=== PATIENT | female | born 1945 | race Caucasian/White ===

== ENCOUNTER 2016-08-27 14:04 | Emergency (ER) | payer MEDICARE ==
[2016-08-27 14:10] VITALS: BP 118/59; PULSE 112; TEMP 98.3
--- NOTE | 2016-08-27 14:33 | ED ---
General Adult HPI - General Chief complaint: Back Pain/Injury Stated complaint: Fall Time Seen by Provider: 08/27/16 14:16 Source: patient, RN notes reviewed, old records reviewed Mode of arrival: ambulatory Limitations: no limitations - History of Present Illness Initial comments: Chief complaint and history of present illness; patient reports that she fell while getting out of bed approximately 2 weeks ago. Complains discomfort to her right paralumbar region. No pain down the leg. Patient also reports that she was going into her doctor's office today when she stumbled and fell and he sent her here for x-rays of the lumbar spine. No new injuries since the fall. - Related Data Home Medications Medication Instructions Recorded Confirmed Letrozole [Femara] 2.5 mg PO HS 12/17/13 08/27/16 Zolpidem [Ambien] 10 mg PO HS PRN 12/17/13 08/27/16 ALPRAZolam [ALPRAZolam] 1 mg PO TID 08/27/16 08/27/16 Hydrocodone/Acetaminophen [[place] 1 tab PO Q6H PRN 08/27/16 08/27/16 10-325] Venlafaxine HCl [Venlafaxine HCl 75 mg PO DAILY 08/27/16 08/27/16 ER] Previous Rx's Medication Instructions Recorded Hydrocodone/Acetaminophen [[place] 1 each PO Q6HR PRN #20 tab 08/27/16 5-325] Allergies Allergy/AdvReac Type Severity Reaction Status Date / Time No Known Allergies Allergy Verified 08/27/16 14:10 Review of Systems ROS Statement: Those systems with pertinent positive or pertinent negative responses have been documented in the HPI. Review of systems. No headache or visual acuity changes. Denies any neck pain no shortness of breath no chest pain. Heart rates quickly 112. Blood pressure 118/59. Mild nausea yesterday slightly today. Without any other complaints. No complaints of any neuro deficits. No change in bowel habits. The patient was in emergency room was several weeks ago with probable constipation. This since subsided. All systems are reviewed. Past medical problems significant for breast cancer in 2011 she had back surgery in 2012. 2007 she had 3 brain aneurysms clipped in [place]. Also past history of panic disorder. Nonsmoker rarely drinks alcohol. Family history includes cancers of the breast, prostate: Stomach. ROS Other: All systems not noted in ROS Statement are negative. Past Medical History Past Medical History: Cancer Additional Past Medical History / Comment(s): hx breast cancer History of Any Multi-Drug Resistant Organisms: None Reported Past Surgical History: Back Surgery, Breast Surgery Additional Past Surgical History / Comment(s): 3 brain aneurysm's clipped-2007, left mastectomy-2013 Past Anesthesia/Blood Transfusion Reactions: No Reported Reaction Past Psychological History: Panic Disorder Smoking Status: Never smoker Past Alcohol Use History: Rare Past Drug Use History: None Reported General Exam - General Exam Comments Initial Comments: General: The patient is awake and alert, presented by doctor's office because of low back pain. Sent here for x-rays and lumbar spine. See chief complaint. Vital signs shows temperature 98.3 pulse 112 respiratory rate 20 pulse ox 99% room air blood pressure 118/59. Eye: Pupils are equal, round and reactive to light, extra-ocular movements are intact ; there is normal conjunctiva bilaterally. No signs of icterus. Ears, nose, mouth and throat: There are moist mucous membranes and no oral lesions. Neck: The neck is supple, there is no tenderness . Cardiovascular: Tachycardic heart rate 112.. No murmur, rub or gallop is appreciated. Respiratory: Lungs are clear to auscultation, respirations are non-labored, breath sounds are equal. No wheezes, stridor, rales, or rhonchi. Gastrointestinal: Soft, non-distended, non-tender abdomen without masses or organomegaly noted. There is no rebound or guarding present. No CVA tenderness. Bowel sounds are unremarkable. Back: Patient complains of right paralumbar pain without radiation into her bump buttock or down her legs. No sciatic type distribution complaint. Musculoskeletal: Normal ROM, no tenderness, There is no pedal edema. There is no calf tenderness or swelling. Sensation intact. Pulses equal bilaterally 2+. Neurological: CN II-XII intact, There are no obvious motor or sensory deficits. Coordination appears grossly intact. Speech is normal. Patient denies any neuro deficits or weakness. Skin: Skin is warm and dry and no rashes or lesions are noted. Early shingles discussed. Psychiatric: Past history of panic disorder. Denies any problems this time. Limitations: no limitations Course Vital Signs 08/27/16 08/27/16 14:07 15:10 Temperature 98.3 F Pulse Rate 112 H Respiratory 20 16 Rate Blood Pressure 118/59 O2 Sat by Pulse 99 Oximetry EKG Findings - EKG Comments: EKG Findings:: EKG was done and reviewed at 1442 showing sinus tachycardia rate 105. No acute ST elevation no ectopy. Rate 105 NH 148 QRS 92 QT [address] Milton Medical Decision Making - Medical Decision Making Medical decision making; 5 view x-rays of the lumbar spine were done and reviewed by radiologist entire report was reviewed his significant findings include there is loss. And plate height T12 proximal 20%,'s. Platelet loss of height of T11 approximately 50%. Impression; osteoporotic compression fracture superior endplate T12 and T11 thought to be an interval finding. As read by Dr. Bonilla. He compared these x-rays to those that were done on 06/16/2015. Patient states that she has [place] for breakthrough pain. States she does not need any extra pills. Also advised to use ibuprofen regular Tylenol and then a stronger pain medication for breakthrough pain. Also continue with stool softeners and adequate fluids to prevent constipation which she often has. Patient advised to follow-up with her family physician. She'll also be advised to follow-up with orthopedic surgeon. She will be given a prescription for a TLSO brace. In the meanwhile not to do any bending forward. Case discussed with orthopedic surgeon, back specialist, Dr. Hdz. The patient will call the office in follow-up with him. In the meanwhile she is to obtain an a TLSO brace not to do any bending forward. And discharged given the patient's denying any numbness tingling to lower extremities. No radiation of pain other than to that area in the mid low back. No difficulty controlling her stool and urine. Disposition Clinical Impression: Compression fracture of body of thoracic vertebra Disposition: HOME SELF-CARE Condition: Fair Instructions: Chronic Back Pain (ED), Vertebral Compression Fracture (ED) Additional Instructions: Go to an orthopedic brace facility to obtain a TLSO brace. In the meanwhile continue with home pain medications. No bending forward. And follow-up with Dr. Hdz Prescriptions: Hydrocodone/Acetaminophen [[place] 5-325] 1 each PO Q6HR PRN #20 tab PRN Reason: Pain Referrals: Everardo Parker MD [Primary Care Provider] - 1-2 days Neri Hdz DO [Doctor of Osteopathic Medicine] - 1-2 days Time of Disposition: 15:46
[2016-08-27 15:12] VITALS: RESP 16
--- NOTE | 2016-08-27 15:18 | XR ---
Lumbosacral spine HISTORY: Back pain, fall 5 views of the lumbosacral spine correlated to prior exam 16 June 2015 Postop changes status post lumbar fusion L2-L5 are again noted. There is mild spinal curvature, multi level laminectomy, there is intervertebral spacing material at L3-4, L4-5, partial sacralization of L 5 as on prior exam. No evident spondylolysis. Alignment is stable. Loss of disc height L5-S1. Bone de nsity is somewhat reduced. There is loss of superior endplate height at T12 approximately 20%, superi or endplate loss of height at T11 approximately 50%. IMPRESSION: Osteoporotic compression fractures superior endplates T11-T12 are thought to be an interv al finding
== END 2016-08-27 16:06 | disposition home or self-care (01) ==
LOC: EC 14:04
DX: S22.089A Unspecified fracture of T11-T12 vertebra, initial encounter for closed fracture (principal); F41.0 Panic disorder [episodic paroxysmal anxiety]; Z79.899 Other long term (current) drug therapy; W06.XXXA Fall from bed, initial encounter
CPT/HCPCS: 72110; 93005; 99284

== ENCOUNTER 2016-11-25 14:06 | Inpatient (IN) | payer MEDICARE ==
[2016-11-25] MEDS ORDERED: SODIUM CHLORIDE 0.9% 1,000 ML IV STA (14:14)
[2016-11-25 15:00] LABS: Creatine Kinase 90 U/L (30-135)
[2016-11-25 15:01] LABS: Prothrombin Time 10.1 sec (9.0-12.0)
[2016-11-25 15:04] LABS: Anisocytosis Slight; CH 22.8; CHCM 28.4; HDW 3.97; Hypochromasia Marked; MCH 23.7 pg (25.0-35.0); MCHC 29.4 g/dL (31.0-37.0); MCV 80.6 fL (80.0-100.0); Mean Platelet Volume 7.5; Microcytosis Slight; Poikilocytosis Slight; RBC 2.41 m/uL (3.80-5.40); RDW 17.6 % (11.5-15.5); WBC 9.5 k/uL (3.8-10.6)
[2016-11-25 15:05] LABS: Calcium 8.8 mg/dL (8.4-10.2); Magnesium 1.9 mg/dL (1.6-2.3); Total Bilirubin 0.2 mg/dL (0.2-1.3); Total Protein 6.4 g/dL (6.3-8.2)
[2016-11-25 15:06] LABS: HGB 5.7 gm/dL (11.4-16.0)
[2016-11-25 15:07] LABS: HCT 19.4 % (34.0-46.0)
[2016-11-25 15:14] LABS: Creatine Kinase MB 1.6 ng/mL (0.0-2.4); Troponin I <0.012 ng/mL (0.000-0.034)
[2016-11-25 15:23] LABS: Add Differential Manual Differential
[2016-11-25 15:27] LABS: Manual Review Performed; Nucleated Red Blood Cells 0 /100 WBC (0-0); Polychromasia Present; Total Cells Counted 100
--- NOTE | 2016-11-25 16:32 | ED ---
General Adult HPI - General Chief complaint: Recheck/Abnormal Lab/Rx Stated complaint: Low Hemoglobin Time Seen by Provider: 11/25/16 14:14 Source: patient, RN notes reviewed, old records reviewed Mode of arrival: wheelchair Limitations: no limitations - History of Present Illness Initial comments: This is a 71-year-old female here for evaluation of anemia, history of severe anemia, history of breast cancer specula going to chemo. Patient complaining of some back pain 1 anxiety. Patient's also admitted to fatigue of recent note. Shortness of breath. Patient was sent in for evaluation regarding severely low hemoglobin. Patient denies blood in her stool, no nausea vomiting of blood Location: neck - Related Data Home Medications Medication Instructions Recorded Confirmed ALPRAZolam [ALPRAZolam] 1 mg PO TID PRN 08/27/16 11/25/16 Loratadine [Claritin] 10 mg PO DAILY 11/25/16 11/25/16 Multivitamins, Thera [Multivitamin 1 tab PO DAILY 11/25/16 11/25/16 (formulary)] oxyCODONE-APAP 10-325MG [Percocet 1 tab PO TID PRN 11/25/16 11/25/16 10-325 mg] Allergies Allergy/AdvReac Type Severity Reaction Status Date / Time No Known Allergies Allergy Verified 11/25/16 14:51 Review of Systems ROS Statement: Those systems with pertinent positive or pertinent negative responses have been documented in the HPI. ROS Other: All systems not noted in ROS Statement are negative. Past Medical History Past Medical History: Cancer Additional Past Medical History / Comment(s): hx breast cancer History of Any Multi-Drug Resistant Organisms: None Reported Past Surgical History: Back Surgery, Breast Surgery Additional Past Surgical History / Comment(s): 3 brain aneurysm's clipped-2007, left mastectomy-2013 Past Anesthesia/Blood Transfusion Reactions: No Reported Reaction Past Psychological History: Panic Disorder Smoking Status: Never smoker Past Alcohol Use History: Rare Past Drug Use History: None Reported General Exam Limitations: no limitations General appearance: alert, in no apparent distress, lethargic Head exam: Present: atraumatic, normocephalic, normal inspection Eye exam: Present: normal appearance, PERRL, EOMI. Absent: scleral icterus, conjunctival injection, periorbital swelling ENT exam: Present: normal exam, mucous membranes moist Neck exam: Present: normal inspection. Absent: tenderness, meningismus, lymphadenopathy Respiratory exam: Present: normal lung sounds bilaterally. Absent: respiratory distress, wheezes, rales, rhonchi, stridor Cardiovascular Exam: Present: regular rate, normal rhythm, normal heart sounds. Absent: systolic murmur, diastolic murmur, rubs, gallop, clicks GI/Abdominal exam: Present: soft, normal bowel sounds. Absent: distended, tenderness, guarding, rebound, rigid Extremities exam: Present: normal inspection, full ROM, normal capillary refill. Absent: tenderness, pedal edema, joint swelling, calf tenderness Back exam: Present: normal inspection Neurological exam: Present: alert, oriented X3, CN II-XII intact Psychiatric exam: Present: normal affect, normal mood Skin exam: Present: warm, dry, intact, normal color. Absent: rash Course Vital Signs 11/25/16 11/25/16 11/25/16 14:10 14:53 16:12 Temperature 98.2 F Pulse Rate 113 H 105 H 99 Respiratory 17 18 18 Rate Blood Pressure 112/55 118/60 130/59 O2 Sat by Pulse 98 96 98 Oximetry - Reevaluation(s) Reevaluation #1: 11/25/16 17:06 Patient still feeling weak and fatigued Medical Decision Making - Medical Decision Making 71 female at ER for evaluation of severe anemia. History of CVA, patient be admitted for blood transfusion - Lab Data Result diagrams: 11/25/16 14:24 11/25/16 14:24 Lab Results 11/25/16 11/25/16 11/25/16 Range/Units 14:24 14:24 14:24 WBC 9.5 (3.8-10.6) k/uL RBC 2.41 L (3.80-5.40) m/uL Hgb 5.7 L* (11.4-16.0) gm/dL Hct 19.4 L* (34.0-46.0) % MCV 80.6 (80.0-100.0) fL MCH 23.7 L (25.0-35.0) pg MCHC 29.4 L (31.0-37.0) g/dL RDW 17.6 H (11.5-15.5) % Plt Count 683 H (150-450) k/uL Neutrophils % (Manual) 77.0 % Lymphocytes % (Manual) 14.0 % Monocytes % (Manual) 7.0 % Eosinophils % (Manual) 2.0 % Neutrophils # (Manual) 7.3 (1.3-7.7) k/uL Lymphocytes # (Manual) 1.3 (1.0-4.8) k/uL Monocytes # (Manual) 0.7 (0-1.0) k/uL Eosinophils # (Manual) 0.2 (0-0.7) k/uL Nucleated RBCs 0 (0-0) /100 WBC Manual Slide Review Performed Polychromasia Present Hypochromasia Marked Poikilocytosis Slight Anisocytosis Slight Microcytosis Slight PT (9.0-12.0) sec INR (<1.2) APTT (22.0-30.0) sec Sodium 133 L (137-145) mmol/L Potassium 4.0 (3.5-5.1) mmol/L Chloride 102 (98-107) mmol/L Carbon Dioxide 21 L (22-30) mmol/L Anion Gap 10 mmol/L BUN 14 (7-17) mg/dL Creatinine 1.41 H (0.52-1.04) mg/dL Est GFR (MDRD) Af Amer 44 (>60 ml/min/1.73 sqM) Est GFR (MDRD) Non-Af 37 (>60 ml/min/1.73 sqM) Glucose 103 H (74-99) mg/dL Calcium 8.8 (8.4-10.2) mg/dL Magnesium 1.9 (1.6-2.3) mg/dL Total Bilirubin 0.2 (0.2-1.3) mg/dL AST 30 (14-36) U/L ALT 30 (9-52) U/L Alkaline Phosphatase 97 (38-126) U/L Total Creatine Kinase 90 (30-135) U/L CK-MB (CK-2) 1.6 (0.0-2.4) ng/mL CK-MB (CK-2) Rel Index 1.8 Troponin I <0.012 (0.000-0.034) ng/mL Total Protein 6.4 (6.3-8.2) g/dL Albumin 3.3 L (3.5-5.0) g/dL Blood Type Blood Type Recheck Antibody Screen Spec Expiration Date 11/25/16 11/25/16 Range/Units 14:24 14:24 WBC (3.8-10.6) k/uL RBC (3.80-5.40) m/uL Hgb (11.4-16.0) gm/dL Hct (34.0-46.0) % MCV (80.0-100.0) fL MCH (25.0-35.0) pg MCHC (31.0-37.0) g/dL RDW (11.5-15.5) % Plt Count (150-450) k/uL Neutrophils % (Manual) % Lymphocytes % (Manual) % Monocytes % (Manual) % Eosinophils % (Manual) % Neutrophils # (Manual) (1.3-7.7) k/uL Lymphocytes # (Manual) (1.0-4.8) k/uL Monocytes # (Manual) (0-1.0) k/uL Eosinophils # (Manual) (0-0.7) k/uL Nucleated RBCs (0-0) /100 WBC Manual Slide Review Polychromasia Hypochromasia Poikilocytosis Anisocytosis Microcytosis PT 10.1 (9.0-12.0) sec INR 1.0 (<1.2) APTT 20.0 L (22.0-30.0) sec Sodium (137-145) mmol/L Potassium (3.5-5.1) mmol/L Chloride (98-107) mmol/L Carbon Dioxide (22-30) mmol/L Anion Gap mmol/L BUN (7-17) mg/dL Creatinine (0.52-1.04) mg/dL Est GFR (MDRD) Af Amer (>60 ml/min/1.73 sqM) Est GFR (MDRD) Non-Af (>60 ml/min/1.73 sqM) Glucose (74-99) mg/dL Calcium (8.4-10.2) mg/dL Magnesium (1.6-2.3) mg/dL Total Bilirubin (0.2-1.3) mg/dL AST (14-36) U/L ALT (9-52) U/L Alkaline Phosphatase (38-126) U/L Total Creatine Kinase (30-135) U/L CK-MB (CK-2) (0.0-2.4) ng/mL CK-MB (CK-2) Rel Index Troponin I (0.000-0.034) ng/mL Total Protein (6.3-8.2) g/dL Albumin (3.5-5.0) g/dL Blood Type O Positive Blood Type Recheck No Antibody Screen NEGATIVE Spec Expiration Date 11/28/2016 - 2323 Disposition Clinical Impression: Anemia Disposition: ADMITTED IP TO THIS HOSP Condition: Fair Referrals: None,Stated [Primary Care Provider] - 1-2 days
[2016-11-25] MEDS ORDERED: SODIUM CHLORIDE 0.9% 1,000 ML IV ONE (17:03)
[2016-11-25] MEDS ORDERED: LORazepam 2 MG/ML SYRINGE IV STA ×2 (17:07)
[2016-11-25] MEDS ORDERED: MORPHINE SULFATE 4 MG/ML SYRINGE IVP STA (17:07)
[2016-11-25] MEDS ORDERED: oxyCODONE-APAP 10-325MG 1 EACH TAB PO PRN (23:00)
[2016-11-25] MEDS: MORPHINE SULFATE 4 MG/ML SYRINGE IVP PRN (23:04)
[2016-11-26] MEDS: ALPRAZolam 0.5 MG TAB PO PRN ×2 (01:40→15:36)
[2016-11-26] MEDS: MORPHINE SULFATE 4 MG/ML SYRINGE IVP PRN ×6 (02:56→20:49)
[2016-11-26 04:38] VITALS: BMI 18.3
[2016-11-26] MEDS ORDERED: HYDROmorphone 1 MG/ML 1 ML SYRINGE IVP STA (07:28)
[2016-11-26] MEDS: HYDROmorphone 2 MG/ML 1 ML SYRINGE IVP PRN ×3 (07:40→10:22)
[2016-11-26] MEDS ORDERED: ZOLPIDEM 5 MG TAB PO PRN (07:53)
[2016-11-26 07:56] LABS: ALT 31 U/L (9-52); AST 24 U/L (14-36); Alkaline Phosphatase 88 U/L (38-126); Anion Gap 7 mmol/L; Anisocytosis Slight; Basophils # (A) 0.1 k/uL (0-0.2); Basophils % (A) 1 %; Blood Urea Nitrogen 9 mg/dL (7-17); CH 25.4; CHCM 29.5; Calcium 8.4 mg/dL (8.4-10.2); Carbon Dioxide 22 mmol/L (22-30); Chloride 108 mmol/L (98-107); Eosinophils # (A) 0.3 k/uL (0-0.7); Eosinophils % (A) 4 %; Glucose 85 mg/dL (74-99); HCT 26.8 % (34.0-46.0); HDW 4.39; Hypochromasia Marked; Luc # (Auto) 0.29; Luc % (Auto) 4; Lymphocytes # (A) 1.8 k/uL (1.0-4.8); Lymphocytes % (A) 24 %; MCH 25.2 pg (25.0-35.0); MCHC 29.2 g/dL (31.0-37.0); Mean Platelet Volume 7.3; Monocytes # (A) 0.8 k/uL (0-1.0); Monocytes % (A) 10 %; Neutrophils # (A) 4.4 k/uL (1.3-7.7); Neutrophils % (A) 58 %; Non-African American GFR(MDRD) >60 (>60 ml/min/1.73 sqM); Poikilocytosis Moderate; Potassium 4.3 mmol/L (3.5-5.1); RDW 17.1 % (11.5-15.5); Sodium 137 mmol/L (137-145); Total Bilirubin 0.2 mg/dL (0.2-1.3); Total Protein 5.5 g/dL (6.3-8.2); WBC 7.7 k/uL (3.8-10.6); WBC (Perox) 7.55
[2016-11-26 08:07] LABS: HGB 7.8 gm/dL (11.4-16.0)
[2016-11-26 08:08] LABS: MCV 86.2 fL (80.0-100.0)
[2016-11-26] MEDS ORDERED: RX INFO: IV CONTRAST WAS GIVEN 1 EACH MISC MISCELLANE PRN (08:11)
--- NOTE | 2016-11-26 08:45 | HP ---
CHIEF COMPLAINT: A 71-year-old white female with severe anemia. HISTORY OF PRESENT ILLNESS: A 71-year-old white female with history of breast cancer in remission, but over the last 2 or 3 months she has been having some weight loss, 14 pounds. She has not seen Dr. Campos. She wants to be re- evaluated. At this time, she has some shortness of breath. She has severely low hemoglobin of 5.6 in the ER. ( ). No nausea or vomiting of blood. Home medications are: 1. Alprazolam. 2. Claritin. 3. Multivitamin. 4. Percocet. ALLERGIES: No known drug allergies. REVIEW OF SYSTEMS: Fourteen point review of systems negative except for mentioned in HPI. PAST MEDICAL HISTORY: Cancer of the breast, back surgery, breast surgery, three brain aneurysms, clipped in 2007, left mastectomy 2013, panic disorder. No smoking, no alcohol. PHYSICAL EXAM: Vital signs stable, afebrile. GENERAL APPEARANCE: Alert, in no acute distress. HEENT: Normocephalic, atraumatic. OPHTHALMOLOGIC: Pupils equal, round, reactive to light and accommodation. ENT: External ear canals within normal limits. LUNGS: Clear. No rales or rhonchi or wheezing. CARDIOVASCULAR: Regular rate and rhythm. No murmurs, rubs or gallops. GI: Soft, nontender. No bowel sounds. EXTREMITIES: No cyanosis, clubbing or edema. BACK: Normal on inspection PSYCH: Fair mood affect. SKIN: Warm, dry, intact; although she appear to be pale, pale skin. Temp 98.2, pulse 99 to 113, respiratory 16 to 18, blood pressure 112 to 130s over 50s to 60, O2 is 98% to 96% on room air. ASSESSMENT: 1. Severe anemia of unclear etiology, rule out gastrointestinal bleed, rule out metastatic cancer. 2. History of breast cancer. 3. Hyponatremia. 4. Stage III renal insufficiency. Type and cross and transfuse 2 units of blood. We will check CBC in the morning. A bone scan has been ordered. Please see further orders. Dr. Campos consult is recommended as well as surgical consult to rule out GI bleed. [facility]
--- NOTE | 2016-11-26 08:45 | P.GSCN ---
History of Present Illness Consult date: 11/26/16 Reason for Consult: Anemia. History of present illness: Thank you very much for asking us to see this patient. She is a 71-year-old white female admitted with the anemia with a hemoglobin of 5.7. She complained of some weakness's some mild shortness of breath was pale. Had anemia workup by Dr. spencer the management. She denies any blood per rectum. Stools have been normal. No abdominal pain. She states she had a colonoscopy and EGD more than 5 years ago. Has a history of duodenal ulcer after being treated with the analgesia and NSAIDS for back issues several years ago. She has a history of the breast cancers status post left the mastectomy and immediate reconstruction. Did have positive nodes apparently according to her. She however states she did not receive any chemo or radiation subsequently. This was done at [facility]. PAst history. Back surgery. Left mastectomy with immediate reconstruction. Continued back pain. Medications as listed. Social history family history well-documented. On examination the patient is somewhat pale. Just received some analgesia. Not a good historian. Vitals and normal temperature is normal. Head and neck are normal. No cervical lymphadenopathy. Breasts well-healed left mastectomy scar no evidence of local recurrence or lymphadenopathy. No mass in the right breast. Abdomen is quite soft nontender no masses or organomegaly or hernias noted. Extremities normal. LITIGATION COUNSEL intact. Laboratory studies were noted. Hemoglobin was 5.7 on admission. Recommendation. Recommend GI workup to rule out any bleeding soft. Therefore EGD and colonoscopy will be recommended she understands and agrees to proceed. We will have a schedule in the next day or [address] Rasmussen or Dr. Stapleton . Past Medical History Past Medical History: Cancer Additional Past Medical History / Comment(s): hx breast cancer History of Any Multi-Drug Resistant Organisms: None Reported Past Surgical History: Back Surgery, Breast Surgery Additional Past Surgical History / Comment(s): 3 brain aneurysms clipped-2007, left mastectomy-2013, back sx 2013 Past Anesthesia/Blood Transfusion Reactions: No Reported Reaction Past Psychological History: Panic Disorder Smoking Status: Never smoker Past Alcohol Use History: Rare Past Drug Use History: None Reported - Past Family History Mother Family Medical History: No Reported History Medications and Allergies Home Medications Medication Instructions Recorded Confirmed Type ALPRAZolam [ALPRAZolam] 1 mg PO TID PRN 08/27/16 11/25/16 History Loratadine [Claritin] 10 mg PO DAILY 11/25/16 11/25/16 History Multivitamins, Thera [Multivitamin 1 tab PO DAILY 11/25/16 11/25/16 History (formulary)] oxyCODONE-APAP 10-325MG [Percocet 1 tab PO TID PRN 11/25/16 11/25/16 History 10-325 mg] Allergies Allergy/AdvReac Type Severity Reaction Status Date / Time No Known Allergies Allergy Verified 11/25/16 14:51 Surgical - Exam Vital Signs Temp Pulse Resp BP Pulse Ox 98.2 F 113 H 17 112/55 98 11/25/16 14:10 11/25/16 14:10 11/25/16 14:10 11/25/16 14:10 11/25/16 14:10 Results - Labs 11/26/16 07:09 11/26/16 07:09 Abnormal Lab Results - Last 24 Hours (Table) 11/25/16 11/25/16 11/25/16 Range/Units 14:24 14:24 14:24 RBC 2.41 L (3.80-5.40) m/uL Hgb 5.7 L* (11.4-16.0) gm/dL Hct 19.4 L* (34.0-46.0) % MCH 23.7 L (25.0-35.0) pg MCHC 29.4 L (31.0-37.0) g/dL RDW 17.6 H (11.5-15.5) % Plt Count 683 H (150-450) k/uL APTT 20.0 L (22.0-30.0) sec Sodium 133 L (137-145) mmol/L Chloride (98-107) mmol/L Carbon Dioxide 21 L (22-30) mmol/L Creatinine 1.41 H (0.52-1.04) mg/dL Glucose 103 H (74-99) mg/dL Total Protein (6.3-8.2) g/dL Albumin 3.3 L (3.5-5.0) g/dL Crossmatch 11/25/16 11/26/16 11/26/16 Range/Units 14:24 07:09 07:09 RBC 3.10 L (3.80-5.40) m/uL Hgb 7.8 L D (11.4-16.0) gm/dL Hct 26.8 L (34.0-46.0) % MCH (25.0-35.0) pg MCHC 29.2 L (31.0-37.0) g/dL RDW 17.1 H (11.5-15.5) % Plt Count 512 H (150-450) k/uL APTT (22.0-30.0) sec Sodium (137-145) mmol/L Chloride 108 H (98-107) mmol/L Carbon Dioxide (22-30) mmol/L Creatinine (0.52-1.04) mg/dL Glucose (74-99) mg/dL Total Protein 5.5 L (6.3-8.2) g/dL Albumin 2.7 L (3.5-5.0) g/dL Crossmatch See Detail Diabetes panel 11/25/16 11/26/16 Range/Units 14:24 07:09 Sodium 133 L 137 (137-145) mmol/L Potassium 4.0 4.3 (3.5-5.1) mmol/L Chloride 102 108 H (98-107) mmol/L Carbon Dioxide 21 L 22 (22-30) mmol/L BUN 14 9 (7-17) mg/dL Creatinine 1.41 H 0.91 (0.52-1.04) mg/dL Glucose 103 H 85 (74-99) mg/dL Calcium 8.8 8.4 (8.4-10.2) mg/dL AST 30 24 (14-36) U/L ALT 30 31 (9-52) U/L Alkaline Phosphatase 97 88 (38-126) U/L Total Protein 6.4 5.5 L (6.3-8.2) g/dL Albumin 3.3 L 2.7 L (3.5-5.0) g/dL Calcium panel 11/25/16 11/26/16 Range/Units 14:24 07:09 Calcium 8.8 8.4 (8.4-10.2) mg/dL Albumin 3.3 L 2.7 L (3.5-5.0) g/dL Pituitary panel 11/25/16 11/26/16 Range/Units 14:24 07:09 Sodium 133 L 137 (137-145) mmol/L Potassium 4.0 4.3 (3.5-5.1) mmol/L Chloride 102 108 H (98-107) mmol/L Carbon Dioxide 21 L 22 (22-30) mmol/L BUN 14 9 (7-17) mg/dL Creatinine 1.41 H 0.91 (0.52-1.04) mg/dL Glucose 103 H 85 (74-99) mg/dL Calcium 8.8 8.4 (8.4-10.2) mg/dL Adrenal panel 11/25/16 11/26/16 Range/Units 14:24 07:09 Sodium 133 L 137 (137-145) mmol/L Potassium 4.0 4.3 (3.5-5.1) mmol/L Chloride 102 108 H (98-107) mmol/L Carbon Dioxide 21 L 22 (22-30) mmol/L BUN 14 9 (7-17) mg/dL Creatinine 1.41 H 0.91 (0.52-1.04) mg/dL Glucose 103 H 85 (74-99) mg/dL Calcium 8.8 8.4 (8.4-10.2) mg/dL Total Bilirubin 0.2 0.2 (0.2-1.3) mg/dL AST 30 24 (14-36) U/L ALT 30 31 (9-52) U/L Alkaline Phosphatase 97 88 (38-126) U/L Total Protein 6.4 5.5 L (6.3-8.2) g/dL Albumin 3.3 L 2.7 L (3.5-5.0) g/dL
[2016-11-26] MEDS: SODIUM CHLORIDE 0.9% 1,000 ML IV SCH ×3 (08:58→21:19)
[2016-11-26] MEDS: MULTIVITAMINS, THERA 1 EACH TAB PO SCH (09:08)
[2016-11-26] MEDS: LORATADINE 10 MG TAB PO SCH (09:08)
[2016-11-26] MEDS: LORazepam 2 MG/ML SYRINGE IV PRN ×2 (11:32→20:49)
[2016-11-26] MEDS: IOHEXOL 350 MG/ML 25 ML BOTTLE (ORAL USE) PO PRN ×2 (12:42→13:44)
--- NOTE | 2016-11-26 13:47 | P.CONS ---
History of Present Illness - Reason for Consult Consult date: 11/26/16 history of breast cancer Requesting physician: Otto Self - Chief Complaint severe anemia, back pain - History of Present Illness Ms. Em is a very pleasant pt of Dr. Campos who was diagnosed with infiltrating ductal carcinoma of the left breast, ER/FL positive, Her2 negative back in 2011. Pt had left modified radical mastectomy with 4/15 lymph nodes positive. Staging PET was negative. She declined adjuvant chemotherapy and radiation, she agreed to hormonal treatment but was not taking as prescribed most of the time. Follow up CT chest and lumbar spine spine MRI done on 2013 were negative for malignancy. Mammogram 08/25/14, 08/29/15 were negative. Pt started to have worsening back pain in August 2016, Dr. Beckham referred pt to [place] where she had a CT scan of her lumbar spine 09/06/16 which revealed compression fracture at T11 and T12 level, MRI of lumbar spine at T11 concerns are for possible related to metastatic disease. Pt is admitted with severe anemia, she was seen by Dr. Campos in the office yesterday with work up ordered for severe anemia as well as imaging for low back pain. Pt seen today with c/o insomnia and back pain, she is weak, tired, not eating well, poor appetite, nearly 20lbs wt. loss in the last 6 months, she denies fevers, vomiting, changes in bowel or bladder habits. Review of Systems All systems: negative Constitutional: Reports as per HPI Past Medical History Past Medical History: Cancer Additional Past Medical History / Comment(s): hx breast cancer History of Any Multi-Drug Resistant Organisms: None Reported Past Surgical History: Back Surgery, Breast Surgery Additional Past Surgical History / Comment(s): 3 brain aneurysms clipped-2007, left mastectomy-2013, back sx 2013 Past Anesthesia/Blood Transfusion Reactions: No Reported Reaction Past Psychological History: Panic Disorder Smoking Status: Never smoker Past Alcohol Use History: Rare Past Drug Use History: None Reported - Past Family History Mother Family Medical History: No Reported History Medications and Allergies Home Medications Medication Instructions Recorded Confirmed Type ALPRAZolam [ALPRAZolam] 1 mg PO TID PRN 08/27/16 11/25/16 History Loratadine [Claritin] 10 mg PO DAILY 11/25/16 11/25/16 History Multivitamins, Thera [Multivitamin 1 tab PO DAILY 11/25/16 11/25/16 History (formulary)] oxyCODONE-APAP 10-325MG [Percocet 1 tab PO TID PRN 11/25/16 11/25/16 History 10-325 mg] Allergies Allergy/AdvReac Type Severity Reaction Status Date / Time No Known Allergies Allergy Verified 11/25/16 14:51 Physical Exam Vitals: Vital Signs Temp Pulse Pulse Resp BP BP Pulse Ox 11/26/16 08:00 90 16 11/26/16 07:00 97.7 F 90 16 133/77 11/26/16 03:08 97.9 F 86 18 128/64 97 11/26/16 00:08 97.7 F 86 20 138/70 11/25/16 23:38 98.0 F 87 20 142/67 95 11/25/16 23:28 98.0 F 92 18 123/60 94 L 11/25/16 23:05 97.8 F 82 18 132/68 95 11/25/16 22:30 18 11/25/16 21:10 98.1 F 86 18 133/70 95 11/25/16 20:40 97.9 F 95 18 130/69 94 L 11/25/16 20:30 98.0 F 98 18 137/98 94 L 11/25/16 18:25 96.8 F L 102 H 18 158/83 99 11/25/16 17:28 96 16 139/70 98 11/25/16 16:58 106 H 20 140/64 98 11/25/16 16:12 99 18 130/59 98 11/25/16 14:53 105 H 18 118/60 96 11/25/16 14:10 98.2 F 113 H 17 112/55 98 Intake and Output 11/25/16 11/26/16 11/26/16 22:59 06:59 14:59 Intake Total 830 1760 Balance 830 1760 Intake: Intake, IV Titration 400 Amount Sodium Chloride 0.9% 1, 400 000 ml @ 100 mls/hr IV . Q10H ONE Rx#:[id number] Oral 830 120 Blood Product 0 1240 Rc As-1 Unit 310 [id number] Rc As-1 Unit 0 310 [id number] Other: Voiding Method Bedside Commode # Voids 2 2 1 Weight 49.895 kg 49.895 kg Patient Weight 11/27/16 06:59 Weight 49.895 kg - Constitutional General appearance: average body habitus, cooperative, mild distress - EENT Eyes: anicteric sclerae, EOMI, normal appearance ENT: normal oropharynx - Neck Neck: no lymphadenopathy - Respiratory Respiratory: bilateral: CTA - Cardiovascular Heart sounds: normal: S1, S2 leg Peripheral Edema: bilateral: None - Gastrointestinal General gastrointestinal: no absent bowel sounds, no decreased bowel sounds, no distended, no hepatomegaly, no hyperactive bowel sounds, normal bowel sounds, no organomegaly, no rigid, no scaphoid, soft, no splenomegaly, no tenderness, no umbilical hernia, no ventral hernia - Integumentary Integumentary: pale - Neurologic Neurologic: CNII-XII intact - Musculoskeletal Musculoskeletal: generalized weakness - Psychiatric Psychiatric: A&O x's 3, appropriate affect, intact judgment & insight Results CBC & Chem 7: 11/26/16 07:09 11/26/16 07:09 Labs: Abnormal Lab Results - Last 24 Hours (Table) 11/25/16 11/25/16 11/25/16 Range/Units 14:24 14:24 14:24 RBC 2.41 L (3.80-5.40) m/uL Hgb 5.7 L* (11.4-16.0) gm/dL Hct 19.4 L* (34.0-46.0) % MCH 23.7 L (25.0-35.0) pg MCHC 29.4 L (31.0-37.0) g/dL RDW 17.6 H (11.5-15.5) % Plt Count 683 H (150-450) k/uL APTT 20.0 L (22.0-30.0) sec Sodium 133 L (137-145) mmol/L Chloride (98-107) mmol/L Carbon Dioxide 21 L (22-30) mmol/L Creatinine 1.41 H (0.52-1.04) mg/dL Glucose 103 H (74-99) mg/dL Total Protein (6.3-8.2) g/dL Albumin 3.3 L (3.5-5.0) g/dL Crossmatch 11/25/16 11/26/16 11/26/16 Range/Units 14:24 07:09 07:09 RBC 3.10 L (3.80-5.40) m/uL Hgb 7.8 L D (11.4-16.0) gm/dL Hct 26.8 L (34.0-46.0) % MCH (25.0-35.0) pg MCHC 29.2 L (31.0-37.0) g/dL RDW 17.1 H (11.5-15.5) % Plt Count 512 H (150-450) k/uL APTT (22.0-30.0) sec Sodium (137-145) mmol/L Chloride 108 H (98-107) mmol/L Carbon Dioxide (22-30) mmol/L Creatinine (0.52-1.04) mg/dL Glucose (74-99) mg/dL Total Protein 5.5 L (6.3-8.2) g/dL Albumin 2.7 L (3.5-5.0) g/dL Crossmatch See Detail Assessment and Plan (1) History of breast cancer Narrative/Plan: Bone scan and CT ordered for breast cancer follow up as pt has new symptomology. Await results Status: Chronic (2) Back pain Narrative/Plan: Osteoporotic fracture or pathological fracture is the differential, scans pending, pain meds adjusted. Status: Acute (3) Anemia Narrative/Plan: Anemia work up was done in office with results: iron saturation 4% ferritin 13 suggestive of iron deficiency, IV iron will be ordered. B12 WNDL, SPEP results still pending. Recommending GI work up, they will be consulted. Status: Acute
[2016-11-26] MEDS: SODIUM FERRIC GLUCONAT-SUCROSE 125 MG in SODIUM CHLORIDE 0.9% 100 ML IVPB SCH (14:15)
--- NOTE | 2016-11-26 15:05 | NM ---
EXAMINATION TYPE: NM bone scan whole body DATE OF EXAM: 11/26/2016 COMPARISON: NONE HISTORY: Low back pain, abnormal MRI Delayed whole-body scanning was performed following the injection of 26.1 mCi Tc 99m MDP. Images acq uired 5 hours post injection. FINDINGS: There is abnormal uptake involving the thoracolumbar junction which appears intense. Moderate uptake involving the mid and lower thoracic segments. Abnormal uptake involving the shoulders typical of arthritic change. Abnormal uptake involving the le ft hand likely arthritic. IMPRESSION: Intense abnormal uptake near the thoracolumbar junction. Outside MRIs not available person. Correlate with report.
--- NOTE | 2016-11-26 15:18 | CDI ---
In responding to this query, please exercise your independent professional judgment. The [facility] Coding Staff and Clinical Documentation Specialists appreciate your assistance in clarifying documentation, maintaining compliance with coding guidelines, accurately documenting patients condition and capturing severity of illness. The fact that a question is asked does not imply that any particular answer is desired or expected. Communication forms are a method of clarifying documentation and are not made part of the Legal Health Record. Thank you in advance for your clarification. Last Revision, March [address] [place] [address] Documentation Clarification Form Date: 11/26/2016 3:11:00 PM From: Anisa Lam RN, CCDS Admit Date: 11/25/2016 5:03:00 PM Patient Name: Rhea Em Visit Number: [id number] Dr. Shantanu Moran . History/Risk Factors: Breast cancer, brain aneurysm clipping, panic disorder, back surgery Clinical Indicators: Labs: Albumin: 5.5 Total Protein: 2.7 Current BMI: 18.3 Weight Loss: 14 lb weight loss over last 3 months Treatment: Dietary Consult: not ordered Supplements/TPN: not ordered Lab monitoring: AM daily In your professional opinion, can you please clarify if these findings signify one of the following conditions? Mild Protein-Calorie Malnutrition Moderate Protein-Calorie Malnutrition Severe Protein-Calorie Malnutrition Other condition, please specify Unable to determine Please document in your progress notes and discharge summary in order to capture severity of illness and risk of mortality. Include clinical findings that support your diagnosis. FYI: Press F11 to launch patient chart. Place X here if this finding has no clinical significance, is not applicable or if you are not able to provide any additional documentation. RASHEED
--- NOTE | 2016-11-26 15:26 | CDI ---
In responding to this query, please exercise your independent professional judgment. The [facility] Coding Staff and Clinical Documentation Specialists appreciate your assistance in clarifying documentation, maintaining compliance with coding guidelines, accurately documenting patients condition and capturing severity of illness. The fact that a question is asked does not imply that any particular answer is desired or expected. Communication forms are a method of clarifying documentation and are not made part of the Legal Health Record. Thank you in advance for your clarification. Last Revision, March 2015 Sylvia Aguilar [address] [address] Documentation Clarification Form Date: 11/26/2016 3:18:00 PM From: Anisa Lam RN, CCDS Admit Date: 11/25/2016 5:03:00 PM Patient Name: Rhea Em Visit Number: [id number] Dr. Shantanu Moran History/Risk Factors: Left breast CA with mastectomy and chemo, iron deficiency anemia Clinical Indicators: Current BUN/CR/GFR: 25/05.41/37 12/20/13 Patients Baseline: BUN/CR/GFR: 28/05.15/47 11/25 H&P: "Stage III renal insufficiency." Treatment: IVF: 0.9%NS @ 125 cc/hr 2 U PC TX In order to capture the severity of condition, please clarify if the condition signifies: CKD Stage 1 (GFR > 90) CKD Stage 2 (GFR 60-89) CKD Stage 3 (GFR 30-59) CKD Stage 4 (GFR 15-29) CKD Stage 5 (GFR <15) ESRD Unable to determine Other condition, please specify Please document in your progress notes and discharge summary in order to capture severity of illness and risk of mortality. Include clinical findings that support your diagnosis. FYI: Press F11 to launch patient chart. Place X here if this finding has no clinical significance, is not applicable or if you are not able to provide any additional documentation. RASHEED
--- NOTE | 2016-11-26 15:33 | CT ---
EXAMINATION TYPE: CT ChestAbdPelvis w con DATE OF EXAM: 11/26/2016 COMPARISON: 09/20/2013 CT chest. Plain films of the lumbar spine 08/27/2016 HISTORY: pain, history of breast cancer CT DLP: 584 mGycm CONTRAST: Omni 300/[address] of the chest abdomen pelvis was performed. CT Chest: LUNGS: The lungs are clear and free of infiltrate or atelectasis. No pulmonary nodule or mass is det ected. Tiny bilateral pleural effusions left greater than right. Hyperinflation compatible with COPD. MEDIASTINUM: Thoracic aorta is of normal caliber. The heart is not enlarged. No evidence for media stinal mass or adenopathy. HILAR STRUCTURES: No evidence for mass. No hilar adenopathy is appreciated. OTHER: Left mastectomy changes. Breast implant intact. CONTRAST CT ABDOMEN AND PELVIS FINDINGS: LIVER/GB: No calcified gallstones. No space occupying hepatic lesion. Biliary tree is of normal ca liber. PANCREAS: No inflammation. No distinct mass. SPLEEN: No splenic enlargement. No lesion seen. ADRENALS: No nodule. No thickening. KIDNEYS/BLADDER: No hydronephrosis. No nephrolithiasis. No disctinct renal mass. BOWEL: Moderate fixed hiatal hernia. Normal appendix. Normal bowel caliber. No inflammation. GENITAL ORGANS: No gross abnormality. LYMPH NODES: No greater than 1cm abdominal or pelvic lymph nodes are appreciated. AORTA: No significant abnormality. OSSEOUS STRUCTURES: Decompressive laminectomy changes of the lumbar spine. Impression T12 compression fracture with bony retropulsion noted. Loss of height estimated at greater than 90%. Retropulsion measures 7 mm with resultant central stenosis. Stable appearing T11 compressi on fracture. OTHER: No significant additional abnormality is seen. IMPRESSION: 1. No definite evidence for metastatic disease. 2. Lower thoracic compression fractures as discussed above. 3. Small effusions.
[2016-11-27] MEDS: MORPHINE SULFATE 4 MG/ML SYRINGE IVP PRN ×2 (01:29→05:27)
[2016-11-27] MEDS: SODIUM CHLORIDE 0.9% 1,000 ML IV SCH (05:28)
[2016-11-27 08:01] VITALS: PULSE 104; RESP 18
[2016-11-27] MEDS: MULTIVITAMINS, THERA 1 EACH TAB PO SCH (09:11)
[2016-11-27] MEDS: LORATADINE 10 MG TAB PO SCH (09:11)
[2016-11-27] MEDS: LORazepam 2 MG/ML SYRINGE IV PRN (09:11)
[2016-11-27] MEDS: SODIUM FERRIC GLUCONAT-SUCROSE 125 MG in SODIUM CHLORIDE 0.9% 100 ML IVPB SCH (09:19)
--- NOTE | 2016-11-27 12:28 | PN ---
SUBJECTIVE: 71 year old white female admitted for severe anemia, transfused two units of blood has been done. Hemoglobin is up to 7.8. Await surgical consult is appreciated as well as infectious oncology consult. She has protein level low at 2.7. She has moderate protein calorie malnutrition. Severe anemia. ( ) bone scan is appreciated. Await oncology recommendations. Workup for severe anemia. GI workup to rule out any bleeding. EGD and colonoscopy is ( ) possible next day or two will be done. MTDD
[2016-11-27] MEDS: ALPRAZolam 0.5 MG TAB PO PRN (15:58)
[2016-11-27 16:13] VITALS: BP 139/82; TEMP 98
--- NOTE | 2016-11-27 18:43 | P.PN ---
Subjective Principal diagnosis: Anemia Patient was seen yesterday by Dr. Tobar. Today the patient was reevaluated. Hemoglobin has come up after transfusion. The patient denies rectal bleeding. She appears quite upset today regarding the ongoing back discomforts and the prior diagnosis of a back fracture that according to her was not addressed. The patient states that she fell at Dr. Parker's office approximately one month ago. Looking back at the computer there is a year visit in August when the patient was found to have a compression fracture. Patient is also complaining about swelling in the left hand related to the IV site. She is not at all interested in discussing endoscopy at this time and is most interested in immediate discharge. Objective - Vital Signs Vital signs: Vital Signs Temp 98.0 F 11/27/16 15:00 Pulse 104 H 11/27/16 15:00 Resp 18 11/27/16 07:00 BP 139/82 11/27/16 15:00 Pulse Ox 99 11/27/16 07:00 Intake & Output 11/26/16 11/27/16 11/27/16 18:59 06:59 18:59 Intake Total 1590 Balance 1590 Weight 49.895 kg 49.895 kg Intake: Intake, IV Titration 700 Amount Sodium Chloride 0.9% 1, 700 000 ml @ 125 mls/hr IV . [facility] Rx#:[id number] Oral 890 Other: Voiding Method Bedside Commode Bedside Commode Bedside Commode # Voids 3 2 2 # Bowel Movements 1 - Exam Abdomen: Soft, nontender, nondistended - Labs CBC & Chem 7: 11/26/16 07:09 11/26/16 07:09 Assessment and Plan (1) Anemia Narrative/Plan: I informed the patient that I was there to evaluate her for possible endoscopy. The issues related to her back were briefly discussed and I suggested she discuss that further with her primary care physician or Dr. Perkins. Patient stated that she was going to be discharged today. Patient may follow up with Dr. Joseph up post discharge to schedule semi-elective colonoscopy and gastroscopy. Status: Acute
--- NOTE | 2016-11-28 14:21 | CDI ---
In responding to this query, please exercise your independent professional judgment. The [facility] Coding Staff and Clinical Documentation Specialists appreciate your assistance in clarifying documentation, maintaining compliance with coding guidelines, accurately documenting patients condition and capturing severity of illness. The fact that a question is asked does not imply that any particular answer is desired or expected. Communication forms are a method of clarifying documentation and are not made part of the Legal Health Record. Thank you in advance for your clarification. Last Revision, March 2015 Sylvia Aguilar [address] [place] [address] Documentation Clarification Form 2nd request Date: 11/26/2016 3:18:00 PM From: Anisa Lam RN, CCDS Admit Date: 11/25/2016 5:03:00 PM Patient Name: Rhea Em Visit Number: [id number] Dr. Shantanu Moran Renal Insuffiency stage III is documented and is not a codable diagnosis, please provide clarification. History/Risk Factors: Left breast CA with mastectomy and chemo, iron deficiency anemia Clinical Indicators: Current BUN/CR/GFR: /.41/37 12/20/13 Patients Baseline: BUN/CR/GFR: /.15/47 11/25 H&P: "Stage III renal insufficiency." Treatment: IVF: 0.9%NS @ 125 cc/hr 2 U PC TX In order to capture the severity of condition, please clarify if the condition signifies: CKD Stage 1 (GFR > 90) CKD Stage 2 (GFR 60-89) CKD Stage 3 (GFR 30-59) CKD Stage 4 (GFR 15-29) CKD Stage 5 (GFR <15) ESRD Unable to determine Other condition, please specify Please document in your progress notes and discharge summary in order to capture severity of illness and risk of mortality. Include clinical findings that support your diagnosis. FYI: Press F11 to launch patient chart. Place X here if this finding has no clinical significance, is not applicable or if you are not able to provide any additional documentation. MTDD
--- NOTE | 2016-11-30 11:55 | DS ---
DISCHARGE MEDICATION: 1. Percocet 10/325 t.i.d. 2. Multivitamin daily. 3. Claritin 10 mg daily. 4. Alprazolam 1 mg t.i.d. FOLLOWUP: With physician in less than a week. DISCHARGE DIAGNOSES: Severe anemia requiring 2 units of packed red blood cells. Patient was admitted with a hemoglobin of 5.6. She was scheduled for an EGD and colonoscopy today. On day of discharge, patient refused to get those tests done. Will work that up as an outpatient, she states. She is also concerned about a possible fracture she has had in her back in the past. Discussed with her the results of her bone scan and getting Dr. Hdz to see her for her back, a neuro orthopedic doctor we have at the hospital here. She said she will work this up as an outpatient, also. She does not want to wait for him and she does not want the endoscopy. She needs a couple of days to go home and go to the dentist to get her teeth taken care of. Her hemoglobin on discharge is 7.8 with a white count of 7.7. Platelets were 512. Sodium was 137. Potassium 4.3. Albumin was low at 2.7. Discussed with her her protein-calorie malnutrition. Follow up with oncologist Dr. Campos, who takes care of her general medical care. Follow up with Endoscopy with the surgeon within a day or 2 of discharge. She is insistent on going home at this time and not waiting for endoscopies or for neurosurgeon to evaluate her for her back and abnormal bone scan. [facility]
--- NOTE | 2016-12-03 15:12 | CDI ---
In responding to this query, please exercise your independent professional judgment. The [facility] Coding Staff and Clinical Documentation Specialists appreciate your assistance in clarifying documentation, maintaining compliance with coding guidelines, accurately documenting patients condition and capturing severity of illness. The fact that a question is asked does not imply that any particular answer is desired or expected. Communication forms are a method of clarifying documentation and are not made part of the Legal Health Record. Thank you in advance for your clarification. Last Revision, March 2015 Sylvia Aguilar [address] [place] [address] Documentation Clarification Form 2nd request Date: 11/26/2016 3:18:00 PM From: Anisa Lam RN, CCDS Admit Date: 11/25/2016 5:03:00 PM Patient Name: Rhea Em Visit Number: [id number] Dr. Shantanu Moran Renal insufficiency and renal failure are not synonymous terms. Please provide further clarification, so diagnosis can be accurately coded. History/Risk Factors: Left breast CA with mastectomy and chemo, iron deficiency anemia Clinical Indicators: Current BUN/CR/GFR: 14/.41/37 12/20/13 Patients Baseline: BUN/CR/GFR: 17/1.15/47 11/25 H&P: "Stage III renal insufficiency." Treatment: IVF: 0.9%NS @ 125 cc/hr 2 U PC TX In order to capture the severity of condition, please clarify if the condition signifies: CKD Stage 1 (GFR > 90) CKD Stage 2 (GFR 60-89) CKD Stage 3 (GFR 30-59) CKD Stage 4 (GFR 15-29) CKD Stage 5 (GFR <15) ESRD Unable to determine Other condition, please specify Please document in your progress notes and discharge summary in order to capture severity of illness and risk of mortality. Include clinical findings that support your diagnosis. FYI: Press F11 to launch patient chart. RASHEED
--- NOTE | 2016-12-09 11:31 | CDI ---
In responding to this query, please exercise your independent professional judgment. The [facility] Coding Staff and Clinical Documentation Specialists appreciate your assistance in clarifying documentation, maintaining compliance with coding guidelines, accurately documenting patients condition and capturing severity of illness. The fact that a question is asked does not imply that any particular answer is desired or expected. Communication forms are a method of clarifying documentation and are not made part of the Legal Health Record. Thank you in advance for your clarification. Last Revision, March 2015 Sylvia Aguilar [address] [place] [address] Documentation Clarification Form 3rd Request Date: 11/26/2016 3:18:00 PM From: Anisa Lam RN, CCDS Admit Date: 11/25/2016 5:03:00 PM Patient Name: Rhea Em Visit Number: [id number] Dr. Shantanu Moran History/Risk Factors : left breast CA with mastectomy and chemo, iron deficiency anemia Clinical Indicators : Current BUN/CR/GFR: /.41/37 12/20/13 Patients Baseline: BUN/CR/GFR: 28/05.15/47 11/25 H&P: "Stage III renal insufficiency." Treatment: IVF: 0.9%NS @ 125 cc/hr 2 U PC Tx In order to capture the severity of condition, please clarify if the condition signifies: CKD Stage 1 (GFR > 90) CKD Stage 2 (GFR 60-89) CKD Stage 3 (GFR 30-59) CKD Stage 4 (GFR 15-29) CKD Stage 5 (GFR <15) ESRD Unable to determine Other condition, please specify Please document in an addendum to discharge summary in order to capture severity of illness and risk of mortality. Include clinical findings that support your diagnosis. FYI: Press F11 to launch patient chart. RASHEED
== END 2016-11-27 16:50 | disposition home health service (06) | DRG 812 ==
LOC: EC 14:06 → 5ONC 17:03
PROVIDERS: ADMIT Family Medicine; ATTEND Family Medicine
DX: D64.9 Anemia, unspecified (principal); E44.0 Moderate protein-calorie malnutrition; E87.1 Hypo-osmolality and hyponatremia; M48.54XA Collapsed vertebra, not elsewhere classified, thoracic region, initial encounter for fracture; F41.0 Panic disorder [episodic paroxysmal anxiety]; G47.00 Insomnia, unspecified; N28.9 Disorder of kidney and ureter, unspecified; Z85.3 Personal history of malignant neoplasm of breast; Z90.12 Acquired absence of left breast and nipple; Z87.11 Personal history of peptic ulcer disease; Z79.899 Other long term (current) drug therapy
CPT/HCPCS: 36415; 71260; 74177; 78306; 80053; 82550; 82553; 83735; 84484; 85025; 85610; 85730; 86850; 86900; 86901; 86920; 96361; 96374; 96375; 99285

== ENCOUNTER 2018-08-10 12:43 | Emergency (ER) | payer MEDICARE ==
[2018-08-10 12:55] VITALS: RESP 18
[2018-08-10] MEDS ORDERED: SODIUM CHLORIDE 0.9% 500 ML 500 ML IV ONE (13:33)
[2018-08-10] MEDS ORDERED: DIAZEPAM 5 MG TAB PO STA (13:33)
[2018-08-10 14:01] LABS: Basophils % (A) 1 %; Eosinophils # (A) 0.2 k/uL (0-0.7); Eosinophils % (A) 3 %; HCT 41.6 % (34.0-46.0); HGB 12.9 gm/dL (11.4-16.0); Lymphocytes # (A) 1.5 k/uL (1.0-4.8); Lymphocytes % (A) 25 %; MCH 33.6 pg (25.0-35.0); MCHC 31.1 g/dL (31.0-37.0); MCV 107.9 fL (80.0-100.0); Macrocytosis Moderate; Mean Platelet Volume 7.5; Monocytes # (A) 0.4 k/uL (0-1.0); Monocytes % (A) 7 %; Neutrophils # (A) 3.6 k/uL (1.3-7.7); Neutrophils % (A) 62 %; Platelet Count 251 k/uL (150-450); RBC 3.85 m/uL (3.80-5.40); RDW 13.2 % (11.5-15.5); WBC 5.8 k/uL (3.8-10.6)
[2018-08-10 14:04] LABS: Appearance,Urine Cloudy (Clear); Bilirubin,Urine 1+ (Negative); Blood,Urine Small (Negative); Color,Urine Dark Brown; Glucose,Urine (UA) Negative (Negative); Hyaline Casts,Urine 40 /lpf (0-2); Ketones,Urine Negative (Negative); Leukocyte Esterase,Urine Negative (Negative); Mucus,Urine Rare /hpf; Nitrite,Urine Positive (Negative); PH, Urine 5.5 (5.0-8.0); Protein,Urine Trace (Negative); RBC,Urine 94 /hpf (0-5); Specific Gravity,Urine 1.035 (1.001-1.035); Squamous Epithelial Cell,Urine 3 /hpf (0-4); Uric Acid Crystals,Urine Rare /hpf; WBC,Urine 3 /hpf (0-5)
[2018-08-10 14:12] LABS: Albumin 4.6 g/dL (3.5-5.0); Calcium 9.7 mg/dL (8.4-10.2); Total Protein 8.3 g/dL (6.3-8.2)
[2018-08-10 14:14] LABS: Potassium 4.7 mmol/L (3.5-5.1)
--- NOTE | 2018-08-10 14:22 | CT ---
EXAMINATION TYPE: CT lumbar spine wo con DATE OF EXAM: 08/10/2018 COMPARISON: Plain film 06/04/[address] scan dated 11/26/2016 HISTORY: Back pain. CT DLP: 602.3 mGycm Automated exposure control for dose reduction was used. An unenhanced CT of the lumbar spine was performed. Bone and soft tissue window settings are submitt ed as well as coronal and sagittal reconstructions. FINDINGS: There has been progression at T12 of the central loss of height, progression of bone resorption with only minimal central bone mineral present, anterior displacement of vertebral body fragment as well a s posterior retropulsion is again noted which is progressed causing spinal stenosis in the central le ft paracentral location to approximately 12 to 13 mm, superior endplate fracture at T11 is again seen and there is a kyphosis present similar to prior exam. Postop changes status post posterior fusion L 2-L5 is again seen with intervertebral spacing blocks L3-4, L4-5. Punctate metallic density suspected at the level of the disc space L1-2 the left posterior paracentral location, focal density is noted on axial image 27, sagittal image 30 possibly along the anterior margin of the thecal sac. Multilevel laminectomies are again noted, transpedicular screws are again seen with stable alignment in the lumbar spine. Bone mineralization is reduced. Lumbar vertebral bodies show preserved height. M inimal anterolisthesis grade 1 L3-4, L4-5. IMPRESSION: Progression of retropulsion seen due to patient's fracture at T12 as described, indeterminate metalli c density along the spinal canal.
[2018-08-10] MEDS ORDERED: cefTRIAXone IN SWFI 1,000 MG/10 ML SYRINGE IVP STA (14:26)
--- NOTE | 2018-08-10 14:50 | ED ---
Recheck HPI - General Chief Complaint: Recheck/Abnormal Lab/Rx Stated Complaint: KIDNEY PROBLEMS, BACK PAIN Time Seen by Provider: 08/10/18 13:04 Source: patient Mode of arrival: wheelchair Limitations: no limitations - History of Present Illness Initial Comments: 72-year-old female presented for multiple complaints. Patient states that her main concern today which prompted her emergency department visit was urinary tract symptoms and sleep deprivation. Patient states that she has had urgency and frequency for the past month, she states she has been on Cipro twice and for the past week she has been on phenazopyridine. Pt states she continues to have urgency and frequency that disrupts sleep. She states she takes xanax at night in attempt to help as prescribed by Dr. Parker. Patient also states that she has had acute on chronic low back pain. Patient states she has had multiple surgeries of the lumbar spine. She states she has had a previous fracture. She states that she fell 6 weeks prior and since this fall she has had increasing lo w back pain in comparison with her baseline. Patient denies any radiation down the legs, numbness tingling or loss sensation of the lower extremities, she denies urinary retention loss of bowel bladder control, fever, IV drug use. Pt admit to history of breast cancer 5 years prior in remission, she denies METS. Remaining ROS (-), pt denies abdominal pain, thoracic back pain, chest pain, dyspnea, dyspnea upon exertion, headache, dizziness, nausea, vomiting, diarrhea. She mine DM or HTN. She denies history of CAD. Pt states she "just needs something for sleep" Upon arrival VS WNL. Patient ambulating without difficulty, appearing well and nontoxic. - Related Data Home Medications Medication Instructions Recorded Confirmed HYDROcodone/APAP 10-325MG [[place] 1 tab PO Q6HR PRN 06/04/18 08/10/18 10-325] Multivit-Min/FA/Lycopen/Lutein 1 tab PO DAILY 06/04/18 08/10/18 [Centrum Silver Tablet] Eszopiclone [Lunesta] 3 mg PO HS 08/10/18 08/10/18 Lipoflavinoid 2 tab PO DAILY 08/10/18 08/10/18 Phenazopyridine [Pyridium] 200 mg PO TID 08/10/18 08/10/18 Previous Rx's Medication Instructions Recorded Cephalexin [Keflex] 500 mg PO Q12HR 7 Days #14 cap 08/10/18 Allergies Allergy/AdvReac Type Severity Reaction Status Date / Time No Known Allergies Allergy Verified 08/10/18 13:25 Review of Systems ROS Statement: Those systems with pertinent positive or pertinent negative responses have been documented in the HPI. ROS Other: All systems not noted in ROS Statement are negative. Past Medical History Past Medical History: Cancer Additional Past Medical History / Comment(s): hx breast cancer, abdominal pain, constipation, anemia-pasased out in doctors office History of Any Multi-Drug Resistant Organisms: None Reported Past Surgical History: Back Surgery, Breast Surgery Additional Past Surgical History / Comment(s): 3 brain aneurysms clipped-2007, left mastectomy Past Anesthesia/Blood Transfusion Reactions: No Reported Reaction Past Psychological History: Panic Disorder Smoking Status: Never smoker Past Alcohol Use History: Rare Past Drug Use History: None Reported - Past Family History Mother Family Medical History: No Reported History Brother(s) Family Medical History: Cancer Additional Family Medical History / Comment(s): 3 brothers Father Family Medical History: Cancer General Exam - General Exam Comments Initial Comments: General: The patient is awake and alert, in no distress, and does not appear acutely ill. Eye: +3 mm pupils are equal, round and reactive to light, extra-ocular movements are intact. No nystagmus. There is normal conjunctiva bilaterally. No signs of icterus. Ears, nose, mouth and throat: There are moist mucous membranes and no oral lesions. Neck: The neck is supple, there is no tenderness or JVD. Cardiovascular: There is a regular rate and rhythm. No murmur, rub or gallop is appreciated. Respiratory: Lungs are clear to auscultation, respirations are non-labored, breath sounds are equal. No wheezes, stridor, rales, or rhonchi. Gastrointestinal: Soft, non-distended, non-tender abdomen without masses or organomegaly noted. There is no rebound or guarding present. No CVA tenderness. Bowel sounds are unremarkable. Musculoskeletal: Midline tenderness to palpation of the lumbar/lower thoracic spine. Normal ROM, no tenderness of the LE. Strength 5/5 of the LE equal in comparison b/l. Sensation intact of the LE equal in comparison b/l including saddle region. Radial and DP pulses equal bilaterally 2+. Neurological: A&O x 3. CN II-XII intact, There are no obvious motor or sensory deficits. Coordination appears grossly intact. Speech is normal. Skin: Skin is warm and dry and no rashes or lesions are noted. Psychiatric: Cooperative, appropriate mood & affect, normal judgment. Limitations: no limitations Course Vital Signs 08/10/18 08/10/18 12:52 14:57 Temperature 97.6 F 97.4 F L Pulse Rate 84 95 Respiratory 18 18 Rate Blood Pressure 115/76 113/7 O2 Sat by Pulse 98 94 L Oximetry Medical Decision Making - Medical Decision Making Appearing 72-year-old female presented for multiple complaints. Urinalysis revealed findings concerning for infection. Patient has been on 2 different antibiotics previously. Urine culture pending. Patient be started on Keflex. Patient given IV ceftriaxone in the emergency department. Patient has no leukocytosis. No CVA tenderness. Patient does have midline tenderness palpation of the lumbar spine. This clinical correlates with fracture of T12. This was evident on previous studies. She is neurovascularly intact. No findings concerning for cauda equina. No myoclonus or fasciculations. Pt given valium for sleep in ER. Pt states she feel more tired than she has in the past and is going to request RX outpatient for the inability to sleep at night. Remaining ROS (-). Patient is well appearing. No signs of toxicity. VS upon arrival WNL. I discussed the case with attending provider Dr. Dupont at this time we feel patient is stable for discharge. Pt has scheduled appointment with Dr. Hdz on Friday. She inserted to keep this appointment for further evaluation of T12 fracture. The edition I recommended primary care follow-up in the next 24- 48 hours. Patient states she will call after leaving the emergency department. Patient appears reliable with follow-up. At this time after discussing return parameters patient was discharged appearing well. Son in room to give ride home. - Lab Data Result diagrams: 08/10/18 13:30 08/10/18 13:30 Lab Results 08/10/18 08/10/18 08/10/18 Range/Units 11:30 13:30 13:30 WBC 5.8 (3.8-10.6) k/uL RBC 3.85 (3.80-5.40) m/uL Hgb 12.9 (11.4-16.0) gm/dL Hct 41.6 (34.0-46.0) % MCV 107.9 H (80.0-100.0) fL MCH 33.6 (25.0-35.0) pg MCHC 31.1 (31.0-37.0) g/dL RDW 13.2 (11.5-15.5) % Plt Count 251 (150-450) k/uL Neutrophils % 62 % Lymphocytes % 25 % Monocytes % 7 % Eosinophils % 3 % Basophils % 1 % Neutrophils # 3.6 (1.3-7.7) k/uL Lymphocytes # 1.5 (1.0-4.8) k/uL Monocytes # 0.4 (0-1.0) k/uL Eosinophils # 0.2 (0-0.7) k/uL Basophils # 0.0 (0-0.2) k/uL Macrocytosis Moderate Sodium 135 L (137-145) mmol/L Potassium 4.7 (3.5-5.1) mmol/L Chloride 102 (98-107) mmol/L Carbon Dioxide 23 (22-30) mmol/L Anion Gap 10 mmol/L BUN 13 (7-17) mg/dL Creatinine 1.10 H (0.52-1.04) mg/dL Est GFR (CKD-EPI)AfAm 58 (>60 ml/min/1.73 sqM) Est GFR (CKD-EPI)NonAf 50 (>60 ml/min/1.73 sqM) Glucose 147 H (74-99) mg/dL Calcium 9.7 (8.4-10.2) mg/dL Total Bilirubin 1.0 (0.2-1.3) mg/dL AST 72 H (14-36) U/L ALT 36 (9-52) U/L Alkaline Phosphatase 55 (38-126) U/L Total Protein 8.3 H (6.3-8.2) g/dL Albumin 4.6 (3.5-5.0) g/dL Urine Color Dark Brown Urine Appearance Cloudy H (Clear) Urine pH 5.5 (5.0-8.0) Ur Specific [place] 1.035 (1.001-1.035) Urine Protein Trace H (Negative) Urine Glucose (UA) Negative (Negative) Urine Ketones Negative (Negative) Urine Blood Small H (Negative) Urine Nitrite Positive H (Negative) Urine Bilirubin 1+ H (Negative) Urine Urobilinogen 3.0 (<2.0) mg/dL Ur Leukocyte Esterase Negative (Negative) Urine RBC 94 H (0-5) /hpf Urine WBC 3 (0-5) /hpf Ur Squamous Epith Cells 3 (0-4) /hpf Uric Acid Crystals Rare H (None) /hpf Hyaline Casts 40 H (0-2) /lpf Urine Mucus Rare H (None) /hpf Disposition Clinical Impression: UTI (urinary tract infection), Acute exacerbation of chronic low back pain Disposition: HOME SELF-CARE Condition: Good Instructions (If sedation given, give patient instructions): Urinary Tract Infection in Women (ED), Chronic Back Pain (ED) Additional Instructions: Please use medication as discussed. Please follow-up with family doctor in the next 2 days, please follow up with Dr. Hdz Friday as scheduled. Please return to emergency room if the symptoms increase or worsen or for any other concerns. Prescriptions: Cephalexin [Keflex] 500 mg PO Q12HR 7 Days #14 cap Is patient prescribed a controlled substance at d/c from ED?: No Referrals: Everardo Parker MD [Primary Care Provider] - 1-2 days Neri Hdz DO [Doctor of Osteopathic Medicine] - 1-2 days Time of Disposition: 14:50
[2018-08-10 14:58] VITALS: BP 113/7; PULSE 95; TEMP 97.4
== END 2018-08-10 15:12 | disposition home or self-care (01) ==
LOC: EC 12:43
DX: N39.0 Urinary tract infection, site not specified (principal); M54.5 Low back pain; G89.29 Other chronic pain; F41.0 Panic disorder [episodic paroxysmal anxiety]; Z85.3 Personal history of malignant neoplasm of breast; Z79.899 Other long term (current) drug therapy
CPT/HCPCS: 36415; 80053; 85025; 81001; 87086; 72131; 99284; 96374; J0696

== ENCOUNTER → 2019-04-05 | Outpatient (CLI) | payer MEDICARE ==
--- NOTE | 2019-04-05 14:51 | XR ---
EXAMINATION TYPE: XR chest 2V DATE OF EXAM: 04/05/2019 COMPARISON: Prior chest x-ray 09/23/2013 HISTORY: C 50.112, TECHNIQUE: Frontal and lateral views of the chest are obtained. FINDINGS: There is no focal air space opacity, pleural effusion, or pneumothorax seen. The cardiac silhouette size is within normal limits. The osseous structures show post op change lumbar spine. T here is retrocardiac density with lucency consistent with hiatal hernia. No other change. IMPRESSION: No acute cardiopulmonary process.
== END ==
LOC: RADXRMAIN 11:17
PROVIDERS: ATTEND Internal Medicine Hematology & Oncology
DX: C50.112 Malignant neoplasm of central portion of left female breast (principal); S22.080S Wedge compression fracture of T11-T12 vertebra, sequela; N95.8 Other specified menopausal and perimenopausal disorders; M48.00 Spinal stenosis, site unspecified
CPT/HCPCS: 71046

== ENCOUNTER 2019-09-14 13:45 | Inpatient (IN) | payer MEDICARE ==
[2019-09-14] MEDS ORDERED: SODIUM CHLORIDE 0.9% 1,000 ML IV STA (14:36)
--- NOTE | 2019-09-14 15:03 | CT ---
EXAMINATION TYPE: CT brain wo con DATE OF EXAM: 09/14/2019 HISTORY: Syncope. History of breast cancer. CT DLP: 1094.4 mGycm. Automated Exposure Control for Dose Reduction was Utilized. TECHNIQUE: CT scan of the head is performed without contrast. COMPARISON: None. FINDINGS: Left frontal craniotomy changes are seen along with artifact from aneurysm coil in the le ft MCA distribution. Additional aneurysm clip near the left A1 segment causing streak artifact is als o present. There is no acute intracranial hemorrhage or midline shift identified. There is diffuse ve ntricular and sulcal prominence consistent with diffuse age-related cerebral atrophy. There is low-a ttenuation in the periventricular white matter consistent with chronic small vessel ischemic change. The globes are intact and the visualized sinuses are clear. IMPRESSION: No acute intracranial hemorrhage or midline shift. There is mild to moderate diffuse ce rebral atrophy and chronic small vessel ischemic change along with extensive surgical change from ope n craniotomy repair.
--- NOTE | 2019-09-14 15:07 | XR ---
EXAMINATION TYPE: XR chest 1V portable DATE OF EXAM: 09/14/2019 COMPARISON: Chest x-ray April 05, 2019. CT November 26, 2016. HISTORY: Weakness. TECHNIQUE: Single frontal view of the chest is obtained. FINDINGS: There is no new suspicious focal air space opacity, pleural effusion, or pneumothorax seen . Increased opacity over the left lung base corresponds to the presence of single left breast implant . The cardiac silhouette size is stable and mildly enlarged. Retrocardiac opacity consistent with m oderate size hiatal hernia remains present. Surgical change in the lumbar spine is partially imaged. IMPRESSION: Mild cardiomegaly without new acute pulmonary process.
[2019-09-14 15:27] LABS: Basophils % (A) 0 %; Eosinophils % (A) 0 %; HCT 24.3 % (34.0-46.0); HGB 7.5 gm/dL (11.4-16.0); Hypochromasia Marked; Lymphocytes # (A) 0.5 k/uL (1.0-4.8); Lymphocytes % (A) 5 %; MCH 31.1 pg (25.0-35.0); MCHC 30.7 g/dL (31.0-37.0); MCV 101.4 fL (80.0-100.0); Macrocytosis Slight; Mean Platelet Volume 8.1; Monocytes # (A) 0.3 k/uL (0-1.0); Monocytes % (A) 3 %; Neutrophils # (A) 9.1 k/uL (1.3-7.7); Neutrophils % (A) 91 %; Platelet Count 473 k/uL (150-450); RDW 14.9 % (11.5-15.5); WBC 10.1 k/uL (3.8-10.6)
[2019-09-14 15:59] LABS: INR 1.4 (<1.2); Partial Thromboplastin Time 24.9 sec (22.0-30.0)
[2019-09-14 16:12] LABS: Albumin 2.7 g/dL (3.5-5.0); Calcium 9.3 mg/dL (8.4-10.2); Magnesium 1.7 mg/dL (1.6-2.3); Potassium 4.4 mmol/L (3.5-5.1); Total Bilirubin 0.5 mg/dL (0.2-1.3)
[2019-09-14 16:13] LABS: Appearance,Urine Clear (Clear); Bilirubin,Urine Negative (Negative); Blood,Urine Moderate (Negative); Calcium Oxalate Crystals,Urine Occasional /hpf; Color,Urine Yellow; Glucose,Urine (UA) Negative (Negative); Hyaline Casts,Urine 40 /lpf (0-2); Ketones,Urine Trace (Negative); Leukocyte Esterase,Urine Small (Negative); Mucus,Urine Rare /hpf; Nitrite,Urine Negative (Negative); PH, Urine 5.5 (5.0-8.0); Protein,Urine 1+ (Negative); RBC,Urine 31 /hpf (0-5); Specific Gravity,Urine 1.026 (1.001-1.035); Squamous Epithelial Cell,Urine 1 /hpf (0-4); Urobilinogen,Urine <2.0 mg/dL (<2.0); WBC,Urine 15 /hpf (0-5)
[2019-09-14 16:21] LABS: Amphetamine Screen,Urine Not Detected (NotDetected); Cocaine Screen,Urine Not Detected (NotDetected); Opiate Screen,Urine Detected (NotDetected); Phencyclidine Screen,Urine Not Detected (NotDetected); Urn Cannabinoid Scrn Not Detected (NotDetected)
[2019-09-14 16:22] LABS: Barbiturate Screen,Urine Not Detected (NotDetected); Benzodiazepines Screen,Urine Detected (NotDetected); Methadone Screen, Urine Not Detected (NotDetected); Oxycodone Screen, Urine Detected (NotDetected); Tricyclic Antidepressant,Urine Not Detected (NotDetected)
[2019-09-14 17:19] LABS: Amylase 80 U/L (30-110)
[2019-09-14] MEDS ORDERED: NALOXONE 0.4 MG/ML 1 ML VIAL IV PRN (18:27)
--- NOTE | 2019-09-14 18:30 | ED ---
General Adult HPI - General Source: patient, RN notes reviewed Mode of arrival: ambulatory Limitations: no limitations <Reese lOiver - Last Filed: 09/14/19 19:14> <Kelley Gomez - Last Filed: 09/19/19 00:10> - General Chief complaint: Weakness Stated complaint: Weakness Time Seen by Provider: 09/14/19 14:21 - History of Present Illness Initial comments: 73-year-old female with a past medical history of breast cancer presents to the emergency dept for a chief complaint of weakness. Patient states that for the past week she has felt very weak. States she has felt very fatigued. States she has fallen a few times and did hit her head because of this weakness. She has been nauseous and vomiting as well. She has not been able to keep down fluids. No fevers or chills. No cough or shortness of breath. Patient has no other complaints at this time including shortness of breath, chest pain, abdominal pain, headache, or visual changes. (Reese Oliver) - Related Data Home Medications Medication Instructions Recorded Confirmed Multivit-Min/FA/Lycopen/Lutein 1 tab PO TUTH 06/04/18 09/14/19 [Centrum Silver Tablet] ALPRAZolam [Xanax] 1 mg PO QID PRN 09/14/19 09/14/19 Letrozole [Femara] 2.5 mg PO DAILY 09/14/19 09/14/19 Zolpidem [Ambien] 10 mg PO HS 09/14/19 09/14/19 oxyCODONE-APAP 10-325MG [Percocet 1 tab PO Q6H PRN 09/14/19 09/14/19 10-325 mg] Allergies Allergy/AdvReac Type Severity Reaction Status Date / Time No Known Allergies Allergy Verified 09/14/19 19:01 Review of Systems ROS Other: All systems not noted in ROS Statement are negative. <Reese Oliver - Last Filed: 09/14/19 19:14> ROS Other: All systems not noted in ROS Statement are negative. <Kelley Gomez - Last Filed: 09/19/19 00:10> ROS Statement: Those systems with pertinent positive or pertinent negative responses have been documented in the HPI. Past Medical History Past Medical History: Cancer Additional Past Medical History / Comment(s): hx breast cancer, abdominal pain, constipation, anemia-pasased out in doctors office, low iron level. History of Any Multi-Drug Resistant Organisms: None Reported Past Surgical History: Back Surgery, Breast Surgery Additional Past Surgical History / Comment(s): 3 brain aneurysms clipped-2007, left mastectomy Past Anesthesia/Blood Transfusion Reactions: No Reported Reaction Past Psychological History: Panic Disorder Smoking Status: Never smoker Past Alcohol Use History: Rare Past Drug Use History: None Reported - Past Family History Mother Family Medical History: No Reported History Brother(s) Family Medical History: Cancer Additional Family Medical History / Comment(s): 3 brothers Father Family Medical History: Cancer <Reese Oliver P - Last Filed: 09/14/19 19:14> General Exam Limitations: no limitations General appearance: alert, in no apparent distress Head exam: Present: atraumatic, normocephalic, normal inspection Eye exam: Present: normal appearance, PERRL, EOMI. Absent: scleral icterus, conjunctival injection, periorbital swelling ENT exam: Present: normal exam, mucous membranes moist Neck exam: Present: normal inspection, full ROM. Absent: tenderness, meningismus, lymphadenopathy Respiratory exam: Present: normal lung sounds bilaterally. Absent: respiratory distress, wheezes, rales, rhonchi, stridor Cardiovascular Exam: Present: regular rate, normal rhythm, normal heart sounds. Absent: bradycardia, tachycardia, irregular rhythm GI/Abdominal exam: Present: soft, normal bowel sounds. Absent: distended, tenderness, guarding, rebound, rigid Neurological exam: Present: alert <Reese Oliver P - Last Filed: 09/14/19 19:14> Course Vital Signs 09/14/19 09/14/19 09/14/19 13:47 13:56 14:00 Temperature 98.2 F Pulse Rate 96 87 90 Respiratory 20 15 16 Rate Blood Pressure 114/67 114/67 114/67 O2 Sat by Pulse 95 97 95 Oximetry 09/14/19 09/14/19 09/14/19 15:00 16:00 17:00 Temperature Pulse Rate 92 86 81 Respiratory 15 18 19 Rate Blood Pressure 109/55 106/68 116/70 O2 Sat by Pulse 96 98 98 Oximetry 09/14/19 09/14/19 09/14/19 18:00 19:15 19:26 Temperature 98.0 F 98.0 F Pulse Rate 85 86 92 Respiratory 16 18 16 Rate Blood Pressure 123/69 131/70 128/77 O2 Sat by Pulse 99 98 Oximetry 09/14/19 09/14/19 09/14/19 19:47 19:56 20:35 Temperature 97.7 F 97.8 F Pulse Rate 90 91 Respiratory 16 20 20 Rate Blood Pressure 131/72 135/78 O2 Sat by Pulse 98 98 Oximetry EKG Findings - EKG Comments: EKG Findings:: Normal sinus rhythm, ventricular rate 87, UT interval 142, QTC 440 <Reese Oliver - Last Filed: 09/14/19 19:14> Medical Decision Making - Lab Data Result diagrams: 09/14/19 15:03 09/14/19 15:03 <Reese Oliver - Last Filed: 09/14/19 19:14> - Lab Data Result diagrams: 09/18/19 07:17 09/18/19 07:17 <Kelley Gomez - Last Filed: 09/19/19 00:10> - Medical Decision Making Vitals are stable. HPI and physical exam as documented. Patient does have a hemoglobin of 7.5. This does not appear chronic for patient. She apparently had similar occurrence in 2017 and left AMA prior to EGD and colonoscopy. States she is not sure why she was anemic at that time but it had resolved. Occult blood today is negative. Patient also has significant transaminitis with an AST of 2900 ALT at 1300. Lipase was added at this point and is 629. Ultrasound of the right upper quadrant was ordered. Hepatitis panel added. Case was discussed with Dr. Parker who does accept this admission. Requests GI be placed on consult. I did order a transfusion on patient as she is very weak and is demonstrating symptomatic anemia. She is likely hemoconcentrated at this time given CBC and CMP results. Ultrasound of the right upper quadrant showed no shadowing mobile gallstones or ultrasound evidence for acute cholecystitis. Common bile duct is upper limits of normal for patient's age at 7-[address] Parker requests CAT scan to evaluate pancreas for GI. (Reese Oliver) I was available for consultation in the emergency department. The history and physical exam were done by the midlevel provider. I was consulted for this patients care. I reviewed the case with the midlevel provider and based on their presentation of the patient, I agree with the assessment, medical decision making and plan of care as documented. Chart was dictated using [employer] dictation software. Attempts were made to correct any dictation errors however some typographical errors may persist. Patient was seen during a national state of emergency due to the Covid-19 pandemic. (Kelley Gomez) - Lab Data Lab Results 09/14/19 09/14/19 09/14/19 Range/Units 15:03 15:03 15:03 WBC 10.1 (3.8-10.6) k/uL RBC 2.40 L (3.80-5.40) m/uL Hgb 7.5 L (11.4-16.0) gm/dL Hct 24.3 L (34.0-46.0) % MCV 101.4 H (80.0-100.0) fL MCH 31.1 (25.0-35.0) pg MCHC 30.7 L (31.0-37.0) g/dL RDW 14.9 (11.5-15.5) % Plt Count 473 H (150-450) k/uL Neutrophils % 91 % Lymphocytes % 5 % Monocytes % 3 % Eosinophils % 0 % Basophils % 0 % Neutrophils # 9.1 H (1.3-7.7) k/uL Lymphocytes # 0.5 L (1.0-4.8) k/uL Monocytes # 0.3 (0-1.0) k/uL Eosinophils # 0.0 (0-0.7) k/uL Basophils # 0.0 (0-0.2) k/uL Hypochromasia Marked Macrocytosis Slight PT 14.0 H (9.0-12.0) sec INR 1.4 H (<1.2) APTT 24.9 (22.0-30.0) sec Sodium 139 (137-145) mmol/L Potassium 4.4 (3.5-5.1) mmol/L Chloride 107 (98-107) mmol/L Carbon Dioxide 28 (22-30) mmol/L Anion Gap 4 mmol/L BUN 38 H (7-17) mg/dL Creatinine 1.27 H (0.52-1.04) mg/dL Est GFR (CKD-EPI)AfAm 48 (>60 ml/min/1.73 sqM) Est GFR (CKD-EPI)NonAf 42 (>60 ml/min/1.73 sqM) Glucose 91 (74-99) mg/dL Calcium 9.3 (8.4-10.2) mg/dL Magnesium 1.7 (1.6-2.3) mg/dL Total Bilirubin 0.5 (0.2-1.3) mg/dL AST 2979 H (14-36) U/L ALT 1318 H (4-34) U/L Alkaline Phosphatase 119 (38-126) U/L Troponin I (0.000-0.034) ng/mL Total Protein 6.0 L (6.3-8.2) g/dL Albumin 2.7 L (3.5-5.0) g/dL Amylase (30-110) U/L Lipase (23-300) U/L TSH 2.390 (0.465-4.680) mIU/L Urine Color Urine Appearance (Clear) Urine pH (5.0-8.0) Ur Specific [place] (1.001-1.035) Urine Protein (Negative) Urine Glucose (UA) (Negative) Urine Ketones (Negative) Urine Blood (Negative) Urine Nitrite (Negative) Urine Bilirubin (Negative) Urine Urobilinogen (<2.0) mg/dL Ur Leukocyte Esterase (Negative) Urine RBC (0-5) /hpf Urine WBC (0-5) /hpf Ur Squamous Epith Cells (0-4) /hpf Calcium Oxalate Crystal (None) /hpf Hyaline Casts (0-2) /lpf Urine Mucus (None) /hpf Stool Occult Blood (Negative) Urine Opiates Screen (NotDetected) Ur Oxycodone Screen (NotDetected) Urine Methadone Screen (NotDetected) Ur Propoxyphene Screen (NotDetected) Ur Barbiturates Screen (NotDetected) U Tricyclic Antidepress (NotDetected) Ur Phencyclidine Scrn (NotDetected) Ur Amphetamines Screen (NotDetected) U Methamphetamines Scrn (NotDetected) U Benzodiazepines Scrn (NotDetected) Urine Cocaine Screen (NotDetected) U Marijuana (THC) Screen (NotDetected) Coronavirus (PCR) (Not Detectd) Blood Type Blood Type Recheck Bld Type Recheck Status Antibody Screen Crossmatch Spec Expiration Date 09/14/19 09/14/19 09/14/19 Range/Units 15:03 15:03 15:03 WBC (3.8-10.6) k/uL RBC (3.80-5.40) m/uL Hgb (11.4-16.0) gm/dL Hct (34.0-46.0) % MCV (80.0-100.0) fL MCH (25.0-35.0) pg MCHC (31.0-37.0) g/dL RDW (11.5-15.5) % Plt Count (150-450) k/uL Neutrophils % % Lymphocytes % % Monocytes % % Eosinophils % % Basophils % % Neutrophils # (1.3-7.7) k/uL Lymphocytes # (1.0-4.8) k/uL Monocytes # (0-1.0) k/uL Eosinophils # (0-0.7) k/uL Basophils # (0-0.2) k/uL Hypochromasia Macrocytosis PT (9.0-12.0) sec INR (<1.2) APTT (22.0-30.0) sec Sodium (137-145) mmol/L Potassium (3.5-5.1) mmol/L Chloride (98-107) mmol/L Carbon Dioxide (22-30) mmol/L Anion Gap mmol/L BUN (7-17) mg/dL Creatinine (0.52-1.04) mg/dL Est GFR (CKD-EPI)AfAm (>60 ml/min/1.73 sqM) Est GFR (CKD-EPI)NonAf (>60 ml/min/1.73 sqM) Glucose (74-99) mg/dL Calcium (8.4-10.2) mg/dL Magnesium (1.6-2.3) mg/dL Total Bilirubin (0.2-1.3) mg/dL AST (14-36) U/L ALT (4-34) U/L Alkaline Phosphatase (38-126) U/L Troponin I <0.012 (0.000-0.034) ng/mL Total Protein (6.3-8.2) g/dL Albumin (3.5-5.0) g/dL Amylase 80 (30-110) U/L Lipase 629 H (23-300) U/L TSH (0.465-4.680) mIU/L Urine Color Urine Appearance (Clear) Urine pH (5.0-8.0) Ur Specific [place] (1.001-1.035) Urine Protein (Negative) Urine Glucose (UA) (Negative) Urine Ketones (Negative) Urine Blood (Negative) Urine Nitrite (Negative) Urine Bilirubin (Negative) Urine Urobilinogen (<2.0) mg/dL Ur Leukocyte Esterase (Negative) Urine RBC (0-5) /hpf Urine WBC (0-5) /hpf Ur Squamous Epith Cells (0-4) /hpf Calcium Oxalate Crystal (None) /hpf Hyaline Casts (0-2) /lpf Urine Mucus (None) /hpf Stool Occult Blood (Negative) Urine Opiates Screen (NotDetected) Ur Oxycodone Screen (NotDetected) Urine Methadone Screen (NotDetected) Ur Propoxyphene Screen (NotDetected) Ur Barbiturates Screen (NotDetected) U Tricyclic Antidepress (NotDetected) Ur Phencyclidine Scrn (NotDetected) Ur Amphetamines Screen (NotDetected) U Methamphetamines Scrn (NotDetected) U Benzodiazepines Scrn (NotDetected) Urine Cocaine Screen (NotDetected) U Marijuana (THC) Screen (NotDetected) Coronavirus (PCR) Not Detected (Not Detectd) Blood Type Blood Type Recheck Bld Type Recheck Status Antibody Screen Crossmatch Spec Expiration Date 09/14/19 09/14/19 09/14/19 Range/Units 15:52 17:20 17:46 WBC (3.8-10.6) k/uL RBC (3.80-5.40) m/uL Hgb (11.4-16.0) gm/dL Hct (34.0-46.0) % MCV (80.0-100.0) fL MCH (25.0-35.0) pg MCHC (31.0-37.0) g/dL RDW (11.5-15.5) % Plt Count (150-450) k/uL Neutrophils % % Lymphocytes % % Monocytes % % Eosinophils % % Basophils % % Neutrophils # (1.3-7.7) k/uL Lymphocytes # (1.0-4.8) k/uL Monocytes # (0-1.0) k/uL Eosinophils # (0-0.7) k/uL Basophils # (0-0.2) k/uL Hypochromasia Macrocytosis PT (9.0-12.0) sec INR (<1.2) APTT (22.0-30.0) sec Sodium (137-145) mmol/L Potassium (3.5-5.1) mmol/L Chloride (98-107) mmol/L Carbon Dioxide (22-30) mmol/L Anion Gap mmol/L BUN (7-17) mg/dL Creatinine (0.52-1.04) mg/dL Est GFR (CKD-EPI)AfAm (>60 ml/min/1.73 sqM) Est GFR (CKD-EPI)NonAf (>60 ml/min/1.73 sqM) Glucose (74-99) mg/dL Calcium (8.4-10.2) mg/dL Magnesium (1.6-2.3) mg/dL Total Bilirubin (0.2-1.3) mg/dL AST (14-36) U/L ALT (4-34) U/L Alkaline Phosphatase (38-126) U/L Troponin I (0.000-0.034) ng/mL Total Protein (6.3-8.2) g/dL Albumin (3.5-5.0) g/dL Amylase (30-110) U/L Lipase (23-300) U/L TSH (0.465-4.680) mIU/L Urine Color Yellow Urine Appearance Clear (Clear) Urine pH 5.5 (5.0-8.0) Ur Specific [place] 1.026 (1.001-1.035) Urine Protein 1+ H (Negative) Urine Glucose (UA) Negative (Negative) Urine Ketones Trace H (Negative) Urine Blood Moderate H (Negative) Urine Nitrite Negative (Negative) Urine Bilirubin Negative (Negative) Urine Urobilinogen <2.0 (<2.0) mg/dL Ur Leukocyte Esterase Small H (Negative) Urine RBC 31 H (0-5) /hpf Urine WBC 15 H (0-5) /hpf Ur Squamous Epith Cells 1 (0-4) /hpf Calcium Oxalate Crystal Occasional H (None) /hpf Hyaline Casts 40 H (0-2) /lpf Urine Mucus Rare H (None) /hpf Stool Occult Blood Negative (Negative) Urine Opiates Screen Detected H (NotDetected) Ur Oxycodone Screen Detected H (NotDetected) Urine Methadone Screen Not Detected (NotDetected) Ur Propoxyphene Screen Not Detected (NotDetected) Ur Barbiturates Screen Not Detected (NotDetected) U Tricyclic Antidepress Not Detected (NotDetected) Ur Phencyclidine Scrn Not Detected (NotDetected) Ur Amphetamines Screen Not Detected (NotDetected) U Methamphetamines Scrn Not Detected (NotDetected) U Benzodiazepines Scrn Detected H (NotDetected) Urine Cocaine Screen Not Detected (NotDetected) U Marijuana (THC) Screen Not Detected (NotDetected) Coronavirus (PCR) (Not Detectd) Blood Type O Positive Blood Type Recheck O Pos Bld Type Recheck Status No Antibody Screen NEGATIVE Crossmatch See Detail Spec Expiration Date 09/17/2019 5569 Disposition Is patient prescribed a controlled substance at d/c from ED?: No Time of Disposition: 18:29 <Reese Oliver P - Last Filed: 09/14/19 19:14> <Kelley Gomez - Last Filed: 09/19/19 00:10> Clinical Impression: Anemia, Transaminitis Disposition: ADMITTED IP TO THIS HOSP Condition: Fair
--- NOTE | 2019-09-14 18:33 | US ---
EXAMINATION TYPE: US abdomen limited DATE OF EXAM: 09/14/2019 COMPARISON: CT 2017 CLINICAL HISTORY: RUQ. RUQ pain, nausea. Decreased appetite. Patient has a history of breast cancer. EXAM MEASUREMENTS: Liver Length: 12.3 cm Gallbladder Wall: 0.23 cm CBD: 0.79 cm Right Kidney: 9.9 x 5.4 x 3.9 cm Limited due to overlying bowel gas. Pancreas: Limited evaluation. Liver: Appears to have a lobulated contour. Gas seen slightly obscuring partial left lobe of the li anayeli. Gallbladder: Fold seen. Appears to be anechoic. Evidence for sonographic Garcia's sign: No CBD: Appears to be upper limits of normal. Right Kidney: Hyperechoic areas seen. Largest shows posterior shadowing and twinkle artifact and michelle sures: 0.7 x 0.7 x 0.5 cm. Suboptimal evaluation of pancreas and images saved secondary to overlying bowel gas per technologist. Visualized liver heterogeneously hyperechoic. Evaluation for focal masses suboptimal due to the hete rogeneity and overlying gas. Suspect fatty infiltration. Prominent fold in gallbladder without shadow ing mobile stones. Common bile duct upper limits of normal for patient's age at 7 to 8 mm. Right kidn ey shows increased cortical echogenicity without hydronephrosis. Cannot exclude small nonobstructing renal calculi. IMPRESSION: No shadowing mobile gallstones or ultrasound evidence for acute cholecystitis.
[2019-09-14] MEDS: SODIUM CHLORIDE 0.9% 1,000 ML IV SCH (19:21)
[2019-09-14 20:23] LABS: Hepatitis A Antibody IgM NEGATIVE
--- NOTE | 2019-09-14 20:27 | CT ---
EXAMINATION TYPE: CT abdomen pelvis w con DATE OF EXAM: 09/14/2019 COMPARISON: 11/26/2016 HISTORY: Nausea and decreased appetite. Evaluate pancreas. CT DLP: 558.9 mGycm Automated exposure control for dose reduction was used. CONTRAST: CT scan of the abdomen pelvis is performed with IV Contrast, patient injected with 100 mL of Isovue 3 70. FINDINGS- LUNG BASES-subsegmental changes involving the lung bases most typical of atelectasis.. LIVER/GB-heterogeneous pattern to the liver most likely related to hepatic steatosis with areas of fa tty sparing. This appears progressed from the prior exam. Extrahepatic common bile duct is prominent measuring 8 mm. PANCREAS-there is a 7 mm low density lesion involving the body the pancreas best seen on axial image 41 2 small to characterize. Lesion not seen with certainty on prior exam.. Additional pancreatic tail 5 mm lesion seen on axial image 29. SPLEEN- No gross abnormality is seen. ADRENALS- No gross abnormality is seen. KIDNEYS/BLADDER-nonobstructing 2 mm lower pole right renal calculus. BOWEL-large hiatal hernia noted. Virtually entire stomach is within the thoracic cavity. There may be a trace of fluid adjacent to the stomach which also was noted on the prior exam and appears stable. Bowel gas pattern nonspecific. No diagnostic evidence of obstruction. Appendix not seen with certaint y. LYMPH NODES- No greater than 1cm abdominal or pelvic lymph nodes areappreciated. OSSEOUS STRUCTURES-complete compression fracture with significant retropulsion of T12 noted with pearl re spinal stenosis and suspected spinal cord compression. Postsurgical changes with multilevel degene rative disc disease and grade 1 anterolisthesis L4 on L5.. Spell millimeters sacral Tarlov cyst. [employer] abilio rib deformities on the left compatible with previous fracture noted. OTHER-breast implant surgery noted. Aorta of normal caliber. Soft tissue density in the right adnexa measures 1.8 cm mass most likely related to a right ovary. IMPRESSION- 1. There are 2 less than 1 cm lesions within the pancreas to small to characterize as discussed above . MRI suggested. 2. There is interval progression of a complete compression fracture with retropulsion of T12 relative to the prior exam with severe spinal stenosis and suspected spinal cord compression. MRI recommended . 3. Interval development of heterogeneous pattern to the liver correlation with liver LFTs is suggeste d. Finding could be on the basis of progressive fatty infiltration with areas of focal fatty sparing. Other etiologies are not excluded. Correlate clinically. 4. Nonobstructing 2 mm lower pole right renal calculus. 5. There is a large hiatal hernia containing the entire stomach within the thoracic cavity. Mild wall thickening not excluded. Correlate for gastric symptoms. 6. Mildly prominent right ovary for the patient's demographics measuring 1.8 cm could be correlated w ith CA-125 and pelvic ultrasound as clinically warranted. 7. Extrahepatic common bile duct measures 8 mm and is dilated. No definite gallstones or calcificatio ns within the bile ducts. Correlate clinically and with MRCP or ERCP as clinically warranted to asses s the distal CBD
[2019-09-14] MEDS ORDERED: ALPRAZolam 1 MG TAB PO PRN (22:44)
[2019-09-14] MEDS: ZOLPIDEM 10 MG TAB PO SCH (23:59)
[2019-09-15 00:01] LABS: Hepatitis B Core IgM Non-Reactive (Non-Reactive); Hepatitis B Surface Antigen Non-Reactive (Non-Reactive); Hepatitis C IgG Antibody Non-Reactive (Non-Reactive)
[2019-09-15 07:24] LABS: Anisocytosis Slight; Basophils % (A) 0 %; Eosinophils % (A) 0 %; HCT 27.4 % (34.0-46.0); HGB 8.2 gm/dL (11.4-16.0); Hypochromasia Marked; Lymphocytes # (A) 0.8 k/uL (1.0-4.8); Lymphocytes % (A) 9 %; MCH 29.7 pg (25.0-35.0); MCV 98.9 fL (80.0-100.0); Macrocytosis Slight; Monocytes # (A) 0.3 k/uL (0-1.0); Monocytes % (A) 3 %; Neutrophils # (A) 7.3 k/uL (1.3-7.7); Neutrophils % (A) 87 %; Platelet Count 405 k/uL (150-450); Poikilocytosis Slight; RBC 2.77 m/uL (3.80-5.40); RDW 16.1 % (11.5-15.5); WBC 8.5 k/uL (3.8-10.6)
[2019-09-15 07:32] LABS: Calcium 8.4 mg/dL (8.4-10.2)
--- NOTE | 2019-09-15 08:15 | P.HPIM ---
History of Present Illness H&P Date: 09/15/19 Chief Complaint: Status post fall This is a history and physical on a 73-year-old white female with known history of breast cancer who has had significant weakness and decreased appetite for the last week. The patient has significant transaminitis and is admitted for approp riate treatment for this. GIs now consulted. No history of ethanol abuse. However she does take chronic opiates with Tylenol. No fever or chills. There is weakness she is lucid. She is not wish to have any type of long-term mechanical ventilation. No overt hematemesis melena or hematochezia or hematuria noted. Review of Systems Constitutional: Denies chills, Denies fever Eyes: denies blurred vision, denies pain Ears, nose, mouth and throat: Denies headache, Denies sore throat Cardiovascular: Denies chest pain, Denies shortness of breath Respiratory: Denies cough Gastrointestinal: Denies abdominal pain, Denies diarrhea, Denies nausea, Denies vomiting Genitourinary: Denies dysuria, Denies hematuria Musculoskeletal: Reports low back pain Psychiatric: Denies anxiety, Denies depression Past Medical History Past Medical History: Cancer Additional Past Medical History / Comment(s): hx breast cancer, abdominal pain, constipation, anemia-passed out in doctors office, low iron level. History of Any Multi-Drug Resistant Organisms: None Reported Past Surgical History: Back Surgery, Breast Surgery Additional Past Surgical History / Comment(s): 3 brain aneurysms clipped-2007, left mastectomy 6 years ago Past Anesthesia/Blood Transfusion Reactions: No Reported Reaction Past Psychological History: Panic Disorder Smoking Status: Never smoker Past Alcohol Use History: Rare Past Drug Use History: None Reported - Past Family History Mother Family Medical History: No Reported History Brother(s) Family Medical History: Cancer Additional Family Medical History / Comment(s): 3 brothers Father Family Medical History: Cancer Additional Family Medical History / Comment(s): prostate cancer Medications and Allergies Home Medications Medication Instructions Recorded Confirmed Type Multivit-Min/FA/Lycopen/Lutein 1 tab PO TUTH 06/04/18 09/14/19 History [Centrum Silver Tablet] ALPRAZolam [Xanax] 1 mg PO QID PRN 09/14/19 09/14/19 History Letrozole [Femara] 2.5 mg PO DAILY 09/14/19 09/14/19 History Zolpidem [Ambien] 10 mg PO HS 09/14/19 09/14/19 History oxyCODONE-APAP 10-325MG [Percocet 1 tab PO Q6H PRN 09/14/19 09/14/19 History 10-325 mg] Allergies Allergy/AdvReac Type Severity Reaction Status Date / Time No Known Allergies Allergy Verified 09/14/19 19:01 Physical Exam Vitals: Vital Signs Temp Pulse Pulse Resp BP BP Pulse Ox 09/15/19 04:10 18 09/15/19 02:34 97.9 F 101 H 19 134/67 95 09/14/19 23:17 95 16 09/14/19 21:52 97.6 F 95 16 159/78 09/14/19 21:04 97.3 F L 95 18 159/78 98 09/14/19 20:35 97.8 F 91 20 135/78 98 09/14/19 19:56 97.7 F 90 20 131/72 98 09/14/19 19:47 16 09/14/19 19:26 98.0 F 92 16 128/77 98 09/14/19 19:15 98.0 F 86 18 131/70 09/14/19 18:00 85 16 123/69 99 09/14/19 17:00 81 19 116/70 98 09/14/19 16:00 86 18 106/68 98 09/14/19 15:00 92 15 109/55 96 09/14/19 14:00 90 16 114/67 95 09/14/19 13:56 87 15 114/67 97 09/14/19 13:47 98.2 F 96 20 114/67 95 Intake and Output 09/14/19 09/15/19 09/15/19 22:59 06:59 14:59 Intake Total 310 Balance 310 Intake: Blood Product 310 Rc As-1 Unit 310 [id number] Other: Voiding Method Bedside Commode # Voids 1 1 Weight 54.431 kg - Constitutional General appearance: no acute distress - EENT Eyes: EOMI - Neck Neck: no lymphadenopathy - Respiratory Respiratory: bilateral: CTA - Cardiovascular Rhythm: regular Heart sounds: normal: S1, S2 Abnormal Heart Sounds: no S3 Gallop - Gastrointestinal General gastrointestinal: soft, no tenderness - Integumentary Facial bruising is noted from fall Integumentary: normal - Musculoskeletal Musculoskeletal: generalized weakness - Psychiatric Psychiatric: A&O x's 3, appropriate affect, intact judgment & insight Results CBC & Chem 7: 09/15/19 06:36 09/15/19 06:36 Labs: Abnormal Lab Results - Last 24 Hours (Table) 09/14/19 09/14/19 09/14/19 Range/Units 15:03 15:03 15:03 RBC 2.40 L (3.80-5.40) m/uL Hgb 7.5 L (11.4-16.0) gm/dL Hct 24.3 L (34.0-46.0) % MCV 101.4 H (80.0-100.0) fL MCHC 30.7 L (31.0-37.0) g/dL RDW (11.5-15.5) % Plt Count 473 H (150-450) k/uL Neutrophils # 9.1 H (1.3-7.7) k/uL Lymphocytes # 0.5 L (1.0-4.8) k/uL PT 14.0 H (9.0-12.0) sec INR 1.4 H (<1.2) Chloride (98-107) mmol/L BUN 38 H (7-17) mg/dL Creatinine 1.27 H (0.52-1.04) mg/dL Glucose (74-99) mg/dL AST 2979 H (14-36) U/L ALT 1318 H (4-34) U/L Total Protein 6.0 L (6.3-8.2) g/dL Albumin 2.7 L (3.5-5.0) g/dL Lipase (23-300) U/L Urine Protein (Negative) Urine Ketones (Negative) Urine Blood (Negative) Ur Leukocyte Esterase (Negative) Urine RBC (0-5) /hpf Urine WBC (0-5) /hpf Calcium Oxalate Crystal (None) /hpf Hyaline Casts (0-2) /lpf Urine Mucus (None) /hpf Urine Opiates Screen (NotDetected) Ur Oxycodone Screen (NotDetected) U Benzodiazepines Scrn (NotDetected) Crossmatch 09/14/19 09/14/19 09/14/19 Range/Units 15:03 15:52 17:46 RBC (3.80-5.40) m/uL Hgb (11.4-16.0) gm/dL Hct (34.0-46.0) % MCV (80.0-100.0) fL MCHC (31.0-37.0) g/dL RDW (11.5-15.5) % Plt Count (150-450) k/uL Neutrophils # (1.3-7.7) k/uL Lymphocytes # (1.0-4.8) k/uL PT (9.0-12.0) sec INR (<1.2) Chloride (98-107) mmol/L BUN (7-17) mg/dL Creatinine (0.52-1.04) mg/dL Glucose (74-99) mg/dL AST (14-36) U/L ALT (4-34) U/L Total Protein (6.3-8.2) g/dL Albumin (3.5-5.0) g/dL Lipase 629 H (23-300) U/L Urine Protein 1+ H (Negative) Urine Ketones Trace H (Negative) Urine Blood Moderate H (Negative) Ur Leukocyte Esterase Small H (Negative) Urine RBC 31 H (0-5) /hpf Urine WBC 15 H (0-5) /hpf Calcium Oxalate Crystal Occasional H (None) /hpf Hyaline Casts 40 H (0-2) /lpf Urine Mucus Rare H (None) /hpf Urine Opiates Screen Detected H (NotDetected) Ur Oxycodone Screen Detected H (NotDetected) U Benzodiazepines Scrn Detected H (NotDetected) Crossmatch See Detail 09/15/19 09/15/19 Range/Units 06:36 06:36 RBC 2.77 L (3.80-5.40) m/uL Hgb 8.2 L (11.4-16.0) gm/dL Hct 27.4 L (34.0-46.0) % MCV (80.0-100.0) fL MCHC 30.0 L (31.0-37.0) g/dL RDW 16.1 H (11.5-15.5) % Plt Count (150-450) k/uL Neutrophils # (1.3-7.7) k/uL Lymphocytes # 0.8 L (1.0-4.8) k/uL PT (9.0-12.0) sec INR (<1.2) Chloride 109 H (98-107) mmol/L BUN 25 H (7-17) mg/dL Creatinine (0.52-1.04) mg/dL Glucose 64 L (74-99) mg/dL AST (14-36) U/L ALT (4-34) U/L Total Protein (6.3-8.2) g/dL Albumin (3.5-5.0) g/dL Lipase (23-300) U/L Urine Protein (Negative) Urine Ketones (Negative) Urine Blood (Negative) Ur Leukocyte Esterase (Negative) Urine RBC (0-5) /hpf Urine WBC (0-5) /hpf Calcium Oxalate Crystal (None) /hpf Hyaline Casts (0-2) /lpf Urine Mucus (None) /hpf Urine Opiates Screen (NotDetected) Ur Oxycodone Screen (NotDetected) U Benzodiazepines Scrn (NotDetected) Crossmatch Microbiology - Last 24 Hours (Table) 09/14/19 15:52 Urine Culture - Preliminary Urine,Voided Thrombosis Risk Factor Assmnt - Choose All That Apply Any of the Below Risk Factors Present?: No Other Risk Factors: Yes Each Risk Factor Represents 2 Points: Age 61-74 years Other congenital or acquired thrombophilia - If yes, enter type in comment: No Thrombosis Risk Factor Assessment Total Risk Factor Score: 2 Thrombosis Risk Factor Assessment Level: Low Risk Assessment and Plan (1) Anemia Current Visit: Yes Status: Acute Priority: High Code(s): D64.9 - ANEMIA, UNSPECIFIED SNOMED Code(s): 453765516 (2) Transaminitis Current Visit: Yes Status: Acute Code(s): R74.0 - NONSPEC ELEV OF LEVELS OF TRANSAMNS & LACTIC ACID DEHYDRGNSE SNOMED Code(s): 669673869 (3) Back pain Current Visit: No Status: Acute Priority: High Code(s): M54.9 - DORSALGIA, UNSPECIFIED SNOMED Code(s): 677265122 (4) History of breast cancer Current Visit: No Status: Chronic Priority: High Code(s): Z85.3 - PERSONAL HISTORY OF MALIGNANT NEOPLASM OF BREAST SNOMED Code(s): 804457481 Plan: Reconcile medications area Await GI evaluation. Check CBC and CMP in a.m. Question need for transfusion or appropriate anemia workup. She is a full code with no long-term mechanical ventilation. Time with Patient: Greater than 30
[2019-09-15] MEDS: LORazepam 2 MG/ML INJ IV PRN (10:42)
[2019-09-15 12:10] LABS: Reticulocyte % 2.5 % (0.5-2.0)
--- NOTE | 2019-09-15 12:30 | US ---
EXAMINATION TYPE: US pelvic complete DATE OF EXAM: 09/15/2019 COMPARISON: CT from yesterday CLINICAL HISTORY: Right ovary appears prominent on CT. Back pain, no other pelvic issues. Difficult e xam due to patient pain- unable to put much pressure on patient. Large amount of bowel gas visualized TECHNIQUE: Transabdominal . Transabdominal sonographic images of the pelvis were acquired. Transv aginal exam was not done due to patient pain Date of LMP: 30 years ago EXAM MEASUREMENTS: Uterus: 3.8 x 2.0 x 2.7 cm Endometrial Stripe: 0.25 cm Right Ovary: 1.5 x 1.7 x 1.2 cm Left Ovary: 1.1 x 0.8 x 1.0 cm 1. Uterus: Retroverted wnl as visualized. Limited due to overlying bowel gas 2. Endometrium: wnl 3. Right Ovary: wnl as visualized. Limited due to overlying bowel gas 4. Left Ovary: wnl as visualized. Limited due to overlying bowel gas 5. Bilateral Adnexa: wnl 6. Posterior cul-de-sac: wnl Slightly suboptimal study as patient could not tolerate transvaginal investigation. Retroverted uteru s redemonstrated. Endometrium not well seen presumed not thickened. Both ovaries felt normal in size for postmenopausal female. No concerning adnexal images seen. IMPRESSION: Normal-sized ovaries. No suspicious ovarian or adnexal masses on images saved.
[2019-09-15 19:19] LABS: % Iron Saturation 19.74 (12.00-45.00); Iron 45 ug/dL (50-170); Total Iron Binding Capacity 228 ug/dL (228-460)
[2019-09-15 19:45] LABS: Folate, Serum 21.6 ng/mL
[2019-09-15 20:24] LABS: Vitamin B12 >4000.0 pg/mL (211-911)
--- NOTE | 2019-09-15 20:37 | P.CONS ---
History of Present Illness - Reason for Consult Consult date: 09/15/19 Elevated liver enzymes Requesting physician: Everardo Parker - Chief Complaint [place] - History of Present Illness 73-year-old female with a medical history significant for mastectomy, prior history of iron deficiency anemia who currently presents due to complaints of weakness. The patient reports one week of weakness and decreased oral intake. She reports feeling very fatigued. She reports falling secondary to the weakness. She also reports some associated nausea and vomiting. She denies any signs or symptoms of GI bleeding with no blood per rectum or melena. Last bowel movement normal. On presentation to the hospital the patient has significant transaminitis on laboratory evaluation with total bilirubin 0.5, alkaline phosphatase 119, AST 2974 and ALT 1318. She denies any prior history of elevated liver enzymes. She denies any chronic or heavy alcohol use stating that she'll have an alcoholic beverage 1-2 times per week. No history of viral hepatitis and acute viral panel negative. Stool testing negative for blood. Laboratory evaluation also significant for WBC 8.5, hemoglobin 8.2, platelet count 405,000. Patient reports she has been told she is anemic in the past. She has been treated with iron infusions in the past and follows up with her pheresis nurse/oncologist. Ultrasound of the abdomen negative for any cholelithiasis or cholecystitis. Multiple findings on computed tomography scan of the abdomen including possible subcentimeter pancreatic lesions and dilated CBD as well as other findings. Review of Systems REVIEW OF SYSTEMS: CONSTITUTIONAL: Denies any fevers, chills, weight change but does report fatigue. CARDIOVASCULAR: Denies any chest pain, palpitations high or low blood pressures RESPIRATORY: Denies any shortness of breath, hemoptysis or cough. GENITOURINARY: No dysuria or hematuria. MUSCULOSKELETAL: No weakness reported. SKIN: Denies any new rashes or lesions, jaundice or pallor. PSYCHIATRIC: Denies any depression or anxiety. NEUROLOGY: Denies headache, denies any new focal deficits. EARS/NOSE/THROAT: No recent hearing change, congestion, nasal discharge or sore throat. EYES: No pain in eyes, discharge or change in vision. GASTROINTESTINAL: As per HPI. Past Medical History Past Medical History: Cancer Additional Past Medical History / Comment(s): hx breast cancer, abdominal pain, constipation, anemia-passed out in doctors office, low iron level. History of Any Multi-Drug Resistant Organisms: None Reported Past Surgical History: Back Surgery, Breast Surgery Additional Past Surgical History / Comment(s): 3 brain aneurysms clipped-2007, left mastectomy 6 years ago Past Anesthesia/Blood Transfusion Reactions: No Reported Reaction Past Psychological History: Panic Disorder Smoking Status: Never smoker Past Alcohol Use History: Rare Past Drug Use History: None Reported - Past Family History Mother Family Medical History: No Reported History Brother(s) Family Medical History: Cancer Additional Family Medical History / Comment(s): 3 brothers Father Family Medical History: Cancer Additional Family Medical History / Comment(s): prostate cancer Medications and Allergies Home Medications Medication Instructions Recorded Confirmed Type Multivit-Min/FA/Lycopen/Lutein 1 tab PO TUTH 06/04/18 09/14/19 History [Centrum Silver Tablet] ALPRAZolam [Xanax] 1 mg PO QID PRN 09/14/19 09/14/19 History Letrozole [Femara] 2.5 mg PO DAILY 09/14/19 09/14/19 History Zolpidem [Ambien] 10 mg PO HS 09/14/19 09/14/19 History oxyCODONE-APAP 10-325MG [Percocet 1 tab PO Q6H PRN 09/14/19 09/14/19 History 10-325 mg] Allergies Allergy/AdvReac Type Severity Reaction Status Date / Time No Known Allergies Allergy Verified 09/14/19 19:01 Physical Exam Vitals: Vital Signs Temp Pulse Pulse Resp BP BP Pulse Ox 09/15/19 07:00 97.6 F 82 18 138/85 93 L 09/15/19 04:10 18 09/15/19 02:34 97.9 F 101 H 19 134/67 95 09/14/19 23:17 95 16 09/14/19 21:52 97.6 F 95 16 159/78 09/14/19 21:04 97.3 F L 95 18 159/78 98 09/14/19 20:35 97.8 F 91 20 135/78 98 09/14/19 19:56 97.7 F 90 20 131/72 98 09/14/19 19:47 16 09/14/19 19:26 98.0 F 92 16 128/77 98 09/14/19 19:15 98.0 F 86 18 131/70 09/14/19 18:00 85 16 123/69 99 09/14/19 17:00 81 19 116/70 98 09/14/19 16:00 86 18 106/68 98 09/14/19 15:00 92 15 109/55 96 09/14/19 14:00 90 16 114/67 95 09/14/19 13:56 87 15 114/67 97 09/14/19 13:47 98.2 F 96 20 114/67 95 Intake and Output 09/14/19 09/15/19 09/15/19 22:59 06:59 14:59 Intake Total 310 Balance 310 Intake: Blood Product 310 Rc As-1 Unit 310 [id number] Other: Voiding Method Bedside Commode # Voids 1 1 Weight 54.431 kg On physical examination, patient appears comfortable in no apparent distress. HEAD: Normocephalic, atraumatic. EYES: No scleral icterus. No conjunctival injection. MOUTH: No lesions, tongue midline. NECK: Trachea midline, no gross abnormalities. CHEST: Clear to auscultation with no wheezing or rhonchi appreciated. HEART: Regular rate and rhythm. ABDOMEN: Soft, thin and nontender to palpation. Bowel sounds are positive. No organomegaly. No guarding or rigidity. EXTREMITIES: No pedal edema. SKIN: No rashes, no jaundice. NEUROLOGIC: Alert and oriented x3. No focal deficits. Results CBC & Chem 7: 09/15/19 06:36 09/15/19 06:36 Labs: Abnormal Lab Results - Last 24 Hours (Table) 09/14/19 09/14/19 09/14/19 Range/Units 15:03 15:03 15:03 RBC 2.40 L (3.80-5.40) m/uL Hgb 7.5 L (11.4-16.0) gm/dL Hct 24.3 L (34.0-46.0) % MCV 101.4 H (80.0-100.0) fL MCHC 30.7 L (31.0-37.0) g/dL RDW (11.5-15.5) % Plt Count 473 H (150-450) k/uL Neutrophils # 9.1 H (1.3-7.7) k/uL Lymphocytes # 0.5 L (1.0-4.8) k/uL PT 14.0 H (9.0-12.0) sec INR 1.4 H (<1.2) Chloride (98-107) mmol/L BUN 38 H (7-17) mg/dL Creatinine 1.27 H (0.52-1.04) mg/dL Glucose (74-99) mg/dL AST 2979 H (14-36) U/L ALT 1318 H (4-34) U/L Total Protein 6.0 L (6.3-8.2) g/dL Albumin 2.7 L (3.5-5.0) g/dL Lipase (23-300) U/L Urine Protein (Negative) Urine Ketones (Negative) Urine Blood (Negative) Ur Leukocyte Esterase (Negative) Urine RBC (0-5) /hpf Urine WBC (0-5) /hpf Calcium Oxalate Crystal (None) /hpf Hyaline Casts (0-2) /lpf Urine Mucus (None) /hpf Urine Opiates Screen (NotDetected) Ur Oxycodone Screen (NotDetected) U Benzodiazepines Scrn (NotDetected) Crossmatch 09/14/19 09/14/19 09/14/19 Range/Units 15:03 15:52 17:46 RBC (3.80-5.40) m/uL Hgb (11.4-16.0) gm/dL Hct (34.0-46.0) % MCV (80.0-100.0) fL MCHC (31.0-37.0) g/dL RDW (11.5-15.5) % Plt Count (150-450) k/uL Neutrophils # (1.3-7.7) k/uL Lymphocytes # (1.0-4.8) k/uL PT (9.0-12.0) sec INR (<1.2) Chloride (98-107) mmol/L BUN (7-17) mg/dL Creatinine (0.52-1.04) mg/dL Glucose (74-99) mg/dL AST (14-36) U/L ALT (4-34) U/L Total Protein (6.3-8.2) g/dL Albumin (3.5-5.0) g/dL Lipase 629 H (23-300) U/L Urine Protein 1+ H (Negative) Urine Ketones Trace H (Negative) Urine Blood Moderate H (Negative) Ur Leukocyte Esterase Small H (Negative) Urine RBC 31 H (0-5) /hpf Urine WBC 15 H (0-5) /hpf Calcium Oxalate Crystal Occasional H (None) /hpf Hyaline Casts 40 H (0-2) /lpf Urine Mucus Rare H (None) /hpf Urine Opiates Screen Detected H (NotDetected) Ur Oxycodone Screen Detected H (NotDetected) U Benzodiazepines Scrn Detected H (NotDetected) Crossmatch See Detail 09/15/19 09/15/19 Range/Units 06:36 06:36 RBC 2.77 L (3.80-5.40) m/uL Hgb 8.2 L (11.4-16.0) gm/dL Hct 27.4 L (34.0-46.0) % MCV (80.0-100.0) fL MCHC 30.0 L (31.0-37.0) g/dL RDW 16.1 H (11.5-15.5) % Plt Count (150-450) k/uL Neutrophils # (1.3-7.7) k/uL Lymphocytes # 0.8 L (1.0-4.8) k/uL PT (9.0-12.0) sec INR (<1.2) Chloride 109 H (98-107) mmol/L BUN 25 H (7-17) mg/dL Creatinine (0.52-1.04) mg/dL Glucose 64 L (74-99) mg/dL AST (14-36) U/L ALT (4-34) U/L Total Protein (6.3-8.2) g/dL Albumin (3.5-5.0) g/dL Lipase (23-300) U/L Urine Protein (Negative) Urine Ketones (Negative) Urine Blood (Negative) Ur Leukocyte Esterase (Negative) Urine RBC (0-5) /hpf Urine WBC (0-5) /hpf Calcium Oxalate Crystal (None) /hpf Hyaline Casts (0-2) /lpf Urine Mucus (None) /hpf Urine Opiates Screen (NotDetected) Ur Oxycodone Screen (NotDetected) U Benzodiazepines Scrn (NotDetected) Crossmatch Microbiology - Last 24 Hours (Table) 09/14/19 15:52 Urine Culture - Preliminary Urine,Voided CT scan - abdomen: report reviewed (Multiple findings on computed tomography sc an of the abdomen with 2 possible subcentimeter pancreatic lesions and possible biliary dilation.) US - abdomen: report reviewed (Ultrasound of the abdomen with no findings of cholelithiasis or cholecystitis.) Assessment and Plan (1) Transaminitis Narrative/Plan: 73-year-old female with multiple medical comorbidities and including prior history of breast cancer to the hospital due to weakness. Patient found to be anemic with a hemoglobin of 8.2 with mildly depressed iron studies. She reports a history of iron deficiency anemia in the past requiring transfusion. She denies any signs or symptoms of GI bleeding. She has not had a colonoscopy in the past that she has been unable to tolerate colonoscopic evaluation. Patient also had markedly elevated liver enzymes in a hepatocellular pattern with AST 2974 and ALT 1318 on presentation. She denies any excessive alcohol use, any excessive Tylenol use, any prior history of elevated liver enzymes, any history of intrinsic liver disease or family history of liver disease. Ultrasound negative for cholelithiasis and cholecystitis. Numerous findings on computed tomography scan of the abdomen including possible to subcentimeter pancreatic lesions, possible biliary dilation and numerous other findings. Unclear etiology of elevated liver enzymes, with suspicion for viral hepatitis, hypoperfusion in the setting of decreased oral intake, with other etiology not excluded. Current Visit: Yes Status: Acute Code(s): R74.0 - NONSPEC ELEV OF LEVELS OF TRANSAMNS & LACTIC ACID DEHYDRGNSE SNOMED Code(s): 144388027 (2) Iron deficiency anemia Narrative/Plan: Denies any signs or symptoms of GI bleeding. No colonoscopy in the past that she reports she is unable to tolerate prep. She has required iron infusions in the past. Current Visit: Yes Status: Acute Code(s): D50.9 - IRON DEFICIENCY ANEMIA, UNSPECIFIED SNOMED Code(s): 40327377 (3) Lesion of pancreas Narrative/Plan: 2 subcentimeter lesions of the pancreas of unknown etiology. Current Visit: Yes Status: Acute Code(s): K86.9 - DISEASE OF PANCREAS, UNSPECIFIED SNOMED Code(s): 3627741 Plan: Supportive care Okay for diet Continue monitor CBC, CMP Full liver serologies ordered including viral studies Patient will likely benefit from an MRI of the abdomen with and without contrast for evaluation of biliary system and pancreatitis either prior to discharge her in the outpatient setting IV iron ordered 3 doses Protonix twice daily ordered for possible uncontrolled reflux Anemia evaluation ordered with findings of slightly depressed iron studies as mentioned Continue to monitor INR and for signs of encephalopathy Acute viral hepatitis panel negative Thank you for allowing us to participate in the care of the patient we will continue to follow
[2019-09-15 21:00] LABS: Protein, Total 5.1 g/dL (6.2-8.2)
[2019-09-15] MEDS: SODIUM CHLORIDE 0.9% 1,000 ML IV SCH (21:03)
[2019-09-15] MEDS: SODIUM FERRIC GLUCONAT-SUCROSE 125 MG in SODIUM CHLORIDE 0.9% 100 ML IVPB SCH (21:04)
[2019-09-15] MEDS: PANTOPRAZOLE 40 MG TABLET PO SCH (21:04)
[2019-09-15] MEDS: ZOLPIDEM 10 MG TAB PO SCH (21:04)
[2019-09-16 07:58] LABS: HCT 26.3 % (34.0-46.0); HGB 7.9 gm/dL (11.4-16.0); Hypochromasia Marked; MCH 29.2 pg (25.0-35.0); MCHC 29.9 g/dL (31.0-37.0); MCV 97.7 fL (80.0-100.0); Macrocytosis Slight; Mean Platelet Volume 7.9; Platelet Count 380 k/uL (150-450); Poikilocytosis Slight; RBC 2.69 m/uL (3.80-5.40); RDW 15.9 % (11.5-15.5); WBC 6.7 k/uL (3.8-10.6)
[2019-09-16 08:05] LABS: African American GFR (CKD) >90 (>60 ml/min/1.73 sqM); Albumin 2.2 g/dL (3.5-5.0); Alkaline Phosphatase 140 U/L (38-126); Anion Gap 4 mmol/L; Blood Urea Nitrogen 14 mg/dL (7-17); Calcium 7.9 mg/dL (8.4-10.2); Carbon Dioxide 24 mmol/L (22-30); Chloride 112 mmol/L (98-107); Glucose 94 mg/dL (74-99); Non-African American GFR(CKD) >90 (>60 ml/min/1.73 sqM); Potassium 3.9 mmol/L (3.5-5.1); Sodium 140 mmol/L (137-145); Total Bilirubin 0.6 mg/dL (0.2-1.3); Total Protein 5.2 g/dL (6.3-8.2)
[2019-09-16 08:06] LABS: INR 1.4 (<1.2); Prothrombin Time 13.9 sec (9.0-12.0)
--- NOTE | 2019-09-16 08:22 | P.PN ---
Subjective Progress Note Date: 09/16/19 Principal diagnosis: The patient is a 73-year-old white female essentially admitted for transaminitis and weakness. Physical therapy and activation is had started. However, she had element of choking this morning. We will check speech and swallowing study today. Otherwise, I have suggested MRI of abdomen, at this time she is refusing. Pelvic ultrasound was within normal limits. No other voiding difficulties. No fever or chills. No significant diarrhea stated. Objective - Vital Signs Vital signs: Vital Signs Temp 97.7 F 09/16/19 02:07 Pulse 102 H 09/16/19 02:07 Resp 19 09/16/19 04:00 BP 175/92 09/16/19 02:07 Pulse Ox 98 09/16/19 02:07 Intake & Output 09/15/19 09/16/19 09/16/19 18:59 06:59 18:59 Other: Voiding Method Bedside Commode # Voids 2 1 - Constitutional General appearance: Present: thin. Absent: no acute distress - EENT Eyes: Absent: abnormal pupil - Neck Neck: Absent: lymphadenopathy - Respiratory Respiratory: bilateral: CTA - Cardiovascular Rhythm: regular Heart sounds: normal: S1, S2 Abnormal Heart Sounds: Absent: S3 Gallop - Gastrointestinal General gastrointestinal: Present: soft. Absent: tenderness - Neurologic Neurologic: Present: CNII-XII intact - Musculoskeletal Musculoskeletal: Present: generalized weakness - Psychiatric Psychiatric: Present: A&O x's 3 - Labs CBC & Chem 7: 09/16/19 07:13 09/15/19 06:36 Labs: Abnormal Lab Results - Last 24 Hours (Table) 09/15/19 09/15/19 09/15/19 Range/Units 06:36 06:36 06:36 RBC (3.80-5.40) m/uL Hgb (11.4-16.0) gm/dL Hct (34.0-46.0) % MCHC (31.0-37.0) g/dL RDW (11.5-15.5) % Retic Count 2.5 H (0.5-2.0) % PT (9.0-12.0) sec INR (<1.2) Iron 45 L (50-170) ug/dL Total Protein (PEP) (6.2-8.2) g/dL Vitamin B12 >4000.0 H (211-911) pg/mL SEAN Screen POSITIVE H (NEGATIVE) 09/15/19 09/16/19 09/16/19 Range/Units 13:42 07:13 07:13 RBC 2.69 L (3.80-5.40) m/uL Hgb 7.9 L (11.4-16.0) gm/dL Hct 26.3 L (34.0-46.0) % MCHC 29.9 L (31.0-37.0) g/dL RDW 15.9 H (11.5-15.5) % Retic Count (0.5-2.0) % PT 13.9 H (9.0-12.0) sec INR 1.4 H (<1.2) Iron (50-170) ug/dL Total Protein (PEP) 5.1 L (6.2-8.2) g/dL Vitamin B12 (211-911) pg/mL SEAN Screen (NEGATIVE) Microbiology - Last 24 Hours (Table) 09/14/19 15:52 Urine Culture - Final Urine,Voided Assessment and Plan (1) Anemia Current Visit: Yes Status: Acute Priority: High Code(s): D64.9 - ANEMIA, UNSPECIFIED SNOMED Code(s): 353822379 (2) Transaminitis Current Visit: Yes Status: Acute Code(s): R74.0 - NONSPEC ELEV OF LEVELS OF TRANSAMNS & LACTIC ACID DEHYDRGNSE SNOMED Code(s): 307655515 (3) Back pain Current Visit: No Status: Acute Priority: High Code(s): M54.9 - DORSALGIA, UNSPECIFIED SNOMED Code(s): 907170147 (4) History of breast cancer Current Visit: No Status: Chronic Priority: High Code(s): Z85.3 - PERSONAL HISTORY OF MALIGNANT NEOPLASM OF BREAST SNOMED Code(s): 372363427 Plan: Continue current regimen or treatment. Swallowing study for element of aspiration. Check CBC and CMP in a.m. Await liver serologies. Appreciate GI consultation. Prognosis is guarded secondary to generalized weakness and anemia. See orders otherwise.
[2019-09-16] MEDS: PANTOPRAZOLE 40 MG TABLET PO SCH ×2 (08:28→18:49)
[2019-09-16 09:07] LABS: ALT 1862 U/L (4-34)
[2019-09-16 09:08] LABS: AST 2336 U/L (14-36)
--- NOTE | 2019-09-16 11:26 | FL ---
EXAMINATION TYPE: FL barium swallow w video DATE OF EXAM: 09/16/2019 COMPARISON: NONE HISTORY: Aspiration, dysphagia. The patient was evaluated in the lateral projection during real-time fluoroscopy, during ingestion of barium mixed with solids and liquids. No aspiration or significant laryngeal penetration. Some tra nsient cricopharyngeal spasm noted. Vallecular residuals also were transient. No intraoperative images, 1.41 minutes fluoroscopy time See report from speech pathology. IMPRESSION: As above
[2019-09-16 12:57] LABS: ANA Pattern Speckled
--- NOTE | 2019-09-16 13:50 | P.PN ---
Subjective Progress Note Date: 09/16/19 Principal diagnosis: Elevated liver enzymes, iron deficiency anemia Patient seen lying in bed. Plan is to eat lunch. Denying any abdominal pain. Denying any confusion at this time. Objective - Vital Signs Vital signs: Vital Signs Temp 97.8 F 09/16/19 07:00 Pulse 93 09/16/19 08:00 Resp 18 09/16/19 08:00 BP 129/80 09/16/19 07:00 Pulse Ox 95 09/16/19 07:00 Intake & Output 09/15/19 09/16/19 09/16/19 18:59 06:59 18:59 Other: Voiding Method Bedside Commode Bedside Commode # Voids 2 1 - Exam On physical examination, patient appears comfortable in no apparent distress. HEAD: Normocephalic, atraumatic. EYES: No scleral icterus. No conjunctival injection. MOUTH: No lesions, tongue midline. NECK: Trachea midline, no gross abnormalities. ABDOMEN: Soft, obese. Bowel sounds are positive. No organomegaly. No guarding or rigidity. EXTREMITIES: No pedal edema. SKIN: No rashes, no jaundice. NEUROLOGIC: Alert and oriented x3, no asterixis noted. No focal deficits. - Labs CBC & Chem 7: 09/16/19 07:13 09/16/19 07:13 Labs: Abnormal Lab Results - Last 24 Hours (Table) 09/15/19 09/15/19 09/15/19 Range/Units 06:36 06:36 13:42 RBC (3.80-5.40) m/uL Hgb (11.4-16.0) gm/dL Hct (34.0-46.0) % MCHC (31.0-37.0) g/dL RDW (11.5-15.5) % PT (9.0-12.0) sec INR (<1.2) Chloride (98-107) mmol/L Calcium (8.4-10.2) mg/dL Iron 45 L (50-170) ug/dL AST (14-36) U/L ALT (4-34) U/L Alkaline Phosphatase (38-126) U/L Total Protein (6.3-8.2) g/dL Total Protein (PEP) 5.1 L (6.2-8.2) g/dL Albumin (3.5-5.0) g/dL Vitamin B12 >4000.0 H (211-911) pg/mL SEAN Screen POSITIVE H (NEGATIVE) 09/16/19 09/16/19 09/16/19 Range/Units 07:13 07:13 07:13 RBC 2.69 L (3.80-5.40) m/uL Hgb 7.9 L (11.4-16.0) gm/dL Hct 26.3 L (34.0-46.0) % MCHC 29.9 L (31.0-37.0) g/dL RDW 15.9 H (11.5-15.5) % PT 13.9 H (9.0-12.0) sec INR 1.4 H (<1.2) Chloride 112 H (98-107) mmol/L Calcium 7.9 L (8.4-10.2) mg/dL Iron (50-170) ug/dL AST 2336 H (14-36) U/L ALT 1862 H (4-34) U/L Alkaline Phosphatase 140 H (38-126) U/L Total Protein 5.2 L (6.3-8.2) g/dL Total Protein (PEP) (6.2-8.2) g/dL Albumin 2.2 L (3.5-5.0) g/dL Vitamin B12 (211-911) pg/mL SEAN Screen (NEGATIVE) Microbiology - Last 24 Hours (Table) 09/14/19 15:52 Urine Culture - Final Urine,Voided Assessment and Plan (1) Transaminitis Narrative/Plan: 73-year-old female with multiple medical comorbidities and including prior history of breast cancer to the hospital due to weakness. Patient found to be anemic with a hemoglobin of 8.2 with mildly depressed iron studies. She reports a history of iron deficiency anemia in the past requiring transfusion. She denies any signs or symptoms of GI bleeding. She has not had a colonoscopy in the past that she has been unable to tolerate colonoscopic evaluation. Patient also had markedly elevated liver enzymes in a hepatocellular pattern with AST 2974 and ALT 1318 on presentation. She denies any excessive alcohol use, any excessive Tylenol use, any prior history of elevated liver enzymes, any history of intrinsic liver disease or family history of liver disease. Ultrasound negative for cholelithiasis and cholecystitis. Numerous findings on computed tomography scan of the abdomen including possible to subcentimeter pancreatic lesions, possible biliary dilation and numerous other findings. Unclear etiology of elevated liver enzymes, with suspicion for viral hepatitis, hypoperfusion in the setting of decreased oral intake, with other etiology not excluded. Current Visit: Yes Status: Acute Code(s): R74.0 - NONSPEC ELEV OF LEVELS OF TRANSAMNS & LACTIC ACID DEHYDRGNSE SNOMED Code(s): 175111436 (2) Iron deficiency anemia Narrative/Plan: Denies any signs or symptoms of GI bleeding. No colonoscopy in the past that she reports she is unable to tolerate prep. She has required iron infusions in the past. Current Visit: Yes Status: Acute Code(s): D50.9 - IRON DEFICIENCY ANEMIA, UNSPECIFIED SNOMED Code(s): 07929146 (3) Lesion of pancreas Narrative/Plan: 2 subcentimeter lesions of the pancreas of unknown etiology. Current Visit: Yes Status: Acute Code(s): K86.9 - DISEASE OF PANCREAS, UNSPECIFIED SNOMED Code(s): 0751399 Plan: Supportive care Okay for diet Continue monitor CBC, CMP Full liver serologies ordered including viral studies, negative to date except for positive SEAN Patient will likely benefit from an MRI of the abdomen with and without contrast for evaluation of biliary system and pancreatitis either prior to discharge her in the outpatient setting IV iron ordered 3 doses Protonix twice daily Anemia evaluation ordered with findings of slightly depressed iron studies as mentioned Continue to monitor INR and for signs of encephalopathy Acute viral hepatitis panel negative Thank you for allowing us to participate in the care of the patient we will continue to follow
[2019-09-16] MEDS: LORazepam 2 MG/ML INJ IV PRN (15:23)
[2019-09-16] MEDS: SODIUM CHLORIDE 0.9% 1,000 ML IV SCH ×2 (18:49→20:27)
[2019-09-16] MEDS: ZOLPIDEM 10 MG TAB PO SCH (20:27)
[2019-09-16] MEDS: SODIUM FERRIC GLUCONAT-SUCROSE 125 MG in SODIUM CHLORIDE 0.9% 100 ML IVPB SCH (21:51)
[2019-09-17 03:27] LABS: EBV - VCA IgM <10.0 U/mL (<36.0)
[2019-09-17] MEDS: PANTOPRAZOLE 40 MG TABLET PO SCH ×2 (07:43→16:32)
[2019-09-17 07:44] LABS: HCT 25.7 % (34.0-46.0); HGB 7.7 gm/dL (11.4-16.0); Hypochromasia Marked; MCH 29.5 pg (25.0-35.0); MCHC 29.9 g/dL (31.0-37.0); MCV 98.8 fL (80.0-100.0); Macrocytosis Slight; Mean Platelet Volume 8.2; Platelet Count 364 k/uL (150-450); Poikilocytosis Slight; WBC 7.4 k/uL (3.8-10.6)
[2019-09-17 07:55] LABS: INR 1.1 (<1.2); Prothrombin Time 11.5 sec (9.0-12.0)
[2019-09-17 07:59] LABS: African American GFR (CKD) >90 (>60 ml/min/1.73 sqM); Albumin 2.1 g/dL (3.5-5.0); Alkaline Phosphatase 133 U/L (38-126); Anion Gap 1 mmol/L; Blood Urea Nitrogen 10 mg/dL (7-17); Calcium 7.8 mg/dL (8.4-10.2); Carbon Dioxide 26 mmol/L (22-30); Chloride 112 mmol/L (98-107); Glucose 110 mg/dL (74-99); Non-African American GFR(CKD) >90 (>60 ml/min/1.73 sqM); Potassium 3.6 mmol/L (3.5-5.1); Sodium 139 mmol/L (137-145); Total Bilirubin 0.5 mg/dL (0.2-1.3)
[2019-09-17 08:05] LABS: AST 753 U/L (14-36)
--- NOTE | 2019-09-17 08:05 | P.PN ---
Subjective Principal diagnosis: 73-year-old white female admitted for transaminitis hepatitis elements. The patient has poor by mouth intake. She seems quite withdrawn. I do suspect there could be an element of opiate withdrawal due to the fact weren't not giving her Percocet secondary to hepatitis. Appreciate GI input. We will order MRI of the abdomen today. Swallowing study is pending.. Objective - Vital Signs Vital signs: Vital Signs Temp 97.8 F 09/17/19 07:00 Pulse 92 09/17/19 07:00 Resp 15 09/17/19 07:00 BP 134/81 09/17/19 07:00 Pulse Ox 94 L 09/17/19 07:00 Intake & Output 09/16/19 09/17/19 09/17/19 18:59 06:59 18:59 Intake Total 120 Balance 120 Intake: Oral 120 Other: Voiding Method Bedside Commode Bedside Commode Bedside Commode # Voids 3 2 # Bowel Movements 1 - Constitutional General appearance: Present: average body habitus - EENT Eyes: Absent: abnormal pupil - Neck Neck: Absent: lymphadenopathy - Respiratory Respiratory: bilateral: CTA - Cardiovascular Rhythm: regular Heart sounds: normal: S1, S2 Abnormal Heart Sounds: Absent: S3 Gallop - Gastrointestinal General gastrointestinal: Present: soft. Absent: tenderness - Labs CBC & Chem 7: 09/17/19 05:36 09/16/19 07:13 Labs: Abnormal Lab Results - Last 24 Hours (Table) 09/16/19 09/16/19 09/17/19 Range/Units 07:13 07:13 05:36 RBC 2.60 L (3.80-5.40) m/uL Hgb 7.7 L (11.4-16.0) gm/dL Hct 25.7 L (34.0-46.0) % MCHC 29.9 L (31.0-37.0) g/dL RDW 16.0 H (11.5-15.5) % PT 13.9 H (9.0-12.0) sec INR 1.4 H (<1.2) Chloride 112 H (98-107) mmol/L Calcium 7.9 L (8.4-10.2) mg/dL AST 2336 H (14-36) U/L ALT 1862 H (4-34) U/L Alkaline Phosphatase 140 H (38-126) U/L Total Protein 5.2 L (6.3-8.2) g/dL Albumin 2.2 L (3.5-5.0) g/dL Assessment and Plan (1) Anemia Current Visit: Yes Status: Acute Priority: High Code(s): D64.9 - ANEMIA, UNSPECIFIED SNOMED Code(s): 187279671 (2) Transaminitis Current Visit: Yes Status: Acute Code(s): R74.0 - NONSPEC ELEV OF LEVELS OF TRANSAMNS & LACTIC ACID DEHYDRGNSE SNOMED Code(s): 727504485 (3) Back pain Current Visit: No Status: Acute Priority: High Code(s): M54.9 - DORSALGIA, UNSPECIFIED SNOMED Code(s): 656197845 (4) History of breast cancer Current Visit: No Status: Chronic Priority: High Code(s): Z85.3 - PERSONAL HISTORY OF MALIGNANT NEOPLASM OF BREAST SNOMED Code(s): 752814198 Plan: Order MRI of abdomen today. Check CBC CMP and amylase lipase in a.m. Dr. Nance's group will be covering for the weekend. Nutritional/dietary consult. Question need for PPN.. Time with Patient: Greater than 30
[2019-09-17 08:13] LABS: ALT 1212 U/L (4-34)
[2019-09-17 11:54] LABS: Herpes simplex I and/or II IgM 0.23 INDEX (<=0.90)
[2019-09-17 12:15] LABS: Liver/Kidney Microsome Antibod 9.1 UNITS (<=20)
[2019-09-17] MEDS: LORazepam 2 MG/ML INJ IV PRN ×2 (13:12→19:55)
[2019-09-17 14:24] LABS: Albumin 2.3 g/dL (3.80-4.90); Gamma Globulin 1.04 g/dL (0.70-1.50)
--- NOTE | 2019-09-17 18:09 | MR ---
MR liver with and without contrast, MRCP HISTORY: Nausea vomiting diarrhea, abnormal CT Correlation to CT scan 09/14/2019 Multiplanar multisequence and postcontrast images obtained through the liver functions 6.5 cc Gadavis t. Three-dimensional reconstructions performed on an alternate workstation. There is a hiatal hernia with partial intrathoracic stomach. Heterogeneous appearance to the liver no hosea on CT does not show corresponding signal loss on out of phase imaging. The low dense focus descri bed on CT scan within the posterior aspect of the body the pancreas does not show any enhancement, is hypointense on T1-weighted images and T2-weighted sequences show increased signal and does not show any corresponding mass effect, there is identified on axial image 61 and is of questionable clinical significance. Similarly the pancreatic tail level nondescript focus described on CT shows similar cor responding MRI appearance, similar to the first identified lesion, there is no enhancement. Larger le derian at the posterior aspect of the body the pancreas on axial image 23 at the T2 data set shows a me asurement of only approximately 8 mm. No definite communication with the pancreatic duct. The gallbladder shows no abnormal luminal echo, there is no evident choledocholithiasis. Some mild pr ominence of the common bile duct is noted Adrenal glands are unremarkable. Kidneys show normal enhancement. Heterogeneous enhancement seen with in the liver. Gallbladder is unremarkable. There is no ascites or retroperitoneal adenopathy. Postop changes are noted to the lumbar spine causing artifact. Compression deformity seen at T12 on CT with retropulsion is again noted incidentally. There is associated spinal stenosis. Minimal pleural effusi ons are present. T2 bright signal present within the soft tissues superficial to the lower lumbar spi ne and within the paraspinal musculature at the lumbosacral region may be due to local edema or be ar tifactual, there is fatty replacement of the musculature this level. Left breast prosthesis is noted incidentally. IMPRESSION: Subcentimeter cystic foci associated with the pancreas show nonaggressive appearance, fol low-up could BE performed to assess for stability. There is mild prominence of the common bile duct, no evident choledocholithiasis, consider gastroenterology consult. Hiatal hernia. Probable hepatic st eatosis of the liver although there is heterogeneous appearance suggesting areas of fatty sparing whi ch may be the cause of lack of signal drop on out of phase imaging.
[2019-09-17] MEDS: SODIUM FERRIC GLUCONAT-SUCROSE 125 MG in SODIUM CHLORIDE 0.9% 100 ML IVPB SCH (19:52)
[2019-09-17] MEDS: ZOLPIDEM 10 MG TAB PO SCH (19:54)
[2019-09-18] MEDS: LORazepam 2 MG/ML INJ IV PRN (04:46)
--- NOTE | 2019-09-18 07:09 | P.PN ---
Subjective Progress Note Date: 09/17/19 Principal diagnosis: Elevated liver enzymes, iron deficiency anemia Patient seen lying in bed, with no acute complaints at this time. No abdominal pain. No nausea or vomiting. Objective - Vital Signs Vital signs: Vital Signs Temp 97.2 F L 09/18/19 01:30 Pulse 98 09/18/19 01:30 Resp 20 09/18/19 01:30 BP 137/79 09/18/19 01:30 Pulse Ox 98 09/18/19 01:30 Intake & Output 09/17/19 09/18/19 09/18/19 18:59 06:59 18:59 Intake Total 100 Balance 100 Weight 54.431 kg Intake: Intake, IV Titration 100 Amount Sodium Ferric Gluconat- 100 Sucrose 125 mg In Sodium Chloride 0.9% 100 ml @ 100 mls/hr IVPB DAILY@ [facility] Rx#:[id number] Other: Voiding Method Bedside Commode Bedside Commode # Voids 4 2 - Exam On physical examination, patient appears comfortable in no apparent distress. HEAD: Normocephalic, atraumatic. EYES: No scleral icterus. No conjunctival injection. MOUTH: No lesions, tongue midline. NECK: Trachea midline, no gross abnormalities. ABDOMEN: Soft, obese. Bowel sounds are positive. No organomegaly. No guarding or rigidity. EXTREMITIES: No pedal edema. SKIN: No rashes, no jaundice. NEUROLOGIC: Alert and oriented x3, no asterixis noted. No focal deficits. - Labs CBC & Chem 7: 09/17/19 05:36 09/17/19 05:36 Labs: Abnormal Lab Results - Last 24 Hours (Table) 09/15/19 09/15/19 09/17/19 Range/Units 06:36 13:42 05:36 RBC 2.60 L (3.80-5.40) m/uL Hgb 7.7 L (11.4-16.0) gm/dL Hct 25.7 L (34.0-46.0) % MCHC 29.9 L (31.0-37.0) g/dL RDW 16.0 H (11.5-15.5) % Chloride (98-107) mmol/L Glucose (74-99) mg/dL Calcium (8.4-10.2) mg/dL AST (14-36) U/L ALT (4-34) U/L Alkaline Phosphatase (38-126) U/L Total Protein (6.3-8.2) g/dL Albumin (3.5-5.0) g/dL Albumin (PEP) 2.30 L (3.80-4.90) g/dL Ksban-7-Dhmqxmytj 0.46 H (0.10-0.40) g/dL Xhgyb-9-Hihnpiqrl 0.48 L (0.60-1.00) g/dL Anti-Mitochondrial Ab 29.5 H (<=20) UNITS Anti-Smooth Muscle Ab 38 H (<20) UNITS /12/29 Range/Units 05:36 RBC (3.80-5.40) m/uL Hgb (11.4-16.0) gm/dL Hct (34.0-46.0) % MCHC (31.0-37.0) g/dL RDW (11.5-15.5) % Chloride 112 H (98-107) mmol/L Glucose 110 H (74-99) mg/dL Calcium 7.8 L (8.4-10.2) mg/dL AST 753 H (14-36) U/L ALT 1212 H (4-34) U/L Alkaline Phosphatase 133 H (38-126) U/L Total Protein 5.0 L (6.3-8.2) g/dL Albumin 2.1 L (3.5-5.0) g/dL Albumin (PEP) (3.80-4.90) g/dL Hvtwz-6-Kysncfoma (0.10-0.40) g/dL Jipyh-5-Ukbsazrgh (0.60-1.00) g/dL Anti-Mitochondrial Ab (<=20) UNITS Anti-Smooth Muscle Ab (<20) UNITS Assessment and Plan (1) Transaminitis Narrative/Plan: 73-year-old female with multiple medical comorbidities and including prior history of breast cancer to the hospital due to weakness. Patient found to be anemic with a hemoglobin of 8.2 with mildly depressed iron studies. She reports a history of iron deficiency anemia in the past requiring transfusion. She denies any signs or symptoms of GI bleeding. She has not had a colonoscopy in the past that she has been unable to tolerate colonoscopic evaluation. Patient also had markedly elevated liver enzymes in a hepatocellular pattern with AST 2974 and ALT 1318 on presentation. She denies any excessive alcohol use, any excessive Tylenol use, any prior history of elevated liver enzymes, any history of intrinsic liver disease or family history of liver disease. Ultrasound negative for cholelithiasis and cholecystitis. Numerous findings on computed tomography scan of the abdomen including possible to subcentimeter pancreatic lesions, possible biliary dilation and numerous other findings. Unclear etiology of elevated liver enzymes, with suspicion for viral hepatitis, hypoperfusion in the setting of decreased oral intake, however serologic testing has been positive for positive SEAN, ASMA and AMA. Liver enzymes have continued to trend down, however is a possibility of autoimmune hepatitis, primary biliary cholangitis or an overlap syndrome remain. If liver enzymes do not continue to trend towards normal will consider trial of steroid therapy given hepatocellular pattern of liver enzyme elevation. Current Visit: Yes Status: Acute Code(s): R74.0 - NONSPEC ELEV OF LEVELS OF TRANSAMNS & LACTIC ACID DEHYDRGNSE SNOMED Code(s): 449142678 (2) Iron deficiency anemia Narrative/Plan: Denies any signs or symptoms of GI bleeding. No colonoscopy in the past that she reports she is unable to tolerate prep. She has required iron infusions in the past. Current Visit: Yes Status: Acute Code(s): D50.9 - IRON DEFICIENCY ANEMIA, UNSPECIFIED SNOMED Code(s): 38493604 (3) Lesion of pancreas Narrative/Plan: 2 subcentimeter lesions of the pancreas of unknown etiology. MRI of the abdomen concerning for any "aggressive" findings, can follow-up with repeat imaging in 6 months to ensure stability of likely pancreatic cysts. Current Visit: Yes Status: Acute Code(s): K86.9 - DISEASE OF PANCREAS, UNSPECIFIED SNOMED Code(s): 9656380 Plan: Supportive care Okay for diet Continue monitor CBC, CMP Full liver serologies ordered including viral studies, with positive antibody testing suggesting possible autoimmune hepatitis, primary biliary cholangitis or overlap syndrome Given the marked improvement in liver enzymes will continue to monitor, however will consider trial of steroid therapy for autoimmune hepatitis if not trending down Possible liver biopsy for further characterization of elevation also discussed with the patient however she is not interested at this time MRI of the abdomen essentially unremarkable except for small pancreatic lesions likely representing nonmalignant cysts and mild biliary dilation, can follow-up with repeat imaging in 6 months IV iron ordered 3 doses Protonix twice daily Anemia evaluation ordered with findings of slightly depressed iron studies as mentioned Continue to monitor INR and for signs of encephalopathy Acute viral hepatitis panel negative Thank you for allowing us to participate in the care of the patient we will continue to follow
[2019-09-18 08:13] LABS: Anisocytosis Slight; HCT 26.2 % (34.0-46.0); HGB 7.8 gm/dL (11.4-16.0); Hypochromasia Marked; MCH 29.5 pg (25.0-35.0); MCHC 29.9 g/dL (31.0-37.0); MCV 98.7 fL (80.0-100.0); Macrocytosis Slight; Mean Platelet Volume 8.1; Platelet Count 353 k/uL (150-450); Poikilocytosis Slight; RBC 2.66 m/uL (3.80-5.40); RDW 16.3 % (11.5-15.5); WBC 6.7 k/uL (3.8-10.6)
[2019-09-18 08:30] LABS: AST 342 U/L (14-36); African American GFR (CKD) >90 (>60 ml/min/1.73 sqM); Albumin 2.2 g/dL (3.5-5.0); Alkaline Phosphatase 126 U/L (38-126); Anion Gap 2 mmol/L; Blood Urea Nitrogen 8 mg/dL (7-17); Calcium 8.1 mg/dL (8.4-10.2); Carbon Dioxide 27 mmol/L (22-30); Chloride 110 mmol/L (98-107); Glucose 102 mg/dL (74-99); Non-African American GFR(CKD) >90 (>60 ml/min/1.73 sqM); Potassium 3.8 mmol/L (3.5-5.1); Sodium 139 mmol/L (137-145); Total Bilirubin 0.4 mg/dL (0.2-1.3); Total Protein 5.2 g/dL (6.3-8.2)
[2019-09-18 08:38] LABS: ALT 912 U/L (4-34)
[2019-09-18] MEDS: LORazepam 1 MG TAB PO PRN ×3 (10:34→21:57)
[2019-09-18] MEDS: PANTOPRAZOLE 40 MG TABLET PO SCH ×2 (10:35→16:46)
--- NOTE | 2019-09-18 15:09 | P.PN ---
Subjective Progress Note Date: 09/18/19 Principal diagnosis: Elevated liver enzymes, iron deficiency anemia Patient seen lying in bed, with no acute complaints. She continues to report back pain but this is been chronic in nature. Objective - Vital Signs Vital signs: Vital Signs Temp 97.8 F 09/18/19 07:43 Pulse 97 09/18/19 07:43 Resp 16 09/18/19 07:43 BP 167/80 09/18/19 07:43 Pulse Ox 98 09/18/19 07:43 Intake & Output 09/17/19 09/18/19 09/18/19 18:59 06:59 18:59 Intake Total 100 Balance 100 Weight 54.431 kg Intake: Intake, IV Titration 100 Amount Sodium Ferric Gluconat- 100 Sucrose 125 mg In Sodium Chloride 0.9% 100 ml @ 100 mls/hr IVPB DAILY@ 2[facility] Rx#:[id number] Other: Voiding Method Bedside Commode Bedside Commode # Voids 4 2 - Exam On physical examination, patient appears comfortable in no apparent distress. HEAD: Normocephalic, atraumatic. EYES: No scleral icterus. No conjunctival injection. MOUTH: No lesions, tongue midline. NECK: Trachea midline, no gross abnormalities. ABDOMEN: Soft, obese. Bowel sounds are positive. No organomegaly. No guarding or rigidity. EXTREMITIES: No pedal edema. SKIN: No rashes, no jaundice. NEUROLOGIC: Alert and oriented x3, no asterixis noted. No focal deficits. - Labs CBC & Chem 7: 09/18/19 07:17 09/18/19 07:17 Labs: Abnormal Lab Results - Last 24 Hours (Table) 09/15/19 09/18/19 09/18/19 Range/Units 13:42 07:17 07:17 RBC 2.66 L (3.80-5.40) m/uL Hgb 7.8 L (11.4-16.0) gm/dL Hct 26.2 L (34.0-46.0) % MCHC 29.9 L (31.0-37.0) g/dL RDW 16.3 H (11.5-15.5) % Chloride 110 H (98-107) mmol/L Glucose 102 H (74-99) mg/dL Calcium 8.1 L (8.4-10.2) mg/dL AST 342 H (14-36) U/L ALT 912 H (4-34) U/L Total Protein 5.2 L (6.3-8.2) g/dL Albumin 2.2 L (3.5-5.0) g/dL Albumin (PEP) 2.30 L (3.80-4.90) g/dL Vwnth-7-Zerljzeoj 0.46 H (0.10-0.40) g/dL Hdvaa-2-Gjcbvrwuc 0.48 L (0.60-1.00) g/dL Assessment and Plan (1) Transaminitis Narrative/Plan: 73-year-old female with multiple medical comorbidities and including prior history of breast cancer to the hospital due to weakness. Patient found to be anemic with a hemoglobin of 8.2 with mildly depressed iron studies. She reports a history of iron deficiency anemia in the past requiring transfusion. She denies any signs or symptoms of GI bleeding. She has not had a colonoscopy in the past that she has been unable to tolerate colonoscopic evaluation. Patient also had markedly elevated liver enzymes in a hepatocellular pattern with AST 2974 and ALT 1318 on presentation. She denies any excessive alcohol use, any excessive Tylenol use, any prior history of elevated liver enzymes, any history of intrinsic liver disease or family history of liver disease. Ultrasound negative for cholelithiasis and cholecystitis. Numerous findings on computed tomography scan of the abdomen including possible to subcentimeter pancreatic lesions, possible biliary dilation and numerous other findings. Unclear etiology of elevated liver enzymes, with suspicion for viral hepatitis, hypoperfusion in the setting of decreased oral intake, however serologic testing has been positive for positive SEAN, ASMA and AMA. Liver enzymes have continued to trend down, however there is a possibility of autoimmune hepatitis, primary biliary cholangitis or an overlap syndrome remain. At this time no plans for treatment due to marked improvement with total bilirubin 0.4, alkaline phosphatase 126, AST 342 and ALT 912. Current Visit: Yes Status: Acute Code(s): R74.0 - NONSPEC ELEV OF LEVELS OF TRANSAMNS & LACTIC ACID DEHYDRGNSE SNOMED Code(s): 253773049 (2) Iron deficiency anemia Narrative/Plan: Denies any signs or symptoms of GI bleeding. No colonoscopy in the past that she reports she is unable to tolerate prep. She has required iron infusions in the past. Current Visit: Yes Status: Acute Code(s): D50.9 - IRON DEFICIENCY ANEMIA, UNSPECIFIED SNOMED Code(s): 32387720 (3) Lesion of pancreas Narrative/Plan: 2 subcentimeter lesions of the pancreas of unknown etiology. MRI of the abdomen concerning for any "aggressive" findings, can follow-up with repeat imaging in 6 months to ensure stability of likely pancreatic cysts. Current Visit: Yes Status: Acute Code(s): K86.9 - DISEASE OF PANCREAS, UNSPECIFIED SNOMED Code(s): 7565895 Plan: Supportive care Okay for diet Continue monitor CBC, CMP Full liver serologies ordered including viral studies, with positive antibody testing suggesting possible autoimmune hepatitis, primary biliary cholangitis or overlap syndrome Given the marked improvement in liver enzymes will continue to monitor, and no plan for steroid therapy at this time, if patient has recurrence and elevation of liver enzymes would recommend liver biopsy at that time MRI of the abdomen essentially unremarkable except for small pancreatic lesions likely representing nonmalignant cysts and mild biliary dilation, can follow-up with repeat imaging in 6 months IV iron ordered 3 doses Protonix twice daily Anemia evaluation ordered with findings of slightly depressed iron studies as mentioned Continue to monitor INR and for signs of encephalopathy Acute viral hepatitis panel negative Thank you for allowing us to participate in the care of the patient we will continue to follow
[2019-09-18] MEDS: METOPROLOL TARTRATE 25 MG TAB PO SCH (20:12)
[2019-09-18] MEDS: ZOLPIDEM 10 MG TAB PO SCH (20:13)
[2019-09-18] MEDS: SODIUM CHLORIDE 0.9% 1,000 ML IV SCH (20:14)
--- NOTE | 2019-09-18 22:37 | P.PN ---
Subjective Progress Note Date: 09/18/19 Principal diagnosis: Anemia and transaminitis Covering for Dr. Parker over the weekend. Ms. Em is a 73-year-old female with a past medical history of breast cancer admitted to the hospital for significant generalized weakness and decreased appetite for the past 1 week. Patient had significant elevation in her AST and ALT levels. Patient had swallow evaluation done showing no aspiration or laryngeal penetration. On 09/18/2019-patient is lying in the bed comfortably appears to be in no acute distress. She mentions that she has not been getting her Percocet and so her chronic low back pain is not under good control. Patient denied having any abdo ming pain nausea vomiting or diarrhea. She denied having any yellowish discoloration of her eyes. Patient denied having any bleeding. On reviewing the vitals patient's temperature 98.1, heart rate 9200s, blood pressure 128/64 saturating at 97% on room air. On reviewing the patient's labs her hemoglobin has been stable around 7.8, liver function tests significantly trending down. Her albumin is significantly low at 2.2. INR 1.1 from yesterday. Active Medications Sodium Chloride (Saline 0.9%) 1,000 mls @ 50 mls/hr IV .Q20H [facility] Last Admin: 09/18/19 20:14 Dose: Not Given Documented by: Lorazepam (Ativan) 1 mg PO Q6H PRN PRN Reason: Anxiety Last Admin: 09/18/19 21:57 Dose: 1 mg Documented by: Metoprolol Tartrate (Lopressor) 25 mg PO BID [facility] Last Admin: 09/18/19 20:12 Dose: 25 mg Documented by: Naloxone HCl (Narcan) 0.2 mg IV Q2M PRN PRN Reason: Opioid Reversal Pantoprazole Sodium (Protonix) 40 mg PO AC-BID [facility] Last Admin: 09/18/19 16:46 Dose: Not Given Documented by: Zolpidem Tartrate (Ambien) 10 mg PO HS [facility] Last Admin: 09/18/19 20:13 Dose: 10 mg Documented by: Objective - Vital Signs Vital signs: Vital Signs Temp 98.2 F 09/18/19 15:00 Pulse 97 09/18/19 15:00 Resp 14 09/18/19 15:00 BP 153/89 09/18/19 15:00 Pulse Ox 98 09/18/19 15:00 Intake & Output 09/17/19 09/18/19 09/18/19 18:59 06:59 18:59 Intake Total 100 Balance 100 Weight 54.431 kg Intake: Intake, IV Titration 100 Amount Sodium Ferric Gluconat- 100 Sucrose 125 mg In Sodium Chloride 0.9% 100 ml @ 100 mls/hr IVPB DAILY@ 2100 [facility] Rx#:[id number] Other: Voiding Method Bedside Commode Bedside Commode # Voids 4 2 4 - Exam PHYSICAL EXAM General exam: patient appears comfortable in no apparent distress HEENT : mild pallor, no icterus, no JVD, no Thyromegaly CHEST: Clear to auscultation with no wheezing or rhonchi appreciated HEART: S1 and S2 heard ABDOMEN: Soft, thin and nontender to palpation. Bowel sounds are positive. No organomegaly. No guarding or rigidity EXTREMITIES: No pedal edema bilaterally SKIN: No rashes, no jaundice NEUROLOGIC: Alert and oriented x3. No focal deficits on gross exam - Labs CBC & Chem 7: 09/19/19 07:47 09/19/19 07:47 Labs: Abnormal Lab Results - Last 24 Hours (Table) 09/18/19 09/18/19 Range/Units 07:17 07:17 RBC 2.66 L (3.80-5.40) m/uL Hgb 7.8 L (11.4-16.0) gm/dL Hct 26.2 L (34.0-46.0) % MCHC 29.9 L (31.0-37.0) g/dL RDW 16.3 H (11.5-15.5) % Chloride 110 H (98-107) mmol/L Glucose 102 H (74-99) mg/dL Calcium 8.1 L (8.4-10.2) mg/dL AST 342 H (14-36) U/L ALT 912 H (4-34) U/L Total Protein 5.2 L (6.3-8.2) g/dL Albumin 2.2 L (3.5-5.0) g/dL Assessment and Plan Assessment: ASSESSMENT Acute Transaminitis Chronic Iron def anemia Chronic low back pain History of breast cancer Hypoalbuminemia History of brain aneurysm clipped in 2007 PLAN: Patient is being worked up for transaminitis, she had ultrasound of the abdomen that was negative for cholelithiasis or cholecystitis. CAT scan of the abdomen showing subcentimeter pancreatic lesions, MRI showing hepatic steatosis and confirming the findings on CAT scan. She tested positive for SEAN and anti- smooth muscle antibodies showing the possibility of autoimmune hepatitis or primary biliary cholangitis. GI on board and following the patient closely. Patient's LFTs have been trending down. She has significant past medical hist ory of iron deficiency anemia requiring iron transfusions and even this visit she got 3 dises of IV Iron. Continue with PPI. Further recommendations to follow depending on the progress of the patient.
[2019-09-19] MEDS: LORazepam 1 MG TAB PO PRN ×3 (05:24→17:33)
[2019-09-19] MEDS: PANTOPRAZOLE 40 MG TABLET PO SCH ×2 (08:06→15:52)
[2019-09-19] MEDS: METOPROLOL TARTRATE 25 MG TAB PO SCH ×2 (08:06→20:13)
[2019-09-19 08:48] LABS: Prothrombin Time 10.5 sec (9.0-12.0)
[2019-09-19 08:52] LABS: Anisocytosis Slight; Basophils % (A) 0 %; Eosinophils # (A) 0.1 k/uL (0-0.7); Eosinophils % (A) 1 %; HCT 31.9 % (34.0-46.0); Hypochromasia Marked; Lymphocytes # (A) 2.1 k/uL (1.0-4.8); Lymphocytes % (A) 21 %; MCH 29.1 pg (25.0-35.0); MCHC 29.5 g/dL (31.0-37.0); MCV 98.7 fL (80.0-100.0); Macrocytosis Slight; Mean Platelet Volume 8.3; Monocytes % (A) 10 %; Neutrophils # (A) 6.6 k/uL (1.3-7.7); Neutrophils % (A) 66 %; Platelet Count 443 k/uL (150-450); RBC 3.23 m/uL (3.80-5.40); RDW 16.6 % (11.5-15.5)
[2019-09-19 08:55] LABS: HGB 9.4 gm/dL (11.4-16.0)
[2019-09-19 08:58] LABS: AST 219 U/L (14-36); African American GFR (CKD) >90 (>60 ml/min/1.73 sqM); Alkaline Phosphatase 142 U/L (38-126); Anion Gap 6 mmol/L; Blood Urea Nitrogen 9 mg/dL (7-17); Calcium 8.6 mg/dL (8.4-10.2); Carbon Dioxide 26 mmol/L (22-30); Chloride 105 mmol/L (98-107); Glucose 111 mg/dL (74-99); Non-African American GFR(CKD) >90 (>60 ml/min/1.73 sqM); Potassium 3.5 mmol/L (3.5-5.1); Sodium 137 mmol/L (137-145); Total Bilirubin 0.6 mg/dL (0.2-1.3); Total Protein 6.6 g/dL (6.3-8.2)
[2019-09-19 09:08] LABS: ALT 825 U/L (4-34)
[2019-09-19 09:10] LABS: Amylase 395 U/L (30-110)
--- NOTE | 2019-09-19 13:43 | P.PN ---
Subjective Progress Note Date: 09/19/19 Principal diagnosis: Anemia and transaminitis Covering for Dr. Parker over the weekend. Ms. Em is a 73-year-old female with a past medical history of breast cancer admitted to the hospital for significant generalized weakness and decreased appetite for the past 1 week. Patient had significant elevation in her AST and ALT levels. Patient had swallow evaluation done showing no aspiration or laryngeal penetration. On 09/18/2019-patient is lying in the bed comfortably appears to be in no acute distress. She mentions that she has not been getting her Percocet and so her chronic low back pain is not under good control. Patient denied having any abdo ming pain nausea vomiting or diarrhea. She denied having any yellowish discoloration of her eyes. Patient denied having any bleeding. On reviewing the vitals patient's temperature 98.1, heart rate 9200s, blood pressure 128/64 saturating at 97% on room air. On reviewing the patient's labs her hemoglobin has been stable around 7.8, liver function tests significantly trending down. Her albumin is significantly low at 2.2. INR 1.1 from yesterday. On 09/19/2019- last night patient was trying to get out of the bed and she sled down over the age of the bed and had an abrasion on the right side of her middle back. Patient denies having any pain on the right side of her back she has mild soreness. Patient denies having any abdominal pain or epigastric pain. No nausea or vomiting. Her appetite is slowly picking up. Patient denies having any bleeding. Patient's labs have been checked and there is a down trend of AST and ALT. Her amylase and lipase are elevated. On review of systems patient denies having any chills or rigors. No cough or difficulty in breathing. No chest pain or palpitations. No dysuria or hematuria. Active Medications Sodium Chloride (Saline 0.9%) 1,000 mls @ 50 mls/hr IV .Q20H [facility] Last Admin: 09/18/19 20:14 Dose: Not Given Documented by: Lorazepam (Ativan) 1 mg PO Q6H PRN PRN Reason: Anxiety Last Admin: 09/19/19 11:31 Dose: 1 mg Documented by: Metoprolol Tartrate (Lopressor) 25 mg PO BID [facility] Last Admin: 09/19/19 08:06 Dose: 25 mg Documented by: Naloxone HCl (Narcan) 0.2 mg IV Q2M PRN PRN Reason: Opioid Reversal Pantoprazole Sodium (Protonix) 40 mg PO AC-BID [facility] Last Admin: 09/19/19 08:06 Dose: 40 mg Documented by: Zolpidem Tartrate (Ambien) 10 mg PO HS [facility] Last Admin: 09/18/19 20:13 Dose: 10 mg Documented by: Objective - Vital Signs Vital signs: Vital Signs Temp 98.1 F 09/19/19 07:00 Pulse 95 09/19/19 07:00 Resp 15 09/19/19 07:00 BP 160/86 09/19/19 07:00 Pulse Ox 97 09/19/19 07:00 Intake & Output 09/18/19 09/19/19 09/19/19 18:59 06:59 18:59 Other: Voiding Method Bedside Commode # Voids 4 1 - Exam PHYSICAL EXAM General exam: patient appears comfortable in no apparent distress HEENT : mild pallor, no icterus, no JVD, no Thyromegaly CHEST: Clear to auscultation with no wheezing or rhonchi appreciated HEART: S1 and S2 heard ABDOMEN: Soft, thin and nontender to palpation. Bowel sounds are positive. No organomegaly. No guarding or rigidity EXTREMITIES: No pedal edema bilaterally Examination of the back: abrasion on the right side of her upper back. SKIN: No rashes, no jaundice. Frail . NEUROLOGIC: Alert and oriented x3. No focal deficits on gross exam - Labs CBC & Chem 7: 09/19/19 07:47 09/19/19 07:47 Labs: Abnormal Lab Results - Last 24 Hours (Table) 09/19/19 09/19/19 Range/Units 07:47 07:47 RBC 3.23 L (3.80-5.40) m/uL Hgb 9.4 L D (11.4-16.0) gm/dL Hct 31.9 L (34.0-46.0) % MCHC 29.5 L (31.0-37.0) g/dL RDW 16.6 H (11.5-15.5) % Glucose 111 H (74-99) mg/dL AST 219 H (14-36) U/L ALT 825 H (4-34) U/L Alkaline Phosphatase 142 H (38-126) U/L Albumin 3.0 L (3.5-5.0) g/dL Amylase 395 H* (30-110) U/L Lipase 3248 H (23-300) U/L Assessment and Plan Assessment: ASSESSMENT Acute Transaminitis Chronic Iron def anemia Chronic low back pain History of breast cancer Hypoalbuminemia History of brain aneurysm clipped in 2007 PLAN: Patient is being worked up for transaminitis, she had ultrasound of the abdomen that was negative for cholelithiasis or cholecystitis. CAT scan of the abdomen showing subcentimeter pancreatic lesions, MRI showing hepatic steatosis and confirming the findings on CAT scan. She tested positive for SEAN and anti- smooth muscle antibodies showing the possibility of autoimmune hepatitis or primary biliary cholangitis. GI on board and following the patient closely. Patient's LFTs have been trending down. Patient received IV iron therapy 3 doses. Her hemoglobin is trending up. Continue with PPI. Further recommendations to follow depending on the progress of the patient.
--- NOTE | 2019-09-19 18:59 | P.PN ---
Subjective Progress Note Date: 09/19/19 Principal diagnosis: Elevated liver enzymes, iron deficiency anemia Patient seen lying in bed, with no acute complaints. She is tolerating her diet with no nausea vomiting. Objective - Vital Signs Vital signs: Vital Signs Temp 98.1 F 09/19/19 07:00 Pulse 95 09/19/19 07:00 Resp 15 09/19/19 07:00 BP 160/86 09/19/19 07:00 Pulse Ox 97 09/19/19 07:00 Intake & Output 09/18/19 09/19/19 09/19/19 18:59 06:59 18:59 Other: Voiding Method Bedside Commode # Voids 4 1 - Exam On physical examination, patient appears comfortable in no apparent distress. HEAD: Normocephalic, atraumatic. EYES: No scleral icterus. No conjunctival injection. MOUTH: No lesions, tongue midline. NECK: Trachea midline, no gross abnormalities. ABDOMEN: Soft, obese. Bowel sounds are positive. No organomegaly. No guarding or rigidity. EXTREMITIES: No pedal edema. SKIN: No rashes, no jaundice. NEUROLOGIC: Alert and oriented x3, no asterixis noted. No focal deficits. - Labs CBC & Chem 7: 09/19/19 07:47 09/19/19 07:47 Labs: Abnormal Lab Results - Last 24 Hours (Table) 09/19/19 09/19/19 Range/Units 07:47 07:47 RBC 3.23 L (3.80-5.40) m/uL Hgb 9.4 L D (11.4-16.0) gm/dL Hct 31.9 L (34.0-46.0) % MCHC 29.5 L (31.0-37.0) g/dL RDW 16.6 H (11.5-15.5) % Glucose 111 H (74-99) mg/dL AST 219 H (14-36) U/L ALT 825 H (4-34) U/L Alkaline Phosphatase 142 H (38-126) U/L Albumin 3.0 L (3.5-5.0) g/dL Amylase 395 H* (30-110) U/L Lipase 3248 H (23-300) U/L Assessment and Plan (1) Transaminitis Narrative/Plan: 73-year-old female with multiple medical comorbidities and including prior history of breast cancer to the hospital due to weakness. Patient found to be anemic with a hemoglobin of 8.2 with mildly depressed iron studies. She reports a history of iron deficiency anemia in the past requiring transfusion. She denies any signs or symptoms of GI bleeding. She has not had a colonoscopy in the past that she has been unable to tolerate colonoscopic evaluation. Patient also had markedly elevated liver enzymes in a hepatocellular pattern with AST 2974 and ALT 1318 on presentation. She denies any excessive alcohol use, any excessive Tylenol use, any prior history of elevated liver enzymes, any history of intrinsic liver disease or family history of liver disease. Ultrasound negative for cholelithiasis and cholecystitis. Numerous findings on computed tomography scan of the abdomen including possible to subcentimeter pancreatic lesions, possible biliary dilation and numerous other findings. Unclear etiology of elevated liver enzymes, with suspicion for viral hepatitis, hypoperfusion in the setting of decreased oral intake, however serologic testing has been positive for positive SEAN, ASMA and AMA. Liver enzymes have continued to trend down, however there is a possibility of autoimmune hepatitis, primary biliary cholangitis or an overlap syndrome remain. At this time no plans for treatment due to marked improvement with liver enzymes continuing to trend down. Current Visit: Yes Status: Acute Code(s): R74.0 - NONSPEC ELEV OF LEVELS OF TRANSAMNS & LACTIC ACID DEHYDRGNSE SNOMED Code(s): 925189376 (2) Iron deficiency anemia Narrative/Plan: Denies any signs or symptoms of GI bleeding. No colonoscopy in the past that she reports she is unable to tolerate prep. She has required iron infusions in the past. Current Visit: Yes Status: Acute Code(s): D50.9 - IRON DEFICIENCY ANEMIA, UNSPECIFIED SNOMED Code(s): 90204735 (3) Lesion of pancreas Narrative/Plan: 2 subcentimeter lesions of the pancreas of unknown etiology. MRI of the abdomen concerning for any "aggressive" findings, can follow-up with repeat imaging in 6 months to ensure stability of likely pancreatic cysts. Current Visit: Yes Status: Acute Code(s): K86.9 - DISEASE OF PANCREAS, UNSPECIFIED SNOMED Code(s): 9150463 Plan: Supportive care Okay for diet Continue monitor CBC, CMP Full liver serologies ordered including viral studies, with positive antibody testing suggesting possible autoimmune hepatitis, primary biliary cholangitis or overlap syndrome Given the marked improvement in liver enzymes will continue to monitor, and no plan for steroid therapy at this time, if patient has recurrence and elevation of liver enzymes would recommend liver biopsy at that time MRI of the abdomen essentially unremarkable except for small pancreatic lesions likely representing nonmalignant cysts and mild biliary dilation, can follow-up with repeat imaging in 6 months IV iron ordered 3 doses Protonix twice daily Acute viral hepatitis panel negative Thank you for allowing us to participate in the care of the patient we will continue to follow
[2019-09-19] MEDS: SODIUM CHLORIDE 0.9% 1,000 ML IV SCH (20:11)
[2019-09-19] MEDS: ZOLPIDEM 10 MG TAB PO SCH (20:13)
[2019-09-20] MEDS: LORazepam 1 MG TAB PO PRN ×4 (00:57→19:22)
[2019-09-20 07:49] LABS: ALT 632 U/L (4-34); AST 128 U/L (14-36); African American GFR (CKD) >90 (>60 ml/min/1.73 sqM); Albumin 2.8 g/dL (3.5-5.0); Alkaline Phosphatase 122 U/L (38-126); Anion Gap 4 mmol/L; Blood Urea Nitrogen 8 mg/dL (7-17); Calcium 8.4 mg/dL (8.4-10.2); Carbon Dioxide 26 mmol/L (22-30); Chloride 105 mmol/L (98-107); Glucose 94 mg/dL (74-99); Non-African American GFR(CKD) 89 (>60 ml/min/1.73 sqM); Potassium 3.7 mmol/L (3.5-5.1); Sodium 135 mmol/L (137-145); Total Bilirubin 0.6 mg/dL (0.2-1.3); Total Protein 6.1 g/dL (6.3-8.2)
[2019-09-20] MEDS: METOPROLOL TARTRATE 25 MG TAB PO SCH ×2 (08:06→20:39)
[2019-09-20] MEDS: PANTOPRAZOLE 40 MG TABLET PO SCH ×2 (08:06→18:14)
--- NOTE | 2019-09-20 08:13 | P.PN ---
Subjective Principal diagnosis: 73-year-old white female admitted for transaminitis hepatitis elements. The patient is much improved. Acute transaminitis is trending down. Appreciate GI input. Positive and a is otherwise noted. MRI of the abdomen does show subcentimeter lesions in the pancreas. We will follow this in 6 months. I have had a long discussion with her to increase activity and nutritional status. Objective - Vital Signs Vital signs: Vital Signs Temp 98.3 F 09/20/19 02:00 Pulse 86 09/20/19 02:00 Resp 20 09/20/19 02:00 BP 144/80 09/20/19 02:00 Pulse Ox 97 09/20/19 02:00 Intake & Output 09/19/19 09/20/19 09/20/19 18:59 06:59 18:59 Intake Total 480 Balance 480 Intake: Oral 480 Other: Voiding Method Bedside Commode # Voids 3 1 # Bowel Movements 1 - Constitutional General appearance: Present: cooperative - EENT Eyes: Absent: abnormal pupil - Neck Neck: Absent: lymphadenopathy - Respiratory Respiratory: bilateral: CTA - Cardiovascular Rhythm: regular Heart sounds: normal: S1, S2 Abnormal Heart Sounds: Absent: S3 Gallop - Gastrointestinal General gastrointestinal: Present: soft. Absent: tenderness, umbilical hernia - Integumentary Integumentary: Absent: cellulitis - Neurologic Neurologic: Present: CNII-XII intact - Musculoskeletal Musculoskeletal: Present: generalized weakness - Psychiatric Psychiatric: Present: A&O x's 3, intact judgment & insight - Labs CBC & Chem 7: 09/19/19 07:47 09/20/19 05:51 Labs: Abnormal Lab Results - Last 24 Hours (Table) 09/19/19 09/19/19 09/20/19 Range/Units 07:47 07:47 05:51 RBC 3.23 L (3.80-5.40) m/uL Hgb 9.4 L D (11.4-16.0) gm/dL Hct 31.9 L (34.0-46.0) % MCHC 29.5 L (31.0-37.0) g/dL RDW 16.6 H (11.5-15.5) % Sodium 135 L (137-145) mmol/L Glucose 111 H (74-99) mg/dL AST 219 H 128 H (14-36) U/L ALT 825 H 632 H (4-34) U/L Alkaline Phosphatase 142 H (38-126) U/L Total Protein 6.1 L (6.3-8.2) g/dL Albumin 3.0 L 2.8 L (3.5-5.0) g/dL Amylase 395 H* (30-110) U/L Lipase 3248 H (23-300) U/L Assessment and Plan (1) Anemia Current Visit: Yes Status: Acute Priority: High Code(s): D64.9 - ANEMIA, UNSPECIFIED SNOMED Code(s): 368604417 (2) Transaminitis Current Visit: Yes Status: Acute Code(s): R74.0 - NONSPEC ELEV OF LEVELS OF TRANSAMNS & LACTIC ACID DEHYDRGNSE SNOMED Code(s): 920958651 (3) Back pain Current Visit: No Status: Acute Priority: High Code(s): M54.9 - DORSALGIA, UNSPECIFIED SNOMED Code(s): 358647454 (4) History of breast cancer Current Visit: No Status: Chronic Priority: High Code(s): Z85.3 - PERSONAL HISTORY OF MALIGNANT NEOPLASM OF BREAST SNOMED Code(s): 011690857 Plan: Encourage activity. Given her generalized weakness, consider transfer to ECF. New graft check CBC and CMP in a.m. Anticipate discharge in next 24-48 hours. Dietary improvement was stressed again to the patient. Appreciate GI input.
[2019-09-20 08:15] LABS: Anisocytosis Slight; Basophils % (A) 0 %; Eosinophils # (A) 0.1 k/uL (0-0.7); Eosinophils % (A) 1 %; HCT 30.2 % (34.0-46.0); Hypochromasia Marked; Lymphocytes # (A) 1.8 k/uL (1.0-4.8); Lymphocytes % (A) 19 %; MCH 29.6 pg (25.0-35.0); MCHC 29.9 g/dL (31.0-37.0); Macrocytosis Slight; Mean Platelet Volume 8.5; Monocytes # (A) 0.7 k/uL (0-1.0); Monocytes % (A) 8 %; Neutrophils # (A) 6.7 k/uL (1.3-7.7); Neutrophils % (A) 70 %; Platelet Count 372 k/uL (150-450); RBC 3.05 m/uL (3.80-5.40); WBC 9.6 k/uL (3.8-10.6)
--- NOTE | 2019-09-20 14:06 | PN ---
PROGRESS NOTE DATE OF SERVICE: 09/20/2019 Patient is a 73-year-old pleasant white female admitted to the hospital with elevated LFTs and anemia. She was seen in consultation by Dr. Lam about 3 days ago. The serum transaminase is remarkably elevated but we have [QAMARKER trending down and she is being managed conservatively. Today, she denies any complaints. She reports no abdominal pain. She had some epigastric pain when she first came to the hospital, but she says that the pain has significantly improved. She reports no nausea, vomiting. No rectal bleeding or melena. No fever, chills, or night sweats. PHYSICAL EXAMINATION: She appears comfortable, in no apparent distress. Vital signs is stable. Blood pressure is 148/79, pulse rate 84, temperature 98.4. HEENT: Examination unremarkable. Conjunctivae are pink, sclerae nonicteric, oral cavity no lesions. NECK: No JVD or lymph node enlargement. CHEST: Clear to auscultation. HEART: Regular rate and rhythm. ABDOMEN: Soft. Mild tenderness in the epigastric area. The rest of the abdomen was benign. Bowel sounds are positive. EXTREMITIES: No pedal edema. SKIN: No rashes. NEURO: She is alert and oriented x3. No focal deficits. LABS: At the time of admission to the hospital on September 15, AST was 2336 and ALT was 186. Normal bilirubin and alkaline phosphatase today. AST is down to 128 and ALT is down to 622. Amylase and lipase elevated at 395 and 348 respectively. Hepatitis serologies were negative. CVM, EBB, IgM was negative, showed no positive articular antibody suspicious for autoimmune hepatitis. IMPRESSION: 1. Acute elevation of serum transaminases with pattern of hepatocellular injury. She was noted to has significant elevation of serum transaminases at the time of admission to the hospital and she did have extensive workup done by Dr. Lam and hepatitis evaluated for A, B, C, EBB and CVM, IgM antibodies were negative. She did have an MRCP/MRI of the liver, but did not show any evidence of choledocholithiasis. She also is noted to have elevation of the amylase and lipase with acute pancreatitis and clinically doing well. Her workup of acute liver disease showed a positive antinuclear antibody, suspicious for autoimmune hepatitis; however, she does not have any evidence of gamma globulin anemia and her serum transaminases are trending down nicely as mentioned earlier. Hence, at this time will continue with conservative management and no need for a liver biopsy. 2. Acute pancreatitis with elevated amylase and lipase. We will watch closely. 3. Mild iron deficiency anemia with stable hemoglobin. 4. Small lesion in the pancreas. MRI of the abdomen showed lesion in the posterior aspect of the body of the pancreas and is recommended, repeat MRI in 6 months. RECOMMENDATION: 1. Monitor the LFTs closely. 2. Avoid hepatotoxic medication. 3. Repeat labs in the morning including amylase and lipase. 4. Continue with symptomatic and supportive care and will follow with you closely. Thank you for this consultation. MMVANIAL / IJN: [id number] /
[2019-09-20] MEDS: SODIUM CHLORIDE 0.9% 1,000 ML IV SCH (18:15)
[2019-09-20] MEDS: ZOLPIDEM 10 MG TAB PO SCH (20:39)
[2019-09-21] MEDS: LORazepam 1 MG TAB PO PRN ×2 (00:59→06:53)
[2019-09-21 07:31] LABS: Anisocytosis Slight; HCT 27.5 % (34.0-46.0); HGB 8.3 gm/dL (11.4-16.0); Hypochromasia Marked; MCH 29.8 pg (25.0-35.0); MCHC 30.1 g/dL (31.0-37.0); Macrocytosis Slight; Mean Platelet Volume 8.1; Platelet Count 301 k/uL (150-450); RBC 2.78 m/uL (3.80-5.40); RDW 17.7 % (11.5-15.5); WBC 9.9 k/uL (3.8-10.6)
[2019-09-21 07:46] LABS: ALT 425 U/L (4-34); AST 73 U/L (14-36); African American GFR (CKD) >90 (>60 ml/min/1.73 sqM); Albumin 2.4 g/dL (3.5-5.0); Alkaline Phosphatase 110 U/L (38-126); Anion Gap 2 mmol/L; Blood Urea Nitrogen 10 mg/dL (7-17); Calcium 8.7 mg/dL (8.4-10.2); Carbon Dioxide 28 mmol/L (22-30); Chloride 107 mmol/L (98-107); Glucose 104 mg/dL (74-99); Non-African American GFR(CKD) 86 (>60 ml/min/1.73 sqM); Sodium 137 mmol/L (137-145); Total Bilirubin 0.3 mg/dL (0.2-1.3); Total Protein 5.5 g/dL (6.3-8.2)
[2019-09-21 07:51] LABS: Potassium 4.1 mmol/L (3.5-5.1)
[2019-09-21] MEDS: PANTOPRAZOLE 40 MG TABLET PO SCH ×2 (07:53→16:43)
[2019-09-21] MEDS: METOPROLOL TARTRATE 25 MG TAB PO SCH ×2 (07:53→20:31)
[2019-09-21 08:05] LABS: Amylase 404 U/L (30-110)
--- NOTE | 2019-09-21 08:22 | P.PN ---
Subjective Principal diagnosis: 73-year-old white female admitted for transaminitis hepatitis elements. The patient is much improved. Acute transaminitis is trending down. Appreciate GI input. Positive and a is otherwise noted. MRI of the abdomen does show subcentimeter lesions in the pancreas. We will follow this in 6 months. I have had a long discussion with her to increase activity and nutritional status. However, enzymes are covering of the similar level is 2 days ago. We will watch this closely. Objective - Vital Signs Vital signs: Vital Signs Temp 97.9 F 09/21/19 07:12 Pulse 69 09/21/19 07:12 Resp 15 09/21/19 07:12 BP 158/85 09/21/19 07:12 Pulse Ox 98 09/21/19 07:12 Intake & Output 09/20/19 09/21/19 09/21/19 18:59 06:59 18:59 Other: Voiding Method Bedside Commode Toilet # Voids 1 1 # Bowel Movements 1 - Constitutional General appearance: Absent: no acute distress - EENT Eyes: Absent: abnormal pupil - Neck Neck: Absent: lymphadenopathy - Respiratory Respiratory: bilateral: CTA - Cardiovascular Rhythm: regular Heart sounds: normal: S1, S2 Abnormal Heart Sounds: Absent: S3 Gallop - Gastrointestinal General gastrointestinal: Present: soft. Absent: tenderness - Psychiatric Psychiatric: Present: A&O x's 3. Absent: appropriate affect - Labs CBC & Chem 7: 09/21/19 06:48 09/21/19 06:48 Labs: Abnormal Lab Results - Last 24 Hours (Table) 09/21/19 09/21/19 Range/Units 06:48 06:48 RBC 2.78 L (3.80-5.40) m/uL Hgb 8.3 L (11.4-16.0) gm/dL Hct 27.5 L (34.0-46.0) % MCHC 30.1 L (31.0-37.0) g/dL RDW 17.7 H (11.5-15.5) % Glucose 104 H (74-99) mg/dL AST 73 H (14-36) U/L ALT 425 H (4-34) U/L Total Protein 5.5 L (6.3-8.2) g/dL Albumin 2.4 L (3.5-5.0) g/dL Amylase 404 H* (30-110) U/L Lipase 3738 H (23-300) U/L Assessment and Plan (1) Anemia Current Visit: Yes Status: Acute Priority: High Code(s): D64.9 - ANEMIA, UNSPECIFIED SNOMED Code(s): 734674267 (2) Transaminitis Current Visit: Yes Status: Acute Code(s): R74.0 - NONSPEC ELEV OF LEVELS OF TRANSAMNS & LACTIC ACID DEHYDRGNSE SNOMED Code(s): 625893305 (3) Back pain Current Visit: No Status: Acute Priority: High Code(s): M54.9 - DORSALGIA, UNSPECIFIED SNOMED Code(s): 129015714 (4) History of breast cancer Current Visit: No Status: Chronic Priority: High Code(s): Z85.3 - PERSONAL HISTORY OF MALIGNANT NEOPLASM OF BREAST SNOMED Code(s): 347577394 (5) Acute pancreatitis Current Visit: Yes Status: Acute Code(s): K85.90 - ACUTE PANCREATITIS WITHOUT NECROSIS OR INFECTION, UNSP SNOMED Code(s): 963155700 (6) Iron deficiency anemia Current Visit: Yes Status: Acute Code(s): D50.9 - IRON DEFICIENCY ANEMIA, UNSPECIFIED SNOMED Code(s): 65758487 (7) Lesion of pancreas Current Visit: Yes Status: Acute Code(s): K86.9 - DISEASE OF PANCREAS, UNSPECIFIED SNOMED Code(s): 6248164 Plan: Encourage activity. Given her generalized weakness, consider transfer to ECF. check CBC and CMP in a.m. also check amylase and lipase in a.m. Anticipate discharge in next 24-48 hours. Dietary improvement was stressed again to the patient. Appreciate GI input. Otherwise, decrease Ativan dosing and make sure the patient is only given when necessary.
[2019-09-21] MEDS: KETOROLAC 30 MG/ML 1 ML VIAL IVP SCH ×3 (12:07→23:10)
[2019-09-21] MEDS: LORazepam 0.5 MG TAB PO PRN ×2 (16:43→23:11)
--- NOTE | 2019-09-21 18:30 | PN ---
PROGRESS NOTE DATE OF DICTATION: 09/21/2019 This patient is a 73-year-old pleasant white female admitted to the hospital with abdominal pain and acute hepatitis-like picture with some epigastric discomfort. Two days ago she was noted to have elevated amylase and lipase consistent with acute pancreatitis. She did have extensive workup by Dr. Rainey, who saw her on consultation 3 days ago. Autoimmune markers were positive. However, her serum transaminases over the last 4 days have been significantly improving. She also had MRI of the abdomen and MRCP that showed no evidence of CBD stones. There was a small lesion in the pancreas and followup was recommended in 6 months. Overall she is feeling better. Some epigastric discomfort. PHYSICAL EXAMINATION: Appears comfortable. No apparent distress. Vital signs are stable. Blood pressure 158/85, pulse rate 69, temperature 97.9. HEENT examination unremarkable. Conjunctivae pink. Sclerae anicteric. Oral cavity no lesions. NECK: No JVD or lymph node enlargement. CHEST: Clear to auscultation. HEART: Regular rate and rhythm. ABDOMEN: Soft. There was very minimal tenderness in the epigastric area. Bowel sounds are positive. No organomegaly. EXTREMITIES: No pedal edema. SKIN: No rashes. NEUROLOGIC: Alert and oriented x3. No focal deficits. LABS: WBC is 9.3, hemoglobin 8.3, platelets are normal. Basic metabolic panel shows an AST that has improved to 73. ALT is down to 425. T-bilirubin and alkaline phosphatase are normal. Amylase 404, lipase 378. IMPRESSION: 1. Acute elevation of serum transaminases, with ALT and AST in the range of 2000s with all serological workup, including hepatitis A, B and C, CMV and EBV IgM antibody, is negative. 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 However, without any specific treatment, her serum transaminases are significantly improving. Today AST is down to 73 and ALT is 475. Clinically she is improving. Possibility of medication-induced hepatitis needs to be considered. COVID-19 was negative. 2. Elevated amylase and lipase, consistent with acute pancreatitis. CT of the abdomen showed a 3 mm small lesion in the head of the pancreas. Subsequently, abdominal MRI was performed that showed a subcentimeter cystic focus in the pancreas and mild prominence of the common bile duct, but normal-appearing pancreatic duct. No evidence of choledocholithiasis. 3. Normocytic anemia with stable hemoglobin. 4. History of breast cancer. RECOMMENDATIONS: 1. Will continue to monitor LFTs on a daily basis. 2. Continue with symptomatic and supportive care. 3. Monitor CBC daily. 4. Repeat labs in the morning. 5. Will follow with you closely. Thank you for this consultation. CHELA / MONALISA: [id number] /
[2019-09-21] MEDS: ZOLPIDEM 10 MG TAB PO SCH (20:31)
[2019-09-22] MEDS: KETOROLAC 30 MG/ML 1 ML VIAL IVP SCH ×3 (05:06→17:28)
[2019-09-22 07:28] LABS: Anisocytosis Slight; HCT 28.2 % (34.0-46.0); HGB 8.4 gm/dL (11.4-16.0); Hypochromasia Marked; MCH 30.1 pg (25.0-35.0); MCHC 29.9 g/dL (31.0-37.0); MCV 100.8 fL (80.0-100.0); Macrocytosis Moderate; Mean Platelet Volume 8.2; Platelet Count 286 k/uL (150-450); RDW 18.5 % (11.5-15.5); WBC 9.8 k/uL (3.8-10.6)
[2019-09-22 07:43] LABS: Albumin 2.4 g/dL (3.5-5.0); Calcium 9.1 mg/dL (8.4-10.2); Potassium 4.2 mmol/L (3.5-5.1); Total Bilirubin 0.3 mg/dL (0.2-1.3); Total Protein 5.6 g/dL (6.3-8.2)
[2019-09-22] MEDS: PANTOPRAZOLE 40 MG TABLET PO SCH ×2 (08:11→17:29)
[2019-09-22] MEDS: METOPROLOL TARTRATE 25 MG TAB PO SCH ×2 (08:11→21:36)
--- NOTE | 2019-09-22 08:29 | P.PN ---
Subjective Principal diagnosis: 73-year-old white female admitted for transaminitis hepatitis elements. The patient is much improved. Acute transaminitis is trending down. Appreciate GI input. Positive and a is otherwise noted. MRI of the abdomen does show subcentimeter lesions in the pancreas. We will follow this in 6 months. I have had a long discussion with her to increase activity and nutritional status. However, enzymes are covering of the similar level is 3 days ago. We will watch this closely. Objective - Vital Signs Vital signs: Vital Signs Temp 98.2 F 09/22/19 07:00 Pulse 91 09/22/19 07:00 Resp 15 09/22/19 07:00 BP 121/64 09/22/19 07:00 Pulse Ox 97 09/22/19 07:00 Intake & Output 09/21/19 09/22/19 09/22/19 18:59 06:59 18:59 Intake Total 360 Balance 360 Weight 54.431 kg Intake: Oral 360 Other: Voiding Method Toilet # Voids 4 2 - Constitutional General appearance: Present: cooperative, no acute distress - EENT Eyes: Absent: abnormal pupil - Neck Neck: Absent: lymphadenopathy - Respiratory Respiratory: bilateral: CTA - Cardiovascular Rhythm: regular Heart sounds: normal: S1, S2 Abnormal Heart Sounds: Absent: S3 Gallop - Gastrointestinal General gastrointestinal: Present: soft. Absent: tenderness - Neurologic Neurologic: Present: CNII-XII intact - Labs CBC & Chem 7: 09/22/19 06:16 09/22/19 06:16 Labs: Abnormal Lab Results - Last 24 Hours (Table) 09/22/19 09/22/19 Range/Units 06:16 06:16 RBC 2.80 L (3.80-5.40) m/uL Hgb 8.4 L (11.4-16.0) gm/dL Hct 28.2 L (34.0-46.0) % MCV 100.8 H (80.0-100.0) fL MCHC 29.9 L (31.0-37.0) g/dL RDW 18.5 H (11.5-15.5) % BUN 22 H (7-17) mg/dL Glucose 113 H (74-99) mg/dL AST 55 H (14-36) U/L ALT 319 H (4-34) U/L Total Protein 5.6 L (6.3-8.2) g/dL Albumin 2.4 L (3.5-5.0) g/dL Assessment and Plan (1) Anemia Current Visit: Yes Status: Acute Priority: High Code(s): D64.9 - ANEMIA, UNSPECIFIED SNOMED Code(s): 832118324 (2) Transaminitis Current Visit: Yes Status: Acute Code(s): R74.0 - NONSPEC ELEV OF LEVELS OF TRANSAMNS & LACTIC ACID DEHYDRGNSE SNOMED Code(s): 397312102 (3) Back pain Current Visit: No Status: Acute Priority: High Code(s): M54.9 - DORSALGIA, UNSPECIFIED SNOMED Code(s): 691660594 (4) History of breast cancer Current Visit: No Status: Chronic Priority: High Code(s): Z85.3 - PERSONAL HISTORY OF MALIGNANT NEOPLASM OF BREAST SNOMED Code(s): 187888359 (5) Acute pancreatitis Current Visit: Yes Status: Acute Code(s): K85.90 - ACUTE PANCREATITIS WITHOUT NECROSIS OR INFECTION, UNSP SNOMED Code(s): 140177641 (6) Iron deficiency anemia Current Visit: Yes Status: Acute Code(s): D50.9 - IRON DEFICIENCY ANEMIA, UNSPECIFIED SNOMED Code(s): 08123447 (7) Lesion of pancreas Current Visit: Yes Status: Acute Code(s): K86.9 - DISEASE OF PANCREAS, UNSPECIFIED SNOMED Code(s): 1940672 Plan: Transaminitis is improving. However, the reticulocyte enzymes are hovering and still elevated. Check CBC CMP amylase and lipase in a.m. I cautioned patient not to leave [place] as she is not strong enough to be independent in my opinion. See orders otherwise. Prognosis is guarded. Time with Patient: Greater than 30
[2019-09-22] MEDS: LORazepam 0.5 MG TAB PO PRN (08:53)
--- NOTE | 2019-09-22 15:07 | PN ---
PROGRESS NOTE DATE OF SERVICE: 09/22/2019 Patient is a 73-year-old white female admitted to the hospital with epigastric abdominal pain and elevated serum transaminases. The patient has been complaining of lower extremity discomfort as well as pain. She had some breakfast this morning and complains of more epigastric pain. No nausea, vomiting. No other new symptoms. PHYSICAL EXAMINATION: She appears comfortable, in no apparent distress. Quite sleepy. VITAL SIGNS: Stable. Blood pressure is 121/82, pulse is 91, temperature 98.2. HEENT: Examination unremarkable, conjunctivae are pink, sclerae nonicteric. Oral cavity no lesions. NECK: No JVD or lymph node enlargement. CHEST: Clear to auscultation. HEART: Regular rate and rhythm. ABDOMEN: Soft. There was mild tenderness in the epigastric area. The rest of the abdomen was benign. Bowel sounds are positive. EXTREMITIES: No pedal edema. SKIN: No rashes. NEUROLOGIC: Alert and oriented x3. No focal deficits. LABS: WBC 9.8, hemoglobin 8.4, platelets 286. Basic metabolic panel is within normal limits. ALT and AST are significantly decreased to 55 and 319 respectively. T-bilirubin and alkaline phosphatase continued to remain normal. Amylase and lipase were not done today. IMPRESSION: 1. Acute elevation of serum transaminases, which are gradually trending down. The last workup was negative: COVID-19 was also negative, but possibility of COVID-19 infection cannot be still entirely excluded. She did have remarkably positive but since the serum transaminases are trending down, we continue to hold the liver biopsy at the present time. 2. Elevated amylase and lipase consistent with acute pancreatitis. Will repeat labs in the morning. 3. Normocytic anemia with stable hemoglobin. RECOMMENDATIONS: 1. Continue to monitor LFTs on a daily basis. 2. Continue with symptomatic and supportive care. 3. Repeat amylase and lipase tomorrow. 4. Continue Protonix daily. 5. Consider endoscopic intervention for work up of anemia on an outpatient basis. Thank you for this consultation. MMODL / ANTONION: [id number] /
--- NOTE | 2019-09-22 15:38 | CDI ---
Documentation Clarification Form Date: 09/22/2019 03:27:04 PM From: Cele Olson CCS, CCDS Admit Date: 09/14/2019 06:28:00 PM Patient Name: Rhea Em Visit Number: [id number] Discharge Date: ATTENTION: The Clinical Documentation Specialists (CDI) and [facility] Coding Staff appreciate your assistance in clarifying documentation. Please respond to the clarification below the line at the bottom and electronically sign. The CDI & [facility] Coding staff will review the response and follow-up if needed. Please note: Queries are made part of the Legal Health Record. If you have any questions, please contact the author of this message via ITS. Dr. Everardo Parker: The COVID-19 test obtained on 09/14/2019 was reported as Negative on 09/14/2019. Per the GI Progress Note on 09/20: "COVID-19 was negative." Per the GI Progress Note on 09/21: "The last workup was negative: COVID-19 was also negative, but possibility of COVID-19 infection cannot be still entirely excluded." Patient history/risk factors: Breast Cancer status post Left Mastectomy, Abdominal pain, Constipation, Anemia with low iron level. Clinical Indicators: Presented to the ED on 09/13 with weakness, very fatigued, several falls & hit her head, nauseous & vomiting. Admitted with Anemia nos, Transaminitis, Back pain. VS in ED Triage: T 98.2, P 96, R 20, BP 114/67, PO 95 RA LAB: WBC (10.1), Hgb 7.6*, Pl Ct 473^, Hct 24.3*, Neut 9.1^, BUN 38^, Cr 1.27^, AST 2979^, ALT 1318^. COVID-19 test 09/13: Negative. Treatment: IV fluid 1,000 mls @ 999 mls/hr, IV Ativan, IV Ferric Na Gluconate, IV Toradol. In order to capture the severity of condition, please clarify the COVID-19 status: False negative, treating for COVID-19 infection COVID-19 ruled out-This is the correct dx Other, please specify (Last Form Revision: July 2019) MTDD
[2019-09-22] MEDS: ZOLPIDEM 10 MG TAB PO SCH (21:37)
[2019-09-23] MEDS: KETOROLAC 30 MG/ML 1 ML VIAL IVP SCH ×3 (00:29→12:39)
[2019-09-23 01:37] VITALS: RESP 16
--- NOTE | 2019-09-23 08:26 | P.PN ---
Subjective Principal diagnosis: Transaminitis and chronic pancreatitis The patient is much improved. Acute transaminitis is trending down. Appreciate GI input. MRI of the abdomen does show subcentimeter lesions in the pancreas. We will follow this in 6 months. I have had a long discussion with her to increase activity and nutritional status. Enzymatic check for pancreas is pending today. She is complaining of significant pain because of her history of opiate dependence. However, she is taking Toradol this time. No other voiding difficulties are stated. Objective - Vital Signs Vital signs: Vital Signs Temp 98.4 F 09/23/19 07:00 Pulse 97 09/23/19 07:00 Resp 16 09/23/19 07:00 BP 151/80 09/23/19 07:00 Pulse Ox 98 09/23/19 07:00 Intake & Output 09/22/19 09/23/19 09/23/19 18:59 06:59 18:59 Intake Total 500 Balance 500 Intake: Oral 500 Other: Voiding Method Toilet # Voids 2 3 - Constitutional General appearance: Present: no acute distress, thin - EENT Eyes: Absent: abnormal pupil - Neck Neck: Absent: normal ROM - Respiratory Respiratory: bilateral: CTA - Cardiovascular Rhythm: regular Heart sounds: normal: S1, S2 Abnormal Heart Sounds: Absent: S3 Gallop - Gastrointestinal General gastrointestinal: Present: soft. Absent: tenderness - Psychiatric Psychiatric: Present: A&O x's 3. Absent: appropriate affect - Labs CBC & Chem 7: 09/22/19 06:16 09/22/19 06:16 Assessment and Plan (1) Anemia Current Visit: Yes Status: Acute Priority: High Code(s): D64.9 - ANEMIA, UNSPECIFIED SNOMED Code(s): 088030635 (2) Transaminitis Current Visit: Yes Status: Acute Code(s): R74.0 - NONSPEC ELEV OF LEVELS OF TRANSAMNS & LACTIC ACID DEHYDRGNSE SNOMED Code(s): 311775686 (3) Back pain Current Visit: No Status: Acute Priority: High Code(s): M54.9 - DORSALGIA, UNSPECIFIED SNOMED Code(s): 092449816 (4) History of breast cancer Current Visit: No Status: Chronic Priority: High Code(s): Z85.3 - PERSONAL HISTORY OF MALIGNANT NEOPLASM OF BREAST SNOMED Code(s): 352345443 (5) Acute pancreatitis Current Visit: Yes Status: Acute Code(s): K85.90 - ACUTE PANCREATITIS WITHOUT NECROSIS OR INFECTION, UNSP SNOMED Code(s): 711305322 (6) Iron deficiency anemia Current Visit: Yes Status: Acute Code(s): D50.9 - IRON DEFICIENCY ANEMIA, UNSPECIFIED SNOMED Code(s): 65761094 (7) Lesion of pancreas Current Visit: Yes Status: Acute Code(s): K86.9 - DISEASE OF PANCREAS, UNSPECIFIED SNOMED Code(s): 2774326 Plan: Chronic pancreatitis with transaminitis. Opiate dependence issues. Continue Toradol for now. Check CBC and CMP with amylase and lipase in a.m. Watching anemia also closely. The patient seems to be clinically improving given her transaminitis is resolving.-Appreciate GI input.. Time with Patient: Greater than 30
[2019-09-23] MEDS: METOPROLOL TARTRATE 25 MG TAB PO SCH (08:30)
[2019-09-23] MEDS: PANTOPRAZOLE 40 MG TABLET PO SCH (08:30)
[2019-09-23] MEDS: LORazepam 0.5 MG TAB PO PRN (08:32)
[2019-09-23 08:35] LABS: Anisocytosis Slight; HCT 26.9 % (34.0-46.0); Hypochromasia Marked; MCHC 29.7 g/dL (31.0-37.0); MCV 101.2 fL (80.0-100.0); Macrocytosis Moderate; Mean Platelet Volume 8.4; Platelet Count 260 k/uL (150-450); RBC 2.66 m/uL (3.80-5.40); WBC 8.1 k/uL (3.8-10.6)
[2019-09-23 08:43] LABS: ALT 251 U/L (4-34); AST 42 U/L (14-36); African American GFR (CKD) >90 (>60 ml/min/1.73 sqM); Albumin 2.4 g/dL (3.5-5.0); Alkaline Phosphatase 97 U/L (38-126); Anion Gap 1 mmol/L; Blood Urea Nitrogen 24 mg/dL (7-17); Calcium 8.9 mg/dL (8.4-10.2); Carbon Dioxide 31 mmol/L (22-30); Chloride 105 mmol/L (98-107); Glucose 102 mg/dL (74-99); Non-African American GFR(CKD) 81 (>60 ml/min/1.73 sqM); Potassium 4.1 mmol/L (3.5-5.1); Sodium 137 mmol/L (137-145); Total Bilirubin 0.3 mg/dL (0.2-1.3); Total Protein 5.4 g/dL (6.3-8.2)
[2019-09-23 08:54] LABS: Amylase 469 U/L (30-110)
--- NOTE | 2019-09-23 14:10 | P.DS ---
Providers Date of admission: 09/14/19 18:28 Attending physician: Everardo Parker Consults: 09/14/19 18:27 Consult Physician Routine Consulting Provider: Kevin Rainey Consult Reason/Comments: anemia, transaminitis Do you want consulting provider notified?: Yes Primary care physician: Everardo Parker - Discharge Diagnosis(es) (1) Anemia Current Visit: Yes Status: Acute Priority: High (2) Transaminitis Current Visit: Yes Status: Acute (3) Back pain Current Visit: No Status: Acute Priority: High (4) History of breast cancer Current Visit: No Status: Chronic Priority: High (5) Acute pancreatitis Current Visit: Yes Status: Acute (6) Iron deficiency anemia Current Visit: Yes Status: Acute (7) Lesion of pancreas Current Visit: Yes Status: Acute Hospital Course: This is discharge summary on a 73 you white female essentially admitted for multiple falls and transaminitis with chronic pancreatitis. The patient was stabilized and after stopping any liver toxic type medication, her transaminitis resolved. She had an MRI/MRCP which did not show significant obstruction of the pancreatic duct. We held off on ERCP given her overall status. She had difficulty walking. She had element of withdrawal secondary to stopping Percocet due to its liver toxicity. The patient will now be discharged once cleared by consultants and follow-up with me in 3-5 days Patient Condition at Discharge: Fair Plan - Discharge Summary Discharge Rx Participant: No New Discharge Prescriptions: New RX: Metoprolol Tartrate [Lopressor] 25 mg PO BID #60 tab RX: Pantoprazole [Protonix] 40 mg PO AC-BID #60 tablet. Continue RX: Multivit-Min/FA/Lycopen/Lutein [Centrum Silver Tablet] 1 tab PO TUTH RX: Zolpidem [Ambien] 10 mg PO HS RX: Letrozole [Femara] 2.5 mg PO DAILY RX: ALPRAZolam [Xanax] 1 mg PO QID PRN PRN Reason: Anxiety Discontinued oxyCODONE-APAP 10-325MG [Percocet 10-325 mg] 1 tab PO Q6H PRN PRN Reason: Pain Discharge Medication List RX: Multivit-Min/FA/Lycopen/Lutein [Centrum Silver Tablet] 1 tab PO TUTH 06/04/18 [History] RX: ALPRAZolam [Xanax] 1 mg PO QID PRN 09/14/19 [History] RX: Letrozole [Femara] 2.5 mg PO DAILY 09/14/19 [History] RX: Zolpidem [Ambien] 10 mg PO HS 09/14/19 [History] RX: Metoprolol Tartrate [Lopressor] 25 mg PO BID #60 tab 09/23/19 [Rx] RX: Pantoprazole [Protonix] 40 mg PO AC-BID #60 tablet. 09/23/19 [Rx] Follow up Appointment(s)/Referral(s): Everardo Parker MD [Primary Care Provider] - 1-2 days [facility] Visiting Nurse, [NON-STAFF] -
[2019-09-23 15:25] VITALS: BP 126/75; PULSE 107; TEMP 98.5
== END 2019-09-23 15:49 | disposition home health service (06) | DRG 439 ==
LOC: EC 13:45 → 4SSUR 18:28
PROVIDERS: ADMIT Family Medicine; ATTEND Family Medicine
PROC: 30233N1 Transfusion of Nonautologous Red Blood Cells into Peripheral Vein, Percutaneous Approach (ICD-10-PCS; principal; 2019-09-14)
DX: K85.90 Acute pancreatitis without necrosis or infection, unspecified (principal); F11.23 Opioid dependence with withdrawal; K86.1 Other chronic pancreatitis; G89.29 Other chronic pain; M54.5 Low back pain; R74.0 Nonspecific elevation of levels of transaminase and lactic acid dehydrogenase [LDH]; K75.89 Other specified inflammatory liver diseases; R29.6 Repeated falls; E88.09 Other disorders of plasma-protein metabolism, not elsewhere classified; D50.9 Iron deficiency anemia, unspecified; Z20.828 Contact with and (suspected) exposure to other viral communicable diseases; F41.0 Panic disorder [episodic paroxysmal anxiety]; W19.XXXA Unspecified fall, initial encounter; Z79.811 Long term (current) use of aromatase inhibitors; Z79.899 Other long term (current) drug therapy; Z85.3 Personal history of malignant neoplasm of breast; Z90.12 Acquired absence of left breast and nipple; K59.00 Constipation, unspecified; Z80.9 Family history of malignant neoplasm, unspecified; Z80.42 Family history of malignant neoplasm of prostate; Z86.79 Personal history of other diseases of the circulatory system
CPT/HCPCS: 36415; 36430; 70450; 71045; 74177; 74183; 74230; 76705; 76856; 80048; 80053; 80074; 80306; 81001; 82103; 82150; 82272; 82390; 82607; 82746; 83021; 83516; 83540; 83550; 83690; 83735; 84165; 84443; 84484; 85025; 85027; 85045; 85610; 85730; 86038; 86039; 86376; 86645; 86665; 86694; 86850; 86900; 86901; 86920; 87086; 87635; 93005; 96360; 99285

== ENCOUNTER → 2019-11-08 | Day surgery (SDC) | payer MEDICARE ==
[2019-11-05 12:36] VITALS: BMI 17.3
[~2019-11-08] MED LIST: LACTATED RINGERS 1,000 ML IV SCH; LIDOCAINE 1% INJ 10MG/ML (20 ML MDV) ONE; PROPOFOL 10 MG/ML 20 ML VIAL IV ONE
[2019-11-08 10:29] VITALS: TEMP 97.8
--- NOTE | 2019-11-08 11:36 | P.PCN ---
Date of Procedure: 11/08/19 Description of Procedure: BRIEF HISTORY: Patient is a 74-year-old female presenting for outpatient EGD for evaluation of nausea. She reports unintentional weight loss and epigastric abdominal pain and associated nausea with her symptoms. PROCEDURE PERFORMED: Esophagogastroduodenoscopy with biopsy. PREOPERATIVE DIAGNOSIS: Nausea, epigastric abdominal pain, unintentional weight loss ESTIMATED BLOOD LOSS: Minimal. IV sedation per anesthesia. PROCEDURE: After informed consent was obtained, the patient was brought into the endoscopy unit. IV sedation was administered by Anesthesia under continuous monitoring. Initially the Olympus GIF-190 video endoscope was inserted into the mouth. Esophagus intubated without any difficulty. It was gradually advanced into the stomach and duodenum and carefully examined. The bulb and the second part of the duodenum appeared normal, with biopsies taken . The scope at this time was withdrawn to the stomach, adequately insufflated with air, and upon careful examination, mucosa of the antrum, body, cardia and the fundus appeared normal, except for punctate erythema in the antrum and body suggestive of mild gastritis with biopsies taken . The scope was then withdrawn into the esophagus. The GE junction was located at 35 cm from the incisors, with 5 cm hiatal hernia noted. There were white plaques in the mid to distal esophagus suggestive of [place] esophagitis with biopsies taken. The patient tolerated the procedure well. IMPRESSION: 1. Mild gastritis antrum body, biopsied. 2. [place] esophagitis, biopsied. 3. Large hiatal hernia. 4. Duodenal biopsies. RECOMMENDATIONS: The findings of this examination were discussed with the patient. Will provide a trial of omeprazole 20 mg daily for 60 days. We'll also order Diflucan for treatment of suspected esophageal candidiasis. Await pathology from biopsies. Follow up with oncology service as previously scheduled.
[2019-11-08 12:01] VITALS: BP 108/71; PULSE 83; RESP 18
== END ==
LOC: ORWHC2ENDO 09:59
PROVIDERS: ATTEND Internal Medicine
DX: K29.50 Unspecified chronic gastritis without bleeding (principal); B37.81 Candidal esophagitis; K44.9 Diaphragmatic hernia without obstruction or gangrene; Z80.0 Family history of malignant neoplasm of digestive organs; Z79.891 Long term (current) use of opiate analgesic; Z79.899 Other long term (current) drug therapy; Z87.440 Personal history of urinary (tract) infections; Z98.890 Other specified postprocedural states
CPT/HCPCS: 43239; 88305; J2001; J2704

== ENCOUNTER → 2022-01-07 | Outpatient (CLI) | payer MEDICARE ==
--- NOTE | 2022-01-07 12:36 | XR ---
EXAMINATION TYPE: XR Hip Complete LT DATE OF EXAM: 01/07/2022 CLINICAL HISTORY: pain TECHNIQUE: AP and frogleg views of the left hip are obtained. COMPARISON: None. FINDINGS: There is no acute fracture/dislocation evident. The joint space appears within normal li mits. The overlying soft tissue appears unremarkable. IMPRESSION: 1. There is no acute fracture or dislocation.ICD 10 NO FRACTURE, INITIAL EVALUATION
--- NOTE | 2022-01-07 12:56 | XR ---
EXAMINATION TYPE: XR shoulder complete LT DATE OF EXAM: 01/07/2022 12:47 PM INDICATION: Patient age:Female; 76 years old; Reason for study: M25.552 Pain left hip M25.512 Pain left shoulder; COMPARISON: None TECHNIQUE: The left shoulder was examined in AP, internally rotated and scapular Y projections. . FINDINGS: No evidence of acute osseous pathology, joint dislocation, or soft tissue swelling. The remaining por tions of the visualized chest are unremarkable. IMPRESSION: No acute osseous pathology.
== END | disposition home or self-care (01) ==
LOC: RADXRMAIN 12:03
PROVIDERS: ATTEND Internal Medicine
DX: M25.512 Pain in left shoulder (principal); M25.552 Pain in left hip
CPT/HCPCS: 73502

== ENCOUNTER 2023-08-11 10:32 | Inpatient (IN) | payer MEDICARE ==
--- NOTE | 2023-08-11 10:46 | ED ---
Fall HPI - General Chief Complaint: Fall Stated Complaint: fall Time Seen by Provider: 08/11/23 10:45 Source: patient, EMS, RN notes reviewed Mode of arrival: EMS Limitations: physical limitation - History of Present Illness Initial Comments: Patient is a 77-year-old female presenting to the ER via EMS with a chief complaint of a fall. Patient states she was in her kitchen and noticed water on the floor. Patient states she bent down to wipe up the water and slipped. She denies head injury, loss of consciousness, blood thinner use. She states most of her pain is in her left hip. Denies any dizziness, lightheadedness, chest pain, shortness of breath prior to incident. Denies any recent cough, congestion, fevers, chills, constipation/diarrhea. Per EMS patient received 200 mcg of fentanyl without improvement of pain. - Related Data Home Medications Medication Instructions Recorded Confirmed Acetaminophen [Tylenol 8 Hour] 650 - 1,300 mg PO Q8H PRN 08/11/23 08/11/23 Doxylamine Succinate [Unisom] 25 mg PO HS 08/11/23 08/11/23 Melatonin 10 mg PO HS 08/11/23 08/11/23 Allergies Allergy/AdvReac Type Severity Reaction Status Date / Time No Known Allergies Allergy Verified 11/05/19 12:03 Review of Systems ROS Statement: Those systems with pertinent positive or pertinent negative responses have been documented in the HPI. ROS Other: All systems not noted in ROS Statement are negative. Past Medical History Past Medical History: Cancer Additional Past Medical History / Comment(s): hx breast cancer, anemia, low iron level. ,states hx of fall and fx back., states recent hospitalization 09/14/19 to 09/23/19 ([facility]), pt states she was discharged with additional meds but did not know what they were for and did not take -instructed pt she should follow up her dr regarding meds., pt to bring med list ., states family hx of esophageal and colon cancer. History of Any Multi-Drug Resistant Organisms: None Reported Past Surgical History: Back Surgery, Breast Surgery Additional Past Surgical History / Comment(s): 3 brain aneurysms clipped-2007, left mastectomy 6 years ago Past Anesthesia/Blood Transfusion Reactions: No Reported Reaction Past Psychological History: Anxiety, Panic Disorder Past Alcohol Use History: Occasional Past Drug Use History: None Reported - Past Family History Mother Family Medical History: No Reported History Brother(s) Family Medical History: Cancer Additional Family Medical History / Comment(s): 3 brothers colon and esophageal cancer, pancreatic cancer Father Family Medical History: Cancer Additional Family Medical History / Comment(s): prostate cancer General Exam Limitations: no limitations, physical limitation General appearance: alert Head exam: Present: atraumatic, normocephalic, normal inspection Eye exam: Present: normal appearance, PERRL, EOMI. Absent: scleral icterus, conjunctival injection, periorbital swelling Pupils: Present: normal accommodation ENT exam: Present: normal exam, normal oropharynx, mucous membranes moist Neck exam: Present: normal inspection. Absent: tenderness, meningismus, lymphadenopathy Respiratory exam: Present: normal lung sounds bilaterally. Absent: respiratory distress, wheezes, rales, rhonchi, stridor Cardiovascular Exam: Present: normal rhythm, tachycardia, normal heart sounds GI/Abdominal exam: Present: soft, normal bowel sounds. Absent: distended, tenderness, guarding, rebound, rigid Extremities exam: Present: tenderness (left greater trochanter. LLE shortened. 2+ dorsalis pedis pulse. intact sensation. ROM limited due to pain), other (deformity to left hip) Neurological exam: Present: alert, oriented X3, CN II-XII intact Psychiatric exam: Present: normal affect, normal mood Skin exam: Present: warm, dry, intact, normal color. Absent: rash Course Vital Signs 08/11/23 08/11/23 08/11/23 10:41 11:42 11:50 Temperature 99.1 F Pulse Rate 104 H 122 H 123 H Respiratory 18 13 12 Rate Blood Pressure 138/94 138/94 138/94 O2 Sat by Pulse 98 96 95 Oximetry 08/11/23 12:00 Temperature Pulse Rate 121 H Respiratory 10 L Rate Blood Pressure 138/94 O2 Sat by Pulse 97 Oximetry - Reevaluation(s) Reevaluation #1: 08/11/23 12:50 Case discussed with Darrel Andrews who accepts medical admission Medical Decision Making - Medical Decision Making Was pt. sent in by a medical professional or institution (, PA, CORPORATE CONSULTANT, urgent care, hospital, or fci...) When possible be specific @ -No Did you speak to anyone other than the patient for history (EMS, parent, family, police, friend...)? What history was obtained from this source @ -EMS aiding in HPI Did you review nursing and triage notes (agree or disagree)? Why? @ -I reviewed and agree with nursing and triage notes Were old charts reviewed (outside hosp., previous admission, EMS record, old EKG, old radiological studies, urgent care reports/EKG's, fci records)? Report findings @ -No old charts were reviewed Differential Diagnosis (chest pain, altered mental status, abdominal pain women, abdominal pain men, vaginal bleeding, weakness, fever, dyspnea, syncope, headache, dizziness, GI bleed, back pain, seizure, CVA, palpatations, mental health, musculoskeletal)? @ -Differential Musculoskeletal Muscular strain, contusion, ligament sprain, fracture, arthritis, septic arthritis, bursitis, cellulitis, muscle spasm, nerve compression, DVT, arterial occlusion, herpes zoster, electrolyte abnormality, tumor.... This is not meant to be in all inclusive list EKG interpreted by me (3pts min.). @ -As above X-rays interpreted by me (1pt min.). @ -Left hip AP pelvis x-ray significant for a three-part left-sided intertrochanteric fracture with cranial migration of the distal fracture component. CT interpreted by me (1pt min.). @ -None done U/S interpreted by me (1pt. min.). @ -None done What testing was considered but not performed or refused? (CT, X-rays, U/S, l abs)? Why? @ -None What meds were considered but not given or refused? Why? @ -None Did you discuss the management of the patient with other professionals (professionals i.e. , PA, CORPORATE CONSULTANT, lab, RT, psych nurse, psychiatric social worker supervisor, record press supervisor, teacher, accounts officer, case fitter)? Give summary @ -Yes, case discussed with Darrel Andrews, orthopedics, who advised on surgical intervention. I also spoke with Dr. Vilchis who states that he has not seen patient in 2 years. He reports he will see patient but to ensure she is not follow-up with another provider. Upon speaking with patient she stated she has not been following up with anyone and would like to follow-up with concrete finisher apprentice internists. Was smoking cessation discussed for >3mins.? @ -No Was critical care preformed (if so, how long)? @ -No Were there social determinants of health that impacted care today? How? (Homelessness, low income, unemployed, alcoholism, drug addiction, transportation, low edu. Level, literacy, decrease access to med. care, [place] [facility], rehab)? @ -No Was there de-escalation of care discussed even if they declined (Discuss DNR or withdrawal of care, Hospice)? DNR status @ -No What co-morbidities impacted this encounter? (DM, HTN, Smoking, COPD, CAD, Cancer, CVA, ARF, Chemo, Hep., AIDS, mental health diagnosis, sleep apnea, morbid obesity)? @ -None Was patient admitted / discharged? Hospital course, mention meds given and route, prescriptions, significant lab abnormalities, going to OR and other pertinent info. @ -Admitted. Patient is a 77 year old female presenting to the ER via EMS with a chief complaint of a fall. History and physical exam were completed. Vitals stable. Tachycardic at 111 which is believed to be due to pain. Patient no signs of acute distress and nontoxic-appearing. Bilateral upper and lower extremities neurovascular intact. No acute neurological findings on exam. Labs obtained unimpressive. EKG showing sinus tachycardia with T wave inversion in lead III. CT brain performed in the ER negative for acute process. X-ray left hip AP pelvis significant for displaced intertrochanteric fracture. Admission considered for surgical intervention. Case discussed with Darrel Andrews, orthop edics, who accepted admission. Results discussed with patient, all questions answered. Patient agreeable for admission. Medicine on consult. Patient received analgesic medication in ER. Patient admitted in stable condition for further treatment. Case discussed with ED attending, Dr. Schultz. Undiagnosed new problem with uncertain prognosis? @ -No Drug Therapy requiring intensive monitoring for toxicity (Heparin, Nitro, Insulin, Cardizem)? @ -No Were any procedures done? @ -No Diagnosis/symptom? @ -Intertrochanteric fracture Acute, or Chronic, or Acute on Chronic? @ -Acute Uncomplicated (without systemic symptoms) or Complicated (systemic symptoms)? @ -Uncomplicated Side effects of treatment? @ -No Exacerbation, Progression, or Severe Exacerbation? @ -No Poses a threat to life or bodily function? How? (Chest pain, [place], [place], pneumonia, PE, COPD, DKA, ARF, appy, cholecystitis, CVA, Diverticulitis, Homicidal, Suicidal, threat to staff... and all critical care pts) @ -No - Lab Data Result diagrams: 08/11/23 10:53 08/11/23 10:53 Lab Results 08/11/23 08/11/23 Range/Units 10:53 10:53 WBC 8.4 (3.8-10.6) k/uL RBC 4.06 (3.80-5.40) m/uL Hgb 13.2 (11.4-16.0) gm/dL Hct 41.5 (34.0-46.0) % MCV 102.3 H (80.0-100.0) fL MCH 32.5 (25.0-35.0) pg MCHC 31.8 (31.0-37.0) g/dL RDW 15.8 H (11.5-15.5) % Plt Count 260 (150-450) k/uL MPV 8.3 Macrocytosis Moderate Sodium 139 (137-145) mmol/L Potassium 4.6 (3.5-5.1) mmol/L Chloride 110 H (98-107) mmol/L Carbon Dioxide 23 (22-30) mmol/L Anion Gap 6 mmol/L BUN 19 H (7-17) mg/dL Creatinine 0.70 (0.52-1.04) mg/dL Est GFR (CKD-EPI)AfAm >90 (>60 ml/min/1.73 sqM) Est GFR (CKD-EPI)NonAf 83 (>60 ml/min/1.73 sqM) Glucose 101 H (74-99) mg/dL Calcium 8.7 (8.4-10.2) mg/dL Total Bilirubin 1.0 (0.2-1.3) mg/dL AST 55 H (14-36) U/L ALT 140 H (4-34) U/L Alkaline Phosphatase 117 (38-126) U/L Total Protein 7.0 (6.3-8.2) g/dL Albumin 3.8 (3.5-5.0) g/dL - EKG Data -: EKG Interpreted by Ar EKG Comments: EKG taken at 11:07 showing sinus tachycardia with no acute ST segment or T wave abnormalities. Ventricular rate 111, [place] interval 154, QRS duration 94, QT/QTc 336/402. - Radiology Data Radiology results: report reviewed, image reviewed Disposition Clinical Impression: Fall, Intertrochanteric fracture of left femur Disposition: ADMITTED IP TO THIS HOSP Condition: Fair Time of Disposition: 12:08
[2023-08-11] MEDS: ONDANSETRON 4 MG/2 ML VIAL IVP STA (10:53)
[2023-08-11] MEDS: SODIUM CHLORIDE 0.9% 500 ML 500 ML IV STA (10:55)
[2023-08-11] MEDS: HYDROmorphone 1 MG/ML 1 ML SYRINGE IVP STA (10:57)
[2023-08-11 11:02] LABS: HCT 41.5 % (34.0-46.0); HGB 13.2 gm/dL (11.4-16.0); MCH 32.5 pg (25.0-35.0); MCHC 31.8 g/dL (31.0-37.0); MCV 102.3 fL (80.0-100.0); Macrocytosis Moderate; Mean Platelet Volume 8.3; Platelet Count 260 k/uL (150-450); RBC 4.06 m/uL (3.80-5.40); RDW 15.8 % (11.5-15.5); WBC 8.4 k/uL (3.8-10.6)
[2023-08-11 11:16] LABS: ALT 140 U/L (4-34); African American GFR (CKD) >90 (>60 ml/min/1.73 sqM); Anion Gap 6 mmol/L; Blood Urea Nitrogen 19 mg/dL (7-17); Carbon Dioxide 23 mmol/L (22-30); Chloride 110 mmol/L (98-107); Glucose 101 mg/dL (74-99); Non-African American GFR(CKD) 83 (>60 ml/min/1.73 sqM); Sodium 139 mmol/L (137-145)
[2023-08-11 11:19] LABS: Potassium 4.6 mmol/L (3.5-5.1)
[2023-08-11 11:20] LABS: AST 55 U/L (14-36); Albumin 3.8 g/dL (3.5-5.0); Alkaline Phosphatase 117 U/L (38-126); Calcium 8.7 mg/dL (8.4-10.2)
--- NOTE | 2023-08-11 11:43 | CT ---
EXAMINATION TYPE: CT brain dillon smith con DATE OF EXAM: 08/11/2023 COMPARISON: None HISTORY: Fall CT DLP: 1323.[address] of the brain was performed. The ventricles, basal cisterns and sulci overlying the cerebral convexities demonstrate mild enlargem ent. There is no evidence for intracranial hemorrhage or sulcal effacement. There is decreased attenuatio n about the periventricular white matter and deep white matter of both cerebral hemispheres, compatib le with chronic small vessel ischemia. No mass effects are seen. If symptoms persist consider MRI. Left temporal craniotomy changes. IMPRESSION: 1. Age related atrophic and chronic small vessel ischemic change without acute intracranial process seen at this time. CT Cervical Spine: Unenhanced CT of the cervical spine was performed with bone and soft tissue window settings submitted . Coronal and sagittal reconstruction is obtained. There is normal alignment and prevertebral soft tissues. No evidence for acute cervical fracture . Scattered degenerative disc disease and spondylosis. Biapical scarring. 4 mm right apical pulmonary n odule. IMPRESSION: 1. No evidence for acute fracture or subluxation of the cervical spine.
--- NOTE | 2023-08-11 11:51 | XR ---
EXAMINATION TYPE: XR Hip LT and AP Pelvis DATE OF EXAM: 08/11/2023 CLINICAL HISTORY: pain TECHNIQUE: AP and frogleg views of the left hip are obtained. COMPARISON: None. FINDINGS: 3 part left-sided intertrochanteric fracture with cranial migration of distal fracture comp onent. No additional fractures seen. IMPRESSION: 1. 3 part left-sided intertrochanteric fracture with cranial migration of distal fracture component.
--- NOTE | 2023-08-11 11:52 | XR ---
EXAMINATION TYPE: XR chest 1V DATE OF EXAM: 08/11/2023 HISTORY: Shortness of breath. COMPARISON: 09/14/2019 TECHNIQUE: Single view of the chest is submitted. FINDINGS: Demonstrated are scattered senescent parenchymal change. There is no evidence for focal infiltrate. The heart is stable. Hilar and mediastinal structures are within normal limits. Degenerative changes are seen of the dorsal spine. IMPRESSION: 1. Chronic changes without evidence for acute pulmonary disease.
[2023-08-11] MEDS ORDERED: ONDANSETRON 4 MG/2 ML VIAL IVP PRN (12:13)
[2023-08-11] MEDS ORDERED: NALOXONE 0.4 MG/ML 1 ML VIAL IV PRN (12:13)
[2023-08-11] MEDS: HYDROmorphone 1 MG/ML 1 ML SYRINGE IVP PRN (12:35)
[2023-08-11] MEDS: SODIUM CHLORIDE 0.9% 1,000 ML IV SCH (14:19)
--- NOTE | 2023-08-11 15:01 | P.HPOR ---
History of Present Illness H&P Date: 08/11/23 Chief Complaint: Left intertrochanteric femur fracture Patient is a 77-year-old female who presented to [facility] on 08/11/2023 after falling at home. Apparently the patient slipped on some water in the kitchen and fell on her left side. She was unable to ambulate after the injury, she was brought to [facility] by EMS. Upon arrival to the hospital, imaging and lab tests were done. Images demonstrated a comminuted and displaced left intertrochanteric femur fracture. I was contacted by the emergency room staff and was able to discuss the case. Patient was admitted under our orthopedic care with plan for likely surgical intervention, internal medicine consults were placed. Patient was evaluated in the emergency room by myself today. She is resting in her hospital bed. She notes severe pain in her left proximal femur. She denies any left knee pain, left lower leg pain, left foot or ankle pain. She denies any symptoms of the right lower extremity or bilateral upper extremities. She denies hitting her head during the fall, she did not lose consciousness. She denies any loss of bowel or bladder function at this time. She denies any previous orthopedic surgery to her left lower extremity. She has had a previous lumbar fusion done at this hospital by Dr. Beckham, she denies any new onset back pain. She denies any numbness or tingling to the bilateral lower extremities. Patient does live alone, she utilizes no assistive devices with ambulation, she still drives. Review of Systems Constitutional: Reports as per HPI Past Medical History Past Medical History: Cancer Additional Past Medical History / Comment(s): hx breast cancer, anemia, low iron level. ,states hx of fall and fx back., states recent hospitalization 09/14/19 to 09/23/19 ([facility]), pt states she was discharged with additional meds but did not know what they were for and did not take -instructed pt she should follow up her dr regarding meds., pt to bring med list ., states family hx of esophageal and colon cancer. History of Any Multi-Drug Resistant Organisms: None Reported Past Surgical History: Back Surgery, Breast Surgery Additional Past Surgical History / Comment(s): 3 brain aneurysms clipped-2007, left mastectomy 6 years ago Past Anesthesia/Blood Transfusion Reactions: No Reported Reaction Past Psychological History: Anxiety, Panic Disorder Past Alcohol Use History: Occasional Past Drug Use History: None Reported - Past Family History Mother Family Medical History: No Reported History Brother(s) Family Medical History: Cancer Additional Family Medical History / Comment(s): 3 brothers colon and esophageal cancer, pancreatic cancer Father Family Medical History: Cancer Additional Family Medical History / Comment(s): prostate cancer Medications and Allergies Home Medications Medication Instructions Recorded Confirmed Type Acetaminophen [Tylenol 8 Hour] 650 - 1,300 mg PO Q8H PRN 08/11/23 08/11/23 History Doxylamine Succinate [Unisom] 25 mg PO HS 08/11/23 08/11/23 History Melatonin 10 mg PO HS 08/11/23 08/11/23 History Allergies Allergy/AdvReac Type Severity Reaction Status Date / Time No Known Allergies Allergy Verified 11/05/19 12:03 Physical Examination Left lower extremity: No obvious open lesions or sores are visualized throughout the extremity. There is some soft tissue swelling noted on the anterior lateral aspect of the proximal thigh She is unable to straight leg raise, logroll maneuver reproduces severe groin pain. She is tender with palpation surrounding the proximal anterior lateral thigh No effusion present over the knee, no point tenderness surrounding the knee, she is able to extend and flex the knee minimally due to pain in the hip. Calf is soft, no tenderness with palpation Plantarflexion, dorsiflexion, EHL, FHL are intact. No point tenderness appreciated throughout the foot or ankle Dorsalis pedis pulses 2+ General orthopedic exam: No point tenderness appreciated throughout the bilateral upper extremities, full range of motion in all major muscle groups of the bilateral upper extremities, no focal deficits No point tenderness appreciated throughout the right lower extremity, logroll maneuver reproduces no pain. Full range of motion in all major muscle groups of that extremity, no focal deficits. Calf is soft, no tenderness with palpation. Dorsalis pedis pulses 2+ Results - Labs Labs: Abnormal Lab Results - Last 24 Hours (Table) 08/11/23 08/11/23 Range/Units 10:53 10:53 MCV 102.3 H (80.0-100.0) fL RDW 15.8 H (11.5-15.5) % Chloride 110 H (98-107) mmol/L BUN 19 H (7-17) mg/dL Glucose 101 H (74-99) mg/dL AST 55 H (14-36) U/L ALT 140 H (4-34) U/L H & H 08/11/23 Range/Units 10:53 Hgb 13.2 (11.4-16.0) gm/dL Hct 41.5 (34.0-46.0) % Result Diagrams: 08/11/23 10:53 08/11/23 10:53 - Diagnostic results Hip x-ray: report reviewed, image reviewed (AP pelvis along with left hip x-rays were reviewed along with the reports. Images demonstrated a comminuted and displaced left proximal femur fracture, this to include intertrochanteric along with subtrochanteric extension.) Assessment and Plan Assessment: Displaced and comminuted left intertrochanteric femur fracture with sub trochanteric extension Status post fall from standing Previous lumbar fusion, stable Plan: I was able to discuss the case, this to include both physical exam findings and imaging studies my attending Dr. Cerda. Plan is for surgical intervention, this to include an intramedullary nail of the left intertrochanteric femur fracture. We are planning for surgery on 08/12/2023. Risk and benefits of the procedure were discussed with the patient, this to include but not exclude infection, blood loss, neurovascular injury, development of blood clot, and adequate healing of bone, pain and stiffness, need for subsequent surgery. Patient is in good understanding would like to proceed. Consent will be obtained prior to procedure Regular diet at this time, n.p.o. after midnight Pain control, IV and oral medications as needed DVT prophylaxis, will begin subcu medication after surgery Urinary catheter placement PT/OT evaluation after surgery Nonweightbearing left lower extremity at this time Other medical specialty recommendations appreciated Discharge planning: Anticipate patient will need subacute rehab at discharge Time with Patient: Less than 30
[2023-08-11] MEDS ORDERED: ACETAMINOPHEN TAB 325 MG TAB PO PRN (15:03)
[2023-08-11] MEDS: HYDROcodone/APAP 5-325MG 1 EACH TAB PO PRN (15:56)
[2023-08-11] MEDS: HYDROcodone/APAP 7.5-325MG 1 EACH TAB PO PRN (20:40)
[2023-08-11] MEDS: ALPRAZolam 0.25 MG TAB PO STA (21:38)
--- NOTE | 2023-08-12 09:21 | P.CRDCN ---
History of Present Illness History of present illness: HISTORY OF PRESENT ILLNESS: This is a 77-year-old female with history of breast cancer with left mastectomy, brain aneurysm with clipping, and anxiety. Patient does not follow with a card iologist. We have been asked to see the patient in consultation for SVT. Patient examined at the bedside in the emergency room. Patient states she was at home wiping up some water on the kitchen floor when she slipped and fell. She presented to the hospital for further evaluation. The patient was found to have a left femur fracture and is scheduled to undergo surgical intervention this afternoon. Patient denies any chest pain or pressure. She denies any shortness of breath. She states prior to this fall she has been active with no difficulty getting around. EKG was completed revealing sinus tachycardia. Bedside telemetry also revealed sinus tachycardia. No evidence of SVT. DIAGNOSTICS: - EKG reveals sinus mechanism with no signs of acute ischemia - Chest xray chronic changes without evidence for acute pulmonary disease. - Laboratory data: WBC 8.4. Hemoglobin 13.2. Platelet count 260. Sodium 139. Potassium 4.6. BUN 19. Creatinine 0.70. AST 55. ALT 140. - Current home cardiac medications include none. - No previous echocardiogram, stress test, or cardiac catheterization available in EMR for review REVIEW OF SYSTEMS: At the time of my exam: CONSTITUTIONAL: Denies fever or chills. HEENT: Denies blurred vision, vision changes, or eye pain. Denies hemoptysis CARDIOVASCULAR: Denies chest pain. Denies orthopnea. Denies PND. Denies palpitations RESPIRATORY: Denies shortness of breath. GASTROINTESTINAL: Denies abdominal pain. Denies nausea or vomiting. HEMATOLOGIC: Denies bleeding disorders. GENITOURINARY: Denies any blood in urine. SKIN: Denies pruitis. Denies rash. PHYSICAL EXAM: VITAL SIGNS: Reviewed. GENERAL: Well-developed in no acute distress. HEENT: Head is normocephalic. Pupils are equal, round. Sclerae anicteric. Mucous membranes of the mouth are moist. Neck supple. No JVD or thyromegaly LUNGS: Respirations even and unlabored. Lungs essentially clear to auscultation bilaterally. HEART: Regular rate and rhythm. S1 and S2 heard. ABDOMEN: Soft. Nondistended. Nontender. EXTREMITIES: Decreased range of motion of left hip. No clubbing or cyanosis. Peripheral pulses intact. No lower extremity edema NEUROLOGIC: Awake and alert. Oriented x 3. ASSESSMENT: Left femur fracture, status post mechanical fall SVT, ruled out, telemetry reveals sinus tachycardia, likely secondary to pain History of breast cancer with left mastectomy History of brain aneurysm with clipping Anxiety PLAN: Continue telemetry monitoring Sinus tachycardia with likely physiological secondary to significant pain Obtain 2D echo to assess cardiac structure and function There are no absolute contraindications for patient to proceed with surgery today from a cardiac standpoint Further recommendations pending patient course Nurse practitioner note has been reviewed by physician. Signing provider agrees with the documented findings, assessment, and plan of care documented by INTELLIGENT SYSTEMS ENGINEER as a scribe. Past Medical History Past Medical History: Cancer Additional Past Medical History / Comment(s): hx breast cancer, anemia, low iron level. ,states hx of fall and fx back., states recent hospitalization 09/14/19 to 09/23/19 ([facility]), pt states she was discharged with additional meds but did not know what they were for and did not take -instructed pt she should follow up her dr regarding meds., pt to bring med list ., states family hx of esophageal and colon cancer. History of Any Multi-Drug Resistant Organisms: None Reported Past Surgical History: Back Surgery, Breast Surgery Additional Past Surgical History / Comment(s): 3 brain aneurysms clipped-2007, left mastectomy 6 years ago Past Anesthesia/Blood Transfusion Reactions: No Reported Reaction Past Psychological History: Anxiety, Panic Disorder Past Alcohol Use History: Occasional Past Drug Use History: None Reported - Past Family History Mother Family Medical History: No Reported History Brother(s) Family Medical History: Cancer Additional Family Medical History / Comment(s): 3 brothers colon and esophageal cancer, pancreatic cancer Father Family Medical History: Cancer Additional Family Medical History / Comment(s): prostate cancer Medications and Allergies Home Medications Medication Instructions Recorded Confirmed Type Acetaminophen [Tylenol 8 Hour] 650 - 1,300 mg PO Q8H PRN 08/11/23 08/11/23 History Doxylamine Succinate [Unisom] 25 mg PO HS 08/11/23 08/11/23 History Melatonin 10 mg PO HS 08/11/23 08/11/23 History Allergies Allergy/AdvReac Type Severity Reaction Status Date / Time No Known Allergies Allergy Verified 11/05/19 12:03 Physical Exam Vitals: Vital Signs Temp Pulse Resp BP Pulse Ox 08/12/23 07:28 120 H 18 101/56 08/12/23 06:00 126 H 16 105/57 92 L 08/12/23 03:00 125 H 16 105/76 95 08/12/23 01:40 142 H 17 105/60 93 L 08/11/23 23:00 147 H 16 91/55 97 08/11/23 22:30 144 H 16 94/64 96 08/11/23 21:08 125 H 14 99/60 97 08/11/23 17:31 97 08/11/23 17:30 134 H 12 91/65 97 08/11/23 17:25 137 H 16 96/59 95 08/11/23 12:00 121 H 10 L 138/94 97 08/11/23 11:50 123 H 12 138/94 95 08/11/23 11:42 122 H 13 138/94 96 08/11/23 10:41 99.1 F 104 H 18 138/94 98 Intake and Output 08/11/23 08/12/23 08/12/23 22:59 06:59 14:59 Output Total 0 Balance 0 Output: Urine 0 Uretheral (Stokes) 0 Results 08/11/23 10:53 08/11/23 10:53 Cardiac Enzymes 08/11/23 Range/Units 10:53 AST 55 H (14-36) U/L CBC 08/11/23 Range/Units 10:53 WBC 8.4 (3.8-10.6) k/uL RBC 4.06 (3.80-5.40) m/uL Hgb 13.2 (11.4-16.0) gm/dL Hct 41.5 (34.0-46.0) % Plt Count 260 (150-450) k/uL Comprehensive Metabolic Panel 08/11/23 Range/Units 10:53 Sodium 139 (137-145) mmol/L Potassium 4.6 (3.5-5.1) mmol/L Chloride 110 H (98-107) mmol/L Carbon Dioxide 23 (22-30) mmol/L BUN 19 H (7-17) mg/dL Creatinine 0.70 (0.52-1.04) mg/dL Glucose 101 H (74-99) mg/dL Calcium 8.7 (8.4-10.2) mg/dL AST 55 H (14-36) U/L ALT 140 H (4-34) U/L Alkaline Phosphatase 117 (38-126) U/L Total Protein 7.0 (6.3-8.2) g/dL Albumin 3.8 (3.5-5.0) g/dL Current Medications Generic Name Dose Route Start Last Admin Trade Name Freq PRN Reason Stop Dose Admin Acetaminophen 650 mg 08/11/23 15:03 Acetaminophen Tab 325 Mg Tab PO Q6HR PRN Fever and/ or Pain Hydrocodone Bitart/Acetaminophen 1 each 08/11/23 15:02 08/11/23 15:56 Hydrocodone/Apap 5-325mg 1 Each Tab PO 1 each Q6HR PRN Administration Pain Scale 4 to 6 Hydrocodone Bitart/Acetaminophen 1 each 08/11/23 15:02 08/11/23 20:40 Hydrocodone/Apap 7.5-325mg 1 Each Tab PO 1 each Q6HR PRN Administration Pain Scale 6 To 8 Cyclobenzaprine HCl 5 mg 08/11/23 15:02 Cyclobenzaprine 5 Mg Tab PO TID PRN Muscle Spasm Hydromorphone HCl 1 mg 08/11/23 12:13 08/12/23 04:20 Hydromorphone 1 Mg/Ml 1 Ml Syringe IVP 1 mg Q3HR PRN Administration Moderate Pain (Scale 4 to 6) Sodium Chloride 1,000 mls @ 75 mls/hr 08/11/23 12:15 08/12/23 01:41 Saline 0.9% IV Not Given .[id number] DEMIAN Naloxone HCl 0.2 mg 08/11/23 12:13 Naloxone 0.4 Mg/Ml 1 Ml Vial IV Q2M PRN Opioid Reversal Ondansetron HCl 4 mg 08/11/23 12:13 Ondansetron 4 Mg/2 Ml Vial IVP Q8HR PRN Nausea And Vomiting Intake and Output 08/11/23 08/12/23 08/12/23 22:59 06:59 14:59 Output Total 0 Balance 0 Output: Urine 0 Uretheral (Stokes) 0 08/11/23 10:53 08/11/23 10:53
[2023-08-12] MEDS: SODIUM CHLORIDE 0.9% 1,000 ML IV ONE (10:09)
[2023-08-12 10:19] LABS: Anisocytosis Slight; HCT 29.2 % (34.0-46.0); Hypochromasia Slight; MCHC 31.1 g/dL (31.0-37.0); MCV 102.9 fL (80.0-100.0); Macrocytosis Moderate; Mean Platelet Volume 8.7; Platelet Count 212 k/uL (150-450); RBC 2.84 m/uL (3.80-5.40); RDW 16.4 % (11.5-15.5); WBC 7.8 k/uL (3.8-10.6)
[2023-08-12 10:21] LABS: HGB 9.1 gm/dL (11.4-16.0)
[2023-08-12 10:28] LABS: ALT 92 U/L (4-34); AST 41 U/L (14-36); African American GFR (CKD) 66 (>60 ml/min/1.73 sqM); Albumin 2.6 g/dL (3.5-5.0); Alkaline Phosphatase 66 U/L (38-126); Anion Gap 5 mmol/L; Blood Urea Nitrogen 25 mg/dL (7-17); Calcium 7.8 mg/dL (8.4-10.2); Carbon Dioxide 20 mmol/L (22-30); Chloride 110 mmol/L (98-107); Glucose 109 mg/dL (74-99); Non-African American GFR(CKD) 57 (>60 ml/min/1.73 sqM); Potassium 4.5 mmol/L (3.5-5.1); Sodium 135 mmol/L (137-145); Total Bilirubin 0.7 mg/dL (0.2-1.3); Total Protein 5.2 g/dL (6.3-8.2)
[2023-08-12] MEDS: diazePAM 2 MG TAB PO STA (10:48)
--- NOTE | 2023-08-12 12:02 | P.CONS ---
History of Present Illness - Reason for Consult Consult date: 08/12/23 pre-op clearance Requesting physician: Rm Cerda - Chief Complaint hip pain - History of Present Illness Patient is a 77 yo CF with hx of breast cancer in remission, Chronic back pain, and anemia who presented to the ER after a fall from standing resulting in left IT hip fracture. Patient seen and examined at bedside. She complains of pain in her left hip and buttock with radiation down to her knee. She states that she was beinding over yesterday adn trip and fell, she deneis any chest pain, shortness of breath, dizziness, and lightheadedness. She reports that she has not seen a physician in approximately 1 year. She denies any significant past medical history such as hypertension, dyslipidemia, diabetes, history of heart attack, or history of stroke. She states she has not seen him to eat because she has been in good health but [facility]. She has a history of chronic back problems and states that for the last year she has been off of all of her medications but before that she was on Twining, Ambien, and Xanax. 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 She denies any recent chest pain, palpitations, lightheadedness, dizziness. She denies any tobacco, alcohol, or illicit drug use. She does not use any assistive devices at home. She denies any recent illnesses such as cough, cold, fever, flu, nausea, vomiting, or diarrhea. Vital signs reviewed General: nontoxic, no distress, appears at stated age Derm: warm, dry Eyes: EOMI, no lid lag, anicteric sclera, pupils equal round reactive to light ENT: Nose and ears atraumatic Cardiovascular: S1S2 reg, no murmur, no edema Lungs: Decreased bs bilateral, no rhonchi, no rales, no wheeze, no accessory muscle use Abdominal: soft, nontender to palpation, no guarding Ext: no gross muscle atrophy, no contractures Neuro: CN II-XII grossly intact, No focal neuro deficits Psych: Alert, oriented, appropriate affect Assessment/Plan: Patient is a 77-year-old female with left intertrochanteric hip fracture Risk stratification: NSQIP: Patient has no known comorbid conditions. Her risk of serious complications is 4.7 is compared with an average risk of 11.5, risk of is 0.3 as compared with 3.6, risk of cardiac complication is 0.4 as compared with average of 2.3. - Medically optimized for the proposed surgery. Acute blood loss anemia Sinus tachycardia - suspect due to pain and anxiety in conjunction with ABLA iron studies -Follow CBC -1 L normal saline bolus then of normal saline at 130 cc/h - check echo Transaminitis, mild - undetermined etiology - repeat in AM, check CK Hx of Breast Cancer Chronic Pain with hx of Back surgery Imaging: CT head and cervical spine-no acute fracture, age-related atrophy Chest x-ray: Chronic changes without active cardiopulmonary disease Pelvic CT: Three-part left-sided intertrochanteric hip fracture Data Review: Stat labs ordered and reviewed from 08/11 include CBC and CMP which are remarkable for hemoglobin 9.1, sodium 135, chloride 110, carbon dioxide 20, BUN 25, calcium 7.8, AST 41, ALT 92 Thank you for allowing us to participate in the care of this pleasant patient. Do not hesitate to contact us with questions. Someone can be reached from the [facility] hospitalist group all hours of the day at [phone] or via [employer]. This dictation was prepared using [employer] voice recognition software. Though every attempt is made to correct errors during dictation some may still exist. Past Medical History Past Medical History: Cancer Additional Past Medical History / Comment(s): hx breast cancer, anemia, low iron level. ,states hx of fall and fx back., states recent hospitalization 09/14/19 to 09/23/19 ([facility]), pt states she was discharged with additional meds but did not know what they were for and did not take -instructed pt she should follow up her dr regarding meds., pt to bring med list ., states family hx of esophageal and colon cancer. History of Any Multi-Drug Resistant Organisms: None Reported Past Surgical History: Back Surgery, Breast Surgery Additional Past Surgical History / Comment(s): 3 brain aneurysms clipped-2007, left mastectomy 6 years ago Past Anesthesia/Blood Transfusion Reactions: No Reported Reaction Past Psychological History: Anxiety, Panic Disorder Past Alcohol Use History: Occasional Past Drug Use History: None Reported - Past Family History Mother Family Medical History: No Reported History Brother(s) Family Medical History: Cancer Additional Family Medical History / Comment(s): 3 brothers colon and esophageal cancer, pancreatic cancer Father Family Medical History: Cancer Additional Family Medical History / Comment(s): prostate cancer Medications and Allergies Home Medications Medication Instructions Recorded Confirmed Type Acetaminophen [Tylenol 8 Hour] 650 - 1,300 mg PO Q8H PRN 08/11/23 08/11/23 History Doxylamine Succinate [Unisom] 25 mg PO HS 08/11/23 08/11/23 History RX: Melatonin 10 mg PO HS 08/11/23 08/11/23 History Allergies Allergy/AdvReac Type Severity Reaction Status Date / Time No Known Allergies Allergy Verified 11/05/19 12:03 Physical Exam Osteopathic Statement: *. No significant issues noted on an osteopathic structural exam other than those noted in the History and Physical/Consult. Vitals: Vital Signs Pulse Resp BP Pulse Ox 08/12/23 10:47 120 H 18 113/62 94 L 08/12/23 08:48 125 H 18 103/57 94 L 08/12/23 07:28 120 H 18 101/56 08/12/23 06:00 126 H 16 105/57 92 L 08/12/23 03:00 125 H 16 105/76 95 08/12/23 01:40 142 H 17 105/60 93 L 08/11/23 23:00 147 H 16 91/55 97 08/11/23 22:30 144 H 16 94/64 96 08/11/23 21:08 125 H 14 99/60 97 08/11/23 17:31 97 08/11/23 17:30 134 H 12 91/65 97 08/11/23 17:25 137 H 16 96/59 95 08/11/23 12:00 121 H 10 L 138/94 97 Intake and Output 08/11/23 08/12/23 08/12/23 22:59 06:59 14:59 Output Total 0 Balance 0 Output: Urine 0 Uretheral (Stokes) 0 Results CBC & Chem 7: 08/12/23 09:55 08/12/23 09:55 Labs: Abnormal Lab Results - Last 24 Hours (Table) 08/12/23 08/12/23 Range/Units 09:55 09:55 RBC 2.84 L (3.80-5.40) m/uL Hgb 9.1 L D (11.4-16.0) gm/dL Hct 29.2 L (34.0-46.0) % MCV 102.9 H (80.0-100.0) fL RDW 16.4 H (11.5-15.5) % Sodium 135 L (137-145) mmol/L Chloride 110 H (98-107) mmol/L Carbon Dioxide 20 L (22-30) mmol/L BUN 25 H (7-17) mg/dL Glucose 109 H (74-99) mg/dL Calcium 7.8 L (8.4-10.2) mg/dL AST 41 H (14-36) U/L ALT 92 H (4-34) U/L Total Protein 5.2 L (6.3-8.2) g/dL Albumin 2.6 L (3.5-5.0) g/dL
[2023-08-12] MEDS: HYDROmorphone 0.5 MG/0.5 ML SYRINGE IVP STA (15:05)
--- NOTE | 2023-08-12 15:38 | CA ---
Transthoracic Echo Report Name: Rhea Em Age: 77 Gender: F : 1945 Exam Date: 08/12/2023 13:50 Exam Location: [facility] Ht (in): 65 Wt (lb): 130 Ordering Physician: Mary Carcamo DO Attending/Referring Phys: [id number], Dona Agile Tester Peggy Acosta, JONATHAN Procedure CPT: Indications: sinus tachycardia Cardiac Hx: Technical Quality: Poor Contrast 1: Total Dose (mL): Contrast 2: Total Dose (mL): MEASUREMENTS (Male / Female) Normal Values 2D ECHO LV Diastolic Diameter PLAX 3.2 cm 4.2 - 5.9 / 3.9 - 5.3 cm LV Systolic Diameter PLAX 2.9 cm IVS Diastolic Thickness 1.1 cm 0.6 - 1.0 / 0.6 - 0.9 cm LVPW Diastolic Thickness 0.9 cm 0.6 - 1.0 / 0.6 - 0.9 cm LV Relative Wall Thickness 0.6 RV Internal Dim ED PLAX 2.1 cm M-MODE Aortic Root Diameter MM 3.0 cm MV E Point Septal Separation 0.6 cm DOPPLER AV Peak Velocity 152.8 cm/s AV Peak Gradient 9.3 mmHg MV Area PHT 7.9 cm??? Mitral E Point Velocity 139.8 cm/s Mitral A Point Velocity 44.9 cm/s Mitral E to A Ratio 3.1 MV Deceleration Time 95.7 ms TR Peak Velocity 302.7 cm/s TR Peak Gradient 36.7 mmHg Right Ventricular Systolic Press 41.7 mmHg FINDINGS Left Ventricle Left ventricular ejection fraction is estimated at 60-65 %. Small left ventricular cavity. Mildly increased septal wall thickness. Right Ventricle Normal right ventricular size. Mild pulmonary hypertension. Right Atrium Right atrium not well visualized. Left Atrium Left atrium not well visualized. Mitral Valve Mitral valve not well visualized. Aortic Valve Aortic valve not well visualized. No aortic valve stenosis or regurgitation. Tricuspid Valve Tricuspid valve not well visualized. Mild tricuspid regurgitation. Pulmonic Valve Structurally normal pulmonic valve. No pulmonic regurgitation. Pericardium No pericardial effusion. Aorta Normal size aortic root and proximal ascending aorta. CONCLUSIONS Left ventricular ejection fraction 60-65% Mildly increased left ventricular wall thickness RVSP 41 No mitral regurgitation Mild tricuspid regurgitation Previewed by: Dr. Arcenio Quinones DO (Electronically Signed) Final Date: 12 August 2023 15:38
[2023-08-12] MEDS: HYDROmorphone 1 MG/ML 1 ML SYRINGE IVP PRN (19:19)
[2023-08-12] MEDS: METOPROLOL TARTRATE 5 MG/5 ML VIAL IVP ONE (20:50)
[2023-08-12] MEDS ORDERED: LIDOCAINE 1% INJ 10MG/ML (20 ML MDV) ONE (21:12)
[2023-08-12] MEDS: LACTATED RINGERS 1,000 ML IV ONE (21:12)
[2023-08-12] MEDS ORDERED: NEOSTIGMINE 1 MG/ML 10 ML VIAL ONE (21:12)
[2023-08-12] MEDS ORDERED: ROCURONIUM 10 MG/ML (5 ML VIAL) IV ONE (21:12)
[2023-08-12] MEDS ORDERED: PHENYLEPHRINE 10 MG/ML VIAL ONE (21:12)
[2023-08-12] MEDS ORDERED: SUCCINYLCHOLINE CHLORIDE 200 MG/10 ML VIAL IV ONE (21:12)
[2023-08-12] MEDS ORDERED: MIDAZOLAM 2 MG/2 ML VIAL ONE (21:12)
[2023-08-12] MEDS ORDERED: GLYCOPYRROLATE 0.2 MG/ML 2 ML VIAL ONE (21:12)
[2023-08-12] MEDS ORDERED: PROPOFOL 10 MG/ML 20 ML VIAL IV ONE (21:12)
[2023-08-12] MEDS: ceFAZolin 1,000 MG in SODIUM CHLORIDE 0.9% 1,000 ML IRRIGATION ONE (21:28)
--- NOTE | 2023-08-12 22:29 | P.OP ---
Date of Procedure: 08/12/23 Preoperative Diagnosis: Left hip comminuted displaced subtrochanteric fracture Postoperative Diagnosis: Left hip comminuted displaced subtrochanteric fracture Procedure(s) Performed: Left hip trochanteric intramedullary nailing Implants: 1. Synthes 10 mm / 130 degree angle titanium cannulated TFNA left 340 mm 2. Synthes TFNA fenestrated screw 90 mm 3. Synthes 5 mm x 32 mm distal locking screw distal locking screw Anesthesia: GETA Surgeon: Rm Cerda Aircraft Maintenance Supervisor #1: Luis Andrews Estimated Blood Loss (ml): 20 Pathology: none sent Condition: stable Disposition: PACU Indications for Procedure: 77-year-old patient who was seen with a comminuted displaced subtrochanteric femur fracture. I recommended trochanteric intramedullary nailing. Patient was agreeable. Consents obtained. Medical clearance was provided. Operative Findings: See description of procedure Description of Procedure: Patient was taken to the operative suite. She received preoperative IV antibiotics. She underwent a general anesthetic by the department of anesthesia. She was transferred to the fracture/[place] table. The left lower extremities placed in standard longitudinal traction with adduction and internal rotation. The right lower EXTR was placed in a well-padded well leg chavez. C- arm was brought into the operative field. We did do additional traction internal rotation to get a reasonable reduction noted both on AP and lateral intraoperative imaging. C-arm was pulled back. Left hip prepped and draped in normal sterile orthopedic fashion. C-arm brought back into the operative field. An incision was now made just proximal to the greater trochanter measuring about 6 cm. I dissected down to the IT band and incised as well. I did make a small incision distally to help reduce a large butterfly fragment that we had. I now identified the trochanteric tip and introduced a guidewire while Darrel OWEN helped hold that butterfly fragment in position. Once I was down into the intramedullary canal I used a proximal opening reamer. I now placed a guidewire down to the intramedullary canal down to the distal femur and confirmed that both on AP and lateral intraoperative imaging. We now began reaming up to a 11. We gauge the length of the nail and shows our appropriate 10 mm x 340 mm nail the nail was placed over the guidewire and tapped down following the all the way down to the distal intramedullary canal and passed that. We now brought the C arm more proximally and noted good positioning for femoral head fenestrated screw. The guidewire was placed and introduced into the femoral head we confirmed the position on AP and lateral intraoperative imaging. We now depth gauge that to a 90 overreamed it with our reamer introduced our 90 mm fenestrated screws had excellent purchase and fixation. Once we confirm that the outrigger was removed. We had good overall alignment proximal good fixation of our components. We now removed her out worker. We brought the extremity back into neutral position. C-arm was taken distally and placed in lateral position for 4 distal locking screw. A small incision was made over one of the distal locking screws. I now drilled a hole through one of the distal locking screws. That was depth gauge and appropriate length screw was inserted with excellent purchase and fixation. We now took a look at the entire construct and noted good positioning of our fracture and internal fixation. Spot films were obtained to document that. The wounds were copiously irrigated. The IT band proximally was repaired with #1 Vicryl. Subcutaneous soft tissue repair 2-0 Vicryl. All skin incisions repaired with skin harsh. Sterile dressings were applied. The patient was awakened, transferred to bed and recovery in stable condition. Darrel OWEN assisted in all aspects of this procedure.
--- NOTE | 2023-08-12 23:56 | XR ---
EXAMINATION TYPE: XR femur LT DATE OF EXAM: 08/12/2023 10:28 PM CLINICAL INDICATION:Female, 77 years old with history of IT NAIL LEFT FEMUR; [facility] COMPARISON: Radiographs 08/11/2023 TECHNIQUE AND FINDINGS: Fluoroscopic spot views were obtained intraoperatively during left hip orthopedic procedure and saved to PACS. Please refer to operative note for full details. Total fluoroscopy time 141.8 seconds IMPRESSION: Documentation of fluoroscopy.
[2023-08-13] MEDS: HEPARIN SODIUM,PORCINE 5,000 UNIT/ML 1 ML VIAL SQ SCH (08:34)
--- NOTE | 2023-08-13 09:39 | P.PN ---
Subjective Progress Note Date: 08/13/23 Principal diagnosis: Status post intramedullary nail left intertrochanteric/subtrochanteric femur fracture Patient evaluated at bedside today, she is resting comfortably. Patient does have a sitter at bedside today, she did pull out her IV, a new one has been placed. Patient notes discomfort to the left lower extremity with movement. The urinary catheter remains in place. She has not been out of bed at this time. She is being followed by both internal medicine and cardiology at this time. Objective - Vital Signs Vital signs: Vital Signs Temp 98.5 F 08/13/23 08:29 Pulse 149 H 08/13/23 08:29 Resp 16 08/13/23 08:29 BP 109/72 08/13/23 08:29 Pulse Ox 93 L 08/13/23 08:29 FiO2 Intake & Output 08/12/23 08/13/23 08/13/23 18:59 06:59 18:59 Intake Total 1061 Output Total 700 Balance 361 Weight 58.967 kg 58.967 kg Intake: IV 751 Blood Product 310 Rc As-1 Unit 310 [id number] Output: Urine 680 Estimated Blood Loss 20 Other: Voiding Method Indwelling Catheter - Exam Left lower extremity: Foam dressings are in good position over surgical incisions. There is mild soft tissue swelling noted to the left lower extremity. Mild tenderness with palpation noted to the proximal femur. Logroll maneuver reproduces mild discomfort. Plantarflexion, dorsiflexion, EHL, FHL are intact. Calf is soft, no tenderness with palpation. Dorsalis pedis pulses 2+ - Labs CBC & Chem 7: 08/12/23 09:55 08/12/23 09:55 Labs: Abnormal Lab Results - Last 24 Hours (Table) 08/12/23 08/12/23 08/12/23 Range/Units 09:55 09:55 23:45 RBC 2.84 L (3.80-5.40) m/uL Hgb 9.1 L D (11.4-16.0) gm/dL Hct 29.2 L (34.0-46.0) % MCV 102.9 H (80.0-100.0) fL RDW 16.4 H (11.5-15.5) % Sodium 135 L (137-145) mmol/L Chloride 110 H (98-107) mmol/L Carbon Dioxide 20 L (22-30) mmol/L BUN 25 H (7-17) mg/dL Glucose 109 H (74-99) mg/dL Calcium 7.8 L (8.4-10.2) mg/dL AST 41 H (14-36) U/L ALT 92 H (4-34) U/L Total Protein 5.2 L (6.3-8.2) g/dL Albumin 2.6 L (3.5-5.0) g/dL Crossmatch See Detail Assessment and Plan Assessment: Postoperative day #1 status post intramedullary nail left intertrochanteric/subtrochanteric femur fracture Acute blood loss anemia Sinus tachycardia Other medical comorbidities Plan: Pain control, continue with both oral and IV medications as needed. Will adjust medications due to her confusion DVT prophylaxis, heparin 5000 units every 12 hours Monitor surgical dressings, okay to leave in place over the next 48 to 72 hours PT/OT evaluation, did discuss with them she can weight-bear as tolerated with walker Encourage incentive spirometer Maintain urinary catheter, anticipate removing on 08/14/2023 Other medical specialty recommendations appreciated Discharge planning: Anticipate discharge to subacute rehab in the next 24-48 hours Time with Patient: Less than 30
[2023-08-13] MEDS: DIGOXIN 125 MCG TAB PO SCH (10:00)
[2023-08-13 10:07] LABS: Anisocytosis Slight; Basophils % (A) 0 %; Eosinophils % (A) 0 %; HCT 30.1 % (34.0-46.0); HGB 9.4 gm/dL (11.4-16.0); Hypochromasia Moderate; Lymphocytes # (A) 1.3 k/uL (1.0-4.8); Lymphocytes % (A) 13 %; MCH 31.9 pg (25.0-35.0); MCHC 31.2 g/dL (31.0-37.0); MCV 102.2 fL (80.0-100.0); Macrocytosis Moderate; Mean Platelet Volume 8.9; Monocytes # (A) 0.9 k/uL (0-1.0); Monocytes % (A) 10 %; Neutrophils # (A) 7.4 k/uL (1.3-7.7); Neutrophils % (A) 75 %; Platelet Count 185 k/uL (150-450); RBC 2.94 m/uL (3.80-5.40); RDW 16.4 % (11.5-15.5); WBC 9.8 k/uL (3.8-10.6)
--- NOTE | 2023-08-13 10:23 | FL ---
EXAMINATION TYPE: FL guidance operating room Intraoperative/procedural fluoroscopic services were pro vided. Total fluoroscopy time is 42 seconds with a total of 5 submitted images to PACS. Please see th e operative/procedural note for further details. DAP: 0.56230 mGym2 Gycm2 uGym2 cGycm2 FLUORO TIME 142SECONDS DAP 0.21587
[2023-08-13 10:38] LABS: ALT 65 U/L (4-34); AST 66 U/L (14-36); African American GFR (CKD) 79 (>60 ml/min/1.73 sqM); Albumin 2.5 g/dL (3.5-5.0); Alkaline Phosphatase 55 U/L (38-126); Anion Gap 8 mmol/L; Blood Urea Nitrogen 22 mg/dL (7-17); Calcium 7.7 mg/dL (8.4-10.2); Carbon Dioxide 16 mmol/L (22-30); Chloride 112 mmol/L (98-107); Glucose 114 mg/dL (74-99); Non-African American GFR(CKD) 68 (>60 ml/min/1.73 sqM); Potassium 4.3 mmol/L (3.5-5.1); Sodium 136 mmol/L (137-145); Total Bilirubin 0.6 mg/dL (0.2-1.3)
[2023-08-13 10:52] LABS: Creatine Kinase 1345 U/L (30-135)
--- NOTE | 2023-08-13 11:20 | P.PN ---
Subjective HISTORY OF PRESENT ILLNESS: This is a 77-year-old female with history of breast cancer with left mastectomy, brain aneurysm with clipping, and anxiety. Patient does not follow with a microbiology lab manager. We have been asked to see the patient in consultation for SVT. Patient examined at the bedside in the emergency room. Patient states she was at home wiping up some water on the kitchen floor when she slipped and fell. She presented to the hospital for further evaluation. The patient was found to have a left femur fracture and is scheduled to undergo surgical intervention this afternoon. Patient denies any chest pain or pressure. She denies any shortness of breath. She states prior to this fall she has been active with no difficulty getting around. EKG was completed revealing sinus tachycardia. Bedside telemetry also revealed sinus tachycardia. No evidence of SVT. DIAGNOSTICS: - EKG reveals sinus mechanism with no signs of acute ischemia - Chest xray chronic changes without evidence for acute pulmonary disease. - Laboratory data: WBC 8.4. Hemoglobin 13.2. Platelet count 260. Sodium 139. Potassium 4.6. BUN 19. Creatinine 0.70. AST 55. ALT 140. - Current home cardiac medications include none. - No previous echocardiogram, stress test, or cardiac catheterization available in EMR for review 08/13/2023 Patient is status post left hip trochanteric intramedullary nailing. Postop day #1. Patient examined this morning the bedside. Patient denies chest pain or pressure. She denies shortness of breath. Telemetry reveals sinus tachycardia with heart rate around 120. Blood pressures are soft with a reading in the 90s overnight. Echocardiogram completed revealing ejection fraction 60 to 65% with mild TR and mild pulmonary hypertension PHYSICAL EXAM: VITAL SIGNS: Reviewed. GENERAL: Well-developed in no acute distress. HEENT: Head is normocephalic. Pupils are equal, round. Sclerae anicteric. Mucous membranes of the mouth are moist. Neck supple. No JVD or thyromegaly LUNGS: Respirations even and unlabored. Lungs essentially clear to auscultation bilaterally. HEART: Regular rate and rhythm. S1 and S2 heard. ABDOMEN: Soft. Nondistended. Nontender. EXTREMITIES: Decreased range of motion of left hip. No clubbing or cyanosis. Peripheral pulses intact. No lower extremity edema NEUROLOGIC: Awake and alert. Oriented x 3. ASSESSMENT: Left femur fracture, status post mechanical fall status post trochanteric intramedullary nailing SVT, ruled out, telemetry reveals sinus tachycardia, likely secondary to pain History of breast cancer with left mastectomy History of brain aneurysm with clipping Anxiety PLAN: Continue telemetry monitoring Add oral digoxin 125 mcg daily Patient is currently stable from a cardiac standpoint Further recommendations pending patient course Nurse practitioner note has been reviewed by physician. Signing provider agrees with the documented findings, assessment, and plan of care documented by ROCK ROOM WORKER as a scribe. Objective - Vital Signs Vital signs: Vital Signs Temp 98.5 F 08/13/23 08:29 Pulse 149 H 08/13/23 08:29 Resp 16 08/13/23 08:29 BP 109/72 08/13/23 08:29 Pulse Ox 93 L 08/13/23 08:29 FiO2 Intake & Output 08/12/23 08/13/23 08/13/23 18:59 06:59 18:59 Intake Total 1061 Output Total 700 Balance 361 Weight 58.967 kg 58.967 kg Intake: IV 751 Blood Product 310 Rc As-1 Unit 310 [id number] Output: Urine 680 Estimated Blood Loss 20 Other: Voiding Method Indwelling Catheter Indwelling Catheter - Labs CBC & Chem 7: 08/13/23 08:57 08/13/23 08:57 Labs: Abnormal Lab Results - Last 24 Hours (Table) 08/12/23 08/13/23 08/13/23 Range/Units 23:45 08:57 08:57 RBC 2.94 L (3.80-5.40) m/uL Hgb 9.4 L (11.4-16.0) gm/dL Hct 30.1 L (34.0-46.0) % MCV 102.2 H (80.0-100.0) fL RDW 16.4 H (11.5-15.5) % Sodium 136 L (137-145) mmol/L Chloride 112 H (98-107) mmol/L Carbon Dioxide 16 L (22-30) mmol/L BUN 22 H (7-17) mg/dL Glucose 114 H (74-99) mg/dL Calcium 7.7 L (8.4-10.2) mg/dL AST 66 H (14-36) U/L ALT 65 H (4-34) U/L Creatine Kinase 1345 H* (30-135) U/L Total Protein 5.0 L (6.3-8.2) g/dL Albumin 2.5 L (3.5-5.0) g/dL Crossmatch See Detail
[2023-08-13] MEDS: CYCLOBENZAPRINE 5 MG TAB PO PRN (11:30)
[2023-08-13 16:06] LABS: % Iron Saturation 22.22 (12.00-45.00); Iron 62 UG/DL (50-170); Total Iron Binding Capacity 279 UG/DL (228-460)
--- NOTE | 2023-08-13 16:13 | P.PN ---
Subjective Progress Note Date: 08/13/23 (delayed charting seen at 0915) Patient is a 77 yo CF with hx of breast cancer in remission, Chronic back pain, and anemia who presented to the ER after a fall from standing resulting in left IT hip fracture. Patient seen and examined at bedside. She denies any lightheadedness or dizziness. She does endorse palpitations. She continues to have 10 out of 10 pain in her hip and the medications are not helping. Vital signs reviewed General: Nontoxic, mild distress due to pain, appears at stated age Cardiovascular: S1S2 reg, no murmur Lungs: CTA bilateral, no rhonchi, no rales, no accessory muscle use Abdominal: Soft, nontender to palpation, no guarding Ext: No gross muscle atrophy, no edema b/l lower extremities, no contractures Neuro: CN II-XI grossly intact, no focal neuro deficits Psych: Alert, oriented, appropriate affect Assessment/Plan: Patient is a 77-year-old female with left intertrochanteric hip fracture Intractable pain -Increase [place] to 10/325 1 tablet every 6 hours for severe pain discussed with nurse use of Flexeril 5 mg 3 times daily, continue with Dilaudid 1.5 mg every 3 hours for severe pain. Acute blood loss anemia Sinus tachycardia - suspect due to pain and anxiety in conjunction - Await ABLA iron studies -Cardiology note reviewed: Continue with telemetry monitoring, add digoxin 125 mcg daily, stable from a cardiac standpoint -Follow CBC -Normal saline at 130 cc/h - tele Transaminitis, mild - undetermined etiology - repeat in AM, check CK Hx of Breast Cancer Chronic Pain with hx of Back surgery Imaging: Echocardiogram with ejection fraction 60 to 65%, RVSP 41, mildly increased left ventricular wall thickness Data Review: Labs reviewed from today include CBC, CMP, and CK which are remarkable for hemoglobin 9.4, sodium 136, chloride 112, carbon dioxide 16, AST 66, ALT 65, and CK 1345 Transfer patient to [facility] with telemetry DVT prophylaxis: Heparin subcutaneous This dictation was prepared using [employer] voice recognition software. Though every attempt is made to correct errors during dictation some may still exist. - Objective - Vital Signs Vital signs: Vital Signs Temp 98.4 F 08/13/23 15:56 Pulse 82 08/13/23 15:56 Resp 26 H 08/13/23 15:56 BP 76/57 08/13/23 15:56 Pulse Ox 94 L 08/13/23 15:56 FiO2 Intake & Output 08/12/23 08/13/23 08/13/23 18:59 06:59 18:59 Intake Total 1061 Output Total 700 Balance 361 Weight 58.967 kg 58.967 kg Intake: IV 751 Blood Product 310 Rc As-1 Unit 310 [id number] Output: Urine 680 Estimated Blood Loss 20 Other: Voiding Method Indwelling Catheter Indwelling Catheter - Labs CBC & Chem 7: 08/13/23 08:57 08/13/23 08:57 Labs: Abnormal Lab Results - Last 24 Hours (Table) 08/12/23 08/13/23 08/13/23 Range/Units 23:45 08:57 08:57 RBC 2.94 L (3.80-5.40) m/uL Hgb 9.4 L (11.4-16.0) gm/dL Hct 30.1 L (34.0-46.0) % MCV 102.2 H (80.0-100.0) fL RDW 16.4 H (11.5-15.5) % Sodium 136 L (137-145) mmol/L Chloride 112 H (98-107) mmol/L Carbon Dioxide 16 L (22-30) mmol/L BUN 22 H (7-17) mg/dL Glucose 114 H (74-99) mg/dL Calcium 7.7 L (8.4-10.2) mg/dL Transferrin 199.0 L (204.0-354.0) mg/dL AST 66 H (14-36) U/L ALT 65 H (4-34) U/L Creatine Kinase 1345 H* (30-135) U/L Total Protein 5.0 L (6.3-8.2) g/dL Albumin 2.5 L (3.5-5.0) g/dL Crossmatch See Detail
[2023-08-13] MEDS: FERROUS SULFATE 325 MG TAB PO SCH (17:54)
[2023-08-13] MEDS: HYDROmorphone 1 MG/ML 1 ML SYRINGE IVP PRN (18:00)
[2023-08-13] MEDS: HYDROcodone/APAP 10-325MG 1 EACH TAB PO PRN (20:32)
--- NOTE | 2023-08-14 09:52 | P.PN ---
Subjective Progress Note Date: 08/14/23 Principal diagnosis: Status post intramedullary nail left intertrochanteric/subtrochanteric femur fracture Patient evaluated at bedside today, she is resting in her hospital bed. Patient continues to be very stationary, she has not been out of bed. Urinary cath remains in place. She is utilizing both oral and IV pain medication. She is being followed by both internal medicine and cardiology at this time. Objective - Vital Signs Vital signs: Vital Signs Temp 97.5 F L 08/14/23 07:38 Pulse 120 H 08/14/23 07:38 Resp 18 08/14/23 07:38 BP 103/52 08/14/23 07:38 Pulse Ox 94 L 08/14/23 07:38 FiO2 Intake & Output 08/13/23 08/14/23 08/14/23 18:59 06:59 18:59 Output Total 225 Balance -225 Weight 58.967 kg Output: Urine 225 Other: Voiding Method Indwelling Catheter Indwelling Catheter - Exam Left lower extremity: Foam dressings are in good position over surgical incisions. There is mild soft tissue swelling noted to the left lower extremity. Mild tenderness with palpation noted to the proximal femur. Logroll maneuver reproduces mild discomfort. Plantarflexion, dorsiflexion, EHL, FHL are intact. Calf is soft, no tenderness with palpation. Dorsalis pedis pulses 2+ - Labs CBC & Chem 7: 08/13/23 08:57 08/13/23 08:57 Labs: Abnormal Lab Results - Last 24 Hours (Table) 08/13/23 08/13/23 Range/Units 08:57 08:57 RBC 2.94 L (3.80-5.40) m/uL Hgb 9.4 L (11.4-16.0) gm/dL Hct 30.1 L (34.0-46.0) % MCV 102.2 H (80.0-100.0) fL RDW 16.4 H (11.5-15.5) % Sodium 136 L (137-145) mmol/L Chloride 112 H (98-107) mmol/L Carbon Dioxide 16 L (22-30) mmol/L BUN 22 H (7-17) mg/dL Glucose 114 H (74-99) mg/dL Calcium 7.7 L (8.4-10.2) mg/dL Transferrin 199.0 L (204.0-354.0) mg/dL AST 66 H (14-36) U/L ALT 65 H (4-34) U/L Creatine Kinase 1345 H* (30-135) U/L Total Protein 5.0 L (6.3-8.2) g/dL Albumin 2.5 L (3.5-5.0) g/dL Assessment and Plan Assessment: Postoperative day #2 status post intramedullary nail left intertrochanteric/subtrochanteric femur fracture Acute blood loss anemia Sinus tachycardia Other medical comorbidities Plan: Pain control, I did very long discussion with the patient today regarding the use of IV pain medications. We are going to continue with oral medications and try to limit the IV pain medication. Patient needs to get out of bed and get to the chair and do her very best to work with physical therapy. She can weight- bear as tolerated with walker. She should be out of bed for all meals. Sche duled stool softeners have also been started. DVT prophylaxis, heparin 5000 units every 12 hours Monitor surgical dressings PT/OT evaluation, did discuss with them she can weight-bear as tolerated with walker Encourage incentive spirometer Discontinue urinary catheter today Other medical specialty recommendations appreciated Discharge planning: Discharge to subacute rehab on 08/15/2023 Time with Patient: Less than 30
[2023-08-14 10:29] LABS: Anisocytosis Slight; Basophils % (A) 0 %; Eosinophils # (A) 0.1 k/uL (0-0.7); Eosinophils % (A) 1 %; HCT 27.8 % (34.0-46.0); HGB 8.5 gm/dL (11.4-16.0); Hypochromasia Moderate; Lymphocytes # (A) 1.3 k/uL (1.0-4.8); Lymphocytes % (A) 16 %; MCH 31.8 pg (25.0-35.0); MCHC 30.7 g/dL (31.0-37.0); MCV 103.5 fL (80.0-100.0); Macrocytosis Moderate; Mean Platelet Volume 9.1; Monocytes # (A) 0.7 k/uL (0-1.0); Monocytes % (A) 9 %; Neutrophils # (A) 5.7 k/uL (1.3-7.7); Neutrophils % (A) 71 %; Platelet Count 196 k/uL (150-450); RBC 2.69 m/uL (3.80-5.40); RDW 17.2 % (11.5-15.5); WBC 8.1 k/uL (3.8-10.6)
[2023-08-14 10:42] LABS: ALT 48 U/L (4-34); AST 64 U/L (14-36); African American GFR (CKD) >90 (>60 ml/min/1.73 sqM); Albumin 2.5 g/dL (3.5-5.0); Albumin/Globulin Ratio 0.9; Alkaline Phosphatase 67 U/L (38-126); Anion Gap 7 mmol/L; Blood Urea Nitrogen 19 mg/dL (7-17); Carbon Dioxide 15 mmol/L (22-30); Chloride 114 mmol/L (98-107); Creatine Kinase 811 U/L (30-135); Globulin 2.7 g/dL; Glucose 94 mg/dL (74-99); Non-African American GFR(CKD) 86 (>60 ml/min/1.73 sqM); Potassium 4.1 mmol/L (3.5-5.1); Sodium 136 mmol/L (137-145); Total Bilirubin 0.8 mg/dL (0.2-1.3); Total Protein 5.2 g/dL (6.3-8.2)
--- NOTE | 2023-08-14 12:11 | P.PN ---
Subjective Progress Note Date: 08/14/23 HISTORY OF PRESENT ILLNESS: This is a 77-year-old female with history of breast cancer with left mastectomy, brain aneurysm with clipping, and anxiety. Patient does not follow with a biochemical engineer. We have been asked to see the patient in consultation for SVT. Patient examined at the bedside in the emergency room. Patient states she was at home wiping up some water on the kitchen floor when she slipped and fell. She presented to the hospital for further evaluation. The patient was found to have a left femur fracture and is scheduled to undergo surgical intervention this afternoon. Patient denies any chest pain or pressure. She denies any shortness of breath. She states prior to this fall she has been active with no difficulty getting around. EKG was completed revealing sinus tachycardia. Bedside telemetry also revealed sinus tachycardia. No evidence of SVT. DIAGNOSTICS: - EKG reveals sinus mechanism with no signs of acute ischemia - Chest xray chronic changes without evidence for acute pulmonary disease. - Laboratory data: WBC 8.4. Hemoglobin 13.2. Platelet count 260. Sodium 139. Potassium 4.6. BUN 19. Creatinine 0.70. AST 55. ALT 140. - Current home cardiac medications include none. - No previous echocardiogram, stress test, or cardiac catheterization available in EMR for review 08/13/2023 Patient is status post left hip trochanteric intramedullary nailing. Postop day #1. Patient examined this morning the bedside. Patient denies chest pain or pressure. She denies shortness of breath. Telemetry reveals sinus tachycardia with heart rate around 120. Blood pressures are soft with a reading in the 90s overnight. Echocardiogram completed revealing ejection fraction 60 to 65% with mild TR and mild pulmonary hypertension 08/13 Patient has been transferred to [facility] floor. Yesterday, patient was started on digoxin 125 mcg daily for sinus tachycardia. Heart rate has been running in the 120s overnight and currently on telemetry 113. Blood pressures have been soft but improved from yesterday 103/52, pulse ox 94% on room air. Patient complains of significant pain in her left leg not only in her hip but down the entire leg. No chest pain and no shortness of breath. PHYSICAL EXAM: VITAL SIGNS: Reviewed. GENERAL: Well-developed in no acute distress. HEENT: Head is normocephalic. Pupils are equal, round. Sclerae anicteric. Mucous membranes of the mouth are moist. Neck supple. No JVD or thyromegaly LUNGS: Respirations even and unlabored. Lungs essentially clear to auscultation bilaterally. HEART: Regular rate and rhythm. S1 and S2 heard. ABDOMEN: Soft. Nondistended. Nontender. EXTREMITIES: Decreased range of motion of left hip. No clubbing or cyanosis. Peripheral pulses intact. No lower extremity edema NEUROLOGIC: Awake and alert. Oriented x 3. ASSESSMENT: Left femur fracture, status post mechanical fall status post trochanteric i ntramedullary nailing SVT, ruled out, telemetry reveals sinus tachycardia, likely secondary to pain History of breast cancer with left mastectomy History of brain aneurysm with clipping Anxiety PLAN: Continue telemetry monitoring Continue oral digoxin 125 mcg daily Patient is currently stable from a cardiac standpoint Further recommendations pending patient course Nurse practitioner note has been reviewed by physician. Signing provider agrees with the documented findings, assessment, and plan of care documented by BENCH ASSEMBLER BATTERY as a scribe. Objective - Vital Signs Vital signs: Vital Signs Temp 97.5 F L 08/14/23 07:38 Pulse 120 H 08/14/23 07:38 Resp 18 08/14/23 07:38 BP 103/52 08/14/23 07:38 Pulse Ox 94 L 08/14/23 07:38 FiO2 Intake & Output 08/13/23 08/14/23 08/14/23 18:59 06:59 18:59 Output Total 225 Balance -225 Weight 58.967 kg Output: Urine 225 Other: Voiding Method Indwelling Catheter Indwelling Catheter - Labs CBC & Chem 7: 08/14/23 09:41 08/14/23 09:41 Labs: Abnormal Lab Results - Last 24 Hours (Table) 08/13/23 08/13/23 Range/Units 08:57 08:57 RBC 2.94 L (3.80-5.40) m/uL Hgb 9.4 L (11.4-16.0) gm/dL Hct 30.1 L (34.0-46.0) % MCV 102.2 H (80.0-100.0) fL RDW 16.4 H (11.5-15.5) % Sodium 136 L (137-145) mmol/L Chloride 112 H (98-107) mmol/L Carbon Dioxide 16 L (22-30) mmol/L BUN 22 H (7-17) mg/dL Glucose 114 H (74-99) mg/dL Calcium 7.7 L (8.4-10.2) mg/dL Transferrin 199.0 L (204.0-354.0) mg/dL AST 66 H (14-36) U/L ALT 65 H (4-34) U/L Creatine Kinase 1345 H* (30-135) U/L Total Protein 5.0 L (6.3-8.2) g/dL Albumin 2.5 L (3.5-5.0) g/dL
--- NOTE | 2023-08-14 15:12 | P.PN ---
Subjective Progress Note Date: 08/14/23 Subjective: Patient seen and examined at bedside. No acute events overnight. Still having significant pain with movement. Pertinent positives and negatives as discussed above, a complete review of systems was performed and all other systems are negative. Vitals Signs Reviewed. General: Nontoxic, no distress, appears at stated age Derm: Warm, dry, dressing clean, dry, intact Head: Atraumatic, normocephalic, symmetric Eyes: EOMI, no lid lag, anicteric sclera Mouth: No lip lesion, mucus membranes moist Cardiovascular: S1S2 reg, no murmur Lungs: CTA bilateral, no rhonchi, no rales, no accessory muscle use Abdominal: Soft, nontender to palpation, no guarding, no appreciable organomeg nicolas Ext: No gross muscle atrophy, no edema, no contractures Neuro: CN II-XI grossly intact, no focal neuro deficits Psych: Alert, oriented, appropriate affect Data Reviewed Today: Pertinent Labs: Hemoglobin 8.5, bicarb 15, anion gap 7, creatinine 0.65, total bili 0.8, AST 64, ALT 48, ALP 67, CK 811 Imaging: No new imaging Assessment and Plan: Patient is a 77-year-old female with left intertrochanteric hip fracture status post repair Intractable pain -Tylenol 650 every 6 hours as needed, Flexeril 5 3 times daily as needed, Vaughn 10 every 6 hours as needed, Vaughn 5 every 6 hours as needed, IV Dilaudid 1.5 every 3 hours needed, monitor for sedation - Milk of magnesium daily, senna daily Acute blood loss anemia Sinus tachycardia in the setting of pain - suspect due to pain and anxiety in conjunction -No significant iron deficiency Patient is on oral iron primary orthopedic surgery -C discussed management with cardiology, antiarrhythmics not indicated given sinus tachycardia, digoxin discontinued, patient stable for discharge from their standpoint -Follow CBC - tele Elevated transaminases Mild rhabdomyolysis, resolving -Likely from fracture - CK improving, continue IV fluids Non-anion gap metabolic acidosis -Normal saline changed to lactated Ringer's 125 cc/hr - Repeat BMP Hx of Breast Cancer Chronic Pain with hx of Back surgery Thank you for allowing us to participate in the care of this pleasant patient. Do not hesitate to contact us with questions. Someone can be reached from the [facility] hospitalist group all hours of the day at [phone] or via perfect serve. Objective - Vital Signs Vital signs: Vital Signs Temp 97.7 F 08/14/23 14:00 Pulse 120 H 08/14/23 14:00 Resp 18 08/14/23 14:00 BP 103/52 08/14/23 14:00 Pulse Ox 94 L 08/14/23 14:00 FiO2 Intake & Output 08/13/23 08/14/23 08/14/23 18:59 06:59 18:59 Output Total 225 Balance -225 Weight 58.967 kg Output: Urine 225 Other: Voiding Method Indwelling Catheter Indwelling Catheter Indwelling Catheter - Labs CBC & Chem 7: 08/14/23 09:41 08/14/23 09:41 Labs: Abnormal Lab Results - Last 24 Hours (Table) 08/13/23 08/14/23 08/14/23 Range/Units 08:57 09:41 09:41 RBC 2.69 L (3.80-5.40) m/uL Hgb 8.5 L (11.4-16.0) gm/dL Hct 27.8 L (34.0-46.0) % MCV 103.5 H (80.0-100.0) fL MCHC 30.7 L (31.0-37.0) g/dL RDW 17.2 H (11.5-15.5) % Sodium 136 L (137-145) mmol/L Chloride 114 H (98-107) mmol/L Carbon Dioxide 15 L (22-30) mmol/L BUN 19 H (7-17) mg/dL Calcium 8.0 L (8.4-10.2) mg/dL Transferrin 199.0 L (204.0-354.0) mg/dL AST 64 H (14-36) U/L ALT 48 H (4-34) U/L Creatine Kinase 811 H (30-135) U/L Total Protein 5.2 L (6.3-8.2) g/dL Albumin 2.5 L (3.5-5.0) g/dL
[2023-08-14] MEDS: LACTATED RINGERS 1,000 ML IV SCH (16:49)
[2023-08-14] MEDS: SODIUM BICARBONATE TAB 650 MG TAB PO SCH (22:07)
[2023-08-15 09:03] LABS: ALT 46 U/L (8-44); AST 49 U/L (13-35); Albumin 2.5 g/dL (3.8-4.9); Albumin/Globulin Ratio 1.39 Ratio (1.60-3.17); Alkaline Phosphatase 53 U/L (41-126); Blood Urea Nitrogen 13.6 mg/dL (9.0-27.0); Calcium 7.7 mg/dL (8.7-10.3); Carbon Dioxide 19.8 mmol/L (21.6-31.8); Chloride 112 mmol/L (96-109); Globulin 1.8 g/dL (1.6-3.3); Glucose 83 mg/dL (70-110); Potassium 4.1 mmol/L (3.5-5.5); Sodium 140 mmol/L (135-145); Total Bilirubin 0.5 mg/dL (0.3-1.2); Total Protein 4.3 g/dL (6.2-8.2)
[2023-08-15 09:25] LABS: Basophils # (A) 0.03 X 10*3/uL (0.00-0.10); Basophils % (A) 0.5 %; Eosinophils # (A) 0.14 X 10*3/uL (0.04-0.35); Eosinophils % (A) 2.3 %; HCT 22.2 % (37.2-46.3); HGB 6.9 g/dL (12.0-15.0); Lymphocytes # (A) 1.23 X 10*3/uL (0.90-5.00); Lymphocytes % (A) 19.8 %; MCH 31.2 pg (27.0-32.0); MCHC 31.1 g/dL (32.0-37.0); MCV 100.5 FL (80.0-97.0); Mean Platelet Volume 11.4 FL (9.5-12.2); Monocytes # (A) 1.01 X 10*3/uL (0.20-1.00); Monocytes % (A) 16.2 %; NRBC Per 100 WBC 0 X 10*3/uL (0.00-0.01); Neutrophils # (A) 3.79 X 10*3/uL (1.80-7.70); Neutrophils % (A) 60.9 %; Platelet Count 208 X 10*3/uL (140-440); RBC 2.21 X 10*6/uL (4.10-5.20); RDW 18.4 % (11.5-14.5); WBC 6.22 X 10*3/uL (4.50-10.00)
[2023-08-15] MEDS: MAGNESIUM HYDROXIDE 2,400 MG/30 ML CUP PO SCH (09:36)
[2023-08-15] MEDS: SENNOSIDES-DOCUSATE SODIUM 1 EACH TAB PO SCH (09:36)
--- NOTE | 2023-08-15 12:58 | P.PN ---
Subjective Progress Note Date: 08/15/23 HISTORY OF PRESENT ILLNESS: This is a 77-year-old female with history of breast cancer with left mastectomy, brain aneurysm with clipping, and anxiety. Patient does not follow with a coke worker. We have been asked to see the patient in consultation for SVT. Patient examined at the bedside in the emergency room. Patient states she was at home wiping up some water on the kitchen floor when she slipped and fell. She presented to the hospital for further evaluation. The patient was found to have a left femur fracture and is scheduled to undergo surgical intervention this afternoon. Patient denies any chest pain or pressure. She denies any shortness of breath. She states prior to this fall she has been active with no difficulty getting around. EKG was completed revealing sinus tachycardia. Bedside telemetry also revealed sinus tachycardia. No evidence of SVT. DIAGNOSTICS: - EKG reveals sinus mechanism with no signs of acute ischemia - Chest xray chronic changes without evidence for acute pulmonary disease. - Laboratory data: WBC 8.4. Hemoglobin 13.2. Platelet count 260. Sodium 139. Potassium 4.6. BUN 19. Creatinine 0.70. AST 55. ALT 140. - Current home cardiac medications include none. - No previous echocardiogram, stress test, or cardiac catheterization available in EMR for review 08/13/2023 Patient is status post left hip trochanteric intramedullary nailing. Postop day #1. Patient examined this morning the bedside. Patient denies chest pain or pressure. She denies shortness of breath. Telemetry reveals sinus tachycardia with heart rate around 120. Blood pressures are soft with a reading in the 90s overnight. Echocardiogram completed revealing ejection fraction 60 to 65% with mild TR and mild pulmonary hypertension 08/13 Patient has been transferred to [facility] floor. Yesterday, patient was started on digoxin 125 mcg daily for sinus tachycardia. Heart rate has been running in the 120s overnight and currently on telemetry 113. Blood pressures have been soft but improved from yesterday 103/52, pulse ox 94% on room air. Patient complains of significant pain in her left leg not only in her hip but down the entire leg. No chest pain and no shortness of breath. 08/14 Patient is complaining of thigh pain. She is noted to have increased generaliz ed edema. Patient's hemoglobin was low this morning at 6.9 and she is receiving 1 unit of packed RBCs. Other blood work reveals potassium 4.1, creatinine 0.5. Blood pressure 138/70, heart rate remains elevated with sinus tachycardia. No medication changes today. Expect that heart rate will improve once pain and anemia are treated. PHYSICAL EXAM: VITAL SIGNS: Reviewed. GENERAL: Well-developed in no acute distress. HEENT: Head is normocephalic. Pupils are equal, round. Sclerae anicteric. Mucous membranes of the mouth are moist. Neck supple. No JVD or thyromegaly LUNGS: Respirations even and unlabored. Lungs essentially clear to auscultation bilaterally. HEART: Regular rate and rhythm. S1 and S2 heard. ABDOMEN: Soft. Nondistended. Nontender. EXTREMITIES: Decreased range of motion of left hip. No clubbing or cyanosis. Peripheral pulses intact. Generalized edema edema NEUROLOGIC: Awake and alert. Oriented x 3. ASSESSMENT: Left femur fracture, status post mechanical fall status post trochanteric intramedullary nailing SVT, ruled out, telemetry reveals sinus tachycardia, likely secondary to pain History of breast cancer with left mastectomy History of brain aneurysm with clipping Anxiety Edema secondary to third spacing Acute blood loss anemia PLAN: Continue telemetry monitoring Continue oral digoxin 125 mcg daily No medication changes made. Further recommendations pending patient course Nurse practitioner note has been reviewed by physician. Signing provider agrees with the documented findings, assessment, and plan of care documented by GEOSPATIAL ENGINEER as a scribe. Objective - Vital Signs Vital signs: Vital Signs Temp 98.1 F 08/15/23 11:29 Pulse 123 H 08/15/23 11:29 Resp 12 08/15/23 11:29 BP 123/63 08/15/23 11:29 Pulse Ox 93 L 08/15/23 11:29 FiO2 Intake & Output 08/14/23 08/15/23 08/15/23 18:59 06:59 18:59 Intake Total 0 Balance 0 Intake: Blood Product 0 Rc As-1 Unit 0 [id number] Other: Voiding Method Indwelling Catheter Indwelling Catheter Bedpan # Voids 2 - Labs CBC & Chem 7: 08/15/23 05:45 08/15/23 05:45 Labs: Abnormal Lab Results - Last 24 Hours (Table) 08/12/23 08/15/23 08/15/23 Range/Units 23:45 05:45 05:45 RBC 2.21 L (4.10-5.20) X 10*6/uL Hgb 6.9 A* (12.0-15.0) g/dL Hct 22.2 L (37.2-46.3) % MCV 100.5 H (80.0-97.0) FL MCHC 31.1 L (32.0-37.0) g/dL RDW 18.4 H (11.5-14.5) % Monocytes # 1.01 H (0.20-1.00) X 10*3/uL Chloride 112 H (96-109) mmol/L Carbon Dioxide 19.8 L (21.6-31.8) mmol/L Creatinine 0.5 L (0.6-1.5) mg/dL BUN/Creatinine Ratio 27.20 H (12.00-20.00) Ratio Calcium 7.7 L (8.7-10.3) mg/dL AST 49 H (13-35) U/L ALT 46 H (8-44) U/L Total Protein 4.3 L (6.2-8.2) g/dL Albumin 2.5 L (3.8-4.9) g/dL Albumin/Globulin Ratio 1.39 L (1.60-3.17) Ratio Crossmatch See Detail
--- NOTE | 2023-08-15 15:29 | P.PN ---
Subjective Progress Note Date: 08/15/23 Hospital Course: Patient is a 77 yo CF with hx of breast cancer in remission, Chronic back pain, and anemia who presented to the ER after a fall from standing resulting in left IT hip fracture. Blood pressure stable. Patient on room air. Has been tachycardic, and sinus. She underwent intramedullary nailing. Cardiology also followed patient. Laboratory workup showed worsening acute blood loss anemia. CK elevated, now downtrending. On pain therapy as well as receiving blood transfusions. Patient pending subacute rehab. Subjective: Patient seen and examined at bedside. Continues to have leg pain. Pertinent positives and negatives as discussed above, a complete review of systems was performed and all other systems are negative. Vitals Signs Reviewed. General: Nontoxic, mild distress due to pain, appears at stated age Cardiovascular: S1S2 reg, no murmur, dressing clean, dry, intact Lungs: CTA bilateral, no rhonchi, no rales, no accessory muscle use Abdominal: Soft, nontender to palpation, no guarding Ext: No gross muscle atrophy, no edema b/l lower extremities, no contractures Neuro: CN II-XI grossly intact, no focal neuro deficits Psych: Alert, oriented, appropriate affect Data Reviewed Today: Pertinent Labs: Imaging: Assessment and Plan: Patient is a 77-year-old female with left intertrochanteric hip fracture status post repair Intractable pain -Tylenol 650 every 6 hours as needed, Flexeril 5 3 times daily as needed, [place] 10 every 6 hours as needed, [place] 5 every 6 hours as needed, IV Dilaudid 1.5 every 3 hours needed, monitor for sedation - Milk of magnesium daily, senna daily - Discussed management with orthopedic surgery, if blood count stable, patient can be discharged tomorrow Acute blood loss anemia Sinus tachycardia in the setting of pain - suspect due to pain and anxiety in conjunction -Pending transfusion today -Cardiology following, no further changes -Follow CBC - tele Elevated transaminases, resolving Mild rhabdomyolysis, resolving -Likely from fracture - CK improved, continue IV fluids Non-anion gap metabolic acidosis, improving -lactated Ringer's 125 cc/hr, on sodium bicarb 650 twice daily - Repeat BMP Hx of Breast Cancer Chronic Pain with hx of Back surgery DVT ppx: Subcu heparin Code status: Full code Anticipated discharge place: Subacute rehab Anticipated discharge time: 24 to 48 hours Objective - Vital Signs Vital signs: Vital Signs Temp 98 F 08/15/23 14:00 Pulse 119 H 08/15/23 14:00 Resp 18 08/15/23 14:00 BP 148/75 08/15/23 14:00 Pulse Ox 95 08/15/23 14:00 FiO2 Intake & Output 08/14/23 08/15/23 08/15/23 18:59 06:59 18:59 Intake Total 310 Balance 310 Intake: Blood Product 310 Rc As-1 Unit 310 [id number] Other: Voiding Method Indwelling Catheter Indwelling Catheter Bedpan # Voids 2 - Labs CBC & Chem 7: 08/15/23 05:45 08/15/23 05:45 Labs: Abnormal Lab Results - Last 24 Hours (Table) 08/12/23 08/15/23 08/15/23 Range/Units 23:45 05:45 05:45 RBC 2.21 L (4.10-5.20) X 10*6/uL Hgb 6.9 A* (12.0-15.0) g/dL Hct 22.2 L (37.2-46.3) % MCV 100.5 H (80.0-97.0) FL MCHC 31.1 L (32.0-37.0) g/dL RDW 18.4 H (11.5-14.5) % Monocytes # 1.01 H (0.20-1.00) X 10*3/uL Chloride 112 H (96-109) mmol/L Carbon Dioxide 19.8 L (21.6-31.8) mmol/L Creatinine 0.5 L (0.6-1.5) mg/dL BUN/Creatinine Ratio 27.20 H (12.00-20.00) Ratio Calcium 7.7 L (8.7-10.3) mg/dL AST 49 H (13-35) U/L ALT 46 H (8-44) U/L Total Protein 4.3 L (6.2-8.2) g/dL Albumin 2.5 L (3.8-4.9) g/dL Albumin/Globulin Ratio 1.39 L (1.60-3.17) Ratio Crossmatch See Detail
--- NOTE | 2023-08-15 16:14 | P.PN ---
Subjective Progress Note Date: 08/15/23 Principal diagnosis: Status post intramedullary nail left intertrochanteric/subtrochanteric femur fracture Patient evaluated at bedside today, she is resting in her hospital bed. Urinary catheter was removed. Patient continues to be very nonambulatory. Patient's hemoglobin was noted to be significantly decreased to 6.9, 2 units of packed RBCs has been ordered earlier today. Patient complains of generalized lower extremity pain and swelling to the left side. Objective - Vital Signs Vital signs: Vital Signs Temp 98.0 F 08/15/23 16:04 Pulse 123 H 08/15/23 16:04 Resp 16 08/15/23 16:04 BP 141/73 08/15/23 16:04 Pulse Ox 93 L 08/15/23 16:04 FiO2 Intake & Output 08/14/23 08/15/23 08/15/23 18:59 06:59 18:59 Intake Total 310 Balance 310 Intake: Blood Product 310 Rc As-1 Unit 310 [id number] Rc Pheresis 2 As3 Unit 0 [id number] Other: Voiding Method Indwelling Catheter Indwelling Catheter Bedpan # Voids 2 - Exam Left lower extremity: Foam dressings are in good position over surgical incisions, small amount of spotting noted. There is moderate soft tissue swelling noted in the extremity. Compartments to both the upper and lower leg are soft and compressible mild tenderness with palpation noted to the proximal femur. Logroll maneuver reproduces mild discomfort. Plantarflexion, dorsiflexion, EHL, FHL are intact. Calf is soft, no tenderness with palpation. Dorsalis pedis pulses 2+ - Labs CBC & Chem 7: 08/15/23 05:45 08/15/23 05:45 Labs: Abnormal Lab Results - Last 24 Hours (Table) 08/12/23 08/15/23 08/15/23 Range/Units 23:45 05:45 05:45 RBC 2.21 L (4.10-5.20) X 10*6/uL Hgb 6.9 A* (12.0-15.0) g/dL Hct 22.2 L (37.2-46.3) % MCV 100.5 H (80.0-97.0) FL MCHC 31.1 L (32.0-37.0) g/dL RDW 18.4 H (11.5-14.5) % Monocytes # 1.01 H (0.20-1.00) X 10*3/uL Chloride 112 H (96-109) mmol/L Carbon Dioxide 19.8 L (21.6-31.8) mmol/L Creatinine 0.5 L (0.6-1.5) mg/dL BUN/Creatinine Ratio 27.20 H (12.00-20.00) Ratio Calcium 7.7 L (8.7-10.3) mg/dL AST 49 H (13-35) U/L ALT 46 H (8-44) U/L Total Protein 4.3 L (6.2-8.2) g/dL Albumin 2.5 L (3.8-4.9) g/dL Albumin/Globulin Ratio 1.39 L (1.60-3.17) Ratio Crossmatch See Detail Assessment and Plan Assessment: Postoperative day #3 status post intramedullary nail left intertrochanteric/subtrochanteric femur fracture Acute blood loss anemia Sinus tachycardia Other medical comorbidities Plan: Pain control, continue to have the conversation with regards to IV pain medications. We are going to continue with oral medications and try to limit the IV pain medication. Patient needs to get out of bed and get to the chair and do her very best to work with physical therapy. She can weight-bear as tolerated with walker. She should be out of bed for all meals. Scheduled stool softeners have also been started. DVT prophylaxis, heparin 5000 units every 12 hours Monitor CBC Monitor surgical dressings PT/OT evaluation, weight-bear as tolerated with walker Encourage incentive spirometer Other medical specialty recommendations appreciated Discharge planning: Orthopedically patient remains stable, primary admission has been changed to internal medicine. We will be available for any questions regarding this patient
[2023-08-15] MEDS: TAMSULOSIN 0.4 MG CAP.ER.24H PO SCH (17:08)
[2023-08-16 08:20] LABS: Anisocytosis Slight; Basophils % (A) 1 %; Eosinophils # (A) 0.1 k/uL (0-0.7); Eosinophils % (A) 2 %; HCT 36.1 % (34.0-46.0); HGB 11.4 gm/dL (11.4-16.0); Lymphocytes # (A) 0.8 k/uL (1.0-4.8); Lymphocytes % (A) 14 %; MCH 30.5 pg (25.0-35.0); MCHC 31.7 g/dL (31.0-37.0); Macrocytosis Slight; Mean Platelet Volume 9.5; Monocytes # (A) 0.5 k/uL (0-1.0); Monocytes % (A) 9 %; Neutrophils # (A) 4.1 k/uL (1.3-7.7); Neutrophils % (A) 71 %; Platelet Count 205 k/uL (150-450); Poikilocytosis Slight; RBC 3.74 m/uL (3.80-5.40); RDW 17.9 % (11.5-15.5); WBC 5.7 k/uL (3.8-10.6)
[2023-08-16 08:28] LABS: MCV 96.3 fL (80.0-100.0)
[2023-08-16 08:54] VITALS: BP 172/78; PULSE 131; RESP 17; TEMP 98.1
[2023-08-16 09:05] LABS: ALT 43 U/L (4-34); AST 55 U/L (14-36); African American GFR (CKD) >90 (>60 ml/min/1.73 sqM); Albumin 2.4 g/dL (3.5-5.0); Albumin/Globulin Ratio 0.9; Alkaline Phosphatase 81 U/L (38-126); Anion Gap 7 mmol/L; Blood Urea Nitrogen 8 mg/dL (7-17); Carbon Dioxide 18 mmol/L (22-30); Chloride 108 mmol/L (98-107); Globulin 2.6 g/dL; Glucose 81 mg/dL (74-99); Non-African American GFR(CKD) >90 (>60 ml/min/1.73 sqM); Potassium 3.5 mmol/L (3.5-5.1); Sodium 133 mmol/L (137-145); Total Bilirubin 1.5 mg/dL (0.2-1.3)
--- NOTE | 2023-08-16 10:00 | CONS ---
CONSULTATION HISTORY OF PRESENT ILLNESS: This is a 77-year-old lady who is admitted to hospital with hip fracture and we are involved in her care because of the tachycardia. She remains in sinus rhythm with sinus tachycardia. Blood pressure is poorly controlled. PHYSICAL EXAMINATION: GENERAL: Comfortable at rest. Complains of pain in the left leg. VITAL SIGNS: Afebrile. Heart rate is around 110 to 130 beats per minute. Blood pressure is 170/78, respiratory rate is 18. CHEST: Reveals diminished air entry at the bases. HEART: Reveals first and second heart sounds. No gallop. EXTREMITIES: Reveals mild edema over the left leg. LABORATORY DATA: Her labs show a hemoglobin of 6.9 and she had been transfused. ASSESSMENT: 1. Uncontrolled hypertension. 2. Tachycardia, probably related to the pain. PLAN: I will start the patient on Toprol-XL 50 mg daily, able to control the blood pressure and to deal with the tachycardia. MMODL / IJN: [id number] /
--- NOTE | 2023-08-16 11:20 | P.DS ---
Providers Date of admission: 08/11/23 12:44 Expected date of discharge: 08/16/23 Attending physician: Cholo Scruggs MD Consults: 08/11/23 12:33 Consult Physician Urgent Consulting Provider: Cholo Scruggs Consult Reason/Comments: surgical clearance Do you want consulting provider notified?: Yes 08/11/23 17:53 Consult Physician Routine Consulting Provider: Humphrey Goldsmith Consult Reason/Comments: new onset SVT Do you want consulting provider notified?: Yes 08/15/23 12:47 Consult Physician Routine Consulting Provider: Rm Cerda Consult Reason/Comments: Left Hip Do you want consulting provider notified?: Already Contacted Primary care physician: Stated None Hospital Course: Discharge Diagnosis: Anterior hip fracture status postrepair Intractable pain Acute blood loss anemia Sinus tachycardia Urinary retention Transaminitis secondary to mild traumatic rhabdo Anion gap metabolic acidosis Prior breast cancer Hospital Course: Patient is a 77 yo CF with hx of breast cancer in remission, Chronic back pain, and anemia who presented to the ER after a fall from standing resulting in left IT hip fracture. She underwent IM nailing on 07/05. Have sinus tachycardia since admission. She was seen by cardiology and underwent echocardiogram which showed a preserved ejection fraction with no significant valvular abnormalities. He was started on digoxin for control of her sinus tachycardia and was then transitioned to metoprolol. She did develop acute blood loss anemia and required 3 units of packed red blood cells. On the day of discharge her hemoglobin had normalized to 11.4. She was cleared for discharge by orthopedic surgery. She continued to have some issues with pain control which was improving throughout her hospital stay. She had urinary retention and Stokes catheter was reinserted. She was determined stable for discharge to [facility] facility. Follow-up: Patient will likely continue to have sinus tachycardia after discharge and it is anticipated that she has heart rates around the 120s. She should have a repeat CBC and basic metabolic profile in 3 days. She should follow-up with Dr. Goldsmith in 1 week and paloma in 2 weeks. She also developed urinary retention and required her Stokes to be reinserted. This should be maintained for 5 days and she can then undergo up voiding trial. Patient seen and examined at bedside. Abdominal fullness (this led to the bladder scan and confirmation of urinary retention), denies any chest pain, lightheadedness dizziness. Her hip pain is well-controlled and feels more like a pressure. Vital signs reviewed and stable. General: Nontoxic, no distress, appears at stated age Cardiovascular: S1S2 reg, no murmur, positive posterior tibial pulse bilateral, Lungs: CTA bilateral, no rhonchi, no rales, no accessory muscle use Abdominal: Soft, nontender to palpation, no guarding, no appreciable organomegaly Ext: No gross muscle atrophy, no edema b/l lower extremities, no contractures Neuro: CN II-XI grossly intact, no focal neuro deficits Psych: Alert, oriented, appropriate affect A total of 35 minutes of time were spent preparing this complex discharge summary. Patient was discharged on 08/16/23. This dictation was prepared using [employer] voice recognition software. Though every attempt is made to correct errors during dictation some may still exist. Patient Condition at Discharge: Fair Plan - Discharge Summary Discharge Rx Participant: No New Discharge Prescriptions: New Cyclobenzaprine [Flexeril] 5 mg PO BID PRN #30 tablet PRN Reason: Muscle Spasm HYDROcodone/APAP 10-325MG [[place] 10-325] 1 tab PO Q6HR PRN 7 Days #28 tab PRN Reason: Pain Sennosides/Docusate Sodium [Senna-S 8.6-50 mg Tablet] 2 each PO DAILY PRN #30 tablet PRN Reason: Constipation Metoprolol Succinate (ER) [Toprol XL] 50 mg PO DAILY #0 tab Ferrous Sulfate [Iron (65 MG Elemental)] 325 mg PO BID #60 tab Heparin Sodium,Porcine (1 ml) [Heparin Sodium] 5,000 unit SQ Q12HR #30 each Continue Acetaminophen [Tylenol 8 Hour] 650 - 1,300 mg PO Q8H PRN PRN Reason: Pain Melatonin 10 mg PO HS Discontinued Doxylamine Succinate [Unisom] 25 mg PO HS Discharge Medication List Acetaminophen [Tylenol 8 Hour] 650 - 1,300 mg PO Q8H PRN 08/11/23 [History] Melatonin 10 mg PO HS 08/11/23 [History] Cyclobenzaprine [Flexeril] 5 mg PO BID PRN #30 tablet 08/15/23 [Rx] Ferrous Sulfate [Iron (65 MG Elemental)] 325 mg PO BID #60 tab 08/15/23 [Rx] HYDROcodone/APAP 10-325MG [[place] 10-325] 1 tab PO Q6HR PRN 7 Days #28 tab [Rx] Heparin Sodium,Porcine (1 ml) [Heparin Sodium] 5,000 unit SQ Q12HR #30 each 08/15/23 [Rx] Sennosides/Docusate Sodium [Senna-S 8.6-50 mg Tablet] 2 each PO DAILY PRN #30 tablet 08/15/23 [Rx] Metoprolol Succinate (ER) [Toprol XL] 50 mg PO DAILY #0 tab 08/16/23 [Rx] Follow up Appointment(s)/Referral(s): Luis Andrews PAC [PHYSICIAN [employer]] - 2 Weeks Joya Vilchis MD [STAFF PHYSICIAN] - 1-2 days Activity/Diet/Wound Care/Special Instructions: Orthopedic discharge instructions: 1. Weight-bear as tolerated left lower extremity 2. Ice and elevate the extremity often to help with swelling 3. Basic bandages over incisions, okay to shower directly over incision 4. Pain medication as needed 5. DVT prophylaxis, recommend heparin 5000 units every 12 hours for 28 total days postop 6. Contact [facility] with any questions, Regular diet Fall Precautions Repeat basic metabolic profile and complete blood count in 3 days diagnosis anemia and hyponatremia Anticipate heart rates to be around 120 and sinus tachycardia patient has been asymptomatic with this Maintain Stokes catheter x 5 days and then voiding trial. This is in place for urinary retention. Discharge Disposition: TRANSFER TO SNF/ECF
[2023-08-16] MEDS: METOPROLOL SUCCINATE (ER) 50 MG TAB.ER.24H PO SCH (13:13)
== END 2023-08-16 14:50 | DRG 956 ==
LOC: EC 10:32 → EEVIPCON 12:44 → 4SSUR 12:44 → 3SCARD 17:34 → 6NMEDSUR 08-13 16:26
PROVIDERS: ADMIT Student in an Organized Health Care Education/Training Program; ATTEND Student in an Organized Health Care Education/Training Program
PROC: 0QS706Z Reposition Left Upper Femur with Intramedullary Internal Fixation Device, Open Approach (ICD-10-PCS; principal; 2023-08-12 11:00)
PROC: 30233N1 Transfusion of Nonautologous Red Blood Cells into Peripheral Vein, Percutaneous Approach (ICD-10-PCS; 2023-08-13)
DX: S72.22XA Displaced subtrochanteric fracture of left femur, initial encounter for closed fracture (principal); T79.6XXA Traumatic ischemia of muscle, initial encounter; D62 Acute posthemorrhagic anemia; E87.1 Hypo-osmolality and hyponatremia; I10 Essential (primary) hypertension; Z28.310 Unvaccinated for COVID-19; M19.90 Unspecified osteoarthritis, unspecified site; G89.29 Other chronic pain; M54.9 Dorsalgia, unspecified; F41.0 Panic disorder [episodic paroxysmal anxiety]; R00.0 Tachycardia, unspecified; R33.9 Retention of urine, unspecified; R74.01 Elevation of levels of liver transaminase levels; Z79.899 Other long term (current) drug therapy; Z98.1 Arthrodesis status; Z85.3 Personal history of malignant neoplasm of breast; Z90.12 Acquired absence of left breast and nipple; W01.0XXA Fall on same level from slipping, tripping and stumbling without subsequent striking against object, initial encounter; Y92.030 Kitchen in apartment as the place of occurrence of the external cause
CPT/HCPCS: 36415; 36430; 70450; 71045; 72125; 73502; 80053; 82533; 82550; 82728; 83540; 83550; 83605; 83735; 83880; 84100; 84443; 85025; 85027; 86850; 86900; 86901; 86920; 93005; 93306; 94760; 96361; 96374; 96376; 99285

== ENCOUNTER 2023-08-28 00:34 | Inpatient (IN) | payer MEDICARE ==
--- NOTE | 2023-08-28 00:52 | ED ---
Chest Pain HPI - General Chief Complaint: Abdominal Pain Stated Complaint: Chest pain Time Seen by Provider: 08/28/23 00:35 Source: EMS, RN notes reviewed, old records reviewed Mode of arrival: EMS Limitations: no limitations - History of Present Illness Initial Comments: This is a 77-year-old female to the ER for evaluation of nausea vomiting upper GI bleed abdominal pain chest pain with persistent symptoms. No travel history no sick contacts no other complaints. No fever no travel history no sick contacts MD Complaint: chest pain, other (Abdominal pain) -: days(s) Onset: during rest, during exertion Pain Location: substernal, left chest Pain Radiation: LUE Severity: mild Severity scale (1-10): 1 Quality: tightness Consistency: constant Improves With: nothing Worsens With: nothing Anginal Symptoms: dyspnea, sense of impending doom Other Symptoms: palpitations Treatments Prior to Arrival: none - Related Data Home Medications Medication Instructions Recorded Confirmed Acetaminophen Tab [Tylenol] 650 mg PO Q8H PRN 08/28/23 08/28/23 Cyclobenzaprine [Flexeril] 5 mg PO BID PRN 08/28/23 08/28/23 Doxylamine Succinate [Unisom] 25 mg PO HS 08/28/23 08/28/23 HYDROcodone/APAP 10-325MG [[place] 1 tab PO Q4H PRN 08/28/23 08/28/23 10-325] Magnesium Hydroxide [Milk of 2,400 mg PO DAILY PRN 08/28/23 08/28/23 Magnesia] Melatonin 10 mg PO HS 08/28/23 08/28/23 Sennosides/Docusate Sodium 1 tab PO BID 08/28/23 08/28/23 [Senna-S 8.6-50 mg Tablet] Previous Rx's Medication Instructions Recorded Ferrous Sulfate [Iron (65 MG 325 mg PO BID #60 tab 08/15/23 Elemental)] Heparin Sodium,Porcine (1 ml) 5,000 unit SQ Q12HR #30 each 08/15/23 [Heparin Sodium] Metoprolol Succinate (ER) [Toprol 50 mg PO DAILY #0 tab 08/16/23 XL] Artificial Tears-Hypromellose 1 drops BOTH EYES QID PRN ml 09/03/23 [Artificial Tear Drops] Ipratropium-Albuterol Nebulize 3 ml INHALATION RT-QID each 09/03/23 [Duoneb 0.5 mg-3 mg/3 ml Soln] Lactulose [Cephulac] 20 gm PO TID ml 09/03/23 Losartan-Hctz 50-12.5 mg [Hyzaar 1 each PO DAILY 30 Days #30 tab 09/03/23 50-12.5] Metoclopramide [Reglan] 5 mg PO ACHS 30 Days #120 tab 09/03/23 Pantoprazole [Protonix] 40 mg PO AC-BID 30 Days #60 tab 09/03/23 Potassium Chloride ER [K-Dur 20] 20 meq PO DAILY tab 09/03/23 Metoclopramide [Reglan] 10 mg PO ACHS 30 Days #120 tab 09/04/23 guaiFENesin [Mucinex] 600 mg PO Q12HR tab 09/04/23 Allergies Allergy/AdvReac Type Severity Reaction Status Date / Time No Known Allergies Allergy Verified 08/28/23 07:41 Review of Systems ROS Statement: Those systems with pertinent positive or pertinent negative responses have been documented in the HPI. ROS Other: All systems not noted in ROS Statement are negative. Past Medical History Past Medical History: Cancer Additional Past Medical History / Comment(s): hx breast cancer, anemia, low iron level. ,states hx of fall and fx back., states recent hospitalization 09/14/19 to 09/23/19 ([facility]), pt states she was discharged with additional meds but did not know what they were for and did not take -instructed pt she should follow up her dr regarding meds., pt to bring med list ., states family hx of esophageal and colon cancer. History of Any Multi-Drug Resistant Organisms: None Reported Past Surgical History: Back Surgery, Breast Surgery Additional Past Surgical History / Comment(s): 3 brain aneurysms clipped-2007, left mastectomy 6 years ago Past Anesthesia/Blood Transfusion Reactions: No Reported Reaction Past Psychological History: Anxiety, Panic Disorder Smoking Status: Unknown if ever smoked Past Alcohol Use History: Occasional Past Drug Use History: None Reported - Past Family History Mother Family Medical History: No Reported History Brother(s) Family Medical History: Cancer Additional Family Medical History / Comment(s): 3 brothers colon and esophageal cancer, pancreatic cancer Father Family Medical History: Cancer Additional Family Medical History / Comment(s): prostate cancer General Exam Limitations: no limitations General appearance: alert, in no apparent distress Head exam: Present: atraumatic, normocephalic, normal inspection Eye exam: Present: normal appearance, PERRL, EOMI. Absent: scleral icterus, conjunctival injection, periorbital swelling ENT exam: Present: normal exam, mucous membranes moist Neck exam: Present: normal inspection. Absent: tenderness, meningismus, lymphadenopathy Respiratory exam: Present: normal lung sounds bilaterally. Absent: respiratory distress, wheezes, rales, rhonchi, stridor Cardiovascular Exam: Present: regular rate, normal rhythm, normal heart sounds. Absent: systolic murmur, diastolic murmur, rubs, gallop, clicks GI/Abdominal exam: Present: soft, normal bowel sounds. Absent: distended, tenderness, guarding, rebound, rigid Extremities exam: Present: normal inspection, full ROM, normal capillary refill. Absent: tenderness, pedal edema, joint swelling, calf tenderness Back exam: Present: normal inspection Neurological exam: Present: alert, oriented X3, CN II-XII intact Psychiatric exam: Present: normal affect, normal mood Skin exam: Present: warm, dry, intact, normal color. Absent: rash Course Vital Signs 08/28/23 08/28/23 08/28/23 00:41 03:02 05:23 Temperature 98.3 F Pulse Rate 110 H 117 H 110 H Respiratory 18 18 16 Rate Blood Pressure 138/75 139/72 138/85 O2 Sat by Pulse 96 95 93 L Oximetry 08/28/23 08/28/23 08/28/23 06:38 08:54 09:00 Temperature Pulse Rate 113 H 108 H 114 H Respiratory 18 18 18 Rate Blood Pressure 147/78 139/73 149/80 O2 Sat by Pulse 94 L 95 94 L Oximetry 08/28/23 08/28/23 08/28/23 10:00 11:00 13:00 Temperature Pulse Rate 114 H 112 H 112 H Respiratory 16 18 18 Rate Blood Pressure 140/88 154/86 156/89 O2 Sat by Pulse 94 L 95 96 Oximetry 08/28/23 08/28/23 08/28/23 14:00 17:00 18:00 Temperature Pulse Rate 109 H 114 H 115 H Respiratory 16 16 14 Rate Blood Pressure 169/93 162/85 167/91 O2 Sat by Pulse 97 95 95 Oximetry 08/28/23 08/28/23 08/28/23 20:00 21:17 21:24 Temperature 98.2 F Pulse Rate 118 H 120 H 122 H Respiratory 16 Rate Blood Pressure 160/86 O2 Sat by Pulse 92 L Oximetry 08/29/23 08/29/23 08/29/23 03:17 04:41 06:56 Temperature Pulse Rate 116 H 112 H 109 H Respiratory 16 16 18 Rate Blood Pressure 138/77 142/74 142/78 O2 Sat by Pulse 93 L 92 L 93 L Oximetry 08/29/23 08/29/23 08/29/23 09:00 11:59 12:42 Temperature Pulse Rate 119 H 112 H 110 H Respiratory 20 18 Rate Blood Pressure 147/78 150/93 O2 Sat by Pulse 96 96 Oximetry 08/29/23 08/29/23 12:54 14:42 Temperature Pulse Rate 115 H 106 H Respiratory 18 Rate Blood Pressure 150/91 O2 Sat by Pulse 95 Oximetry - Reevaluation(s) Reevaluation #1: 08/28/23 02:20 Medical records reviewed Reevaluation #2: 08/28/23 02:20 Patient's pain is improved Reevaluation #3: 08/28/23 02:20 Patient informed of results and questions answered Studies CT chest abdomen pelvis negative for acute disease Reevaluation #4: Was pt. sent in by a medical professional or institution (, PA, RESPIRATORY THERAPY INSTRUCTOR, urgent care, hospital, or care home...) When possible be specific @ -no Did you speak to anyone other than the patient for history (EMS, parent, family, police, friend...)? What history was obtained from this source @ -no Did you review nursing and triage notes (agree or disagree)? Why? @ -agree Are old charts reviewed (outside hosp., previous admission, EMS record, old EKG, old radiological studies, urgent care reports/EKG's, care home records)? Report findings @ -yes Differential Diagnosis (chest pain, altered mental status, abdominal pain women, abdominal pain men, vaginal bleeding, weakness, fever, dyspnea, syncope, headache, dizziness, GI bleed, back pain, seizure, CVA, palpatations, mental health, musculoskeletal)? @ -prior EKG interpreted by me (3pts min.). @ -yes X-rays interpreted by me (1pt min.). @ -no CT interpreted by me (1pt min.). @ -yes negative for acute disease U/S interpreted by me (1pt. min.). @ -no What testing was considered but not performed or refused? (CT, X-rays, U/S, labs)? Why? @ -none What meds were considered but not given or refused? Why? @ -none Did you discuss the management of the patient with other professionals (professionals i.e. DrGiuliano, PA, RESPIRATORY THERAPY INSTRUCTOR, lab, RT, psych nurse, high school social studies tutor, digital pre press operator, teacher, first aid officer, disease case manager rn)? Give summary @ -no Was smoking cessation discussed for >3mins.? @ -no Was critical care preformed (if so, how long)? @ -no Were there social determinants of health that impacted care today? How? (Homelessness, low income, unemployed, alcoholism, drug addiction, transportation, low edu. Level, literacy, decrease access to med. care, long term, rehab)? @ -none Was there de-escalation of care discussed even if they declined (Discuss DNR or withdrawal of care, Hospice)? DNR status @ -no What co-morbidities impacted this encounter? (DM, HTN, Smoking, COPD, CAD, Cancer, CVA, ARF, Chemo, Hep., AIDS, mental health diagnosis, sleep apnea, morbid obesity)? @ -none Was patient admitted / discharged? Hospital course, mention meds given and route, prescriptions, significant lab abnormalities, going to OR and other pertinent info. @ - 77 male to ER for chest pain and abdominal pain. Coffee-ground emesis noted. Patient will be admitted for further evaluation and monitoring Admitted Undiagnosed new problem with uncertain prognosis? @ -no Drug Therapy requiring intensive monitoring for toxicity (Heparin, Nitro, Insulin, Cardizem)? @ -no Were any procedures done? @ -no Diagnosis/symptom? @ -Chest pain abdominal pain coffee-ground emesis upper GI bleed Acute, or Chronic, or Acute on Chronic? @ -Acute Uncomplicated (without systemic symptoms) or Complicated (systemic symptoms)? @ -Complicated Side effects of treatment? @ -no Exacerbation, Progression, or Severe Exacerbation? @ -exacerbation Poses a threat to life or bodily function? How? (Chest pain, [place], [place], pneumonia, PE, COPD, DKA, ARF, appy, cholecystitis, CVA, Diverticulitis, Homicidal, Suicidal, threat to staff... and all critical care pts) @ -yes with extremes of age 0409/07/23 18:48 Reevaluation #5: Differential Chest Pain: Stable Angina, Unstable Angina, STEMI, NSTEMI Aortic Dissection, Pneumothorax, Musculoskeletal, Esophageal Spasm GERD, Cholecystitis, Pancreatitis, Zoster, this is not meant to be an all-inclusive list. - Consultations Consultation #1: Spoke with Dr. Lam who agrees to admit this patient Chest Pain MDM - MDM 77 male to ER for chest pain and abdominal pain. Coffee-ground emesis noted. Patient will be admitted for further evaluation and monitoring Disposition Clinical Impression: Abdominal pain, Chest pain, Hematemesis, Back pain, Anemia, Coffee ground emesis Disposition: ADMITTED IP TO THIS HOSP Condition: Serious Is patient prescribed a controlled substance at d/c from ED?: No Time of Disposition: 05:40
[2023-08-28] MEDS: MORPHINE SULFATE 4 MG/ML SYRINGE IV STA (01:43)
[2023-08-28] MEDS: SODIUM CHLORIDE 0.9% 1,000 ML IV STA (01:43)
[2023-08-28] MEDS: PANTOPRAZOLE 40 MG/10 ML VIAL IV STA (01:44)
[2023-08-28] MEDS: ONDANSETRON 4 MG/2 ML VIAL IVP STA (01:44)
[2023-08-28 02:10] LABS: Anisocytosis Slight; Basophils % (A) 0 %; Eosinophils # (A) 0.1 k/uL (0-0.7); Eosinophils % (A) 1 %; HCT 41.9 % (34.0-46.0); HGB 13.4 gm/dL (11.4-16.0); Lymphocytes # (A) 1.4 k/uL (1.0-4.8); Lymphocytes % (A) 10 %; MCH 31.8 pg (25.0-35.0); MCHC 32.1 g/dL (31.0-37.0); MCV 99.1 fL (80.0-100.0); Macrocytosis Slight; Mean Platelet Volume 9.8; Monocytes # (A) 0.5 k/uL (0-1.0); Monocytes % (A) 4 %; Neutrophils # (A) 11.5 k/uL (1.3-7.7); Neutrophils % (A) 84 %; Platelet Count 433 k/uL (150-450); RBC 4.23 m/uL (3.80-5.40); RDW 17.4 % (11.5-15.5); WBC 13.6 k/uL (3.8-10.6)
[2023-08-28 02:30] LABS: ALT 19 U/L (4-34); AST 32 U/L (14-36); African American GFR (CKD) >90 (>60 ml/min/1.73 sqM); Albumin 3.1 g/dL (3.5-5.0); Alkaline Phosphatase 140 U/L (38-126); Anion Gap 6 mmol/L; Blood Urea Nitrogen 18 mg/dL (7-17); Calcium 8.9 mg/dL (8.4-10.2); Carbon Dioxide 30 mmol/L (22-30); Chloride 101 mmol/L (98-107); Glucose 139 mg/dL (74-99); Lipase 78 U/L (23-300); Non-African American GFR(CKD) 81 (>60 ml/min/1.73 sqM); Phosphorus 4.1 mg/dL (2.5-4.5); Potassium 4.1 mmol/L (3.5-5.1); Sodium 137 mmol/L (137-145); Total Bilirubin 1.2 mg/dL (0.2-1.3); Total Protein 6.4 g/dL (6.3-8.2)
[2023-08-28 02:38] LABS: NT-Pro-B-Type Natriuretic Pept 483 pg/mL
[2023-08-28] MEDS: HYDROmorphone 1 MG/ML 1 ML SYRINGE IVP STA ×2 (03:16→06:35)
[2023-08-28 03:58] LABS: INR 0.9 (<1.2); Prothrombin Time 10.3 sec (10.0-12.5)
[2023-08-28 04:13] LABS: Partial Thromboplastin Time 21.5 sec (22.0-30.0)
--- NOTE | 2023-08-28 05:24 | CT ---
EXAM: CT Angiography Chest and CT Abdomen and Pelvis With Intravenous Contrast CLINICAL HISTORY: ITS.REASON CT Reason: PE TECHNIQUE: Axial computed tomographic angiography images of the chest and axial computed tomography images of the abdomen and pelvis with intravenous contrast. CTDI is 18.3 mGy and DLP is 501.9 mGy-cm. This CT exam was performed using one or more of the following dose reduction techniques: automated exposure control, adjustment of the mA and/or kV according to patient size, and/or use of iterative reconstruction technique. MIP reconstructed images were created and reviewed. COMPARISON: No relevant prior studies available. FINDINGS: CHEST: Aorta: No acute findings. No aortic aneurysm. No dissection. Pulmonary arteries: No pulmonary embolism detected. Great vessels of aortic arch: No acute findings. No dissection. No arterial occlusion or significant stenosis. Lungs: Dependent airspace disease at the lung bases. Findings may relate to atelectatic changes. However, given dependent bronchiectasis, superimposed to sequela of infection/aspiration also possible. No mass. Pleural space: Small bilateral pleural effusions. Findings likely relate to volume overload. No pneumothorax. Heart: Unremarkable. No cardiomegaly. No significant pericardial effusion. Mediastinum: Diffuse esophageal thickening with adjacent stranding and mediastinal fluid. Additional fluid within the esophagus. Findings are favored to be inflammatory nature. Consider further workup. Small stomach containing hiatal hernia. Additional herniation of transverse colon. ABDOMEN: Liver: Unremarkable. No mass. Gallbladder and bile ducts: Unremarkable. No calcified stones. No ductal dilation. Pancreas: Unremarkable. No ductal dilation. No mass. Spleen: Splenic hypodensities which likely relates to her nonaggressive angiomatous lesion. Adrenals: Unremarkable. No mass. Kidneys and ureters: Mild atrophy within the left kidney. Low- attenuation foci left kidney which may be due to cysts but are too small to characterize. No follow-up is necessary. No hydronephrosis. Stomach and bowel: Unremarkable. No obstruction. No mucosal thickening. PELVIS: Appendix: No findings to suggest acute appendicitis. Bladder: Unremarkable. No mass. Reproductive: Unremarkable as visualized. CHEST, ABDOMEN and PELVIS: Intraperitoneal space: Unremarkable. No significant fluid collection. No free air. Bones/joints: Left total hip arthroplasty changes. Age indeterminate, but likely chronic, T11 and T12 compression fractures. Consider correlation with point tenderness. If there is further concern, consider MRI. L2-L5 posterior spinal fusion hardware with laminectomy changes. No dislocation. Soft tissues: Left breast prosthesis. Lymph nodes: Unremarkable. No enlarged lymph nodes. IMPRESSION: 1. No pulmonary embolism detected. 2. Small bilateral pleural effusions. Findings likely relate to volume overload. 3. Dependent airspace disease at the lung bases. Findings may relate to atelectatic changes. However, given dependent bronchiectasis, superimposed to sequela of infection/aspiration also possible. 4. Diffuse esophageal thickening with adjacent stranding and mediastinal fluid. Additional fluid within the esophagus. Findings are favored to be inflammatory nature. Consider further workup. 5. Small stomach containing hiatal hernia. Additional herniation of transverse colon. 6. Age indeterminate, but likely chronic, T11 and T12 compression fractures. Consider correlation with point tenderness. If there is further concern, consider MRI. 7. No other acute findings. 8. Incidental findings as described. <MYCVCSECTION> Communications: 08/28/23 05:29 Verify Receipt Verified receipt with AMALIA Ibarra,given to DR Self on 08/27 05:31 (-04:00)
[2023-08-28] MEDS ORDERED: NALOXONE 0.4 MG/ML 1 ML VIAL IV PRN (05:39)
[2023-08-28] MEDS: SODIUM CHLORIDE 0.9% 1,000 ML IV SCH (06:35)
[2023-08-28] MEDS: PANTOPRAZOLE 40 MG/10 ML VIAL IV SCH (08:59)
[2023-08-28 09:40] LABS: Appearance,Urine Cloudy (Clear); Bacteria,Urine Rare /hpf; Bilirubin,Urine Negative (Negative); Blood,Urine Trace (Negative); Color,Urine Colorless; Glucose,Urine (UA) Negative (Negative); Ketones,Urine Negative (Negative); Leukocyte Esterase,Urine Large (Negative); Nitrite,Urine Negative (Negative); Protein,Urine Trace (Negative); RBC,Urine 4 /hpf (0-5); Squamous Epithelial Cell,Urine 1 /hpf (0-4); Urobilinogen,Urine <2.0 mg/dL (<2.0); WBC,Urine >182 /hpf (0-5)
[2023-08-28] MEDS: HYDROmorphone 1 MG/ML 1 ML SYRINGE IVP PRN (11:25)
[2023-08-28] MEDS: ONDANSETRON 4 MG/2 ML VIAL IVP PRN (11:25)
[2023-08-28] MEDS: METOCLOPRAMIDE 5 MG/ML 2 ML VIAL IVP PRN (14:58)
--- NOTE | 2023-08-28 16:12 | P.CONS ---
History of Present Illness - Reason for Consult Consult date: 08/28/23 Hematemesis Requesting physician: Otto Self - Chief Complaint Coffee-ground emesis - History of Present Illness Was a pleasant 77-year-old female who presented to the emergency department with nausea and vomiting yesterday x 3 with coffee-ground emesis. Concern was for possible upper GI bleed. Patient denies any anticoagulation, no history of peptic ulcer disease, but does take Aleve twice a day. She does report symptoms have resolved however she still has epigastric discomfort. Denies any blood or black stool. WBC 13.6 hemoglobin 13.4 hematocrit 41 platelet count 433,000 INR 0.9 Sodium 137 potassium 4.1 BUN 18 creatinine 0.72 total bilirubin 1.2 AST 32 ALT 19 alkaline phosphatase 140 lipase 78 Review of Systems REVIEW OF SYSTEMS: CARDIOPULMONARY: No chest pain or shortness of breath. Gastrointestinal: Epigastric pain. No nausea or vomiting. Coffee-ground emesis yesterday. No rectal bleeding, or melena. GENITOURINARY: No dysuria or hematuria. MUSCULOSKELETAL: Reports normal range of motion., Joint pain. SKIN: No rashes. No jaundice. ENDOCRINE: No chills, fevers. No excessive weight gain or loss. No polydipsia or polyuria. PSYCHIATRIC: Unremarkable. NEUROLOGY: No change in mental status. Denies dizziness, headache. ENT: Vision unremarkable. CONSTITUTIONAL: No recent weight loss. No fever, chills, night sweats. Past Medical History Past Medical History: Cancer Additional Past Medical History / Comment(s): hx breast cancer, anemia, low iron level. ,states hx of fall and fx back., states recent hospitalization 09/14/19 to 09/23/19 ([facility]), pt states she was discharged with additional meds but did not know what they were for and did not take -instructed pt she should follow up her dr regarding meds., pt to bring med list ., states family hx of esophageal and colon cancer. History of Any Multi-Drug Resistant Organisms: None Reported Past Surgical History: Back Surgery, Breast Surgery Additional Past Surgical History / Comment(s): 3 brain aneurysms clipped-2007, left mastectomy 6 years ago Past Anesthesia/Blood Transfusion Reactions: No Reported Reaction Past Psychological History: Anxiety, Panic Disorder Smoking Status: Unknown if ever smoked Past Alcohol Use History: Occasional Past Drug Use History: None Reported - Past Family History Mother Family Medical History: No Reported History Brother(s) Family Medical History: Cancer Additional Family Medical History / Comment(s): 3 brothers colon and esophageal cancer, pancreatic cancer Father Family Medical History: Cancer Additional Family Medical History / Comment(s): prostate cancer Medications and Allergies Home Medications Medication Instructions Recorded Confirmed Type Ferrous Sulfate [Iron (65 MG 325 mg PO BID #60 tab 08/15/23 08/28/23 Rx Elemental)] Heparin Sodium,Porcine (1 ml) 5,000 unit SQ Q12HR #30 each 08/15/23 08/28/23 Rx [Heparin Sodium] Metoprolol Succinate (ER) [Toprol 50 mg PO DAILY #0 tab 08/16/23 08/28/23 Rx XL] Acetaminophen Tab [Tylenol] 650 mg PO Q8H PRN 08/28/23 08/28/23 History Cyclobenzaprine [Flexeril] 5 mg PO BID PRN 08/28/23 08/28/23 History Doxylamine Succinate [Unisom] 25 mg PO HS 08/28/23 08/28/23 History HYDROcodone/APAP 10-325MG [[place] 1 tab PO Q4H PRN 08/28/23 08/28/23 History 10-325] Magnesium Hydroxide [Milk of 2,400 mg PO DAILY PRN 08/28/23 08/28/23 History Magnesia] Melatonin 10 mg PO HS 08/28/23 08/28/23 History Sennosides/Docusate Sodium 1 tab PO BID 08/28/23 08/28/23 History [Senna-S 8.6-50 mg Tablet] oxyCODONE-APAP 10-325MG [Percocet 1 tab PO Q6H 08/28/23 08/28/23 History 10-325 mg] Allergies Allergy/AdvReac Type Severity Reaction Status Date / Time No Known Allergies Allergy Verified 08/28/23 07:41 Physical Exam Vitals: Vital Signs Temp Pulse Resp BP Pulse Ox 08/28/23 10:00 114 H 16 140/88 94 L 08/28/23 09:00 114 H 18 149/80 94 L 08/28/23 08:54 108 H 18 139/73 95 08/28/23 06:38 113 H 18 147/78 94 L 08/28/23 05:23 110 H 16 138/85 93 L 08/28/23 03:02 117 H 18 139/72 95 08/28/23 00:41 98.3 F 110 H 18 138/75 96 Intake and Output 08/27/23 08/28/23 08/28/23 22:59 06:59 14:59 Other: Weight 56.699 kg General appearance: The patient is alert, oriented, appears in no acute distress. HET: Head is normocephalic and atraumatic. Conjunctiva pink. Sclera anicteric. Neck: Supple without lymphadenopathy. Trachea midline. Heart: Regular. Lungs: Equal expansion, normal respiratory effort. Abdomen: Soft, epigastric tenderness, nondistended. Skin: No rashes. No jaundice. Extremities: Normal skin color and turgor. No pedal edema. Neurological: No focal deficits. Alert and oriented x3. Results CBC & Chem 7: 08/28/23 01:40 08/28/23 01:40 Labs: Abnormal Lab Results - Last 24 Hours (Table) 08/28/23 08/28/23 08/28/23 Range/Units 01:40 01:40 02:59 WBC 13.6 H (3.8-10.6) k/uL RDW 17.4 H (11.5-15.5) % Neutrophils # 11.5 H (1.3-7.7) k/uL APTT 21.5 L (22.0-30.0) sec BUN 18 H (7-17) mg/dL Glucose 139 H (74-99) mg/dL Alkaline Phosphatase 140 H (38-126) U/L Albumin 3.1 L (3.5-5.0) g/dL Urine Appearance (Clear) Urine Protein (Negative) Urine Blood (Negative) Ur Leukocyte Esterase (Negative) Urine WBC (0-5) /hpf Urine Bacteria (None) /hpf 08/28/23 Range/Units 08:58 WBC (3.8-10.6) k/uL RDW (11.5-15.5) % Neutrophils # (1.3-7.7) k/uL APTT (22.0-30.0) sec BUN (7-17) mg/dL Glucose (74-99) mg/dL Alkaline Phosphatase (38-126) U/L Albumin (3.5-5.0) g/dL Urine Appearance Cloudy H (Clear) Urine Protein Trace H (Negative) Urine Blood Trace H (Negative) Ur Leukocyte Esterase Large H (Negative) Urine WBC >182 H (0-5) /hpf Urine Bacteria Rare H (None) /hpf Assessment and Plan (1) Coffee ground emesis Narrative/Plan: 77-year-old female presenting with coffee-ground emesis, elevated BUN and history of frequent NSAID use. This in a patient with no history of peptic previous peptic ulcer disease but does have a history of previous anemia and he has undergone upper endoscopy with Dr. Rainey in 2019 with no evidence of any active bleeding. No anticoagulation use. Unclear etiology of coffee-ground emesis however need to consider possible peptic ulcer disease secondary to NSAID use. Will proceed with upper endoscopy. Current Visit: Yes Status: Acute Code(s): K92.0 - HEMATEMESIS SNOMED Code(s): 62782795 Plan: 1. Continue symptomatic and supportive care 2. Patient may have clear liquid diet, n.p.o. after midnight 3. Avoid NSAIDs 4. Protonix 40 mg daily 5. Plan to proceed with upper endoscopy tomorrow Thank you for this consultation, we will continue to follow. Dr. Yari Goldsmith I agree with the dictator's note, documented as a scribe by Smita Oleary.
[2023-08-28] MEDS ORDERED: CYCLOBENZAPRINE 5 MG TAB PO PRN (17:04)
[2023-08-28] MEDS ORDERED: MELATONIN 10 MG PO SCH (21:00)
[2023-08-28] MEDS: IPRATROPIUM-ALBUTEROL 3 ML NEB INHALATION SCH (21:17)
[2023-08-28] MEDS: FERROUS SULFATE 325 MG TAB PO SCH (21:42)
[2023-08-28] MEDS: MELATONIN 5 MG TABLET PO SCH (21:43)
[2023-08-28] MEDS: SENNOSIDES-DOCUSATE SODIUM 1 EACH TAB PO SCH (21:43)
--- NOTE | 2023-08-29 01:15 | HP ---
HISTORY AND PHYSICAL HISTORY OF PRESENT ILLNESS: Rhea mE is a 77-year-old white female who on CTA of the chest shows dependent airspace disease at the lung bases with bronchiectasis and fluid buildup in the esophagus. She is kept for EGD in the morning for positive bleeding with coffee-ground stools and emesis. She has chronic T11-T12 compression fractures. Small bilateral pleural effusions. No PE, bronchiectasis, possible hiatal hernia. She is scheduled, she is seeing a GI doctor who is going to do a scope on her tomorrow. Nausea, vomiting, she has upper GI bleed most likely. Hemoglobin is stable so far. GI saw her, ordered EGD for tomorrow. ALLERGIES: Negative. REVIEW OF SYSTEMS: A 14-point review of systems otherwise negative. PAST MEDICAL HISTORY: History of breast cancer, anemia, history of falls in the back, thoracic compression fractures. FAMILY HISTORY: Esophageal and colon cancer. PAST SURGICAL HISTORY: She had breast surgery, back surgery, 2 brain aneurysms clipped, and mastectomy 6 years ago. FAMILY HISTORY: Mother negative. Brother cancer, coon and esophagus. Father, cancer prostate. PHYSICAL EXAMINATION: GENERAL: She is thin, cachectic. She appears little bit anxious. HEENT: Head normocephalic, atraumatic. RESPIRATORY: Decreased breath sounds x4. Minimal wheeze. CARDIOVASCULAR: S1, S2. ABDOMEN: Soft, nontender. EXTREMITIES: No cyanosis, clubbing, 2+ edema. Stasis changes. NEUROLOGIC: Cranial nerves intact. PSYCH: Fair mood and affect. SKIN: Warm, dry, intact. VITAL SIGNS: Pulse is 110 to 117, respiratory rat 18 to 16, blood pressure is 130s/70s, O2 93 to 96. She has acute GI bleed, suspect peptic ulcer, bronchiectasis, COPD, history of breast cancer, atypical chest pain, abdominal pain, EGD in the morning is being ordered continue current home medicines. Prognosis guarded. Wait for hemoglobin to be checked again in the morning. Prognosis guarded. MMODL / IJN: [id number] /
[2023-08-29] MEDS: HYDROcodone/APAP 10-325MG 1 EACH TAB PO PRN (05:44)
[2023-08-29 08:25] LABS: Anisocytosis Slight; Basophils % (A) 0 %; Eosinophils % (A) 0 %; HGB 11.5 gm/dL (11.4-16.0); Hypochromasia Moderate; Lymphocytes # (A) 1.1 k/uL (1.0-4.8); Lymphocytes % (A) 9 %; MCH 32.1 pg (25.0-35.0); MCHC 31.1 g/dL (31.0-37.0); MCV 103.3 fL (80.0-100.0); Macrocytosis Moderate; Mean Platelet Volume 8.3; Monocytes # (A) 1.2 k/uL (0-1.0); Monocytes % (A) 10 %; Neutrophils # (A) 9.5 k/uL (1.3-7.7); Neutrophils % (A) 79 %; Platelet Count 405 k/uL (150-450); RBC 3.58 m/uL (3.80-5.40); RDW 17.6 % (11.5-15.5)
[2023-08-29 08:48] LABS: ALT 16 U/L (4-34); African American GFR (CKD) >90 (>60 ml/min/1.73 sqM); Anion Gap 5 mmol/L; Blood Urea Nitrogen 21 mg/dL (7-17); Calcium 8.4 mg/dL (8.4-10.2); Carbon Dioxide 27 mmol/L (22-30); Chloride 106 mmol/L (98-107); Glucose 117 mg/dL (74-99); Lipase 70 U/L (23-300); Non-African American GFR(CKD) 87 (>60 ml/min/1.73 sqM); Phosphorus 3.5 mg/dL (2.5-4.5); Sodium 138 mmol/L (137-145)
[2023-08-29] MEDS: METOPROLOL SUCCINATE (ER) 50 MG TAB.ER.24H PO SCH (09:12)
[2023-08-29 09:21] LABS: AST 32 U/L (14-36); Albumin 2.8 g/dL (3.5-5.0); Alkaline Phosphatase 104 U/L (38-126); Potassium 4.2 mmol/L (3.5-5.1); Total Protein 5.9 g/dL (6.3-8.2)
[2023-08-29] MEDS: AZITHROMYCIN 500 MG in SODIUM CHLORIDE 0.9% 250 ML IVPB SCH (11:58)
--- NOTE | 2023-08-29 14:58 | P.PN ---
Subjective Progress Note Date: 08/29/23 * 77-year-old female presented to the emergency department with nausea and vomiting with coffee-ground emesis. * She does report symptoms have resolved however she still has epigastric discomfort. Denies any blood or black stool. * WBC 13.6 hemoglobin 13.4 hematocrit 41 platelet count 433,000 INR 0.9 * Sodium 137 potassium 4.1 BUN 18 creatinine 0.72 total bilirubin 1.2 AST 32 ALT 19 alkaline phosphatase 140 lipase 78 * Consultation obtained from gastroenterology patient made n.p.o. in anticipation of EGD * 08/29/23 Dr Major resumed care. Patient had a CT chest completed negative for pulm embolism however did show bronchitis, patient started on azithromycin. Follow-up CBC showed hemoglobin of 11.5 from 13.4, WBC of 12, patient remains on room air. Continue patient on fluid resuscitation noted to have tachycardia lipase remains within normal limits. Patient did not have a repeat episode of hematemesis PHYSICAL EXAMINATION: GENERAL: The patient is alert and oriented x3, not in any acute distress. Well developed, well nourished. HEENT: Pupils are round and equally reacting to light. EOMI. CARDIOVASCULAR: S1 and S2 present. No murmurs, rubs, or gallops. Tachycardia noted PULMONARY: Chest is clear to auscultation, no wheezing or crackles. ABDOMEN: Soft, nontender, nondistended, normoactive bowel sounds. No palpable organomegaly. MUSCULOSKELETAL: No joint swelling or deformity. EXTREMITIES: No cyanosis, clubbing, or pedal edema. NEUROLOGICAL: Gross neurological examination did not reveal any focal deficits. SKIN: No rashes. Assessment and plan Coffee-ground emesis suspect upper GI bleed Acute bronchitis Previous history of breast cancer in remission s/p left mastectomy History of brain aneurysm with clipping History of tachycardia with SVT ruled out seen by cardiology August 2023 * In regards to coffee-ground emesis, continue IV Protonix, follow-up on hemoglobin levels. Patient n.p.o. in anticipation of EGD * In regards to history of anemia continue patient on ferrous sulfate supplementation * In regards to paroxysmal tachycardia EKG obtained shows sinus tachycardia, CTA chest negative for pulm embolism * For Acute bronchitis patient started on azithromycin and Mucinex * Status full code Objective - Vital Signs Vital signs: Vital Signs Temp 98.2 F 08/28/23 20:00 Pulse 119 H 04/19/24 09:00 Resp 20 08/29/23 09:00 BP 147/78 08/29/23 09:00 Pulse Ox 96 08/29/23 09:00 FiO2 Intake & Output 08/28/23 08/29/23 08/29/23 18:59 06:59 18:59 Output Total 1000 Balance -1000 Output: Urine 1000 - Labs CBC & Chem 7: 08/29/23 07:49 08/29/23 07:49 Labs: Abnormal Lab Results - Last 24 Hours (Table) 08/28/23 08/28/23 08/29/23 Range/Units 17:52 23:40 07:49 WBC 12.0 H (3.8-10.6) k/uL RBC 3.58 L (3.80-5.40) m/uL MCV 103.3 H (80.0-100.0) fL RDW 17.6 H (11.5-15.5) % Neutrophils # 9.5 H (1.3-7.7) k/uL Monocytes # 1.2 H (0-1.0) k/uL D-Dimer 2.64 H (<0.60) mg/L FEU BUN (7-17) mg/dL Glucose (74-99) mg/dL Ferritin 424.0 H (10.0-291.0) ng/mL Total Protein (6.3-8.2) g/dL Albumin (3.5-5.0) g/dL 08/29/23 Range/Units 07:49 WBC (3.8-10.6) k/uL RBC (3.80-5.40) m/uL MCV (80.0-100.0) fL RDW (11.5-15.5) % Neutrophils # (1.3-7.7) k/uL Monocytes # (0-1.0) k/uL D-Dimer (<0.60) mg/L FEU BUN 21 H (7-17) mg/dL Glucose 117 H (74-99) mg/dL Ferritin (10.0-291.0) ng/mL Total Protein 5.9 L (6.3-8.2) g/dL Albumin 2.8 L (3.5-5.0) g/dL
[2023-08-29] MEDS ORDERED: PROPOFOL 10 MG/ML 20 ML VIAL IV ONE (16:03)
[2023-08-29] MEDS ORDERED: LIDOCAINE 2% (PF) 20 MG/ML 5 ML VIAL ONE (16:03)
[2023-08-29] MEDS: SODIUM CHLORIDE 0.9% 500 ML 500 ML IV ONE (16:12)
[2023-08-29 16:13] LABS: Anisocytosis Slight; HGB 10.3 gm/dL (11.4-16.0); Hypochromasia Moderate; MCH 31.6 pg (25.0-35.0); MCHC 30.3 g/dL (31.0-37.0); MCV 104.5 fL (80.0-100.0); Macrocytosis Marked; Mean Platelet Volume 8.5; Platelet Count 373 k/uL (150-450); RBC 3.25 m/uL (3.80-5.40); RDW 17.3 % (11.5-15.5); WBC 12.1 k/uL (3.8-10.6)
--- NOTE | 2023-08-29 16:15 | P.PCN ---
Date of Procedure: 08/29/23 Procedure(s) Performed: BRIEF HISTORY: Patient is a 77-year-old, pleasant, white female scheduled for an upper endoscopy as a part of evaluation of upper GI bleed. She had 3 episodes of coffee-ground emesis and hemoglobin was 11.5 g/dL. PROCEDURE PERFORMED: Esophagogastroduodenoscopy. PREOPERATIVE DIAGNOSIS:Coffee-ground emesis. IV sedation per anesthesia. PROCEDURE: After informed consent was obtained, the patient was brought into the endoscopy unit. IV sedation was administered by Anesthesia under continuous monitoring. Initially the Olympus GIF-140 video endoscope was inserted into the mouth. Esophagus intubated without any difficulty. It was gradually advanced into the stomach and duodenum and carefully examined. The bulb and the second part of the duodenum appeared normal. There was no active bleeding identified.The scope at this time was withdrawn to the stomach, adequately insufflated with air, and upon careful examination, mucosa of the antrum, body, cardia and the fundus appeared normal. The scope was then withdrawn into the esophagus.Small hiatal hernia noted. The GE junction was located at 32 cm from the incisors. TDavid linear ulcerations noted in the distal esophagus consistent with LA grade C reflux esophagitis. The proximal esophagus appeared normal. Patient tolerated the procedure well. IMPRESSION: 1.Severe reflux esophagitis with ulcerations in the distal esophagus consistent with LA grade C reflux esophagitis 2.Small hiatal hernia. 2.No active bleeding RECOMMENDATIONS: The findings of this examination were discussed with the patient. She was advised to continue Protonix 40 mg Twicedaily and follow antireflux measures. Advance to regular diet.
[2023-08-29] MEDS: guaiFENesin 600 MG TABLET.ER PO SCH (20:44)
[2023-08-29] MEDS: NON FORMULARY DRUG (Doxylamine Succinate [Unisom] 25 MG Tablet) PO SCH (21:56)
[2023-08-30 04:04] LABS: Anisocytosis Slight; HCT 36.6 % (34.0-46.0); HGB 11.3 gm/dL (11.4-16.0); Hypochromasia Moderate; MCH 32.1 pg (25.0-35.0); MCHC 30.8 g/dL (31.0-37.0); MCV 104.2 fL (80.0-100.0); Macrocytosis Moderate; Mean Platelet Volume 8.5; Platelet Count 350 k/uL (150-450); RBC 3.52 m/uL (3.80-5.40)
[2023-08-30 04:22] LABS: African American GFR (CKD) >90 (>60 ml/min/1.73 sqM); Anion Gap 7 mmol/L; Blood Urea Nitrogen 19 mg/dL (7-17); Calcium 8.2 mg/dL (8.4-10.2); Carbon Dioxide 24 mmol/L (22-30); Chloride 106 mmol/L (98-107); Glucose 114 mg/dL (74-99); Non-African American GFR(CKD) 86 (>60 ml/min/1.73 sqM); Potassium 3.7 mmol/L (3.5-5.1); Sodium 137 mmol/L (137-145)
--- NOTE | 2023-08-30 13:05 | P.PN ---
Subjective Progress Note Date: 08/30/23 * 77-year-old female presented to the emergency department with nausea and vomiting with coffee-ground emesis. * She does report symptoms have resolved however she still has epigastric discomfort. Denies any blood or black stool. * WBC 13.6 hemoglobin 13.4 hematocrit 41 platelet count 433,000 INR 0.9 * Sodium 137 potassium 4.1 BUN 18 creatinine 0.72 total bilirubin 1.2 AST 32 ALT 19 alkaline phosphatase 140 lipase 78 * Consultation obtained from gastroenterology patient made n.p.o. in anticipation of EGD * 08/29/23 Dr Major resumed care. Patient had a CT chest completed negative for pulm embolism however did show bronchitis, patient started on azithromycin. Follow-up CBC showed hemoglobin of 11.5 from 13.4, WBC of 12, patient remains on room air. Continue patient on fluid resuscitation noted to have tachycardia lipase remains within normal limits. Patient did not have a repeat episode of hematemesis * 08/30/23 : patient seen and evaluated bedside, patient is status was EGD, diet advanced, CBC monitoring, vitals reviewed continue to have tachycardia with a heart rate has improved. Continue metoprolol. Patient does complain of retrosternal discomfort postprandially PHYSICAL EXAMINATION: GENERAL: The patient is alert and oriented x3, not in any acute distress. Well developed, well nourished. HEENT: Pupils are round and equally reacting to light. EOMI. CARDIOVASCULAR: S1 and S2 present. No murmurs, rubs, or gallops. Tachycardia noted PULMONARY: Chest is clear to auscultation, no wheezing or crackles. ABDOMEN: Soft, nontender, nondistended, normoactive bowel sounds. No palpable organomegaly. MUSCULOSKELETAL: No joint swelling or deformity. EXTREMITIES: No cyanosis, clubbing, or pedal edema. NEUROLOGICAL: Gross neurological examination did not reveal any focal deficits. SKIN: No rashes. Assessment and plan Coffee-ground emesis with reflux esophagitis Acute bronchitis Previous history of breast cancer in remission s/p left mastectomy History of brain aneurysm with clipping History of tachycardia with SVT ruled out seen by cardiology August 2023 * In regards to coffee-ground emesis, continue IV Protonix, follow-up on hemoglobin levels. status was EGD with reflux esophagitis * In regards to history of anemia continue patient on ferrous sulfate supplementation * In regards to paroxysmal tachycardia EKG obtained shows sinus tachycardia, CTA chest negative for pulm embolism * For Acute bronchitis patient started on azithromycin day 2/3 and Mucinex * Status full code Objective - Vital Signs Vital signs: Vital Signs Temp 98.1 F 08/30/23 08:55 Pulse 107 H 08/30/23 08:55 Resp 18 08/30/23 08:55 BP 136/74 08/30/23 08:55 Pulse Ox 96 08/30/23 08:55 FiO2 Intake & Output 08/29/23 08/30/23 08/30/23 18:59 06:59 18:59 Intake Total 100 10 Output Total 1000 900 Balance -900 -900 10 Weight 56.699 kg Intake: IV 100 10 Invasive Line 1 10 Output: Urine 1000 900 Other: Voiding Method External Catheter - Labs CBC & Chem 7: 08/30/23 03:20 08/30/23 03:20 Labs: Abnormal Lab Results - Last 24 Hours (Table) 08/29/23 08/30/23 08/30/23 Range/Units 15:38 03:20 03:20 WBC 12.1 H 11.0 H (3.8-10.6) k/uL RBC 3.25 L 3.52 L (3.80-5.40) m/uL Hgb 10.3 L 11.3 L (11.4-16.0) gm/dL MCV 104.5 H 104.2 H (80.0-100.0) fL MCHC 30.3 L 30.8 L (31.0-37.0) g/dL RDW 17.3 H 17.0 H (11.5-15.5) % Macrocytosis Marked A BUN 19 H (7-17) mg/dL Glucose 114 H (74-99) mg/dL Calcium 8.2 L (8.4-10.2) mg/dL
[2023-08-31 09:37] LABS: Anisocytosis Slight; HCT 33.4 % (34.0-46.0); HGB 10.3 gm/dL (11.4-16.0); Hypochromasia Moderate; MCH 32.2 pg (25.0-35.0); MCV 103.9 fL (80.0-100.0); Macrocytosis Moderate; Mean Platelet Volume 8.4; Platelet Count 315 k/uL (150-450); RBC 3.21 m/uL (3.80-5.40); RDW 16.9 % (11.5-15.5); WBC 9.7 k/uL (3.8-10.6)
[2023-08-31 09:57] LABS: African American GFR (CKD) >90 (>60 ml/min/1.73 sqM); Anion Gap 6 mmol/L; Blood Urea Nitrogen 13 mg/dL (7-17); Calcium 7.8 mg/dL (8.4-10.2); Carbon Dioxide 21 mmol/L (22-30); Chloride 107 mmol/L (98-107); Glucose 87 mg/dL (74-99); Non-African American GFR(CKD) >90 (>60 ml/min/1.73 sqM); Potassium 3.3 mmol/L (3.5-5.1); Sodium 134 mmol/L (137-145)
--- NOTE | 2023-08-31 11:40 | P.PN ---
Subjective Progress Note Date: 08/31/23 * 77-year-old female presented to the emergency department with nausea and vomiting with coffee-ground emesis. * She does report symptoms have resolved however she still has epigastric discomfort. Denies any blood or black stool. * WBC 13.6 hemoglobin 13.4 hematocrit 41 platelet count 433,000 INR 0.9 * Sodium 137 potassium 4.1 BUN 18 creatinine 0.72 total bilirubin 1.2 AST 32 ALT 19 alkaline phosphatase 140 lipase 78 * Consultation obtained from gastroenterology patient made n.p.o. in anticipation of EGD * 08/29/23 Dr Major resumed care. Patient had a CT chest completed negative for pulm embolism however did show bronchitis, patient started on azithromycin. Follow-up CBC showed hemoglobin of 11.5 from 13.4, WBC of 12, patient remains on room air. Continue patient on fluid resuscitation noted to have tachycardia lipase remains within normal limits. Patient did not have a repeat episode of hematemesis * 08/30/23 : patient seen and evaluated bedside, patient is status was EGD, diet advanced, CBC monitoring, vitals reviewed continue to have tachycardia with a heart rate has improved. Continue metoprolol. Patient does complain of retrosternal discomfort postprandially * 08/31/23: Patient seen and evaluated bedside, follow-up CBC ordered, diet advance as tolerated, does complain of retrosternal discomfort postprandial secondary to esophagitis. Patient plan to discharge back to [facility] likely in the next 24 hours pending of bed availability., Left hip harsh okay to remove PHYSICAL EXAMINATION: GENERAL: The patient is alert and oriented x3, not in any acute distress. Well developed, well nourished. HEENT: Pupils are round and equally reacting to light. EOMI. CARDIOVASCULAR: S1 and S2 present. No murmurs, rubs, or gallops. Tachycardia noted PULMONARY: Chest is clear to auscultation, no wheezing or crackles. ABDOMEN: Soft, nontender, nondistended, normoactive bowel sounds. No palpable organomegaly. MUSCULOSKELETAL: No joint swelling or deformity. EXTREMITIES: No cyanosis, clubbing, or pedal edema. NEUROLOGICAL: Gross neurological examination did not reveal any focal deficits. SKIN: No rashes. Assessment and plan Coffee-ground emesis with reflux esophagitis Acute bronchitis Previous history of breast cancer in remission s/p left mastectomy History of brain aneurysm with clipping History of tachycardia with SVT ruled out seen by cardiology August 2023 * In regards to coffee-ground emesis, continue IV Protonix, follow-up on hemoglobin levels. status was EGD with reflux esophagitis * In regards to history of anemia continue patient on ferrous sulfate supplementation * In regards to paroxysmal tachycardia EKG obtained shows sinus tachycardia, CTA chest negative for pulm embolism * For Acute bronchitis patient started on azithromycin day 07/12 and on Mucinex * Status full code Objective - Vital Signs Vital signs: Vital Signs Temp 97.2 F L 08/31/23 07:45 Pulse 97 08/31/23 07:45 Resp 18 08/31/23 07:45 BP 131/69 08/31/23 07:45 Pulse Ox 95 08/31/23 07:45 FiO2 Intake & Output 08/30/23 08/31/23 08/31/23 18:59 06:59 18:59 Intake Total 378 10 Output Total 450 400 Balance -72 -400 10 Intake: IV 10 10 Invasive Line 1 10 10 Intake, IV Titration 250 Amount Azithromycin 500 mg In 250 Sodium Chloride 0.9% 250 ml @ 250 mls/hr IVPB DAILY@1100 [facility] Rx#: [id number] Oral 118 Output: Urine 450 400 Other: Voiding Method External Catheter External Catheter - Labs CBC & Chem 7: 08/31/23 09:08 08/31/23 09:08
[2023-08-31] MEDS: ARTIFICIAL TEARS-HYPROMELLOSE DROPS 15 ML BTL BOTH EYES PRN (16:15)
[2023-09-01 09:18] LABS: Anisocytosis Slight; HCT 34.6 % (34.0-46.0); HGB 11.1 gm/dL (11.4-16.0); Hypochromasia Slight; MCH 32.8 pg (25.0-35.0); MCHC 32.1 g/dL (31.0-37.0); MCV 102.1 fL (80.0-100.0); Macrocytosis Moderate; Mean Platelet Volume 8.6; Platelet Count 304 k/uL (150-450); RBC 3.39 m/uL (3.80-5.40); RDW 17.1 % (11.5-15.5); WBC 9.6 k/uL (3.8-10.6)
[2023-09-01 09:50] LABS: African American GFR (CKD) >90 (>60 ml/min/1.73 sqM); Anion Gap 3 mmol/L; Blood Urea Nitrogen 9 mg/dL (7-17); Calcium 7.8 mg/dL (8.4-10.2); Carbon Dioxide 23 mmol/L (22-30); Chloride 108 mmol/L (98-107); Glucose 87 mg/dL (74-99); Non-African American GFR(CKD) >90 (>60 ml/min/1.73 sqM); Potassium 3.1 mmol/L (3.5-5.1); Sodium 134 mmol/L (137-145)
[2023-09-01] MEDS: POTASSIUM CHLORIDE ER 20 MEQ TAB.ER PO STA (12:16)
--- NOTE | 2023-09-02 00:38 | PN ---
PROGRESS NOTE SUBJECTIVE: Remains on Flexeril muscle relaxer, iron supplementation, pain control, melatonin for sleep and Toprol XL for hypertension, Protonix for GERD, DuoNeb for breathing treatments. White count is 9.6, hemoglobin is 11.1, sodium 134, potassium 3.1, creatinine is 0.48, BUN is 9. She came in with coffee-grounds emesis. She states she is having gastric discomfort. Her hemoglobin is up to 11 from 9. She is sitting up in her bed. She is giving appropriate answers, esophagitis treatments being given. OBJECTIVE: VITAL SIGNS: Blood pressure 131/69, O2 95, pulse 97, respiratory rate 16 to 18, temperature 97.2. GENERAL: She is thin, cachectic. LUNGS: Decreased. ABDOMEN: Soft. NEUROLOGIC: Cranial nerves intact. PSYCH: Fair mood and affect. Paroxysmal tachycardia. EKG shows sinus tachycardia. CTA negative for PE. She has acute bronchitis on azithromycin. ASSESSMENT: GI bleed, suspect COPD, history of seizures, history of smoking. Prognosis guarded, continue current treatment. Please see further orders. MMODL / IJN: [id number] /
[2023-09-02] MEDS: POTASSIUM CHLORIDE ER 20 MEQ TAB.ER PO SCH ×2 (07:55→12:08)
[2023-09-02] MEDS: MAGNESIUM HYDROXIDE 2,400 MG/30 ML CUP PO PRN (07:55)
[2023-09-02 10:11] LABS: Anisocytosis Slight; HCT 33.8 % (34.0-46.0); HGB 10.6 gm/dL (11.4-16.0); MCH 31.7 pg (25.0-35.0); MCHC 31.2 g/dL (31.0-37.0); MCV 101.5 fL (80.0-100.0); Macrocytosis Moderate; Mean Platelet Volume 8.8; Platelet Count 325 k/uL (150-450); RBC 3.33 m/uL (3.80-5.40); WBC 7.9 k/uL (3.8-10.6)
[2023-09-02 10:55] LABS: African American GFR (CKD) >90 (>60 ml/min/1.73 sqM); Anion Gap 4 mmol/L; Blood Urea Nitrogen 5 mg/dL (7-17); Calcium 7.6 mg/dL (8.4-10.2); Carbon Dioxide 23 mmol/L (22-30); Chloride 107 mmol/L (98-107); Glucose 105 mg/dL (74-99); Non-African American GFR(CKD) >90 (>60 ml/min/1.73 sqM); Potassium 3.2 mmol/L (3.5-5.1); Sodium 134 mmol/L (137-145)
[2023-09-02] MEDS ORDERED: Potassium Replacement Protocol 1 EACH MISC MISCELLANE PRN (11:33)
[2023-09-02] MEDS: ACETAMINOPHEN TAB 325 MG TAB PO PRN (17:49)
--- NOTE | 2023-09-03 00:03 | PN ---
PROGRESS NOTE SUBJECTIVE: This is a white female, remains on DuoNeb. She is on Flexeril muscle relaxer, melatonin for insomnia, Toprol-XL for hypertension, Protonix for GERD, potassium chloride, possibly go back to [facility] depending on stability. Left hip harsh have been removed. Some hypertension medication. Gastroenterology did EGD on her. CT of the chest negative for PE. Possible bronchitis on Azithromycin. Hemoglobin 10.6, white count 7.9, sodium 134, potassium 3.2, glucose 105, calcium 7.6. Today is sent back to [facility] for rehab. Tachycardia is improved. We are also doing an echo on her for this. Going back to [facility] as soon as possible. Prognosis guarded. Reflux esophagitis, coffee-grounds emesis. Hemoglobin stable on Protonix. GERD precautions. Anemia on iron, paroxysmal atrial fibrillation, sinus tach. CTA negative for PE, bronchitis azithromycin. Full code. PROGNOSIS: Guarded. Vital signs reviewed. Possibly send back to [facility] soon. MMODL / IJN: [id number] /
[2023-09-03 08:35] LABS: Anisocytosis Slight; HCT 37.3 % (34.0-46.0); HGB 11.8 gm/dL (11.4-16.0); Hypochromasia Slight; MCH 32.3 pg (25.0-35.0); MCHC 31.7 g/dL (31.0-37.0); MCV 101.8 fL (80.0-100.0); Macrocytosis Moderate; Mean Platelet Volume 9.3; Platelet Count 315 k/uL (150-450); RBC 3.66 m/uL (3.80-5.40); RDW 17.3 % (11.5-15.5); WBC 10.4 k/uL (3.8-10.6)
[2023-09-03 08:47] LABS: African American GFR (CKD) >90 (>60 ml/min/1.73 sqM); Anion Gap 6 mmol/L; Blood Urea Nitrogen 3 mg/dL (7-17); Calcium 8.2 mg/dL (8.4-10.2); Carbon Dioxide 23 mmol/L (22-30); Chloride 107 mmol/L (98-107); Glucose 91 mg/dL (74-99); Magnesium 1.6 mg/dL (1.6-2.3); Non-African American GFR(CKD) >90 (>60 ml/min/1.73 sqM); Potassium 3.9 mmol/L (3.5-5.1); Sodium 136 mmol/L (137-145)
[2023-09-03] MEDS: LACTULOSE 20 GM/30 ML CUP PO SCH (12:03)
[2023-09-03] MEDS: METOCLOPRAMIDE 5 MG TAB PO SCH (16:47)
[2023-09-03] MEDS: LOSARTAN-HCTZ 50-12.5 MG 1 EACH TAB PO SCH (16:47)
[2023-09-03] MEDS: PANTOPRAZOLE 40 MG TABLET PO SCH (16:47)
--- NOTE | 2023-09-03 22:51 | PN ---
PROGRESS NOTE SUBJECTIVE: The patient remains in the hospital, possibly look for discharge today as she appears to be doing better. Possibly plans to go back to [facility] in next few days. Tachycardia is noted. EGD showed reflux esophagitis. CTA is negative. She has acute bronchitis, on azithromycin. She is on full code. She had bronchiectasis on CAT scan. Started her on breathing treatments. Hemoglobin is 11.8, white count is 10.4, sodium 136, potassium 3.9, BUN is 3, creatinine 0.48. Blood pressure is still elevated 150s to 160s over 80s to 90s, 97 on room air, temp 97.9, pulse 97, respiratory rate 16 to 18. blood pressure per regimen. She is on hypertension medicines, metoprolol. Currently Protonix, potassium replacement, PT OT. She appears to be finally rehydrated, her sodium is 136, potassium 3.9, possibly look to get her into rehab center soon. PROGNOSIS: Guarded. MMODL / IJN: [id number] /
[2023-09-04 13:57] VITALS: BMI 20.7
[2023-09-04] MEDS: METOCLOPRAMIDE 10 MG TAB PO SCH (20:19)
--- NOTE | 2023-09-04 23:58 | PN ---
PROGRESS NOTE SUBJECTIVE: This is a 77-year-old white female, came in for GI bleeding, coffee-grounds emesis. Her hemoglobin has been stable now up to 11.8. White count is normal at 10.4. Sodium, potassium, improved. Breathing is improved with nebulizer treatments. She needs to go [facility] to [facility] for [facility] therapy after hip surgery. OBJECTIVE: VITAL SIGNS: Blood pressure 135/88, 96% on room air, temp 98.1, pulse 92, respiratory rate 16 to 18. CARDIOVASCULAR: S1, S2. EXTREMITIES: Tenderness to palpation of the hip. Bandage intact. GI: Soft. LUNGS: Transmitted upper airway sounds. HEMATOLOGY: Negative for Homans. Reglan has been added for gastroparesis, she may need to stay on this in the [facility] as well as updraft treatments for her breathing. Prognosis guarded. Continue current treatment. Vital signs reviewed. She has a bandage on her left hip. GI soft, nontender, treating for gastroparesis with increased Reglan. Prognosis guarded. MMODL / IJN: [id number] /
--- NOTE | 2023-09-06 06:25 | DS ---
DISCHARGE SUMMARY DISCHARGE MEDICINES: 1. Lactulose 20 g t.i.d. 2. Losartan/HCTZ 50/12.5 daily. 3. K-Dur 20 mEq daily. 4. Protonix 40 mg b.i.d. 5. Reglan 5 mg before meals and at bedtime. 6. Mucinex 600 q.12h. 7. Artificial eye drops daily. 8. DuoNeb q.i.d. 9. Reglan 10 before meals and at bedtime. 10.Toprol-XL 50 mg daily. 11.[place] 10 q.i.d. 12.Unisom 25 at bedtime. 13.Flexeril 5 mg b.i.d. p.r.n. 14.Ferrous sulfate 325 b.i.d. 15.Heparin 5000 units subcu q.12. 16.Melatonin 10 at night. 17.Milk of magnesia p.r.n. 18.Tylenol 650 p.r.n. CONDITION: Stable. PROGNOSIS: Guarded. Ambulate as tolerated. Rhea Em gone back to [facility] for rehab after having a hip fracture. Came to the hospital with coffee-grounds emesis, GI bleed. Had EGD, showed no signs of active bleeding. She had bronchiectasis on a CAT scan report, for which she is being treated with breathing treatments q.i.d. Her abdominal pain was treated with gastroparesis medication, constipation medicine. Hemoglobin was stable on discharge at 11.8, 11.3 on admission. Labs are all improved. Hypokalemia is treated. Prognosis guarded. Ambulate as tolerated. Follow up as an outpatient. Condition stable. Prognosis guarded. DIAGNOSES: Upper GI bleed. History of breast cancer. History of anemia, bronchiectasis, anxiety, panic disorder. Chest pain, rule out CA. Hematemesis. Abdominal pain improved. Follow up as an outpatient in the rehab center. Prognosis guarded. Please see further orders. MMODL / IJN: [id number] /
[2023-09-06 13:44] VITALS: BP 145/94; PULSE 101; RESP 17; TEMP 97.5
== END 2023-09-06 13:03 | DRG 381 ==
LOC: EC 00:34 → 5NMEDONC 05:41 → 3SCARD 05:48 → OBSVTOIN 09-01 08:17
PROVIDERS: ADMIT Family Medicine; ATTEND Family Medicine
PROC: 0DJ08ZZ Inspection of Upper Intestinal Tract, Via Natural or Artificial Opening Endoscopic (ICD-10-PCS; principal; 2023-08-29 08:00)
DX: K22.11 Ulcer of esophagus with bleeding (principal); J47.0 Bronchiectasis with acute lower respiratory infection; M48.54XA Collapsed vertebra, not elsewhere classified, thoracic region, initial encounter for fracture; I10 Essential (primary) hypertension; K44.9 Diaphragmatic hernia without obstruction or gangrene; D64.9 Anemia, unspecified; J20.9 Acute bronchitis, unspecified; I47.9 Paroxysmal tachycardia, unspecified; K21.00 Gastro-esophageal reflux disease with esophagitis, without bleeding; G47.00 Insomnia, unspecified; I48.0 Paroxysmal atrial fibrillation; Z85.3 Personal history of malignant neoplasm of breast; Z87.891 Personal history of nicotine dependence; Z90.12 Acquired absence of left breast and nipple; Z91.81 History of falling; Z79.01 Long term (current) use of anticoagulants
CPT/HCPCS: 36415; 43235; 71275; 74177; 80048; 80053; 81001; 82728; 83605; 83690; 83735; 83880; 84100; 84484; 85025; 85027; 85379; 85610; 85730; 93005; 94640; 96361; 96365; 96375; 96376; 99285

== ENCOUNTER 2024-04-09 07:41 | Emergency (ER) | payer MEDICARE, OTHER ==
[2024-04-09] MEDS: PANTOPRAZOLE 40 MG/10 ML VIAL IVP STA (08:14)
[2024-04-09] MEDS: SODIUM CHLORIDE 0.9% 1,000 ML IV STA (08:14)
[2024-04-09] MEDS: ONDANSETRON 4 MG/2 ML VIAL IVP STA (08:16)
[2024-04-09 08:27] LABS: Basophils % (A) 0 %; Eosinophils # (A) 0.2 k/uL (0-0.7); Eosinophils % (A) 2 %; HGB 12.7 gm/dL (11.4-16.0); Lymphocytes % (A) 8 %; MCH 30.9 pg (25.0-35.0); MCHC 31.8 g/dL (31.0-37.0); MCV 97.1 fL (80.0-100.0); Mean Platelet Volume 9.5; Monocytes # (A) 0.6 k/uL (0-1.0); Monocytes % (A) 4 %; Neutrophils # (A) 11.7 k/uL (1.3-7.7); Neutrophils % (A) 86 %; Platelet Count 424 k/uL (150-450); RBC 4.12 m/uL (3.80-5.40); RDW 13.9 % (11.5-15.5); WBC 13.6 k/uL (3.8-10.6)
[2024-04-09 09:06] LABS: Prothrombin Time 10.6 sec (10.0-12.5)
--- NOTE | 2024-04-09 09:07 | ED ---
Weakness HPI - General Chief complaint: Abdominal Pain Stated complaint: ABD pain Time Seen by Provider: 04/09/24 07:43 Source: patient, EMS, RN notes reviewed, old records reviewed Mode of arrival: EMS Limitations: no limitations - History of Present Illness Initial comments: This is a 78-year-old female to the ER for evaluation patient presents today with multiple complaints but unsure of main complaint she complains of chest pain cough congestion abdominal pain and there was concern from extended-care facility of coffee-ground emesis. MD Complaint: generalized weakness -: days(s) Location: generalized Severity: moderate Severity scale (1-10): 4 Consistency: intermittent Improves with: none Worsens with: none Context: history of similar Associated Symptoms: denies other symptoms - Related Data Home Medications Medication Instructions Recorded Confirmed Acetaminophen Tab [Tylenol] 650 mg PO Q8H PRN 08/28/23 08/28/23 Cyclobenzaprine [Flexeril] 5 mg PO BID PRN 08/28/23 08/28/23 Doxylamine Succinate [Unisom] 25 mg PO HS 08/28/23 08/28/23 HYDROcodone/APAP 10-325MG [[place] 1 tab PO Q4H PRN 08/28/23 08/28/23 10-325] Magnesium Hydroxide [Milk of 2,400 mg PO DAILY PRN 08/28/23 08/28/23 Magnesia] Melatonin 10 mg PO HS 08/28/23 08/28/23 Sennosides/Docusate Sodium 1 tab PO BID 08/28/23 08/28/23 [Senna-S 8.6-50 mg Tablet] Previous Rx's Medication Instructions Recorded Ferrous Sulfate [Iron (65 MG 325 mg PO BID #60 tab 08/15/23 Elemental)] Heparin Sodium,Porcine (1 ml) 5,000 unit SQ Q12HR #30 each 08/15/23 [Heparin Sodium] Metoprolol Succinate (ER) [Toprol 50 mg PO DAILY #0 tab 08/16/23 XL] Artificial Tears-Hypromellose 1 drops BOTH EYES QID PRN ml 09/03/23 [Artificial Tear Drops] Ipratropium-Albuterol Nebulize 3 ml INHALATION RT-QID each 09/03/23 [Duoneb 0.5 mg-3 mg/3 ml Soln] Lactulose [Cephulac] 20 gm PO TID ml 09/03/23 Losartan-Hctz 50-12.5 mg [Hyzaar 1 each PO DAILY 30 Days #30 tab 09/03/23 50-12.5] Metoclopramide [Reglan] 5 mg PO ACHS 30 Days #120 tab 09/03/23 Pantoprazole [Protonix] 40 mg PO AC-BID 30 Days #60 tab 09/03/23 Potassium Chloride ER [K-Dur 20] 20 meq PO DAILY tab 09/03/23 Metoclopramide [Reglan] 10 mg PO ACHS 30 Days #120 tab 09/04/23 guaiFENesin [Mucinex] 600 mg PO Q12HR tab 09/04/23 Allergies Allergy/AdvReac Type Severity Reaction Status Date / Time No Known Allergies Allergy Verified 04/09/24 07:54 Review of Systems ROS Statement: Those systems with pertinent positive or pertinent negative responses have been documented in the HPI. ROS Other: All systems not noted in ROS Statement are negative. Past Medical History Past Medical History: Cancer Additional Past Medical History / Comment(s): hx breast cancer, anemia, low iron level. ,states hx of fall and fx back., states recent hospitalization 09/14/19 to 09/23/19 (MPH), pt states she was discharged with additional meds but did not know what they were for and did not take -instructed pt she should follow up her dr regarding meds., pt to bring med list ., states family hx of esophageal and colon cancer. History of Any Multi-Drug Resistant Organisms: None Reported Past Surgical History: Back Surgery, Breast Surgery Additional Past Surgical History / Comment(s): 3 brain aneurysms clipped-2007, left mastectomy 6 years ago Past Anesthesia/Blood Transfusion Reactions: No Reported Reaction Past Psychological History: Anxiety, Panic Disorder Smoking Status: Unknown if ever smoked Past Alcohol Use History: Occasional Past Drug Use History: None Reported - Past Family History Mother Family Medical History: No Reported History Brother(s) Family Medical History: Cancer Additional Family Medical History / Comment(s): 3 brothers colon and esophageal cancer, pancreatic cancer Father Family Medical History: Cancer Additional Family Medical History / Comment(s): prostate cancer General Exam Limitations: no limitations General appearance: alert, in no apparent distress Head exam: Present: atraumatic, normocephalic, normal inspection Eye exam: Present: normal appearance, PERRL, EOMI. Absent: scleral icterus, conjunctival injection, periorbital swelling ENT exam: Present: normal exam, mucous membranes moist Neck exam: Present: normal inspection. Absent: tenderness, meningismus, lymphadenopathy Respiratory exam: Present: normal lung sounds bilaterally. Absent: respiratory distress, wheezes, rales, rhonchi, stridor Cardiovascular Exam: Present: regular rate, normal rhythm, normal heart sounds. Absent: systolic murmur, diastolic murmur, rubs, gallop, clicks GI/Abdominal exam: Present: soft, normal bowel sounds. Absent: distended, tenderness, guarding, rebound, rigid Extremities exam: Present: normal inspection, full ROM, normal capillary refill. Absent: tenderness, pedal edema, joint swelling, calf tenderness Back exam: Present: normal inspection Neurological exam: Present: alert, oriented X3, CN II-XII intact Psychiatric exam: Present: normal affect, normal mood Skin exam: Present: warm, dry, intact, normal color. Absent: rash Course Vital Signs 04/09/24 04/09/24 04/09/24 07:44 08:23 08:44 Temperature 98.0 F Pulse Rate 114 H Pulse Rate [ 104 H Coating Manager ] Respiratory 19 20 Rate Blood Pressure 125/70 O2 Sat by Pulse 94 L Oximetry 04/09/24 04/09/24 04/09/24 08:45 09:20 09:40 Temperature Pulse Rate 96 99 101 H Pulse Rate [ Coating Manager ] Respiratory 18 18 15 Rate Blood Pressure 118/62 119/59 120/73 O2 Sat by Pulse 100 94 L 93 L Oximetry 04/09/24 04/09/24 04/09/24 10:20 10:30 11:30 Temperature Pulse Rate 94 101 H Pulse Rate [ Coating Manager ] Respiratory 19 19 Rate Blood Pressure 108/68 108/68 109/62 O2 Sat by Pulse 93 L 93 L Oximetry 04/09/24 12:13 Temperature 98.1 F Pulse Rate 101 H Pulse Rate [ Coating Manager ] Respiratory 18 Rate Blood Pressure 115/72 O2 Sat by Pulse 94 L Oximetry - Reevaluation(s) Reevaluation #1: 04/09/24 09:15 Medical records reviewed Reevaluation #2: 04/09/24 11:53 Patient symptoms improved here in the ER she has no bloody vomitus here Reevaluation #3: 04/09/24 11:53 Patient informed of results questions answered Reevaluation #4: Was pt. sent in by a medical professional or institution (LEXIE Lin, PRODUCT DEVELOPMENT MANAGER, urgent care, hospital, or longterm...) When possible be specific @ -no Did you speak to anyone other than the patient for history (EMS, parent, family, police, friend...)? What history was obtained from this source @ -no Did you review nursing and triage notes (agree or disagree)? Why? @ -agree Are old charts reviewed (outside hosp., previous admission, EMS record, old EKG, old radiological studies, urgent care reports/EKG's, longterm records)? Report findings @ -yes Differential Diagnosis (chest pain, altered mental status, abdominal pain women, abdominal pain men, vaginal bleeding, weakness, fever, dyspnea, syncope, headache, dizziness, GI bleed, back pain, seizure, CVA, palpatations, mental health, musculoskeletal)? @ -prior EKG interpreted by me (3pts min.). @ -yes X-rays interpreted by me (1pt min.). @ -yes negative for acute disease CT interpreted by me (1pt min.). @ -no U/S interpreted by me (1pt. min.). @ -no What testing was considered but not performed or refused? (CT, X-rays, U/S, labs)? Why? @ -none What meds were considered but not given or refused? Why? @ -none Did you discuss the management of the patient with other professionals (professionals i.e. LEXIE Lin, PRODUCT DEVELOPMENT MANAGER, lab, RT, psych nurse, social services aide, music typographer, teacher, chief juvenile probation officer, renal case manager)? Give summary @ -no Was smoking cessation discussed for >3mins.? @ -no Was critical care preformed (if so, how long)? @ -no Were there social determinants of health that impacted care today? How? (Homelessness, low income, unemployed, alcoholism, drug addiction, transportation, low edu. Level, literacy, decrease access to med. care, longterm, rehab)? @ -none Was there de-escalation of care discussed even if they declined (Discuss DNR or withdrawal of care, Hospice)? DNR status @ -no What co-morbidities impacted this encounter? (DM, HTN, Smoking, COPD, CAD, Cancer, CVA, ARF, Chemo, Hep., AIDS, mental health diagnosis, sleep apnea, morbid obesity)? @ -none Was patient admitted / discharged? Hospital course, mention meds given and route, prescriptions, significant lab abnormalities, going to OR and other pertinent info. @ - Undiagnosed new problem with uncertain prognosis? @ -no Drug Therapy requiring intensive monitoring for toxicity (Heparin, Nitro, Insulin, Cardizem)? @ -no Were any procedures done? @ -no Diagnosis/symptom? @ - Acute, or Chronic, or Acute on Chronic? @ -Acute Uncomplicated (without systemic symptoms) or Complicated (systemic symptoms)? @ -Complicated Side effects of treatment? @ -no Exacerbation, Progression, or Severe Exacerbation? @ -exacerbation Poses a threat to life or bodily function? How? (Chest pain, USA, CT, pneumonia, PE, COPD, DKA, ARF, appy, cholecystitis, CVA, Diverticulitis, Homicidal, Suicidal, threat to staff... and all critical care pts) @ -yes Reevaluation #5: Differential Chest Pain: Stable Angina, Unstable Angina, STEMI, NSTEMI Aortic Dissection, Pneumothorax, Musculoskeletal, Esophageal Spasm GERD, Cholecystitis, Pancreatitis, Zoster, this is not meant to be an all-inclusive list. Differential Abdominal Pain Women: Appendicitis, Cholecystitis, diverticulosis, ischemic bowel, pancreatitis, hepatitis, UTI, gastroenteritis, AAA, incarcerated hernia, bowel obstruction, constipation, inflammatory bowel, hepatitis, peptic ulcer disease, splenic infarction, perforated viscus, vulvitis, ovarian torsion, PID, kidney stone, placenta abruption, this is not meant to be an all-inclusive list Medical Decision Making - Medical Decision Making 78 female to the ER for evaluation of suspected for possible GI bleed chest pain abdominal pain. No acute cause of any symptoms found here in the ER patient is in no distress and can be discharged home - Lab Data Result diagrams: 04/09/24 08:02 04/09/24 09:40 Lab Results 04/09/24 04/09/24 04/09/24 Range/Units 08:02 08:50 08:50 WBC 13.6 H (3.8-10.6) k/uL RBC 4.12 (3.80-5.40) m/uL Hgb 12.7 (11.4-16.0) gm/dL Hct 40.0 (34.0-46.0) % MCV 97.1 (80.0-100.0) fL MCH 30.9 (25.0-35.0) pg MCHC 31.8 (31.0-37.0) g/dL RDW 13.9 (11.5-15.5) % Plt Count 424 (150-450) k/uL MPV 9.5 Neutrophils % 86 % Lymphocytes % 8 % Monocytes % 4 % Eosinophils % 2 % Basophils % 0 % Neutrophils # 11.7 H (1.3-7.7) k/uL Lymphocytes # 1.0 (1.0-4.8) k/uL Monocytes # 0.6 (0-1.0) k/uL Eosinophils # 0.2 (0-0.7) k/uL Basophils # 0.0 (0-0.2) k/uL PT 10.6 (10.0-12.5) sec INR 1.0 (<1.2) APTT 21.4 L (22.0-30.0) sec Sodium (137-145) mmol/L Potassium (3.5-5.1) mmol/L Chloride (98-107) mmol/L Carbon Dioxide (22-30) mmol/L Anion Gap mmol/L BUN (7-17) mg/dL Creatinine (0.52-1.04) mg/dL Est GFR (CKD-EPI)AfAm (>60 ml/min/1.73 sqM) Est GFR (CKD-EPI)NonAf (>60 ml/min/1.73 sqM) Glucose (74-99) mg/dL Plasma Lactic Acid Anthony (0.7-2.0) mmol/L Calcium (8.4-10.2) mg/dL Total Bilirubin (0.2-1.3) mg/dL AST (14-36) U/L ALT (4-34) U/L Alkaline Phosphatase (38-126) U/L Troponin I 0.014 (0.000-0.034) ng/mL Total Protein (6.3-8.2) g/dL Albumin (3.5-5.0) g/dL Amylase (30-110) U/L Lipase (23-300) U/L Urine Color Urine Appearance (Clear) Urine pH (5.0-8.0) Ur Specific [place] (1.001-1.035) Urine Protein (Negative) Urine Glucose (UA) (Negative) Urine Ketones (Negative) Urine Blood (Negative) Urine Nitrite (Negative) Urine Bilirubin (Negative) Urine Urobilinogen (<2.0) mg/dL Ur Leukocyte Esterase (Negative) Urine RBC (0-5) /hpf Urine WBC (0-5) /hpf Ur Squamous Epith Cells (0-4) /hpf Urine Bacteria (None) /hpf Urine Mucus (None) /hpf 04/09/24 04/09/24 04/09/24 Range/Units 08:50 09:40 11:11 WBC (3.8-10.6) k/uL RBC (3.80-5.40) m/uL Hgb (11.4-16.0) gm/dL Hct (34.0-46.0) % MCV (80.0-100.0) fL MCH (25.0-35.0) pg MCHC (31.0-37.0) g/dL RDW (11.5-15.5) % Plt Count (150-450) k/uL MPV Neutrophils % % Lymphocytes % % Monocytes % % Eosinophils % % Basophils % % Neutrophils # (1.3-7.7) k/uL Lymphocytes # (1.0-4.8) k/uL Monocytes # (0-1.0) k/uL Eosinophils # (0-0.7) k/uL Basophils # (0-0.2) k/uL PT (10.0-12.5) sec INR (<1.2) APTT (22.0-30.0) sec Sodium 135 L (137-145) mmol/L Potassium 4.4 (3.5-5.1) mmol/L Chloride 109 H (98-107) mmol/L Carbon Dioxide 23 (22-30) mmol/L Anion Gap 3 mmol/L BUN 20 H (7-17) mg/dL Creatinine 0.66 (0.52-1.04) mg/dL Est GFR (CKD-EPI)AfAm >90 (>60 ml/min/1.73 sqM) Est GFR (CKD-EPI)NonAf 84 (>60 ml/min/1.73 sqM) Glucose 126 H (74-99) mg/dL Plasma Lactic Acid Anthony 1.0 (0.7-2.0) mmol/L Calcium 8.1 L (8.4-10.2) mg/dL Total Bilirubin 0.4 (0.2-1.3) mg/dL AST 15 (14-36) U/L ALT 6 (4-34) U/L Alkaline Phosphatase 76 (38-126) U/L Troponin I (0.000-0.034) ng/mL Total Protein 5.9 L (6.3-8.2) g/dL Albumin 2.7 L (3.5-5.0) g/dL Amylase 55 (30-110) U/L Lipase 136 (23-300) U/L Urine Color Yellow Urine Appearance Cloudy H (Clear) Urine pH 6.0 (5.0-8.0) Ur Specific [place] 1.022 (1.001-1.035) Urine Protein Trace H (Negative) Urine Glucose (UA) 1+ H (Negative) Urine Ketones 1+ H (Negative) Urine Blood Negative (Negative) Urine Nitrite Negative (Negative) Urine Bilirubin Negative (Negative) Urine Urobilinogen 2.0 (<2.0) mg/dL Ur Leukocyte Esterase Moderate H (Negative) Urine RBC 2 (0-5) /hpf Urine WBC 14 H (0-5) /hpf Ur Squamous Epith Cells 13 H (0-4) /hpf Urine Bacteria Rare H (None) /hpf Urine Mucus Rare H (None) /hpf - EKG Data -: EKG Interpreted by Ia - Radiology Data Radiology results: report reviewed (Chest x-ray CT abdomen pelvis negative for acute disease), image reviewed Disposition Clinical Impression: Weakness, Nausea & vomiting, Abdominal pain, Chest pain Disposition: HOME SELF-CARE Condition: Fair Instructions (If sedation given, give patient instructions): Acute Nausea and Vomiting (ED), Abdominal Pain (ED) Is patient prescribed a controlled substance at d/c from ED?: No Referrals: Hector Foy DO [Primary Care Provider] - 1-2 days Time of Disposition: 11:35
[2024-04-09 09:24] LABS: Partial Thromboplastin Time 21.4 sec (22.0-30.0)
--- NOTE | 2024-04-09 09:27 | XR ---
EXAMINATION TYPE: XR chest 1V DATE OF EXAM: 04/09/2024 COMPARISON: 08/11/2023 CLINICAL INDICATION: Female, 78 years old with history of cough; , TECHNIQUE: XR chest 1V views of the chest. FINDINGS: Retrocardiac density most likely related to large hiatal hernia. Linear changes in both lungs suggest elen of scarring or atelectasis with no definite consolidative pneumonia or heart failure. No sizable pleural effusion or pneumothorax. Diffuse osteopenia and degenerative change of the spine. Postsurgical change seen at the level of the upper lumbar spine. IMPRESSION: 1. Linear changes in the right midlung favor scarring or atelectasis over subcentimeter nodule recomm end short-term follow-up. No evidence of acute consolidation. 2. Large hiatal hernia. [facility], , 04/09/2024 9:25 AM
[2024-04-09 10:10] LABS: ALT 6 U/L (4-34); AST 15 U/L (14-36); African American GFR (CKD) >90 (>60 ml/min/1.73 sqM); Albumin 2.7 g/dL (3.5-5.0); Alkaline Phosphatase 76 U/L (38-126); Amylase 55 U/L (30-110); Anion Gap 3 mmol/L; Blood Urea Nitrogen 20 mg/dL (7-17); Calcium 8.1 mg/dL (8.4-10.2); Carbon Dioxide 23 mmol/L (22-30); Chloride 109 mmol/L (98-107); Glucose 126 mg/dL (74-99); Lipase 136 U/L (23-300); Non-African American GFR(CKD) 84 (>60 ml/min/1.73 sqM); Potassium 4.4 mmol/L (3.5-5.1); Sodium 135 mmol/L (137-145); Total Bilirubin 0.4 mg/dL (0.2-1.3); Total Protein 5.9 g/dL (6.3-8.2)
--- NOTE | 2024-04-09 10:51 | CT ---
EXAMINATION TYPE: CT abdomen pelvis wo con DATE OF EXAM: 04/09/2024 COMPARISON: 08/28/2023 CLINICAL INDICATION: Female, 78 years old with history of abdominal pain; PHH, pt is poor historian, Gerd symptoms, chest/abdominal pain TECHNIQUE: CT scan of the abdomen and pelvis is performed without oral or IV contrast. CT DLP: 312.[address] CTDI: mGy Automated exposure control for dose reduction was used. FINDINGS: Within the limitations of a non-contrast study, the following observations are made. Findings: There is a persistent small airspace opacity in the right lung base posteriorly. There is mild atelec tasis in the left lower lobe. There is a large hiatal hernia with a partially intrathoracic stomach unchanged compared to previous Gallbladder is normal and there is no gallstone, wall thickening, pericholecystic fluid or distention . There is no biliary ductal dilatation. There is no organomegaly of the liver, pancreas, spleen or adrenal glands. There is a 3 mm nonobstructing right renal calcification. There is no hydronephrosis.. The caliber of the abdominal aorta is normal and there is no retroperitoneal adenopathy or hemorrhage . The bowel loops are normal in caliber is no evidence of obstruction. There is a large amount of stool within the rectum. No inflammatory changes are identified in the mesentery and there is no free intraperitoneal air or f luid. There is no pelvic mass, free fluid, abscess or adenopathy. There is laminectomy and posterior fusion throughout the lumbar region. There are postsurgical change s for fixation of a left hip fracture. IMPRESSION: 1. No change in the large hiatal hernia with a partial intrathoracic stomach. 2. Small focal infiltrate right lung base could represent a small pneumonic infiltrate 3. Large amount of stool within the rectum but no bowel obstruction, free intraperitoneal air or flui d 4. 3 mm nonobstructing right renal calcification. 5. Postoperative changes involving the lumbar spine and left hip as described above. [facility], , 04/09/2024 10:49 AM
[2024-04-09 11:26] LABS: Appearance,Urine Cloudy (Clear); Bacteria,Urine Rare /hpf; Bilirubin,Urine Negative (Negative); Blood,Urine Negative (Negative); Color,Urine Yellow; Glucose,Urine (UA) 1+ (Negative); Ketones,Urine 1+ (Negative); Leukocyte Esterase,Urine Moderate (Negative); Mucus,Urine Rare /hpf; Nitrite,Urine Negative (Negative); Protein,Urine Trace (Negative); RBC,Urine 2 /hpf (0-5); Specific Gravity,Urine 1.022 (1.001-1.035); Squamous Epithelial Cell,Urine 13 /hpf (0-4); WBC,Urine 14 /hpf (0-5)
[2024-04-09 11:41] VITALS: PULSE 101
[2024-04-09 12:15] VITALS: BP 115/72; RESP 18; TEMP 98.1
== END 2024-04-09 12:14 | disposition home or self-care (01) ==
LOC: EC 07:41 → SUPCPDRO 07:41 → EC 12:14
DX: K44.9 Diaphragmatic hernia without obstruction or gangrene (principal)
CPT/HCPCS: 36415; 80053; 82150; 83605; 83690; 84484; 85025; 85610; 85730; 81001; 71045; 74176; 99284; 96374; 96375; 96361; J2405; J2470

== ENCOUNTER → 2024-11-29 | Outpatient (CLI) | payer MEDICARE, OTHER ==
[2024-11-29 10:40] VITALS: BP 107/70; PULSE 98; RESP 20
--- NOTE | 2024-11-29 17:28 | P.PAINPG ---
PQRS Measure Charge Sheet Comment: HISTORY OF PRESENT ILLNESS: A 79 yr old female [facility] residient w caregiver at side as a referral from Dr Foy presents today w severe and chronic head and neck pain secondary to radiculopathy, spondylosis and facet arthropathy without myelopathy for evaluation. Pt states pain level is provoked at 8 /10 in intensity, constant, localized in the cervical spine, predominantly axial, sore in character w occasional shooting pain towards the L shoulder and LUE. Pain has no provocation. Pain is alleviated by physician guided home stretches 4-5 times weekly since living at [facility] in 2023 till present, heat, medications, topical, use of a wheelchair for ambulatory assistance, repositioning and rest . Pt is thin & frail and cannot participate in formal PT sessions. Cervical disability score at 38. PMH: OA, Breast CA, Anxiety/ Panic Disorder PSH: L Breast Masectomy (2018), Cerebral Aneurysm x3 (2007), L Femur Fracture Nail Fixation, Lumbar Fusion by Dr Beckham, T11-T12 fractures SH: Hx tobacco use, Occ ETOH use, No illicit drug use FH: Esophageal & Colon CA All: See list Medications include Oxycodone TID REVIEW OF ORGAN SYSTEMS: CONSTITUTIONAL: No fevers or chills. No recent weight loss. NEUROLOGICAL: + numbness and tingling along the distal ex tremities. No seizure disorders or headaches. MUSCULOSKELETAL: + pain PSYCHIATRIC: Denies current depression or suicidal thoughts. Physical Examinations : Constitutional : Cooperative , not in acute distress . Neurologic : Cranial nerve II to XII intact. No focal neurological deficits. Psychiatric : alert & oriented x 3. Matching mood & appropriate affect. Judgment & insight intact. Musculoskeletal : Cervical Spine Motor strength in the deltoid and biceps: Normal right side. Normal Left side Motor strength biceps and the wrist extensors: Normal right side . Normal left side Motor strength in the triceps muscle: Normal right side. Normal left side Deep tendon reflexes: Normal at the biceps. Normal at Brachioradialis. Normal at triceps Lhermitte Sign (cervical flexion) positive Vertebral body tenderness to deep palpation over C6 Cervical facet loading test: positive bilaterally Spurling test: positive bilaterally Neck distraction test: positive bilaterally Faye sign: positive bilaterally Shoulders Muscle bulk/ tone/ strength BL Resisted Internal Rotation positive R / positive L Resisted External Rotation positive R / positive L Empty Can Test positive R / positive L Drop Arm Test positive R / positive L Lumbar spine Motor strength lower extremities ,thigh and legs 5/5 Right side , 5/5 Left side Deep tendon reflexes : Normal Knee Jerk. Normal Ankle Jerk Vertebral body tenderness over Tracy Test positive Lumbar facet Loading Test: positive Right / positive Left Range of motion of the lumbar spine Flexion 30 degrees, extension 10 degrees Straight Leg Raise test: Left/ Right positive at degrees Drop foot reflex: positive R / positive L Kathya test: positive right / positive left. Severe tenderness over the Sacroiliac joint on the Right / Left sides Gaenslen test: positive bilaterally Sacral spine : Severe tenderness over the Sacroiliac joint: right side / left side Range of motion: Flexion of the lumbar spine <60 degrees Range of motion: Extension of the lumbar spine <20 degrees Gaenslen's Test positive Kathya test: positive right side / left side Thigh Thrust Test Sacral Thrust Test Hip Joint Antalgic walking gait positive Trendelenburg positive R / positive L Imaging: None on file Assessment/ Plan : Cervical radiculpathy Recommendation of x ray M54.12. All questions answered. I have spent greater than 30 minutes on patient care today. Dr Santana was available by phone for the evaluation of this patient. The time was used to review the medical records including relevant urine studies and Prescription history (MAPs), review of the available imaging, evaluation and examination of the patient, coordination of care with the medical staff and if applicable referring physicians, as well as creation of the medical record - Pain Location Right Ear Non-Pharmacological Interventions: Heat Pharmacological Interventions: Medication Left Hip Pharmacological Interventions: Medication PQRS Narrative: Smoking Status Never smoker Home Medications: Ambulatory Orders Ferrous Sulfate [Iron (65 MG Elemental)] 325 mg PO BID #60 tab 08/15/23 Heparin Sodium,Porcine (1 ml) [Heparin Sodium] 5,000 unit SQ Q12HR #30 each 08/15/23 Metoprolol Succinate (ER) [Toprol XL] 50 mg PO DAILY #0 tab 08/16/23 Acetaminophen Tab [Tylenol] 650 mg PO Q8H PRN 08/28/23 Cyclobenzaprine [Flexeril] 5 mg PO BID PRN 08/28/23 Doxylamine Succinate [Unisom] 25 mg PO HS 08/28/23 HYDROcodone/APAP 10-325MG [[place] 10-325] 1 tab PO Q4H PRN 08/28/23 Magnesium Hydroxide [Milk of Magnesia] 2,400 mg PO DAILY PRN 08/28/23 Melatonin 10 mg PO HS 08/28/23 Sennosides/Docusate Sodium [Senna-S 8.6-50 mg Tablet] 1 tab PO BID 08/28/23 Artificial Tears-Hypromellose [Artificial Tear Drops] 1 drops BOTH EYES QID PRN ml 09/03/23 Ipratropium-Albuterol Nebulize [Duoneb 0.5 mg-3 mg/3 ml Soln] 3 ml INHALATION RT-QID each 09/03/23 Lactulose [Cephulac] 20 gm PO TID ml 09/03/23 Losartan-Hctz 50-12.5 mg [Hyzaar 50-12.5] 1 each PO DAILY 30 Days #30 tab 09/03/23 Metoclopramide [Reglan] 5 mg PO ACHS 30 Days #120 tab 09/03/23 Pantoprazole [Protonix] 40 mg PO AC-BID 30 Days #60 tab 09/03/23 Potassium Chloride ER [K-Dur 20] 20 meq PO DAILY tab 09/03/23 Metoclopramide [Reglan] 10 mg PO ACHS 30 Days #120 tab 09/04/23 guaiFENesin [Mucinex] 600 mg PO Q12HR tab 09/04/23 Controlled Substance Measures - Controlled Substance Measures Is patient prescribed a controlled substance at discharge?: No
== END ==
LOC: PNWHC3 09:44
PROVIDERS: ATTEND Specialist
DX: M47.22 Other spondylosis with radiculopathy, cervical region (principal)
CPT/HCPCS: 99212